=== PATIENT | male | born 1960 | race Caucasian/White ===

== ENCOUNTER 2016-03-18 16:49 | Emergency (ER) | payer SELFPAY ==
[2016-03-18 16:57] LABS: Glucose,Whole Blood 128 mg/dL (75-99)
[2016-03-18] MEDS ORDERED: SODIUM CHLORIDE 0.9% 1,000 ML IV STA (17:04)
[2016-03-18] MEDS ORDERED: SODIUM CHLORIDE 0.9% 500 ML IV STA (17:04)
[2016-03-18] MEDS ORDERED: DIPH,PERTUS(ACELL)TETVAC-LF 0.5 ML VIAL IM ONE (17:06)
[2016-03-18] MEDS ORDERED: MORPHINE SULFATE 4 MG/ML SYRINGE IVP STA ×2 (17:13→19:08)
[2016-03-18] MEDS ORDERED: ONDANSETRON 4 MG/2 ML VIAL IVP STA (17:13)
[2016-03-18 17:30] LABS: Basophils # (A) 0.1 k/uL (0-0.2); Basophils % (A) 2 %; CH 30.6; CHCM 34.1; Eosinophils # (A) 0.3 k/uL (0-0.7); Eosinophils % (A) 4 %; HCT 50.3 % (39.0-53.0); HDW 2.46; HGB 16.3 gm/dL (13.0-17.5); Luc # (Auto) 0.24; Luc % (Auto) 4; Lymphocytes # (A) 1.6 k/uL (1.0-4.8); Lymphocytes % (A) 25 %; MCH 29.2 pg (25.0-35.0); MCHC 32.4 g/dL (31.0-37.0); MCV 90.1 fL (80.0-100.0); Mean Platelet Volume 8.1; Monocytes # (A) 0.5 k/uL (0-1.0); Monocytes % (A) 8 %; Neutrophils # (A) 3.7 k/uL (1.3-7.7); Neutrophils % (A) 58 %; RBC 5.58 m/uL (4.30-5.90); WBC 6.3 k/uL (3.8-10.6); WBC (Perox) 6.21
[2016-03-18 17:39] LABS: INR 1.2 (<1.1); Partial Thromboplastin Time 23.7 sec (22.0-30.0); Prothrombin Time 11.6 sec (9.0-12.0)
--- NOTE | 2016-03-18 17:42 | ED ---
Syncope HPI - General Chief Complaint: Syncope Stated Complaint: syncope Time Seen by Provider: 03/18/16 16:53 Source: patient Mode of arrival: EMS Limitations: no limitations - History of Present Illness Initial Comments: Brought in by EMS with the syncope, he was donating plasma he felt sick and he felt nauseous and wanted to go to the bathroom him on her way to the bathroom he fell he hit his head for head first on the hard surface then he passed out and he has a laceration on the face as well - Related Data Home Medications Medication Instructions Recorded Confirmed FLUoxetine HCL [PROzac] 20 mg PO DAILY 05/07/15 03/18/16 Lisinopril [Zestril] 20 mg PO DAILY 05/23/15 03/18/16 Loratadine [Claritin] 10 mg PO DAILY 03/18/16 03/18/16 Allergies Allergy/AdvReac Type Severity Reaction Status Date / Time No Known Allergies Allergy Verified 03/18/16 17:36 Review of Systems ROS Statement: Those systems with pertinent positive or pertinent negative responses have been documented in the HPI. ROS Other: All systems not noted in ROS Statement are negative. Past Medical History Past Medical History: No Reported History History of Any Multi-Drug Resistant Organisms: None Reported Past Surgical History: Cholecystectomy, Hernia Repair Past Psychological History: Depression Smoking Status: Never smoker Past Alcohol Use History: None Reported Past Drug Use History: None Reported General Exam - General Exam Comments Initial Comments: General: The patient is awake and alert, in no distress, and does not appear acutely ill. GCS is 15 Skin: Skin is warm and dry and no rashes or lesions are noted. Examination of the skin noticed he has a laceration on the forehead it's 5 cm long, is T- shaped extends over the nose and of the 3 cm Eye: Pupils are equal, round and reactive to light, extra-ocular movements are intact; there is normal conjunctiva bilaterally. Ears, nose, mouth and throat: There are moist mucous membranes and no oral lesions. Neck: The neck is supple, there is no tenderness or JVD. Cardiovascular: There is a regular rate and rhythm. No murmur, rub or gallop is appreciated. Respiratory: To auscultation bilateral, no wheezing no rhonchi no distress respiratory spicer noticed Gastrointestinal: Soft, non-distended, non-tender abdomen without masses or organomegaly noted. There is no rebound or guarding present. Bowel sounds are unremarkable. Back: There is no tenderness to palpation in the midline. There is no obvious deformity. Musculoskeletal: Normal ROM, no tenderness, There is no pedal edema. There is no calf tenderness or swelling. No cords were appreciated. Neurological: CN II-XII intact, Cranial nerves III through XII are intact. There are no obvious motor or sensory deficits. Coordination appears grossly intact. Speech is normal. Psychiatric: Cooperative, appropriate mood & affect, normal judgment. Limitations: no limitations Course Vital Signs 03/18/16 03/18/16 03/18/16 16:53 17:55 21:22 Temperature 97 F L Pulse Rate 92 61 65 Respiratory 20 18 16 Rate Blood Pressure 128/60 105/58 O2 Sat by Pulse 95 92 L 95 Oximetry EKG Findings - EKG Comments: EKG Findings:: EKG shows normal sinus rhythm ventricular rate is 65 OR interval is 154 QRS duration is 114 QT/QTc is 428/445 review of this EKG showed some T- wave inversion in lead [address] elevation or ST depression noticed in other looks Procedures - Laceration Laceration #1 Time Out Performed: Yes Indication: laceration Site: face Description: irregular Depth: simple, single layer Anesthetic Used: lidocaine 1% Type of Sutures: nylon Size of Sutures: 5-0 Technique: simple, interrupted (Required about 9 stitches to approximate the edges, advised patient to get the sutures out in 6-7 days) Medical Decision Making - Lab Data Result diagrams: 03/18/16 16:50 03/18/16 16:50 Lab Results 03/18/16 03/18/16 03/18/16 Range/Units 16:50 16:50 16:50 WBC 6.3 (3.8-10.6) k/uL RBC 5.58 (4.30-5.90) m/uL Hgb 16.3 (13.0-17.5) gm/dL Hct 50.3 (39.0-53.0) % MCV 90.1 (80.0-100.0) fL MCH 29.2 (25.0-35.0) pg MCHC 32.4 (31.0-37.0) g/dL RDW 14.0 (11.5-15.5) % Plt Count 168 (150-450) k/uL Neutrophils % 58 % Lymphocytes % 25 % Monocytes % 8 % Eosinophils % 4 % Basophils % 2 % Neutrophils # 3.7 (1.3-7.7) k/uL Lymphocytes # 1.6 (1.0-4.8) k/uL Monocytes # 0.5 (0-1.0) k/uL Eosinophils # 0.3 (0-0.7) k/uL Basophils # 0.1 (0-0.2) k/uL PT (9.0-12.0) sec INR (<1.1) APTT (22.0-30.0) sec Sodium 137 (137-145) mmol/L Potassium 3.8 (3.5-5.1) mmol/L Chloride 98 (98-107) mmol/L Carbon Dioxide 29 (22-30) mmol/L Anion Gap 10 mmol/L BUN 16 (9-20) mg/dL Creatinine 0.80 (0.66-1.25) mg/dL Est GFR (MDRD) Af Amer >60 (>60 ml/min/1.73 sqM) Est GFR (MDRD) Non-Af >60 (>60 ml/min/1.73 sqM) Glucose 142 H (74-99) mg/dL POC Glucose (mg/dL) (75-99) mg/dL POC Glu Electroencephalograph Technologist ID Calcium 9.2 (8.4-10.2) mg/dL Total Bilirubin 0.5 (0.2-1.3) mg/dL AST 41 (17-59) U/L ALT 66 (21-72) U/L Alkaline Phosphatase 80 (38-126) U/L Total Creatine Kinase 109 (55-170) U/L CK-MB (CK-2) 1.1 (0.0-2.4) ng/mL CK-MB (CK-2) Rel Index 1.0 Troponin I 0.014 (0.000-0.034) ng/mL Total Protein 6.2 L (6.3-8.2) g/dL Albumin 3.7 (3.5-5.0) g/dL 03/18/16 03/18/16 Range/Units 16:50 16:54 WBC (3.8-10.6) k/uL RBC (4.30-5.90) m/uL Hgb (13.0-17.5) gm/dL Hct (39.0-53.0) % MCV (80.0-100.0) fL MCH (25.0-35.0) pg MCHC (31.0-37.0) g/dL RDW (11.5-15.5) % Plt Count (150-450) k/uL Neutrophils % % Lymphocytes % % Monocytes % % Eosinophils % % Basophils % % Neutrophils # (1.3-7.7) k/uL Lymphocytes # (1.0-4.8) k/uL Monocytes # (0-1.0) k/uL Eosinophils # (0-0.7) k/uL Basophils # (0-0.2) k/uL PT 11.6 (9.0-12.0) sec INR 1.2 (<1.1) APTT 23.7 (22.0-30.0) sec Sodium (137-145) mmol/L Potassium (3.5-5.1) mmol/L Chloride (98-107) mmol/L Carbon Dioxide (22-30) mmol/L Anion Gap mmol/L BUN (9-20) mg/dL Creatinine (0.66-1.25) mg/dL Est GFR (MDRD) Af Amer (>60 ml/min/1.73 sqM) Est GFR (MDRD) Non-Af (>60 ml/min/1.73 sqM) Glucose (74-99) mg/dL POC Glucose (mg/dL) 128 H (75-99) mg/dL POC Glu Electroencephalograph Technologist ID Miguelina Angelo Calcium (8.4-10.2) mg/dL Total Bilirubin (0.2-1.3) mg/dL AST (17-59) U/L ALT (21-72) U/L Alkaline Phosphatase (38-126) U/L Total Creatine Kinase (55-170) U/L CK-MB (CK-2) (0.0-2.4) ng/mL CK-MB (CK-2) Rel Index Troponin I (0.000-0.034) ng/mL Total Protein (6.3-8.2) g/dL Albumin (3.5-5.0) g/dL Disposition Clinical Impression: Syncope, Facial laceration Disposition: HOME SELF-CARE Condition: Good Instructions: Laceration (ED)
[2016-03-18 17:48] LABS: ALT 66 U/L (21-72); AST 41 U/L (17-59); Alkaline Phosphatase 80 U/L (38-126); Anion Gap 10 mmol/L; Blood Urea Nitrogen 16 mg/dL (9-20); Calcium 9.2 mg/dL (8.4-10.2); Carbon Dioxide 29 mmol/L (22-30); Chloride 98 mmol/L (98-107); Glucose 142 mg/dL (74-99); Non-African American GFR(MDRD) >60 (>60 ml/min/1.73 sqM); Potassium 3.8 mmol/L (3.5-5.1); Sodium 137 mmol/L (137-145); Total Bilirubin 0.5 mg/dL (0.2-1.3); Total Protein 6.2 g/dL (6.3-8.2)
[2016-03-18 18:09] LABS: Creatine Kinase MB 1.1 ng/mL (0.0-2.4); Troponin I 0.014 ng/mL (0.000-0.034)
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
--- NOTE | 2016-03-18 18:47 | XR ---
EXAMINATION TYPE: XR chest 2V DATE OF EXAM: 03/18/2016 6:43 PM COMPARISON: NONE HISTORY: Syncope TECHNIQUE: Frontal and lateral views of the chest are obtained. FINDINGS: The heart and mediastinum are normal. Lungs are clear. Diaphragm is normal. Bony thorax is intact. IMPRESSION: No active cardiopulmonary disease.
[2016-03-18] MEDS ORDERED: KETOROLAC 30 MG/ML 1 ML VIAL IVP STA (19:08)
[2016-03-18 22:16] VITALS: BP 103/68; PULSE 60; RESP 17; TEMP 97.3
== END 2016-03-18 22:28 | disposition home or self-care (01) ==
LOC: EC 16:49
DX: R55 Syncope and collapse (principal); S01.81XA Laceration without foreign body of other part of head, initial encounter; W19.XXXA Unspecified fall, initial encounter; F32.9 Major depressive disorder, single episode, unspecified; Z79.899 Other long term (current) drug therapy; Z23 Encounter for immunization
CPT/HCPCS: 96375 ×2; 96376 ×3; 12015 ×2; 90471 ×2; 96374 ×2; 99285 ×2; 36415; 93005; 80053; 82550; 82553; 84484; 85025; 85610; 85730; 71020; 72125; 70486; 70450; 90715; J2270; J2405; J1885

== ENCOUNTER 2019-02-20 03:46 | Emergency (ER) | payer OTHER ==
[2019-02-20 03:58] VITALS: BP 139/65; PULSE 75; RESP 18; TEMP 97
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
--- NOTE | 2019-02-20 05:01 | XR ---
EXAM: XR Chest, 2 Views CLINICAL HISTORY: trauma TECHNIQUE: Frontal and lateral views of the chest. COMPARISON: 03/18/2016 FINDINGS: Lungs: No significant abnormality. No consolidation. Pleural space: No significant abnormality. No pneumothorax. Heart: Stable cardiomediastinal silhouette. Mediastinum: See above. Bones/joints: No acute osseous abnormality. IMPRESSION: No radiographic evidence of acute traumatic thoracic injury.
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
== END 2019-02-20 05:39 | disposition home or self-care (01) ==
LOC: EC 03:46
DX: S00.81XA Abrasion of other part of head, initial encounter (principal); S00.01XA Abrasion of scalp, initial encounter; F10.129 Alcohol abuse with intoxication, unspecified; M54.9 Dorsalgia, unspecified; G89.29 Other chronic pain; I10 Essential (primary) hypertension; F32.9 Major depressive disorder, single episode, unspecified; Z79.899 Other long term (current) drug therapy; V47.5XXA Car driver injured in collision with fixed or stationary object in traffic accident, initial encounter; Y92.410 Unspecified street and highway as the place of occurrence of the external cause
CPT/HCPCS: 70450; 71046; 72125; 99284

== ENCOUNTER 2019-06-29 09:59 | Inpatient (IN) | payer BC, OTHER ==
--- NOTE | 2019-06-29 10:23 | ED ---
General Adult HPI - General Chief complaint: Chest Pain Stated complaint: chest pain Time Seen by Provider: 06/29/19 10:09 Source: patient, police, RN notes reviewed, old records reviewed Mode of arrival: wheelchair Limitations: no limitations - History of Present Illness Initial comments: 58-year-old male history of congestive heart failure and previous MS presenting for evaluation of chest pain and dyspnea. Patient's symptoms have been ongoing for the past 24 hours with regards to his chest pain. Pain is radiating to the left arm and neck. He states that his breathing has been difficult for some time several weeks at least. He reports swelling in his hands and feet. He is currently on diuretic but is uncertain of the medication overdose. He states he has been taking his medication as prescribed. Denies fever or chills. Reports a mild cough. - Related Data Home Medications Medication Instructions Recorded Confirmed FLUoxetine HCL [PROzac] 20 mg PO DAILY 05/07/15 03/18/16 Lisinopril [Zestril] 20 mg PO DAILY 05/23/15 03/18/16 Loratadine [Claritin] 10 mg PO DAILY 03/18/16 03/18/16 Allergies Allergy/AdvReac Type Severity Reaction Status Date / Time No Known Allergies Allergy Verified 06/29/19 10:06 Review of Systems ROS Statement: Those systems with pertinent positive or pertinent negative responses have been documented in the HPI. ROS Other: All systems not noted in ROS Statement are negative. Past Medical History Past Medical History: Hyperlipidemia, Hypertension Additional Past Medical History / Comment(s): pulmonary edema, cpap, chf, sleep apnea History of Any Multi-Drug Resistant Organisms: None Reported Past Surgical History: Cholecystectomy, Hernia Repair Past Psychological History: Depression Smoking Status: Never smoker Past Alcohol Use History: None Reported Past Drug Use History: None Reported General Exam Limitations: no limitations General appearance: alert, in no apparent distress Head exam: Present: atraumatic, normocephalic Eye exam: Present: normal appearance, PERRL ENT exam: Present: normal exam Neck exam: Present: normal inspection. Absent: tenderness, meningismus Respiratory exam: Present: normal lung sounds bilaterally. Absent: respiratory distress Cardiovascular Exam: Present: normal rhythm, bradycardia GI/Abdominal exam: Present: soft. Absent: distended, tenderness, guarding, rebound Extremities exam: Present: pedal edema Neurological exam: Present: alert, oriented X3, CN II-XII intact. Absent: motor sensory deficit Psychiatric exam: Present: normal affect, normal mood Skin exam: Present: warm, dry, intact. 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 Symptoms have been present for greater than 24 hours. States he does have previous history of MS, no previous stents. Not on any anticoagulation or antiplatelet medication. EKG shows sinus rhythm with no ST segment elevation. Chest x-ray is negative for acute cardiopulmonary disease. Patient has normal CBC, stable hemoglobin. Hypokalemia which is replaced in the emergency department. First troponin is 0.019, patient will be admitted, concern for unstable angina and CAD. Cardiology placed on consult. Patient has been initiated on heparin, given aspirin in the emergency department. - Lab Data Result diagrams: 06/29/19 10:20 06/29/19 10:20 Lab Results 06/29/19 06/29/19 06/29/19 Range/Units 10:20 10:20 10:20 WBC 6.7 (3.8-10.6) k/uL RBC 5.15 (4.30-5.90) m/uL Hgb 15.8 (13.0-17.5) gm/dL Hct 46.1 (39.0-53.0) % MCV 89.5 (80.0-100.0) fL MCH 30.7 (25.0-35.0) pg MCHC 34.3 (31.0-37.0) g/dL RDW 13.5 (11.5-15.5) % Plt Count 177 (150-450) k/uL Neutrophils % 58 % Lymphocytes % 23 % Monocytes % 9 % Eosinophils % 6 % Basophils % 1 % Neutrophils # 3.9 (1.3-7.7) k/uL Lymphocytes # 1.5 (1.0-4.8) k/uL Monocytes # 0.6 (0-1.0) k/uL Eosinophils # 0.4 (0-0.7) k/uL Basophils # 0.1 (0-0.2) k/uL PT 9.8 (9.0-12.0) sec INR 0.9 (<1.2) APTT 24.0 (22.0-30.0) sec Sodium 140 (137-145) mmol/L Potassium 3.2 L (3.5-5.1) mmol/L Chloride 96 L (98-107) mmol/L Carbon Dioxide 34 H (22-30) mmol/L Anion Gap 10 mmol/L BUN 21 H (9-20) mg/dL Creatinine 0.87 (0.66-1.25) mg/dL Est GFR (CKD-EPI)AfAm >90 (>60 ml/min/1.73 sqM) Est GFR (CKD-EPI)NonAf >90 (>60 ml/min/1.73 sqM) Glucose 91 (74-99) mg/dL Calcium 9.6 (8.4-10.2) mg/dL Magnesium 1.8 (1.6-2.3) mg/dL Total Bilirubin 0.7 (0.2-1.3) mg/dL AST 31 (17-59) U/L ALT 31 (4-49) U/L Alkaline Phosphatase 95 (38-126) U/L Troponin I (0.000-0.034) ng/mL NT-Pro-B Natriuret Pep pg/mL Total Protein 7.8 (6.3-8.2) g/dL Albumin 4.4 (3.5-5.0) g/dL Lipase 138 (23-300) U/L 06/29/19 06/29/19 Range/Units 10:20 10:20 WBC (3.8-10.6) k/uL RBC (4.30-5.90) m/uL Hgb (13.0-17.5) gm/dL Hct (39.0-53.0) % MCV (80.0-100.0) fL MCH (25.0-35.0) pg MCHC (31.0-37.0) g/dL RDW (11.5-15.5) % Plt Count (150-450) k/uL Neutrophils % % Lymphocytes % % Monocytes % % Eosinophils % % Basophils % % Neutrophils # (1.3-7.7) k/uL Lymphocytes # (1.0-4.8) k/uL Monocytes # (0-1.0) k/uL Eosinophils # (0-0.7) k/uL Basophils # (0-0.2) k/uL PT (9.0-12.0) sec INR (<1.2) APTT (22.0-30.0) sec Sodium (137-145) mmol/L Potassium (3.5-5.1) mmol/L Chloride (98-107) mmol/L Carbon Dioxide (22-30) mmol/L Anion Gap mmol/L BUN (9-20) mg/dL Creatinine (0.66-1.25) mg/dL Est GFR (CKD-EPI)AfAm (>60 ml/min/1.73 sqM) Est GFR (CKD-EPI)NonAf (>60 ml/min/1.73 sqM) Glucose (74-99) mg/dL Calcium (8.4-10.2) mg/dL Magnesium (1.6-2.3) mg/dL Total Bilirubin (0.2-1.3) mg/dL AST (17-59) U/L ALT (4-49) U/L Alkaline Phosphatase (38-126) U/L Troponin I 0.019 (0.000-0.034) ng/mL NT-Pro-B Natriuret Pep 127 pg/mL Total Protein (6.3-8.2) g/dL Albumin (3.5-5.0) g/dL Lipase (23-300) U/L Critical Care Time Critical Care Time: Yes Total Critical Care Time: 35 Disposition Clinical Impression: Unstable angina pectoris Disposition: ADMITTED IP TO THIS [facility] Condition: Stable Is patient prescribed a controlled substance at d/c from ED?: No Referrals: Marcelino Trujillo MD [Primary Care Provider] - 1-2 days Decision to Admit Reason: Admit from EC Decision Date: 06/29/19 Decision Time: 11:42
[2019-06-29 10:45] LABS: ALT 31 U/L (4-49); AST 31 U/L (17-59); African American GFR (CKD) >90 (>60 ml/min/1.73 sqM); Albumin 4.4 g/dL (3.5-5.0); Alkaline Phosphatase 95 U/L (38-126); Anion Gap 10 mmol/L; Blood Urea Nitrogen 21 mg/dL (9-20); Calcium 9.6 mg/dL (8.4-10.2); Carbon Dioxide 34 mmol/L (22-30); Chloride 96 mmol/L (98-107); Glucose 91 mg/dL (74-99); Magnesium 1.8 mg/dL (1.6-2.3); Non-African American GFR(CKD) >90 (>60 ml/min/1.73 sqM); Potassium 3.2 mmol/L (3.5-5.1); Sodium 140 mmol/L (137-145); Total Bilirubin 0.7 mg/dL (0.2-1.3); Total Protein 7.8 g/dL (6.3-8.2)
[2019-06-29 10:46] LABS: INR 0.9 (<1.2); Prothrombin Time 9.8 sec (9.0-12.0)
[2019-06-29 10:52] LABS: Basophils # (A) 0.1 k/uL (0-0.2); Basophils % (A) 1 %; Eosinophils # (A) 0.4 k/uL (0-0.7); Eosinophils % (A) 6 %; HCT 46.1 % (39.0-53.0); HGB 15.8 gm/dL (13.0-17.5); Lymphocytes # (A) 1.5 k/uL (1.0-4.8); Lymphocytes % (A) 23 %; MCH 30.7 pg (25.0-35.0); MCHC 34.3 g/dL (31.0-37.0); MCV 89.5 fL (80.0-100.0); Mean Platelet Volume 8.8; Monocytes # (A) 0.6 k/uL (0-1.0); Monocytes % (A) 9 %; Neutrophils # (A) 3.9 k/uL (1.3-7.7); Neutrophils % (A) 58 %; Platelet Count 177 k/uL (150-450); RBC 5.15 m/uL (4.30-5.90); RDW 13.5 % (11.5-15.5); WBC 6.7 k/uL (3.8-10.6)
--- NOTE | 2019-06-29 10:52 | XR ---
EXAMINATION TYPE: XR chest 2V DATE OF EXAM: 06/29/2019 COMPARISON: 02/20/2019 HISTORY: Chest pain TECHNIQUE: Frontal and lateral views of the chest are obtained. FINDINGS: There is no focal air space opacity, pleural effusion, or pneumothorax seen. Exaggeration of the pulmonary vasculature on the lateral view only is likely due to hypoventilatory lungs on the lateral view. The cardiac silhouette size is mildly enlarged as seen on the prior. The osseous stru ctures are intact. IMPRESSION: No acute cardiopulmonary process.
[2019-06-29] MEDS ORDERED: POTASSIUM CHLORIDE ER 20 MEQ TAB.ER PO STA (11:12)
[2019-06-29] MEDS ORDERED: ASPIRIN 325 MG TAB PO STA (11:13)
[2019-06-29] MEDS ORDERED: HYDROmorphone 1 MG/ML 1 ML SYRINGE IVP STA (11:28)
[2019-06-29] MEDS ORDERED: FAMOTIDINE 20 MG/2 ML VIAL IV STA (11:34)
[2019-06-29] MEDS ORDERED: SODIUM CHLORIDE 0.9% 500 ML 500 ML IV ONE (11:38)
[2019-06-29] MEDS ORDERED: ACETAMINOPHEN TAB 325 MG TAB PO PRN (11:39)
[2019-06-29] MEDS ORDERED: NALOXONE 0.4 MG/ML 1 ML VIAL IV PRN (11:39)
[2019-06-29] MEDS ORDERED: HEPARIN SODIUM,PORCINE 5,000 UNIT/ML 1 ML VIAL IV ONE (11:39)
[2019-06-29] MEDS ORDERED: HEPARIN SODIUM,PORCINE 5,000 UNIT/ML 1 ML VIAL IV PRN (11:39)
[2019-06-29] MEDS ORDERED: HEPARIN SOD,PORK IN 0.45% NACL 25,000 UNIT in 0.45% NACL 1 250ML.BAG IV SCH (11:45)
[2019-06-29] MEDS: HYDROmorphone 0.5 MG/0.5 ML SYRINGE IVP PRN ×2 (16:05→20:02)
[2019-06-29 18:25] LABS: D-Dimer 0.3 mg/L FEU (<0.60)
[2019-06-29] MEDS: SODIUM CHLORIDE 0.9% 1,000 ML IV SCH (20:02)
[2019-06-30] MEDS: HYDROmorphone 0.5 MG/0.5 ML SYRINGE IVP PRN ×2 (00:40→07:59)
[2019-06-30] MEDS: SODIUM CHLORIDE 0.9% 1,000 ML IV SCH ×2 (07:44→20:04)
[2019-06-30 10:34] LABS: Basophils # (A) 0.1 k/uL (0-0.2); Basophils % (A) 1 %; Eosinophils # (A) 0.5 k/uL (0-0.7); Eosinophils % (A) 9 %; HCT 41.7 % (39.0-53.0); HGB 14.1 gm/dL (13.0-17.5); Lymphocytes # (A) 1.3 k/uL (1.0-4.8); Lymphocytes % (A) 25 %; MCH 30.5 pg (25.0-35.0); MCHC 33.8 g/dL (31.0-37.0); MCV 90.2 fL (80.0-100.0); Mean Platelet Volume 9.4; Monocytes # (A) 0.4 k/uL (0-1.0); Monocytes % (A) 7 %; Neutrophils # (A) 2.9 k/uL (1.3-7.7); Neutrophils % (A) 55 %; Platelet Count 137 k/uL (150-450); RBC 4.62 m/uL (4.30-5.90); RDW 13.4 % (11.5-15.5); WBC 5.3 k/uL (3.8-10.6)
--- NOTE | 2019-06-30 11:00 | ECHOF ---
Referral Reason:ascending aortic aneurysm hx, chest pain MEASUREMENTS -------- HEIGHT: 188.0 cm WEIGHT: 151.5 kg BP: 116/58 RVIDd: 3.9 cm (< 3.3) IVSd: 2.0 cm (0.6 - 1.1) LVIDd: 4.8 cm (3.9 - 5.3) LVPWd: 1.7 cm (0.6 - 1.1) IVSs: 2.5 cm LVIDs: 3.2 cm LVPWs: 2.0 cm LA Diam: 4.5 cm (2.7 - 3.8) LAESV Index (A-L): 33.45 ml/m Ao Diam: 3.7 cm (2.0 - 3.7) AV Cusp: 2.4 cm (1.5 - 2.6) MV EXCURSION: 12.538 mm (> 18.000) MV EF SLOPE: 30 mm/s (70 - 150) EPSS: 1.7 cm MV E Claudy: 0.70 m/s MV DecT: 181 ms MV A Claudy: 0.81 m/s MV E/A Ratio: 0.87 AV maxP.75 mmHg AV meanP.32 mmHg RAP: 5.00 mmHg RVSP: 37.00 mmHg FINDINGS -------- Sinus rhythm. This was a technically adequate study. The left ventricular size is normal. There is severe concentric left ventricular hypertrophy. Ove rall left ventricular systolic function is mildly impaired with, an EF between 45 - 50 %. Septal wa ll motion is delayed, and consistent with conduction delay/bundle branch block. The right ventricle is mild to moderately enlarged. LA is midly dilated 29-33ml/m2. The right atrium is normal in size. Interatrial and interventricular septum intact. There is mild aortic valve sclerosis. There is mild aortic stenosis present. Peak/mean gradient a cross the Aortic Valve is 14.75mmHg / 8.32mmHg. Mild mitral annular calcification present. There is trace to mild mitral regurgitation. Mild tricuspid regurgitation present. There is mild pulmonary hypertension. The right ventricular systolic pressure, as measured by Doppler, is 37.00mmHg. Trace/mild (physiologic) pulmonic regurgitation. The aortic root size is normal. Normal inferior vena cava with normal inspiratory collapse consistent with estimated right atrial pre ssure of 5 mmHg. There is no pericardial effusion. CONCLUSIONS -------- 1. Sinus rhythm. 2. This was a technically adequate study. 3. The left ventricular size is normal. 4. There is severe concentric left ventricular hypertrophy. 5. Overall left ventricular systolic function is mildly impaired with, an EF between 45 - 50 %. 6. Septal wall motion is delayed, and consistent with conduction delay/bundle branch block. 7. The right ventricle is mild to moderately enlarged. 8. LA is midly dilated 29-33ml/m2. 9. The right atrium is normal in size. 10. Interatrial and interventricular septum intact. 11. There is mild aortic valve sclerosis. 12. There is mild aortic stenosis present. 13. Peak/mean gradient across the Aortic Valve is 14.75mmHg / 8.32mmHg. 14. Mild mitral annular calcification present. 15. There is trace to mild mitral regurgitation. 16. Mild tricuspid regurgitation present. 17. There is mild pulmonary hypertension. 18. The right ventricular systolic pressure, as measured by Doppler, is 37.00mmHg. 19. Trace/mild (physiologic) pulmonic regurgitation. 20. The aortic root size is normal. 21. Normal inferior vena cava with normal inspiratory collapse consistent with estimated right atrial pressure of 5 mmHg. 22. There is no pericardial effusion. FISHING ROD MARKER: Yamel Phillips RDCS
[2019-06-30 14:34] LABS: African American GFR (CKD) >90 (>60 ml/min/1.73 sqM); Anion Gap 6 mmol/L; Blood Urea Nitrogen 21 mg/dL (9-20); Calcium 9.1 mg/dL (8.4-10.2); Carbon Dioxide 31 mmol/L (22-30); Chloride 100 mmol/L (98-107); Glucose 121 mg/dL (74-99); Non-African American GFR(CKD) >90 (>60 ml/min/1.73 sqM); Potassium 3.2 mmol/L (3.5-5.1); Sodium 137 mmol/L (137-145)
[2019-06-30] MEDS ORDERED: Potassium Replacement Protocol 1 EACH MISC MISCELLANE PRN ×2 (14:40→18:38)
[2019-06-30] MEDS ORDERED: LORATADINE 10 MG TAB PO STA (14:41)
[2019-06-30] MEDS ORDERED: FLUoxetine HCL 20 MG CAP PO STA (14:46)
[2019-06-30] MEDS: POTASSIUM CHLORIDE ER 20 MEQ TAB.ER PO SCH ×4 (14:53→20:04)
[2019-06-30] MEDS: traMADol 50 MG TAB PO PRN ×2 (14:54→23:20)
--- NOTE | 2019-06-30 16:01 | PN ---
PROGRESS NOTE DATE OF SERVICE: 06/30/2019 CHIEF COMPLAINT: Chest pain. HISTORY OF PRESENT ILLNESS: This gentleman is doing well. He is still complaining of chest pain, but it is noncardiac. PHYSICAL EXAMINATION: Vital signs are normal. His blood pressure is elevated and his pulse has also risen. Chest is clear. Cardiac exam is normal. Abdomen is soft, nontender. Chest wall is nontender. Extremities are normal. IMPRESSION: 1. Atypical chest pain. 2. History of coronary artery disease. 3. History of ascending aortic aneurysm. 4. Hypertension. PLAN: 1. Await evaluation by Cardiology. 2. Await D-dimer. 3. Increase activity. He may be able to be discharged tomorrow. MMODL / IJN: [id number] /
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
[2019-07-01] MEDS: SODIUM CHLORIDE 0.9% 1,000 ML IV SCH (02:16)
[2019-07-01] MEDS ORDERED: REGADENOSON 0.4 MG/5 ML SYRINGE IV ONE (06:00)
[2019-07-01] MEDS: traMADol 50 MG TAB PO PRN ×3 (06:02→17:54)
[2019-07-01 06:51] LABS: Basophils # (A) 0.1 k/uL (0-0.2); Basophils % (A) 1 %; Eosinophils # (A) 0.5 k/uL (0-0.7); Eosinophils % (A) 10 %; HCT 40.5 % (39.0-53.0); Lymphocytes # (A) 1.1 k/uL (1.0-4.8); Lymphocytes % (A) 23 %; MCH 29.7 pg (25.0-35.0); MCHC 32.2 g/dL (31.0-37.0); MCV 92.1 fL (80.0-100.0); Mean Platelet Volume 8.9; Monocytes # (A) 0.4 k/uL (0-1.0); Monocytes % (A) 9 %; Neutrophils # (A) 2.6 k/uL (1.3-7.7); Neutrophils % (A) 54 %; Platelet Count 146 k/uL (150-450); RBC 4.39 m/uL (4.30-5.90); RDW 13.6 % (11.5-15.5); WBC 4.8 k/uL (3.8-10.6)
[2019-07-01 07:04] LABS: African American GFR (CKD) >90 (>60 ml/min/1.73 sqM); Anion Gap 5 mmol/L; Blood Urea Nitrogen 17 mg/dL (9-20); Calcium 9.2 mg/dL (8.4-10.2); Carbon Dioxide 31 mmol/L (22-30); Chloride 102 mmol/L (98-107); Cholesterol 143 mg/dL (<200); Glucose 107 mg/dL (74-99); HDL Cholesterol 31 mg/dL (40-60); LDL Cholesterol,Calculated 85 mg/dL (0-99); Non-African American GFR(CKD) >90 (>60 ml/min/1.73 sqM); Potassium 3.7 mmol/L (3.5-5.1); Sodium 138 mmol/L (137-145); Triglycerides 133 mg/dL (<150)
[2019-07-01] MEDS ORDERED: DIPYRIDAMOLE 70 MG in SODIUM CHLORIDE 0.9% 36 ML IV ONE ×2 (08:00→08:30)
[2019-07-01] MEDS ORDERED: AMINOPHYLLINE 500 MG/20 ML VIAL IV ONE (09:30)
--- NOTE | 2019-07-01 10:09 | P.STRESS ---
- Stress Test Note Stress Test Results/Findings: Exam Performed: NM stress persantine cardiolite Exam Date: 07/01/19 Reason for Exam: Chest Pain Height: 6 ft 2 in Weight: 153 kg Protocol: Persantine Stage: NA Duration of Exercise: NA Resting Heart Rate: 56 Resting Blood Pressure: 128/74 Maximum Achieved Heart Rate: 74 Maximum Achieved Blood Pressure: 128/74 85% PMHR: NA 100% PMHR: NA METS: NA Technologist Comment: Stress Test Results/Findings: This is a 58-year-old gentleman with history of hypertension was admitted to the hospital with the complaints of chest pain. He also has hypercholesterolemia and family history of ischemic heart disease. Stress data: Baseline EKG showed sinus rhythm with diffuse ST-T abnormalities. A standard dose of Persantine was infused. Patient continued to have atypical chest pain. EKG continued to show nonspecific ST-T abnormalities without any significant deviation from baseline. Final impression #1. Nondiagnostic Persantine stress test because of baseline EKG changes #2. Report on nuclear images to begin by the radiologist
[2019-07-01] MEDS ORDERED: AMINOPHYLLINE 500 MG/20 ML VIAL IV PRN ×2 (10:12→10:25)
[2019-07-01] MEDS ORDERED: CAFFEINE CITRATE 60 MG/3 ML VIAL IV PRN ×2 (10:12→10:25)
[2019-07-01] MEDS ORDERED: DIPYRIDAMOLE 70 MG in SODIUM CHLORIDE 0.9% 50 ML IV ONE (10:25)
[2019-07-01] MEDS: LORATADINE 10 MG TAB PO SCH (12:08)
[2019-07-01] MEDS: ASPIRIN 81 MG PO SCH (12:08)
[2019-07-01] MEDS: FLUoxetine HCL 20 MG CAP PO SCH (12:08)
--- NOTE | 2019-07-01 12:12 | NM ---
EXAMINATION TYPE: NM stress persantine cardiolite DATE OF EXAM: 07/01/2019 COMPARISON: NONE HISTORY: Chest pain TECHNIQUE: After the intravenous administration of 10.4 mCi Tc 99m Sestamibi - Cardiolite resting SP ECT images acquired 65 minutes post injection. The patient received 70 mg Persantine, 26.2 mCi Tc 99m Sestamibi - Stress images obtained 85 minutes post injection FINDINGS: There is diminished radiotracer accumulation within the inferior wall. This appears improve d on the resting images. A reversible stress-induced ischemic change along the distal third of the in ferior wall may be present. Correlate for EKG changes. There may be some mild dyskinesia of the mid anterior wall. Some global hypokinesia may be present. T he ejection fraction is low at 43%. Normal greater than 50%. IMPRESSION: Suggestion of stress-induced ischemic change within the distal third of the inferior wall the cardiac apex. Correlate with EKG changes. 2. Global Hypokinesia with some dyskinesia of the anterior wall with ejection fraction is low at 43%.
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
--- NOTE | 2019-07-01 14:16 | P.PN ---
Subjective Progress Note Date: 07/01/19 This is a 58-year-old gentleman with history of hypertension and hyperlipidemia. He is currently incarcerated. Cardiology was asked to see the patient because of symptoms of chest discomfort. Patient was seen in consultation by Dr. Pickett and recommended today to undergo stress test. He had an echocardiogram with Doppler study performed which revealed an ejection fraction of 45-50%. Blood pressure 126/70 with a heart rate in the 50s, 95% on a Ventimask. White blood cell count 4.8, hemoglobin 13, platelet count 146. Sodium 138, potassium 3.7, BUN 72 and creatinine 0.7. Objective - Vital Signs Vital signs: Vital Signs Temp 97.8 F 07/01/19 07:51 Pulse 55 L 07/01/19 11:17 Resp 16 07/01/19 04:00 BP 126/75 07/01/19 11:17 Pulse Ox 95 07/01/19 11:17 Intake & Output 06/30/19 07/01/19 07/01/19 18:59 06:59 18:59 Intake Total 375 1200 300 Balance 375 1200 300 Weight 153 kg 153 kg Intake: IV 375 300 Sodium Chloride 0.9% 1, 375 300 000 ml @ 75 mls/hr IV . [id number] GABRIELA Rx#:[id number] Intake, IV Titration 900 Amount Sodium Chloride 0.9% 1, 900 000 ml @ 75 mls/hr IV . [id number] GABRIELA Rx#:[id number] Oral 300 Other: Voiding Method Toilet # Voids 1 - Exam PHYSICAL EXAMINATION: GENERAL: 58-year-old gentleman in no acute distress at the time of my examination HEENT: Head is atraumatic, normocephalic. Pupils equal, round. Sclera anicteric. Conjunctiva are clear. Mucous membranes of the mouth are moist. Neck is supple. There is no elevated jugular venous pressure. No carotid bruit is heard. HEART EXAMINATION: Heart S1, S2 normal. No murmur or gallop heard. CHEST EXAMINATION: Lungs are clear to auscultation and precussion. No chest wall tenderness is noted on palpation or with deep breathing. ABDOMEN: Soft, nontender. Bowel sounds are heard. No organomegaly noted. EXTREMITIES: 2+ peripheral pulses with no evidence of peripheral edema and no calf tenderness noted. NEUROLOGIC patient is awake, alert and oriented 3 . - Labs CBC & Chem 7: 07/01/19 06:08 07/01/19 06:08 Labs: Abnormal Lab Results - Last 24 Hours (Table) 06/30/19 07/01/19 07/01/19 Range/Units 14:06 06:08 06:08 Plt Count 146 L (150-450) k/uL Potassium 3.2 L (3.5-5.1) mmol/L Carbon Dioxide 31 H 31 H (22-30) mmol/L BUN 21 H (9-20) mg/dL Glucose 121 H 107 H (74-99) mg/dL HDL Cholesterol 31 L (40-60) mg/dL Assessment and Plan Plan: Assessment and plan #1 chest pain, atypical for acute coronary syndrome. Acute coronary syndrome has been ruled out. Patient is scheduled today for Persantine Cardiolite stress test #2 hypertension #3 hyperlipidemia #4 hypokalemia Plan Echocardiogram with Doppler study revealed an ejection fraction of 45-50%. If the patient's a stress test is negative he may be able to be discharged from our perspective, if the stress test is positive then further recommendations will need to be made. DNP note has been reviewed, I agree with a documented findings and plan of care. Patient was seen and examined.
[2019-07-01] MEDS ORDERED: ALPRAZolam 0.5 MG TAB PO PRN (14:59)
[2019-07-01] MEDS ORDERED: NITROGLYCERIN SL TABS 0.4 MG TAB SUBLINGUAL PRN (14:59)
[2019-07-01] MEDS ORDERED: ALPRAZolam 0.25 MG TAB PO PRN (14:59)
--- NOTE | 2019-07-01 17:26 | PN ---
PROGRESS NOTE CHIEF COMPLAINT: Chest pain. HISTORY OF PRESENT ILLNESS: This gentleman has been stable and is being evaluated by Cardiology. He has had no fever or chills, arrhythmias, etc. PHYSICAL EXAMINATION: Chest is clear. Cardiac exam is normal. Abdomen is soft, nontender. IMPRESSION: 1. Chest pain. 2. History of hypertension. 3. Ascending aortic aneurysm. PLAN: Progress activity. He can probably be discharged soon, once he is cleared by Cardiology. MMODL / IJN: [id number] /
[2019-07-02] MEDS: traMADol 50 MG TAB PO PRN ×3 (00:07→18:47)
[2019-07-02] MEDS: ATORVASTATIN 80 MG TAB PO ONE ×2 (06:24→06:25)
[2019-07-02] MEDS: LORATADINE 10 MG TAB PO SCH (06:24)
[2019-07-02] MEDS: ASPIRIN 325 MG TAB PO ONE ×2 (06:24→06:25)
[2019-07-02] MEDS: FLUoxetine HCL 20 MG CAP PO SCH (06:24)
[2019-07-02] MEDS: ASPIRIN 81 MG PO SCH ×2 (06:30→07:03)
[2019-07-02] MEDS ORDERED: SODIUM CHLORIDE 0.9% 1,000 ML in EMPTY BAG 1 BAG IV ONE (07:00)
[2019-07-02 07:29] LABS: Basophils # (A) 0.1 k/uL (0-0.2); Basophils % (A) 1 %; Eosinophils # (A) 0.4 k/uL (0-0.7); Eosinophils % (A) 8 %; HCT 38.8 % (39.0-53.0); HGB 12.5 gm/dL (13.0-17.5); Lymphocytes # (A) 1.1 k/uL (1.0-4.8); Lymphocytes % (A) 20 %; MCH 29.5 pg (25.0-35.0); MCHC 32.2 g/dL (31.0-37.0); MCV 91.7 fL (80.0-100.0); Mean Platelet Volume 8.3; Monocytes # (A) 0.4 k/uL (0-1.0); Monocytes % (A) 8 %; Neutrophils # (A) 3.3 k/uL (1.3-7.7); Neutrophils % (A) 62 %; Platelet Count 133 k/uL (150-450); RBC 4.23 m/uL (4.30-5.90); RDW 13.6 % (11.5-15.5); WBC 5.3 k/uL (3.8-10.6)
[2019-07-02] MEDS: SODIUM CHLORIDE 0.9% 1,000 ML IV SCH ×2 (07:47→13:02)
[2019-07-02] MEDS ORDERED: IV FLUID CONTINUATION 1,000 ML IV ONE (11:24)
[2019-07-02] MEDS ORDERED: LIDOCAINE 1% INJ 10MG/ML (20 ML MDV) ONE (11:34)
[2019-07-02] MEDS ORDERED: fentaNYL (PF) 50 MCG/ML 2 ML AMP ONE (11:34)
[2019-07-02] MEDS: MIDAZOLAM 2 MG/2 ML VIAL IV ONE ×2 (11:47→11:54)
[2019-07-02] MEDS ORDERED: fentaNYL (PF) 50 MCG/ML 2 ML AMP IV ONE (11:50)
[2019-07-02] MEDS ORDERED: LIDOCAINE 1% INJ 10MG/ML (20 ML MDV) SQ ONE (11:50)
[2019-07-02] MEDS ORDERED: IOPAMIDOL-370 125ML BTL INJ ONE (12:06)
[2019-07-02] MEDS ORDERED: RX INFO: IV CONTRAST WAS GIVEN 1 EACH MISC MISCELLANE PRN (12:16)
--- NOTE | 2019-07-02 12:32 | CC ---
CARDIAC CATHETERIZATION REPORT INDICATION: Chest pain with abnormal stress test. PROCEDURE NOTE: After obtaining informed consent, left heart catheterization and coronary angiogram are performed via the right femoral artery using standard Kiana catheters. Patient tolerated the procedure well without any obvious immediate complications. A femoral angiogram was performed and Angio-Seal was deployed for hemostasis. FINDINGS: 1. HEMODYNAMICS: Left ventricular end-diastolic pressure is 8 to 12 mm. There is no significant gradient across the aortic valve. 2. LEFT VENTRICULOGRAM: Left ventriculogram is not performed. 3. ANGIOGRAPHIC DATA: LEFT MAIN CORONARY ARTERY: Left main coronary artery is a normal-sized vessel and is free of stenosis. Divides into left anterior descending coronary artery and circumflex coronary artery. LAD and its branches show mild nonobstructive CAD. Circumflex coronary artery is a large codominant vessel and is free of significant stenosis. Right coronary artery shows [id number] atherosclerotic plaque in the proximal and mid RCA without focal hemodynamically significant lesions. CONCLUSION: Mild to moderate nonobstructive disease involving right coronary artery. PLAN: I reviewed angiographic data with the patient and told him that his management is going to be in the form of risk factor modification optimal medical therapy. Patient's chest discomfort is probably noncardiac in origin and the abnormal stress test is probably a false-positive stress test. MMODL / IJN: [id number] /
--- NOTE | 2019-07-02 17:09 | PN ---
PROGRESS NOTE CHIEF COMPLAINT: Chest pain. HISTORY OF PRESENT ILLNESS: This gentleman had a stress study yesterday and he is going for a cardiac cath today. He is not having any further pain. He is demanding Vicodin and he was told under the circumstances with his history of alcohol intoxication and the fact he is incarcerated, that we cannot give him a narcotic. PHYSICAL EXAMINATION: Chest is clear. Cardiac exam is normal. Abdomen is soft, nontender. IMPRESSION: 1. Chest pain. 2. Hypertension. 3. Ascending aortic aneurysm. 4. Alcoholism. PLAN: Cardiac cath today. MMODL / IJN: [id number] /
[2019-07-03] MEDS: SODIUM CHLORIDE 0.9% 1,000 ML IV SCH (02:38)
[2019-07-03] MEDS: LORATADINE 10 MG TAB PO SCH (09:27)
[2019-07-03] MEDS: traMADol 50 MG TAB PO PRN ×2 (09:27→16:20)
[2019-07-03] MEDS: FLUoxetine HCL 20 MG CAP PO SCH (09:27)
[2019-07-03] MEDS: ASPIRIN 81 MG PO SCH (09:27)
--- NOTE | 2019-07-03 11:12 | P.PN ---
Subjective Progress Note Date: 07/03/19 This is a 58-year-old gentleman with history of hypertension and hyperlipidemia. He is currently incarcerated. Cardiology was asked to see the patient because of symptoms of chest discomfort. Patient was seen in consultation by Dr. Pickett and recommended today to undergo stress test. He had an echocardiogram with Doppler study performed which revealed an ejection fraction of 45-50%. Blood pressure 126/70 with a heart rate in the 50s, 95% on a Ventimask. White blood cell count 4.8, hemoglobin 13, platelet count 146. Sodium 138, potassium 3.7, BUN 72 and creatinine 0.7. 07/03/2019 The patient was seen and examined this morning by Dr. Pickett. He underwent a cardiac catheterization yesterday by Dr. Patton which revealed mild to moderate nonobstructive disease involving the right coronary artery and medical therapy was advised. He denies any chest discomfort this morning and is breathing is stable. Blood pressure 132/76 with a heart rate in the 60s, 97% on 2 L of oxygen. The patient may be discharged home today from our perspective, we will make a follow-up appointment in the office with Dr. Pickett post discharge. Objective - Vital Signs Vital signs: Vital Signs Temp 97.7 F 07/03/19 08:20 Pulse 63 07/03/19 08:20 Resp 18 07/03/19 08:20 BP 137/79 07/03/19 08:20 Pulse Ox 97 07/03/19 08:20 Intake & Output 07/02/19 07/03/19 07/03/19 18:59 06:59 18:59 Intake Total 638 500 240 Output Total 1000 700 Balance -362 -200 240 Weight 153.6 kg Intake: IV 278 Sodium Chloride 0.9% 1, 153 000 ml In Empty Bag 1 bag @ 1 ML/KG/HR 153 mls/hr IV .[id number] ONE Rx#: [id number] Oral 360 500 240 Output: Urine 1000 700 Other: # Voids 1 - Exam PHYSICAL EXAMINATION: GENERAL: 58-year-old gentleman in no acute distress at the time of my examination HEENT: Head is atraumatic, normocephalic. Pupils equal, round. Sclera anicteric. Conjunctiva are clear. Mucous membranes of the mouth are moist. Neck is supple. There is no elevated jugular venous pressure. No carotid bruit is heard. HEART EXAMINATION: Heart S1, S2 normal. No murmur or gallop heard. CHEST EXAMINATION: Lungs are clear to auscultation and precussion. No chest wall tenderness is noted on palpation or with deep breathing. ABDOMEN: Soft, nontender. Bowel sounds are heard. No organomegaly noted. EXTREMITIES: 2+ peripheral pulses with no evidence of peripheral edema and no calf tenderness noted. Right groin soft, no evidence of any hematoma. NEUROLOGIC patient is awake, alert and oriented 3 . - Labs CBC & Chem 7: 07/02/19 06:52 07/01/19 06:08 Assessment and Plan Plan: Assessment and plan #1 chest pain, atypical for acute coronary syndrome. Acute coronary syndrome has been ruled out. #2 hypertension #3 hyperlipidemia #4 hypokalemia Plan Patient's stress test was suggestive of reversible ischemia, therefore the patient underwent a cardiac catheterization yesterday by Dr. Doshi which revealed mild nonobstructive disease involving the right coronary artery and medical therapy was advised. Patient may be able to be discharged home today to follow- up with Dr. Castellon in the office. Discharge medications include aspirin 81 mg daily, Lipitor 40 mg daily, Zestril 40 mg daily, metoprolol 50 mg daily, sublingual nitroglycerin as needed for chest pain. DNP note has been reviewed, I agree with a documented findings and plan of care. Patient was seen and examined.
--- NOTE | 2019-07-03 12:39 | CDI ---
Documentation Clarification Form Date: 07/03/2019 12:21:00 PM From: Karly Green RN, CCDS Admit Date: 07/01/2019 02:31:00 PM Patient Name: Vance Lee Visit Number: [id number] ATTENTION: The Clinical Documentation Specialists (CDI) and [facility] Coding Staff appreciate your assistance in clarifying documentation. Please respond to the clarification below the line at the bottom and electronically sign. The CDI & [facility] Coding staff will review the response and follow-up if needed. Please note: Queries are made part of the Legal Health Record. If you have any questions, please contact the author of this message via ITS. Dr. Marcelino Trujillo Coronavirus screening was preformed on this patient. All patients receiving Coronavirus screening require documentation of results in medical record. Patient history/risk factors: HTN, CHF, Sleep Apnea w/ CPAP Clinical Indicators: Chief Complaint of chest pain and dyspnea x 24 hrs 06/28 CXR: No acute cardiopulmonary process. Labs: WNL ABGs: Not done 06/29/2019 1002 Vital Signs: Temp 98.8, HR 50, RR 18, B/P 118/74, SPO2 96% 2L NC 06/28 Coronavirus (PCR) Negative Treatment: 07/01 0.9%NS@153 x 1L followed by 75 cc/hr In order to capture the severity of condition, please clarify if the above treatment/clinical indicators signify: COVID-19 ruled out Other, please specify (Last Form Revision: May 2019) MTDD
[2019-07-03 13:40] VITALS: BP 144/83; PULSE 61; RESP 17; TEMP 97.6
--- NOTE | 2019-07-03 20:00 | DS ---
DISCHARGE SUMMARY CHIEF COMPLAINT: Chest pain. HISTORY OF PRESENT ILLNESS AND PHYSICAL EXAMINATION: Details of this man's history and physical can be found in the initial workup. LABORATORY STUDIES: While he was in the hospital he had laboratory studies, details of which can be found in the laboratory section of his chart. COURSE IN THE HOSPITAL: After admission he was placed on bedrest and had serial EKGs and enzymes. He was seen by Cardiology. He was taken for a stress study, which was borderline, and he subsequently underwent a cardiac catheterization which did not demonstrate any critical coronary artery lesions. At that point it was felt that he could be discharged. [facility]. He will be on the same medications that he came in on, and he will be seen in several days. He is to be released from penitentiary on Saturday. FINAL DIAGNOSES: 1. Chest pain, non-cardiac. 2. History of hypertension. 3. History of ascending aortic aneurysm. 4. History of alcohol abuse. OPERATIONS: Cardiac catheterization. CONSULTATIONS: Cardiology. He is improved. MMODL / IJN: [id number] /
[2019-07-04] MEDS ORDERED: LISINOPRIL 20 MG TAB PO SCH (09:00)
[2019-07-04] MEDS ORDERED: ATORVASTATIN 40 MG TAB PO SCH (09:00)
[2019-07-04] MEDS ORDERED: METOPROLOL TARTRATE 50 MG TAB PO SCH (09:00)
--- NOTE | 2019-07-06 13:09 | CDI ---
Documentation Clarification Form 2nd Request Date: 07/03/2019 12:21:00 PM From: Karly Green RN, CCDS Admit Date: 07/01/2019 02:31:00 PM Patient Name: Vance Lee Visit Number: [id number] ATTENTION: The Clinical Documentation Specialists (CDI) and [facility] Coding Staff appreciate your assistance in clarifying documentation. Please respond to the clarification below the line at the bottom and electronically sign. The CDI & [facility] Coding staff will review the response and follow-up if needed. Please note: Queries are made part of the Legal Health Record. If you have any questions, please contact the author of this message via ITS. Dr. Marcelino Trujillo Coronavirus screening was preformed on this patient. All patients receiving Coronavirus screening require documentation of results in medical record. Patient history/risk factors: HTN, CHF, Sleep Apnea w/ CPAP Clinical Indicators: Chief Complaint of chest pain and dyspnea x 24 hrs 06/28 CXR: No acute cardiopulmonary process. Labs: WNL ABGs: Not done 06/29/2019 1002 Vital Signs: Temp 98.8, HR 50, RR 18, B/P 118/74, SPO2 96% 2L NC 06/28 Coronavirus (PCR) Negative Treatment: 07/01 0.9%NS@153 x 1L followed by 75 cc/hr In order to capture the severity of condition, please clarify if the above treatment/clinical indicators signify: COVID-19 ruled out Other, please specify (Last Form Revision: May 2019) MTDD
--- NOTE | 2019-07-06 21:53 | MISC ---
MISCELLANOUS REPORT QUERY: COVID-19 ruled out. MMODL / IJN: [id number] /
== END 2019-07-03 16:48 | DRG 287 ==
LOC: EC 09:59 → 3SCARD 11:39 → OBSVTOIN 07-01 14:31
PROVIDERS: ADMIT Family Medicine; ATTEND Family Medicine
PROC: 4A023N7 Measurement of Cardiac Sampling and Pressure, Left Heart, Percutaneous Approach (ICD-10-PCS; principal; 2019-07-02 11:30)
PROC: B2111ZZ Fluoroscopy of Multiple Coronary Arteries using Low Osmolar Contrast (ICD-10-PCS; principal; 2019-07-02 11:30)
DX: R07.89 Other chest pain (principal); E78.5 Hyperlipidemia, unspecified; I50.9 Heart failure, unspecified; G47.30 Sleep apnea, unspecified; F32.9 Major depressive disorder, single episode, unspecified; I11.0 Hypertensive heart disease with heart failure; F10.20 Alcohol dependence, uncomplicated; E87.6 Hypokalemia; I27.20 Pulmonary hypertension, unspecified; I71.2 Thoracic aortic aneurysm, without rupture; I25.10 Atherosclerotic heart disease of native coronary artery without angina pectoris; Z20.828 Contact with and (suspected) exposure to other viral communicable diseases; Z79.899 Other long term (current) drug therapy; Z99.89 Dependence on other enabling machines and devices; Z90.49 Acquired absence of other specified parts of digestive tract; Z98.890 Other specified postprocedural states; I25.2 Old myocardial infarction; Z82.49 Family history of ischemic heart disease and other diseases of the circulatory system; Z83.3 Family history of diabetes mellitus
CPT/HCPCS: 36415; 71046; 78452; 80048; 80053; 80061; 83690; 83735; 83880; 84132; 84484; 85025; 85379; 85610; 85730; 87635; 93005; 93017; 93306; 93458; 96365; 96375; 96376; 99291

== ENCOUNTER 2019-07-25 17:52 | Inpatient (IN) | payer OTHER ==
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
[2019-07-25] MEDS ORDERED: ASPIRIN 81 MG PO STA (18:21)
[2019-07-25] MEDS ORDERED: HYDROmorphone 0.5 MG/0.5 ML SYRINGE IVP STA (18:22)
[2019-07-25 19:03] LABS: Basophils # (A) 0.1 k/uL (0-0.2); Basophils % (A) 2 %; Eosinophils # (A) 0.3 k/uL (0-0.7); Eosinophils % (A) 7 %; HCT 42.4 % (39.0-53.0); HGB 13.6 gm/dL (13.0-17.5); Lymphocytes # (A) 0.9 k/uL (1.0-4.8); Lymphocytes % (A) 19 %; MCH 29.4 pg (25.0-35.0); MCHC 32.2 g/dL (31.0-37.0); MCV 91.2 fL (80.0-100.0); Mean Platelet Volume 8.5; Monocytes # (A) 0.4 k/uL (0-1.0); Monocytes % (A) 8 %; Neutrophils # (A) 2.9 k/uL (1.3-7.7); Neutrophils % (A) 61 %; Platelet Count 184 k/uL (150-450); RBC 4.65 m/uL (4.30-5.90); RDW 13.4 % (11.5-15.5); WBC 4.7 k/uL (3.8-10.6)
--- NOTE | 2019-07-25 19:10 | XR ---
EXAMINATION TYPE: XR chest 2V DATE OF EXAM: 07/25/2019 COMPARISON: 06/29/2019 HISTORY: Sternal chest pain TECHNIQUE: Frontal and lateral views of the chest are obtained. FINDINGS: Low lung volumes exaggerate the pulmonary vasculature. Cardiomediastinal silhouette is enl arged. There is no focal air space opacity, pleural effusion, or pneumothorax seen. No acute osseous pathology seen. IMPRESSION: Pulmonary vasculature is slightly prominent likely related to low lung volumes rather th an mild pulmonary vascular congestion. Cardiomegaly is redemonstrated.
[2019-07-25 19:12] LABS: ALT 21 U/L (4-49); AST 23 U/L (17-59); African American GFR (CKD) >90 (>60 ml/min/1.73 sqM); Alkaline Phosphatase 95 U/L (38-126); Amylase 47 U/L (30-110); Anion Gap 5 mmol/L; Blood Urea Nitrogen 13 mg/dL (9-20); Calcium 9.4 mg/dL (8.4-10.2); Carbon Dioxide 30 mmol/L (22-30); Chloride 104 mmol/L (98-107); Glucose 119 mg/dL (74-99); Magnesium 1.8 mg/dL (1.6-2.3); Non-African American GFR(CKD) 82 (>60 ml/min/1.73 sqM); Potassium 4.1 mmol/L (3.5-5.1); Sodium 139 mmol/L (137-145); Total Bilirubin 0.3 mg/dL (0.2-1.3); Total Protein 6.8 g/dL (6.3-8.2)
[2019-07-25 19:19] LABS: D-Dimer 0.46 mg/L FEU (<0.60); INR 0.9 (<1.2)
[2019-07-25 19:20] LABS: Partial Thromboplastin Time 24.1 sec (22.0-30.0); Prothrombin Time 9.6 sec (9.0-12.0)
[2019-07-25] MEDS ORDERED: MORPHINE SULFATE 4 MG/ML SYRINGE IVP STA (20:08)
[2019-07-25] MEDS ORDERED: NITROGLYCERIN SL TABS 0.4 MG TAB SUBLINGUAL STA (20:18)
--- NOTE | 2019-07-25 21:19 | CT ---
EXAMINATION TYPE: CT angio thor/abd pel aorta DATE OF EXAM: 07/25/2019 COMPARISON: NONE HISTORY: CHEST PAIN CT DLP: 4104.8 mGycm. Automated Exposure Control for Dose Reduction was Utilized. CONTRAST: CTA scan of the thorax, abdomen and pelvis is performed without and with IV Contrast, patient injecte d with 100 mL of Isovue 370. Three-D imaging of the vasculature was created on a separate workstation of the chest, abdomen, and pelvis and submitted for review. FINDINGS: LUNGS: 5 mm pulmonary nodules seen in the right midlung on image 31. Strand-like areas of atelectasis at the lung bases independently. No focal consolidation. There is no pleural effusion or pneumotho rax seen. The tracheobronchial tree is patent. MEDIASTINUM: Motion artifact limits evaluation for dissection of the aortic root. No evidence of aneu rysm or dissection is seen of the ascending thoracic aorta, aortic arch, descending thoracic aorta, o r grossly of the upper abdominal aorta. The distal abdominal aorta and its branches are suboptimally evaluated given bolus timing. No aneurysm seen. There are no greater than 1 cm hilar or mediastinal l ymph nodes. No pericardial effusion is seen. Bolus timing does not allow for evaluation of pulmona ry embolus. Severe coronary artery calcifications. Strand-like density in the anterior superior media stinum likely relates to minimal residual thymic tissue. OTHER: Minimal retroareolar probable bilateral gynecomastia. LIVER/GB: Hepatic parenchyma is diffusely hypoattenuated in comparison to that of the spleen, most co mmonly seen in hepatic steatosis. This finding limits evaluation for hepatic masses. No gross evidenc e of hepatic mass is seen. No intrahepatic biliary ductal dilatation. Gallbladder is surgically absen t. PANCREAS: No significant abnormality is seen. SPLEEN: No significant abnormality is seen. ADRENALS: No significant nodularity or thickening. KIDNEYS: Right lower pole 2.2 cm simple appearing renal cyst. No hydronephrosis of either kidney. BOWEL: Appendix is retrocecal, air-filled, and within normal limits. No dilated large or small bowel. LYMPH NODES: No greater than 1cm abdominal or pelvic lymph nodes are appreciated. OSSEOUS STRUCTURES: Old healed rib fracture deformity is seen of the lateral margin of rib 2 on the r ight. Similar old healed fracture deformity of the anterior margin of rib 3 on the left and 4 on the left. Minimal degenerative change of the spine. IMPRESSION: 1. No evidence of aortic dissection or aneurysm in the thoracic aorta or abdominal aorta with limitat ion of the aortic root given motion artifact and of the distal abdominal aorta and its branches given bolus timing. 2. Severe coronary artery calcifications, marker of coronary artery disease. 3. 5 mm right-sided pulmonary nodule. CT thorax is recommended in 12 months to assess for any interva l growth.
[2019-07-25] MEDS ORDERED: PANTOPRAZOLE 40 MG/10 ML VIAL IVP ONE (22:26)
[2019-07-25] MEDS ORDERED: MAG HYDROX/AL HYDROX/SIMETH 30 ML, HYOSCYAMINE ELIXIR 10 ML, LIDOCAINE VISCOUS 2% 10 ML PO STA ×3 (22:26)
[2019-07-26] MEDS: HYDROmorphone 0.5 MG/0.5 ML SYRINGE IVP PRN ×4 (00:09→21:08)
[2019-07-26 04:05] LABS: Cholesterol 178 mg/dL (<200); HDL Cholesterol 38 mg/dL (40-60); LDL Cholesterol,Calculated 119 mg/dL (0-99); Triglycerides 103 mg/dL (<150)
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
--- NOTE | 2019-07-26 10:02 | CONS ---
CONSULTATION DATE OF DICTATION: July 26, 2019. REQUESTING PHYSICIAN: Dr. Trujillo. REASON FOR CONSULTATION: Abdominal pain and rectal bleeding. HISTORY OF PRESENT ILLNESS: The patient is a 58-year-old white male with history of hypertension, hyperlipidemia, came to the emergency room complaining of chest pain and rectal bleeding for the last 3 days duration. He describes the pain mostly in the midsternal area which is sharp in consistency and somewhat short of breath. Around the same time, he started having rectal bleeding. He had about rectal bleeding for 3 days in a row. For the 1st day it was dark and subsequently became bright red. He thinks it was moderate amount of bleeding. He denies any abdominal pain. He did have mild epigastric discomfort. No nausea, no vomiting. He never had these symptoms in the past. No prior history of peptic ulcer disease or recent NSAID use. In the ER, he was noted to have a hemoglobin that was 13 g/dL. Cardiology has been consulted, who evaluated the patient. Troponin so far has been negative. PAST MEDICAL HISTORY: Hypertension, hyperlipidemia, anxiety, depression. PAST SURGICAL HISTORY: Cholecystectomy, hernia repair. MEDICATIONS: At home include benazepril, Lipitor, albuterol, Flexeril, aspirin, vitamin D3, Lasix, hydrochlorothiazide, [place], Amlodipine, Catapres, Lopressor, Cozaar, Protonix and K- Peg. ALLERGIES: None. SOCIAL HISTORY: No smoking. No alcohol use. FAMILY HISTORY: Father had coronary artery disease. Mother had diabetes mellitus and coronary artery disease. REVIEW OF SYSTEMS: CARDIOPULMONARY: No chest pain, shortness of breath. GENITOURINARY: No dysuria or hematuria. MUSCULOSKELETAL unremarkable. SKIN unremarkable. ENDOCRINE unremarkable. PSYCHIATRIC unremarkable. NEUROLOGY unremarkable. ENT/vision unremarkable. CONSTITUTIONAL: No recent weight loss. No fever, chills, night sweats. PHYSICAL EXAMINATION: He appears comfortable, no apparent distress. VITAL SIGNS: Stable. Blood pressure is 137/74, pulse rate 59, temperature 98.3. HEENT examination unremarkable. Conjunctivae pink. Sclerae anicteric. Oral cavity no lesions. NECK: No JVD or lymph node enlargement. CHEST was clear to auscultation. HEART: Regular rate and rhythm. ABDOMEN: Soft. Bowel sounds are positive. No organomegaly. EXTREMITIES: No pedal edema. SKIN no rashes. NEUROLOGIC: Alert and oriented x3. No focal deficits. LABS: Done at the time of admission to the hospital: WBC 4.7, hemoglobin 13.6, platelets normal. Basic metabolic panel is within normal limits. Stool occult blood was positive. IMPRESSION: 1. Acute gastrointestinal bleed. The patient has been having dark colored stool followed by bright red blood per rectum for the last 3 days duration. Hemoglobin stable at 12.3 g/dL. Never had these symptoms in the past. No associated abdominal pain, possibly her lower gastrointestinal bleed, but cannot rule out upper gastrointestinal source of bleeding. He remains hemodynamically stable. 2. Atypical chest pain. Cardiology has been consulted. Troponins are negative. EKG nonspecific changes. 3. History of hypertension. 4. Hyperlipidemia. 5. History of congestive heart failure. RECOMMENDATIONS: 1. We will start him on a clear liquid diet. 2. Protonix 40 mg daily. 3. We will proceed with upper endoscopy and colonoscopy tomorrow if okay with cardiology. I discussed with the patient risks, benefits and complications of procedure and he is agreeable to it. Thank you for this consultation. MMIVORYL / NORRISN: [id number] /
[2019-07-26] MEDS ORDERED: PEG 3350-NA SULF,BICARB,CL/KCL 4,000 ML BOTTLE PO ONE (17:00)
[2019-07-26] MEDS: PANTOPRAZOLE 40 MG TABLET PO SCH (17:17)
--- NOTE | 2019-07-26 17:59 | HP ---
HISTORY AND PHYSICAL CHIEF COMPLAINT: Chest pain. HISTORY OF PRESENT ILLNESS: This gentleman came back to emergency room again with chest pain. He has been in and out recently. He has had some problems with severely high blood pressures. However, these may have been related to drinking alcohol in the past. [facility]. He also has a slight ascending aortic aneurysm which has been stable. He started to complain of chest pain. He comes in with very vague symptoms of chest pain and just not feeling well. He had no significant diaphoresis or shortness of breath. In the emergency room the EKG was unremarkable and his vital signs were normal. He was admitted for observation. He has also noticed some bright red rectal bleeding after having a bowel movement in the last several days. Hemoglobin was normal, however. He will also be evaluated by Gastroenterology. REVIEW OF SYSTEMS: He has had no syncope, orthopnea, PND, abdominal pain, nausea, vomiting, hematemesis, melena, renal failure, dysuria, hematuria, etc. Past medical history, family history and personal and social histories are all otherwise unremarkable and unchanged from his recent admitting and discharge summaries. He denies drinking. PHYSICAL EXAMINATION: Blood pressure is 102/51 with a pulse of 81, respirations of 19. He is afebrile. In general, he appeared to be in no acute distress. Skin color is normal. Skin is warm, dry. Lymph nodes not enlarged. Head, ears, eyes, nose, mouth, and throat were normal. Neck veins not distended. Thyroid not enlarged. Chest is clear and cardiac exam demonstrates sinus rhythm and no murmurs or extra sounds. Abdomen is soft and nontender. There are no masses or visceromegaly. Extremities normal. Neurologically he is intact. IMPRESSION: 1. Chest pain. 2. History of hypertension. 3. History of alcoholism. 4. Bright red rectal bleeding. PLAN: 1. Bed rest. 2. IV fluids. 3. Serial EKGs and enzymes. 4. Consult with Cardiology. 5. Consult with Gastroenterology. MMODL / IJN: [id number] /
--- NOTE | 2019-07-26 18:11 | PN ---
PROGRESS NOTE CHIEF COMPLAINT: Chest pain and bright red rectal bleeding. HISTORY OF PRESENT ILLNESS: This gentleman is doing fairly well but he is complaining of a lot of indigestion. PHYSICAL EXAMINATION: Abdomen is soft, nontender. Chest is clear. Cardiac exam is normal and the abdomen is slightly obese and the abdomen is slightly distended. IMPRESSION: 1. Chest pain. 2. History of hypertension. 3. History of ascending aortic aneurysm. 4. Lower gastrointestinal bleeding. 5. Gastritis. PLAN: 1. Continue on current medication. 2. Resume Protonix. 3. He is going on Saturday for upper and lower GI endoscopies. MMODL / IJN: [id number] /
[2019-07-27] MEDS: HYDROmorphone 0.5 MG/0.5 ML SYRINGE IVP PRN ×4 (03:54→23:54)
[2019-07-27] MEDS ORDERED: PROPOFOL 10 MG/ML 20 ML VIAL IV ONE (07:55)
[2019-07-27] MEDS ORDERED: LIDOCAINE 1% INJ 10MG/ML (20 ML MDV) ONE (07:55)
[2019-07-27] MEDS ORDERED: SODIUM CHLORIDE 0.9% 500 ML 500 ML IV ONE (08:00)
--- NOTE | 2019-07-27 08:33 | P.PCN ---
Date of Procedure: 07/27/19 Procedure(s) Performed: Brief history: Patient is a pleasant 58-year-old white male admitted hospital with chest pain and rectal bleeding for the last 3 days duration. He scheduled for an upper endoscopy as well as colonoscopy to evaluate further. Procedure performed: Esophagogastroduodenoscopy Colonoscopy with snare polypectomy Preoperative diagnosis: Chest pain Rectal bleeding Anesthesia: [facility] [place] Procedure: After informed consent was obtained from the patient was brought into the endoscopy unit and IV sedation was administered by anesthesia under continuous monitoring. Initially upper endoscopy was done. The Olympus GF 160 video endoscope was inserted inserted into the mouth and esophagus intubated without any difficulty and was gradually advanced into the stomach and duodenum and carefully examined. The bulb and second part of the duodenum appeared normal. The scope was then withdrawn into the stomach adequately insufflated with air and upon careful examination the antrum had mild gastritis. The body, cardia and fundus appeared normal. The scope was then withdrawn into the esophagus. The GE junction was located at 40 cm to the incisors. It appeared regular with no erythema erosions or ulcerations. Rest of the esophagus appeared normal. Patient tolerated the procedure well. At this time the patient continued to remain sedation. Initial digital rectal examination was normal. Olympus CF 160 video colonoscope was then inserted into the rectum and gradually advanced to the cecum without any difficulty. Careful examination was performed as the scope was gradually being withdrawn. The prep was excellent. The cecum, ascending colon, transverse colon, appeared normal. The descending colon there was a 5 mm sessile polyp removed by snare polypectomy. Rest of the descending colon, sigmoid colon and rectum appeared normal. Retroflexion was performed in the rectum and grade 2 internal hemorrhoids were noted. Patient tolerated the procedure well. Impression: 1. Upper endoscopy revealed mild antral gastritis 2. Colonoscopy revealed grade 2 internal hemorrhoids and a 5 mm descending colon polyp status post snare polypectomy Recommendations: Findings of this examination were discussed with the patient . He was advised to follow with the biopsy results. He will avoid straining and constipation and continue with a high-fiber diet. If the biopsy of the colon polyp reveals adenoma he can have a repeat colonoscopy in 5 years
[2019-07-27] MEDS: PANTOPRAZOLE 40 MG TABLET PO SCH (10:16)
[2019-07-27] MEDS ORDERED: LOSARTAN 50 MG TAB PO STA (13:59)
[2019-07-27] MEDS ORDERED: BENAZEPRIL HCL 40 MG PO SCH (14:00)
[2019-07-27] MEDS: cloNIDine HCL 0.1 MG TAB PO SCH ×2 (14:16→21:03)
[2019-07-27] MEDS: METOPROLOL SUCCINATE (ER) 100 MG TAB.ER.24H PO SCH (14:17)
[2019-07-27] MEDS: FUROSEMIDE 40 MG TAB PO SCH (14:19)
[2019-07-27] MEDS: HYDROcodone/APAP 10-325MG 1 EACH TAB PO PRN (14:20)
--- NOTE | 2019-07-27 15:15 | PN ---
PROGRESS NOTE CHIEF COMPLAINT: Possible GI bleeding and chest pain. HISTORY OF PRESENT ILLNESS: This gentleman is continuing to complain of chest pain. He was scoped today and found only to have gastritis and a small polyp which was removed from the colon. He is otherwise doing well. Blood pressure is elevated, however. PHYSICAL EXAMINATION: Chest is clear. Cardiac exam is normal. Abdomen is soft, nontender. IMPRESSION: 1. Chest pain. 2. Hypertension. 3. Gastric polyp. 4. Gastritis. PLAN: Resume treatment of his hypertension and progress activity. Hopefully, he can go home soon. He is being followed by Cardiology. MMODL / IJN: [id number] /
[2019-07-28] MEDS: HYDROmorphone 0.5 MG/0.5 ML SYRINGE IVP PRN ×2 (05:09→10:58)
[2019-07-28] MEDS: PANTOPRAZOLE 40 MG TABLET PO SCH (05:10)
[2019-07-28] MEDS: cloNIDine HCL 0.1 MG TAB PO SCH ×2 (09:14→15:55)
[2019-07-28] MEDS: METOPROLOL SUCCINATE (ER) 100 MG TAB.ER.24H PO SCH (09:14)
[2019-07-28] MEDS: FUROSEMIDE 40 MG TAB PO SCH (09:14)
--- NOTE | 2019-07-28 10:44 | ECHOF ---
Referral Reason:cp MEASUREMENTS -------- HEIGHT: 188.0 cm WEIGHT: 116.1 kg BP: 145/88 IVSd: 2.1 cm (0.6 - 1.1) LVIDd: 4.8 cm (3.9 - 5.3) LVPWd: 2.1 cm (0.6 - 1.1) IVSs: 2.2 cm LVIDs: 3.2 cm LVPWs: 2.3 cm %FS: 33.33 % EDV(Teich): 159.25 ml EF(Teich): 61.30 % ESV(Teich): 61.63 ml IVSd: 2.06 cm (0.6 - 1.1) IVSs: 2.06 cm LVIDd: 5.69 cm (3.9 - 5.3) LVIDs: 3.79 cm LVPWd: 1.90 cm (0.6 - 1.1) LVPWs: 2.60 cm SV(Teich): 97.62 ml FINDINGS -------- Sinus rhythm. This was a technically difficult study with suboptimal apical views. Morbid Obesity Limited Study There is severe concentric left ventricular hypertrophy. Overall left ventricular systolic function is low-normal with, an EF between 50 - 55 %. Lumason used There is no pericardial effusion. CONCLUSIONS -------- 1. Sinus rhythm. 2. This was a technically difficult study with suboptimal apical views. 3. Morbid Obesity 4. Limited Study 5. There is severe concentric left ventricular hypertrophy. 6. Overall left ventricular systolic function is low-normal with, an EF between 50 - 55 %. 7. Lumason used 8. There is no pericardial effusion. SERVICE WORKER HELPER: Janae Castillo, [facility]
[2019-07-28 11:35] VITALS: RESP 18
--- NOTE | 2019-07-28 15:24 | PN ---
PROGRESS NOTE DATE OF DICTATION: 07/28/2019 This patient is a 58-year-old pleasant white male admitted to the hospital with chest pain and rectal bleeding. He underwent an EGD and colonoscopy yesterday that revealed small internal hemorrhoids and small descending colon polyp. He is doing better. He still has intermittent rectal bleeding. He reports no abdominal pain. No nausea, vomiting. PHYSICAL EXAMINATION: Appears comfortable. VITAL SIGNS: Stable. Blood pressure 145/88, pulse rate 60, temperature 97.8. HEENT examination unremarkable. Conjunctivae pink. Sclerae anicteric. Oral cavity no lesions. NECK: No JVD or lymph node enlargement. CHEST: Clear to auscultation. HEART: Regular rate and rhythm. ABDOMEN: Soft. Bowel sounds are positive. No organomegaly. EXTREMITIES: No pedal edema. SKIN: No rashes. NEUROLOGIC: Alert and oriented x3. No focal deficits. LABS: No labs available from today. IMPRESSION: 1. Rectal bleeding of 3 days' duration, status post esophagogastroduodenoscopy and colonoscopy yesterday that revealed grade 2 internal hemorrhoids. 2. Atypical chest pain. RECOMMENDATIONS: 1. High-fiber diet. 2. Fiber supplements every day. 3. Avoid straining and constipation. 4. He can be discharged home with an outpatient followup in 2-3 weeks. Thank you for this consultation. MMMARY / NORRISN: [id number] /
[2019-07-28] MEDS: HYDROcodone/APAP 10-325MG 1 EACH TAB PO PRN (15:55)
[2019-07-28 16:27] VITALS: BP 150/88; PULSE 63; TEMP 97.4
[2019-07-28] MEDS ORDERED: IBUPROFEN 400 MG TAB PO STA (18:11)
[2019-07-28] MEDS ORDERED: hydrALAZINE HCL 50 MG TAB PO SCH (22:00)
--- NOTE | 2019-07-29 05:34 | DS ---
DISCHARGE SUMMARY CHIEF COMPLAINT: Chest pain and hematochezia. HISTORY OF PRESENT ILLNESS AND PHYSICAL EXAM: Details of this man's history and physical can be found in the initial workup. LABORATORY STUDIES: While he was in the hospital he had laboratory studies, details of which can be found in the laboratory section of his chart. COURSE IN HOSPITAL: After admission, he was placed on bedrest, started on intravenous fluids and had serial EKGs and enzymes. He was seen and followed by Cardiology. He had bright red rectal bleeding and was seen by Gastroenterology. He was taken for endoscopies and was found to have gastritis and a colonic polyp. He was stable and Cardiology felt that he could be discharged on . He will go home on light activity about the house and a cardiac diet. He will be set up for followup in the office in a few days. FINAL DIAGNOSES: 1. Chest pain. 2. Hypertension. 3. Cardiomyopathy. 4. Bright red rectal bleeding. 5. Colonic polyp. 6. Gastritis. OPERATIONS: Endoscopies. CONSULTATIONS: Gastroenterology and Cardiology. He is improved. MMODL / IJN: [id number] /
--- NOTE | 2019-07-30 18:43 | CDI ---
Documentation Clarification Form Date: 07/30/19 From: Rita Lucas CCS Phone: If you have a question about this query, please contact Nicki Edmonds, [employer] at [phone] between 8am and 5pm. Admit Date: 07/28/19 Discharge Date:07/28/19 Patient Name: Vance Lee Visit Number: [id number] ATTENTION: The Clinical Documentation Specialists (CDI) and [facility] Coding Staff appreciate your assistance in clarifying documentation. Please respond to the clarification below the line at the bottom and electronically sign. The CDI & [facility] Coding staff will review the response and follow-up if needed. Please note: Queries are made part of the Legal Health Record. If you have any questions, please contact the author of this message via ITS. Dear Dr. Trujillo, CHF is documented in the ED, Consult. History/Risk Factors: HTN, Obesity, Cardiomyopathy, CAD, Sleep Apnea, Aortic Valve Disease Clinical Indicators: History of CHF, Cardiomegaly VS/Pulse OX: BP 106/51, NH 66, RR 18, O2 Sat 94 Echocardiogram Results: here is severe concentric left ventricular hypertrophy.Overall left ventricular systolic function is low-normal with, an EF between 50 - 55 %. Chest X Ray: Pulmonary vasculature is slightly prominent likely related to low lung volumes rather than mild pulmonary vascular congestion.Cardiomegaly is redemonstrated. Treatment: Lasix 40 mg PO Daily In your professional opinion, can you please clarify the acuity and type of CHF if known? Systolic Heart Failure: Acute Chronic Acute on Chronic Diastolic Heart Failure: Acute Chronic Acute on Chronic Systolic & Diastolic Heart Failure: Acute Chronic Acute on Chronic Heart Failure Unable to Determine Other, please specify MTDD
--- NOTE | 2019-07-30 18:43 | CDI ---
Documentation Clarification Form Date: 07/30/19 From: Rita Lucas CCS Phone: If you have a question about this query, please contact Nicki Edmonds, [employer] De[employer]ader at [phone] between 8am and 5pm. Admit Date: 07/28/19 Discharge Date:07/28/19 Patient Name: Vance Lee Visit Number: [id number] ATTENTION: The Clinical Documentation Specialists (CDI) and [facility] Coding Staff appreciate your assistance in clarifying documentation. Please respond to the clarification below the line at the bottom and electronically sign. The CDI & [facility] Coding staff will review the response and follow-up if needed. Please note: Queries are made part of the Legal Health Record. If you have any questions, please contact the author of this message via ITS. Dear Dr. Trujillo, GI bleed is documented in the ED, H&P, Consult, PNs Patient history/risk factors: HTN, CAD, Polyp, Gastritis, Hemorrhoid, Obesity Clinical Indicators: Rectal bleed, Hematochezia EGD/colonoscopy performed and findings: Gastritis, Colon polyp, Grade 2 internal hemorrhoids Treatment: Polyp removed, Protonix 40 mg IVP Consults: Pooja In your professional opinion, can you please clarify the underlying cause of GI bleed if known? Colon Polyp Gastritis Internal Hemorrhoid Other, please specify Unable to determine MTDD
--- NOTE | 2019-08-01 10:37 | MISC ---
MISCELLANOUS REPORT Colonic polyp. Acuity of congestive heart failure. Diastolic chronic. MMODL / IJN: [id number] /
== END 2019-07-28 18:25 | disposition home or self-care (01) | DRG 394 ==
LOC: EC 17:52 → 3SCARD 22:25 → OBSVTOIN 07-28 08:51
PROVIDERS: ADMIT Family Medicine; ATTEND Family Medicine
PROC: 0DJ08ZZ Inspection of Upper Intestinal Tract, Via Natural or Artificial Opening Endoscopic (ICD-10-PCS; principal; 2019-07-27 08:00)
PROC: 0DBM8ZZ Excision of Descending Colon, Via Natural or Artificial Opening Endoscopic (ICD-10-PCS; principal; 2019-07-27 08:00)
DX: D12.4 Benign neoplasm of descending colon (principal); K92.1 Melena; I42.9 Cardiomyopathy, unspecified; I50.32 Chronic diastolic (congestive) heart failure; K29.50 Unspecified chronic gastritis without bleeding; Z11.59 Encounter for screening for other viral diseases; I50.9 Heart failure, unspecified; I11.0 Hypertensive heart disease with heart failure; I71.2 Thoracic aortic aneurysm, without rupture; F10.21 Alcohol dependence, in remission; E78.5 Hyperlipidemia, unspecified; I25.10 Atherosclerotic heart disease of native coronary artery without angina pectoris; R20.2 Paresthesia of skin; G47.30 Sleep apnea, unspecified; F41.9 Anxiety disorder, unspecified; F32.9 Major depressive disorder, single episode, unspecified; I35.0 Nonrheumatic aortic (valve) stenosis; R07.89 Other chest pain; E66.9 Obesity, unspecified; K64.1 Second degree hemorrhoids; K30 Functional dyspepsia; Z68.32 Body mass index [BMI] 32.0-32.9, adult; Z79.899 Other long term (current) drug therapy; Z79.82 Long term (current) use of aspirin; Z87.820 Personal history of traumatic brain injury; Z90.49 Acquired absence of other specified parts of digestive tract; Z83.3 Family history of diabetes mellitus; Z82.49 Family history of ischemic heart disease and other diseases of the circulatory system
CPT/HCPCS: 36415; 43235; 45385; 71046; 71275; 74174; 80053; 80061; 80320; 82150; 82272; 83690; 83735; 84484; 85025; 85379; 85610; 85730; 87635; 88305; 93005; 93308; 96374; 96375; 99285

== ENCOUNTER 2019-10-03 15:24 | Observation (INO) | payer OTHER ==
[2019-10-03 15:48] LABS: Glucose,Whole Blood 107 mg/dL (75-99)
[2019-10-03] MEDS ORDERED: SODIUM CHLORIDE 0.9% 1,000 ML IV STA ×3 (15:55→17:56)
[2019-10-03] MEDS ORDERED: KETOROLAC 30 MG/ML 1 ML VIAL IVP STA (16:06)
[2019-10-03 16:20] LABS: Basophils # (A) 0.1 k/uL (0-0.2); Basophils % (A) 2 %; Eosinophils # (A) 0.4 k/uL (0-0.7); Eosinophils % (A) 6 %; HCT 47.5 % (39.0-53.0); HGB 15.6 gm/dL (13.0-17.5); Lymphocytes # (A) 1.7 k/uL (1.0-4.8); Lymphocytes % (A) 21 %; MCH 29.1 pg (25.0-35.0); MCHC 32.7 g/dL (31.0-37.0); Mean Platelet Volume 8.5; Monocytes # (A) 0.7 k/uL (0-1.0); Monocytes % (A) 8 %; Neutrophils # (A) 4.9 k/uL (1.3-7.7); Neutrophils % (A) 61 %; Platelet Count 214 k/uL (150-450); RBC 5.34 m/uL (4.30-5.90); RDW 13.7 % (11.5-15.5)
[2019-10-03 16:25] LABS: Prothrombin Time 10.5 sec (9.0-12.0)
[2019-10-03 16:31] LABS: Albumin 3.6 g/dL (3.5-5.0); Calcium 9.1 mg/dL (8.4-10.2); Magnesium 1.7 mg/dL (1.6-2.3); Potassium 4.4 mmol/L (3.5-5.1); Total Bilirubin 0.3 mg/dL (0.2-1.3)
--- NOTE | 2019-10-03 17:07 | XR ---
EXAMINATION TYPE: XR chest 2V DATE OF EXAM: 10/03/2019 COMPARISON: 07/25/2019 HISTORY: Dizziness TECHNIQUE: FINDINGS: There is no heart failure nor confluent pneumonic infiltrate. Costophrenic angles are fairl y clear. Heart size is normal. There are no hilar masses. Bony thorax is intact. There are chest lead s. IMPRESSION: No active cardiopulmonary disease. Normal heart. No change.
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
[2019-10-03] MEDS ORDERED: ORPHENADRINE 30 MG/ML 2 ML VIAL IVP STA (18:03)
[2019-10-03] MEDS ORDERED: MAGNESIUM SULFATE-D5W PMX 1 GM in DEXTROSE/WATER 1 100ML.BAG IVPB ONE (18:11)
[2019-10-03] MEDS ORDERED: NITROGLYCERIN SL TABS 0.4 MG TAB SUBLINGUAL PRN (19:00)
[2019-10-03] MEDS ORDERED: CYCLOBENZAPRINE 10 MG TAB PO PRN (19:02)
[2019-10-03] MEDS ORDERED: ALBUTEROL NEBULIZED 2.5 MG/3 ML INHALATION PRN (19:02)
[2019-10-03 19:42] LABS: Appearance,Urine Clear (Clear); Bilirubin,Urine Negative (Negative); Blood,Urine Negative (Negative); Color,Urine Yellow; Glucose,Urine (UA) Negative (Negative); Ketones,Urine Negative (Negative); Leukocyte Esterase,Urine Negative (Negative); Nitrite,Urine Negative (Negative); PH, Urine 5.5 (5.0-8.0); Protein,Urine Trace (Negative); Urobilinogen,Urine <2.0 mg/dL (<2.0)
[2019-10-03] MEDS: cloNIDine HCL 0.1 MG TAB PO SCH (21:02)
[2019-10-03] MEDS: POTASSIUM CHLORIDE ER 20 MEQ TAB.ER PO SCH (21:04)
[2019-10-03] MEDS: hydrALAZINE HCL 50 MG TAB PO SCH (21:04)
[2019-10-03] MEDS: FUROSEMIDE 80 MG TAB PO SCH (21:05)
[2019-10-03] MEDS: HYDROcodone/APAP 10-325MG 1 EACH TAB PO PRN (21:08)
[2019-10-04] MEDS: HYDROcodone/APAP 10-325MG 1 EACH TAB PO PRN ×3 (02:17→21:55)
[2019-10-04 03:39] LABS: Cholesterol 109 mg/dL (<200); HDL Cholesterol 19 mg/dL (40-60); LDL Cholesterol,Calculated 56 mg/dL (0-99); Triglycerides 169 mg/dL (<150)
[2019-10-04] MEDS: PANTOPRAZOLE 40 MG TABLET PO SCH (06:40)
[2019-10-04] MEDS ORDERED: METOPROLOL SUCCINATE (ER) 100 MG TAB.ER.24H PO SCH (09:00)
[2019-10-04] MEDS ORDERED: ASPIRIN 325 MG TAB PO SCH (09:00)
[2019-10-04] MEDS ORDERED: LIPITOR PO SCH (09:00)
[2019-10-04] MEDS: ASPIRIN 81 MG PO SCH (09:39)
[2019-10-04] MEDS: POTASSIUM CHLORIDE ER 20 MEQ TAB.ER PO SCH ×2 (09:39→20:59)
[2019-10-04] MEDS: allopurinoL 300 MG TAB PO SCH (09:40)
[2019-10-04] MEDS ORDERED: NITROGLYCERIN SL TABS 0.4 MG TAB SUBLINGUAL PRN (09:47)
[2019-10-04] MEDS ORDERED: HYDROmorphone 0.5 MG/0.5 ML SYRINGE IVP STA (09:48)
[2019-10-04] MEDS: cloNIDine HCL 0.1 MG TAB PO SCH (10:08)
[2019-10-04] MEDS: amLODIPine 10 MG TAB PO SCH (10:08)
[2019-10-04] MEDS: hydrALAZINE HCL 50 MG TAB PO SCH (10:08)
[2019-10-04] MEDS: lisinopriL 20 MG TAB PO SCH (10:08)
[2019-10-04] MEDS ORDERED: SODIUM CHLORIDE 0.9% 1,000 ML IV ONE (10:23)
[2019-10-04 11:14] LABS: African American GFR (CKD) >90 (>60 ml/min/1.73 sqM); Anion Gap 4 mmol/L; Blood Urea Nitrogen 18 mg/dL (9-20); Calcium 8.3 mg/dL (8.4-10.2); Carbon Dioxide 28 mmol/L (22-30); Chloride 106 mmol/L (98-107); Glucose 108 mg/dL (74-99); Non-African American GFR(CKD) >90 (>60 ml/min/1.73 sqM); Potassium 4.2 mmol/L (3.5-5.1); Sodium 138 mmol/L (137-145)
[2019-10-04] MEDS: SODIUM CHLORIDE 0.9% 1,000 ML IV SCH ×2 (11:56→21:00)
--- NOTE | 2019-10-04 11:57 | CONS ---
CONSULTATION CHIEF COMPLAINT: Chest pain. Vance is a 58-year-old gentleman with history of hypertension who presented to hospital because his blood pressure was low and he had chest discomfort. He states that he is feeling weak and lethargic, dizzy and also had chest pain that goes up to his neck. His blood pressure on his initial presentation was 81/55. He complained of chest discomfort. At the time of my evaluation, he is pain free. Blood pressure has improved and his antihypertensives are currently on hold. The chest x-ray did not reveal any acute pulmonary process and a normal heart size. The patient underwent thoracic aortic CT in July that showed a normal size aorta, underwent cardiac catheterization that revealed mild to moderate nonobstructive disease involving right coronary artery. On this admission, cardiac enzymes have been negative. EKG does not reveal ischemic changes. I believe patient's hypotension is related to the multiple antihypertensives and the diuretic that he is on. We are going to cut back on the doses and gradually resume them. The chest pain is sharp, atypical and the exact etiology is unknown. PAST MEDICAL HISTORY: Significant for hypertension, recent cardiac catheterization that did not reveal significant obstructive CAD. MEDICATIONS: Include Apresoline 50 t.i.d., Catapres 0.3 t.i.d., Norvasc 10 daily, K-Peg con 20 b.i.d., Protonix, Toprol-XL 100 daily, Lipitor, Lasix 80 mg daily, Flexeril, benazepril, aspirin, Zyloprim, and albuterol. ALLERGIES: There are no known drug allergies. FAMILY HISTORY: Negative for premature coronary artery disease. SOCIAL HISTORY: Negative for current smoking, EtOH abuse, or drug abuse. REVIEW OF SYSTEMS: HEENT is significant for dizziness. Cardiac as described above. Respiratory as described above. GI negative. Genitourinary negative. Allergy none. Skin negative. Musculoskeletal significant for arthritis. Psychosocial negative. CONSTITUTIONAL negative. Derm negative. Oncological negative. CLIN ASST negative. Rest of the system review is not relevant. EXAM: Afebrile. Heart rate is 50 beats per minute. Blood pressure is 94/60. Respiratory rate is 16, O2 saturation is 94% on room air. There is no jugular venous distention. Carotid upstroke is normal. There is no bruit. Chest exam reveals good air entry bilaterally. Heart exam reveals first and second heart sounds. No gallop. ABDOMEN: Soft. Exam of extremities did not reveal any edema. Peripheral pulses are felt. ASSESSMENT: 1. Atypical chest pain, myocardial infarction ruled out. Recent cardiac catheterization. 2. Hypotension, probably related to the multiple antihypertensives and diuretic that the patient is on. PLAN: I am going to hold the Lasix. Give him fluids and cut back on the doses of the antihypertensives. MMODL / IJN: [id number] /
[2019-10-04] MEDS: cloNIDine HCL 0.2 MG TAB PO SCH ×2 (16:07→20:59)
[2019-10-04] MEDS: FUROSEMIDE 80 MG TAB PO SCH (20:59)
--- NOTE | 2019-10-05 01:51 | HP ---
HISTORY AND PHYSICAL CHIEF COMPLAINT: Hypotension and dizziness. HISTORY OF PRESENT ILLNESS: This is another admission for this 58-year-old white male who has had a history of very high blood pressures. He has required significant amounts of medications to control this. However, he has also been very noncompliant and has had a drinking problem. There is a possibility that his blood pressure has been elevated when he has been drinking. At times, his blood pressure seems quite good and his medicine has been cut back. Nonetheless, he apparently was sitting at home when he developed lightheadedness and dizziness and his blood pressure was taken at 86/51, and he came to emergency room. He denied any focal neurologic deficits, diaphoresis, shortness of breath, chest pain, etc. REVIEW OF SYSTEMS: Review of systems otherwise unremarkable. He has had no diarrhea, melena, hematochezia, nausea, vomiting, hematemesis, incontinence, renal failure, urgency, dysuria, hematuria, etc. Past medical history, family history and personal and social histories are all otherwise unremarkable and essentially unchanged from his prior admissions. He is on numerous medications includin. Albuterol. 2. Zyloprim 300 mg once a day. 3. Amlodipine 10 mg once a day. 4. Aspirin 81 mg. 5. Clonidine 0.2 mg t.i.d. 6. Flexeril 10 mg t.i.d. p.r.n. 7. Vitamin D 50,000 a month. 8. Lasix 80 mg once a day. 9. Vicodin 10 q.6 p.r.n. 10.Lisinopril 40 mg once a day. 11.Metoprolol 50 mg once a day. 12.Protonix 40 mg once a day. 13.KCl 20 mEq twice a day. He may have a slightly dilated aortic or proximal aorta. This has been questioned on and off. He has had no anterior chest pain. PHYSICAL EXAMINATION: Temperature is 99.6 with a pulse of 62, respirations of 18, blood pressure of 81/55. In general, he appeared to be overweight and in no acute distress. Skin color is normal. Skin is warm and dry. Lymph nodes not enlarged. Head, ears, eyes, nose, mouth, and throat were normal. Neck veins not distended. Thyroid was not enlarged. Chest is clear. Cardiac exam demonstrates normal sinus rhythm and no murmurs or extra sounds. The abdomen is protuberant and soft. There are no masses. Extremities are normal. Neurologically, he is intact. He is admitted to the hospital with diagnoses. 1. Hypotension, possibly iatrogenic. 2. Essential hypertension. 3. History of congestive heart failure and cardiomyopathy. 4. Dilated ascending aorta. 5. History of alcohol abuse. PLAN: 1. Bed rest. 2. IV fluids. 3. Hold back on some of his antihypertensive medication. 4. Consult with Cardiology. MMIVORYL / NORRISN: [id number] /
[2019-10-05] MEDS: HYDROcodone/APAP 10-325MG 1 EACH TAB PO PRN ×4 (03:40→20:27)
[2019-10-05] MEDS: PANTOPRAZOLE 40 MG TABLET PO SCH (06:28)
[2019-10-05] MEDS: ASPIRIN 81 MG PO SCH (08:40)
[2019-10-05] MEDS: POTASSIUM CHLORIDE ER 20 MEQ TAB.ER PO SCH ×2 (08:41→20:26)
[2019-10-05] MEDS: amLODIPine 10 MG TAB PO SCH (08:42)
[2019-10-05] MEDS: cloNIDine HCL 0.2 MG TAB PO SCH ×3 (08:42→20:26)
[2019-10-05] MEDS: allopurinoL 300 MG TAB PO SCH (08:42)
[2019-10-05] MEDS: lisinopriL 20 MG TAB PO SCH (08:42)
[2019-10-05] MEDS: METOPROLOL SUCCINATE (ER) 50 MG TAB.ER.24H PO SCH (08:42)
[2019-10-05] MEDS ORDERED: ERGOCALCIFEROL 50,000 UNIT CAP PO SCH (09:00)
[2019-10-05] MEDS: SODIUM CHLORIDE 0.9% 1,000 ML IV SCH (10:34)
--- NOTE | 2019-10-05 11:56 | P.PN ---
Subjective Progress Note Date: 10/05/19 Principal diagnosis: Chest pain This is a pleasant 76-year-old gentleman who was admitted to the hospital with chest discomfort and ruled out for acute coronary event. Few weeks ago he underwent a heart catheterization that revealed mild to moderate nonobstructive coronary artery disease. He was seen this morning. He is chest pain-free at this point. He did have earlier reproducible chest discomfort. Hemodynamically he is stable. From a cardiovascular standpoint of view, the patient can be discharged home. Objective - Vital Signs Vital signs: Vital Signs Temp 97.5 F L 10/05/19 11:26 Pulse 61 10/05/19 11:26 Resp 18 10/05/19 11:26 BP 120/69 10/05/19 11:26 Pulse Ox 92 L 10/05/19 11:26 Intake & Output 10/04/19 10/05/19 10/05/19 18:59 06:59 18:59 Intake Total 1440 450 120 Output Total 4500 Balance 1440 -4050 120 Weight 158.5 kg Intake: Oral 1440 450 120 Output: Urine 4500 Other: Voiding Method Toilet Urinal Urinal - Constitutional General appearance: Present: no acute distress - Respiratory Respiratory: bilateral: CTA - Cardiovascular Rhythm: regular Heart sounds: normal: S1, S2 - Labs CBC & Chem 7: 10/03/19 16:05 10/04/19 10:34 Assessment and Plan Assessment: Assessment #1 atypical chest discomfort #2 mild to moderate nonobstructive coronary artery disease Plan #1 the patient currently is chest pain-free #2% heart catheterization revealed mild to moderate CAD #3 the patient can be discharged home
--- NOTE | 2019-10-05 17:56 | PN ---
PROGRESS NOTE CHIEF COMPLAINT: Syncopal episode. HISTORY OF PRESENT ILLNESS: This gentleman is doing fairly well. He has had no chest pain. He has had no palpitations or arrhythmias. He has had no dizziness or syncope. Vital signs are normal and his blood pressure is doing well, running around 130 to 140 systolically. PHYSICAL EXAMINATION: Color is good. His chest is clear. Cardiac exam is normal and the abdomen is protuberant and soft. IMPRESSION: 1. Syncopal episodes. 2. Hypotension. 3. History of congestive heart failure. PLAN: 1. Progress activity. 2. He is being further evaluated by Cardiology. MMODL / IJN: [id number] /
[2019-10-05] MEDS: FUROSEMIDE 80 MG TAB PO SCH (20:26)
[2019-10-06] MEDS: SODIUM CHLORIDE 0.9% 1,000 ML IV SCH ×2 (01:07→12:58)
[2019-10-06] MEDS: HYDROcodone/APAP 10-325MG 1 EACH TAB PO PRN ×3 (04:01→16:18)
[2019-10-06] MEDS: PANTOPRAZOLE 40 MG TABLET PO SCH (06:16)
[2019-10-06 09:05] VITALS: TEMP 97.9
[2019-10-06] MEDS: POTASSIUM CHLORIDE ER 20 MEQ TAB.ER PO SCH (09:07)
[2019-10-06] MEDS: cloNIDine HCL 0.2 MG TAB PO SCH ×2 (09:07→16:18)
[2019-10-06] MEDS: ASPIRIN 81 MG PO SCH (09:07)
[2019-10-06] MEDS: lisinopriL 20 MG TAB PO SCH ×2 (09:07→12:58)
[2019-10-06] MEDS: amLODIPine 10 MG TAB PO SCH (09:12)
[2019-10-06] MEDS: allopurinoL 300 MG TAB PO SCH (09:13)
[2019-10-06] MEDS: METOPROLOL SUCCINATE (ER) 50 MG TAB.ER.24H PO SCH (09:19)
--- NOTE | 2019-10-06 11:36 | P.PN ---
Subjective Progress Note Date: 10/06/19 Principal diagnosis: Chest pain This is a pleasant 76-year-old gentleman who was admitted to the hospital with chest discomfort and ruled out for acute coronary event. Few weeks ago he underwent a heart catheterization that revealed mild to moderate nonobstructive coronary artery disease. The patient was seen today, 06/06/2019. He continues to have mild ongoing chest discomfort but seems to be atypical and reproducible on examination. The cardiovascular standpoint of view, the patient can be discharged home Objective - Vital Signs Vital signs: Vital Signs Temp 97.9 F 10/06/19 08:00 Pulse 58 L 10/06/19 08:00 Resp 16 10/06/19 08:00 BP 127/74 10/06/19 08:00 Pulse Ox 93 L 10/06/19 08:00 Intake & Output 10/05/19 10/06/19 10/06/19 18:59 06:59 18:59 Intake Total 1040 360 Output Total 540 975 Balance 500 -975 360 Weight 155.8 kg Intake: Intake, IV Titration 560 Amount Sodium Chloride 0.9% 1, 560 000 ml @ 75 mls/hr IV . [id number] [facility] Rx#:[id number] Oral 480 360 Output: Urine 540 975 Other: Voiding Method Urinal # Voids 1 1 # Bowel Movements 1 - Constitutional General appearance: Present: no acute distress - Respiratory Respiratory: bilateral: CTA - Cardiovascular Rhythm: regular Heart sounds: normal: S1, S2 - Labs CBC & Chem 7: 10/03/19 16:05 10/04/19 10:34 Assessment and Plan Assessment: Assessment #1 atypical chest discomfort #2 mild to moderate nonobstructive coronary artery disease Plan Chest discomfort is atypical and reproducible The patient can be discharged home
[2019-10-06 12:56] VITALS: PULSE 68; RESP 18
[2019-10-06 16:23] VITALS: BP 142/88
--- NOTE | 2019-10-06 23:22 | DS ---
DISCHARGE SUMMARY CHIEF COMPLAINT: Chest pain and hypotension. HISTORY OF PRESENT ILLNESS AND PHYSICAL EXAMINATION: Details of this man's history and physical can be found in the initial workup. LABORATORY STUDIES: While he was in the hospital he had laboratory studies, details of which can be found in the laboratory section of his chart. COURSE IN THE HOSPITAL: After admission he was placed on bedrest and started on intravenous fluids and had serial EKGs and enzymes. He was seen by Cardiology. He had no further problems with his vital signs. Blood pressure riri into the normal range. He had no diaphoresis or shortness of breath. Studies were negative. He was released by Cardiology and it was felt that he could go home on his usual activity, diet and medication, and he will be seen in the office in a few days. It may be necessary to cut down on his antihypertensives if his blood pressure continues to drop. FINAL DIAGNOSES: 1. Chest pain. 2. History of severe hypertension. 3. History of congestive heart failure. 4. Hypotension. OPERATIONS: None. CONSULTATION: Cardiology. He is improved. MMODL / NORRISN: [id number] /
== END 2019-10-06 16:23 | disposition home or self-care (01) ==
LOC: EC 15:24 → 3SCARD 19:01 → INTOOBSV 10-04 13:30 → OBSVTOIN 10-04 13:30 → UNDODISIN 10-06 16:23
PROVIDERS: ADMIT Family Medicine; ATTEND Family Medicine
DX: I25.10 Atherosclerotic heart disease of native coronary artery without angina pectoris (principal); R07.89 Other chest pain; I42.9 Cardiomyopathy, unspecified; T46.5X5A Adverse effect of other antihypertensive drugs, initial encounter; I95.9 Hypotension, unspecified; E86.0 Dehydration; R55 Syncope and collapse; I77.810 Thoracic aortic ectasia; I11.0 Hypertensive heart disease with heart failure; I50.9 Heart failure, unspecified; Z20.818 Contact with and (suspected) exposure to other bacterial communicable diseases; F10.11 Alcohol abuse, in remission; N28.9 Disorder of kidney and ureter, unspecified; Z91.19 Patient's noncompliance with other medical treatment and regimen; G47.30 Sleep apnea, unspecified; Z99.89 Dependence on other enabling machines and devices; J81.1 Chronic pulmonary edema; Z87.820 Personal history of traumatic brain injury; Z90.49 Acquired absence of other specified parts of digestive tract; Z98.890 Other specified postprocedural states; F41.9 Anxiety disorder, unspecified; F32.9 Major depressive disorder, single episode, unspecified; Z82.49 Family history of ischemic heart disease and other diseases of the circulatory system; Z83.3 Family history of diabetes mellitus; Z83.438 Family history of other disorder of lipoprotein metabolism and other lipidemia; Z79.82 Long term (current) use of aspirin; Z79.899 Other long term (current) drug therapy
CPT/HCPCS: 96361 ×4; 96375 ×2; 93005 ×2; 96365; 99285; 36415; 94640; 85379; 83880; 80061; 80053; 80048; 83690; 83735; 84484; 85025; 85610; 81003; 71046; G0378 ×4; G0480; U0003; J2360; J1885; J3475; J1170; 80320

== ENCOUNTER 2020-06-08 08:34 | Inpatient (IN) | payer OTHER ==
[2020-06-08] MEDS ORDERED: DEXAMETHASONE SOD PHOSPHATE 10 MG/ML 1 ML VIAL IV STA (08:40)
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
[2020-06-08 09:17] LABS: Anisocytosis Slight; Basophils % (A) 1 %; Eosinophils # (A) 0.1 k/uL (0-0.7); Eosinophils % (A) 2 %; HCT 38.1 % (39.0-53.0); HGB 12.5 gm/dL (13.0-17.5); Hypochromasia Slight; Lymphocytes # (A) 0.7 k/uL (1.0-4.8); Lymphocytes % (A) 12 %; MCH 28.1 pg (25.0-35.0); MCHC 32.9 g/dL (31.0-37.0); MCV 85.5 fL (80.0-100.0); Mean Platelet Volume 8.4; Monocytes # (A) 0.4 k/uL (0-1.0); Monocytes % (A) 7 %; Neutrophils # (A) 4.4 k/uL (1.3-7.7); Neutrophils % (A) 77 %; Platelet Count 155 k/uL (150-450); RBC 4.45 m/uL (4.30-5.90); RDW 18.9 % (11.5-15.5); WBC 5.8 k/uL (3.8-10.6)
--- NOTE | 2020-06-08 09:19 | XR ---
EXAMINATION TYPE: XR chest 1V portable DATE OF EXAM: 06/08/2020 COMPARISON: 05/02/2020 INDICATION: Difficulty breathing, short of breath TECHNIQUE: Single frontal view of the chest is obtained. FINDINGS: The heart size is enlarged. The pulmonary vasculature is normal. Patchy bilateral lung infiltrates are the inferior lung bases. Findings are nonspecific. Correlate fo r atypical pulmonary edema or atypical pneumonia. IMPRESSION: 1. Bibasilar infiltrates with cardiomegaly. Correlate for atypical pulmonary edema or atypical pneumo raffi.
[2020-06-08 09:21] LABS: ALT 13 U/L (4-49); AST 21 U/L (17-59); African American GFR (CKD) >90 (>60 ml/min/1.73 sqM); Albumin 3.6 g/dL (3.5-5.0); Alkaline Phosphatase 87 U/L (38-126); Anion Gap 5 mmol/L; Blood Urea Nitrogen 18 mg/dL (9-20); Carbon Dioxide 33 mmol/L (22-30); Chloride 101 mmol/L (98-107); Glucose 127 mg/dL (74-99); Magnesium 1.6 mg/dL (1.6-2.3); Non-African American GFR(CKD) >90 (>60 ml/min/1.73 sqM); Potassium 4.6 mmol/L (3.5-5.1); Sodium 139 mmol/L (137-145); Total Bilirubin 1.2 mg/dL (0.2-1.3); Total Protein 6.1 g/dL (6.3-8.2)
[2020-06-08 09:43] LABS: Partial Thromboplastin Time 23.5 sec (22.0-30.0); Prothrombin Time 10.5 sec (9.0-12.0)
[2020-06-08] MEDS ORDERED: MORPHINE SULFATE 4 MG/ML SYRINGE IVP STA (10:08)
[2020-06-08] MEDS ORDERED: FUROSEMIDE 10 MG/ML 4 ML VIAL IV STA (10:13)
--- NOTE | 2020-06-08 12:27 | CT ---
EXAMINATION TYPE: CT angio chest DATE OF EXAM: 06/08/2020 12:08 PM COMPARISON: 07/25/2019 HISTORY: Shortness of breath, difficulty breathing, pulmonary edema, pneumonia CT DLP: 1374.7 mGycm Automated exposure control for dose reduction was used. CONTRAST: CTA scan of the thorax is performed with IV Contrast, patient injected with 100 mL of Isovue 370, pul monary embolism protocol. . FINDINGS: LUNGS: Diffuse interstitial pattern with bilateral solid lesion pleural effusion groundglass infiltra jorge. No pneumothorax. MEDIASTINUM: There is suboptimal enhancement of the secondary and distal branches of the pulmonary ar jeanette. No central pulmonary embolism. Could not exclude a distal branch pulmonary embolism. Heart sera edly enlarged. No sizable pericardial effusion. Aorta of normal caliber. Coronary artery calcificatio n noted. OTHER: Postcholecystectomy changes noted. Hypertrophic and degenerative changes of the spine. IMPRESSION: 1. Diffuse interstitial pattern with bilateral consolidation and pleural effusion correlate for pulmo nary edema and CHF, otherwise consider diffuse interstitial pneumonia. 2. No central pulmonary embolus and. Assessment of the secondary and distal branches markedly limited . Could not exclude a distal pulmonary artery embolism.
[2020-06-08] MEDS ORDERED: NALOXONE 0.4 MG/ML 1 ML VIAL IV PRN (12:32)
[2020-06-08] MEDS: HYDROcodone/APAP 10-325MG 1 EACH TAB PO PRN (16:28)
[2020-06-08] MEDS ORDERED: HEPARIN SODIUM 1,000 UN/ML (10ML VL) IV PRN (21:21)
[2020-06-08] MEDS ORDERED: HEPARIN SODIUM 1,000 UN/ML (10ML VL) IV ONE (21:21)
[2020-06-08] MEDS ORDERED: HEPARIN SOD,PORK IN 0.45% NACL 25,000 UNIT in 0.45% NACL 1 250ML.BAG IV SCH (21:30)
[2020-06-08] MEDS: FUROSEMIDE 10 MG/ML 4 ML VIAL IV SCH (21:57)
[2020-06-08] MEDS: MORPHINE SULFATE 4 MG/ML SYRINGE IV PRN (22:00)
[2020-06-09] MEDS: MORPHINE SULFATE 4 MG/ML SYRINGE IV PRN ×2 (03:59→13:08)
[2020-06-09] MEDS: HYDROcodone/APAP 10-325MG 1 EACH TAB PO PRN ×2 (05:43→19:43)
[2020-06-09] MEDS: PANTOPRAZOLE 40 MG TABLET PO SCH (06:24)
[2020-06-09] MEDS ORDERED: FUROSEMIDE 40 MG TAB PO SCH (08:00)
[2020-06-09] MEDS ORDERED: METOPROLOL SUCCINATE (ER) 50 MG TAB.ER.24H PO SCH (09:00)
[2020-06-09] MEDS: ISOSORBIDE MONONITRATE ER 30 MG TAB.ER.24H PO SCH (09:31)
[2020-06-09] MEDS: POTASSIUM CHLORIDE ER 20 MEQ TAB.ER PO SCH (09:31)
[2020-06-09] MEDS: METOPROLOL SUCCINATE (ER) 100 MG TAB.ER.24H PO SCH (09:31)
[2020-06-09] MEDS: ATORVASTATIN 80 MG TAB PO SCH (09:31)
[2020-06-09] MEDS: SPIRONOLACTONE 25 MG TAB PO SCH (09:31)
[2020-06-09] MEDS: allopurinoL 300 MG TAB PO SCH (09:31)
[2020-06-09] MEDS: ASPIRIN 81 MG PO SCH (09:31)
[2020-06-09] MEDS: FUROSEMIDE 10 MG/ML 4 ML VIAL IV SCH ×2 (09:31→19:44)
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
[2020-06-09] MEDS: APIXABAN 5 MG TAB PO SCH ×2 (12:14→21:09)
[2020-06-09 14:57] VITALS: BMI 45.6
[2020-06-09] MEDS: IPRATROPIUM-ALBUTEROL 3 ML NEB INHALATION PRN ×2 (16:28→19:46)
--- NOTE | 2020-06-09 20:08 | HP ---
HISTORY AND PHYSICAL CHIEF COMPLAINT: Shortness of breath and chest pain. HISTORY OF PRESENT ILLNESS: This is another recent admission for this 59-year-old obese male with cardiomyopathy and chronic diastolic heart failure. He became acutely short of breath during the night with chest pain and pressure and, as he could not catch his breath, he summoned an ambulance and was brought in on a BiPAP. He was in atrial fibrillation. This is new for him. REVIEW OF SYSTEMS: He had no syncope, nausea, vomiting, fever, chills, etc. Past medical history, family history, and personal and social histories are all otherwise unchanged or unremarkable. He is NOT ALLERGIC TO ANY MEDICATION. He is on spironolactone, benazepril, ibuprofen, clonidine, metoprolol, zyloprim, atorvastatin, Wellbutrin, aspirin, potassium, furosemide, pantoprazole, amlodipine, vitamin D and Prozac. He has never smoked. His troponin was negative. PHYSICAL EXAMINATION: Pulse was 135 and blood pressure was 110/74. Respirations were 38. In general he appeared to be overweight and he was dyspneic. BiPAP was in place. Head, ears, eyes, nose, mouth and throat were otherwise normal. Chest demonstrated poor breath sounds with rales throughout. The cardiac exam demonstrated a rapid heart beat and the abdomen was protuberant, soft and nontender. Extremities were normal. IMPRESSION: 1. Acute congestive heart failure. 2. Chronic diastolic heart failure. 3. Cardiomyopathy. 4. New-onset atrial fibrillation. 5. Chronic low back pain. PLAN: 1. Bedrest. 2. IV fluids. 3. Serial EKGs and enzymes. 4. Control rate and rhythm. 5. Cardiology consult. MMODL / IJN: [id number] /
--- NOTE | 2020-06-09 20:28 | PN ---
PROGRESS NOTE DATE OF SERVICE: 06/09/2020 CHIEF COMPLAINT: Acute on chronic congestive heart failure with cardiomyopathy. HISTORY OF PRESENT ILLNESS: This gentleman is not having any further pain, but he remains very short of breath. He is on BiPAP. He is awake and alert. PHYSICAL EXAMINATION: His skin is dry and chest demonstrates decreased breath sounds. He has scattered rales throughout both lung pedroza. Cardiac exam demonstrates his tachycardia. The abdomen is protuberant, soft and nontender. IMPRESSION: 1. Acute on chronic congestive heart failure. 2. Diastolic heart failure. 3. Cardiomyopathy. 4. Respiratory failure. 5. Atrial fibrillation. PLAN: Continue supportive care and await further recommendations from Cardiology. He is anticoagulated. MMODL / IJN: [id number] /
[2020-06-10] MEDS: MORPHINE SULFATE 4 MG/ML SYRINGE IV PRN (03:15)
[2020-06-10] MEDS: PANTOPRAZOLE 40 MG TABLET PO SCH (06:34)
[2020-06-10 07:10] LABS: African American GFR (CKD) >90 (>60 ml/min/1.73 sqM); Blood Urea Nitrogen 23 mg/dL (9-20); Chloride 90 mmol/L (98-107); Glucose 104 mg/dL (74-99); Non-African American GFR(CKD) >90 (>60 ml/min/1.73 sqM); Sodium 138 mmol/L (137-145)
[2020-06-10 07:18] LABS: Anion Gap 7 mmol/L
[2020-06-10 07:31] LABS: Carbon Dioxide 41 mmol/L (22-30)
[2020-06-10] MEDS: IPRATROPIUM-ALBUTEROL 3 ML NEB INHALATION PRN ×3 (08:13→16:13)
[2020-06-10] MEDS: FUROSEMIDE 10 MG/ML 4 ML VIAL IV SCH ×2 (08:52→20:32)
[2020-06-10] MEDS: HYDROcodone/APAP 10-325MG 1 EACH TAB PO PRN ×2 (08:52→20:31)
[2020-06-10] MEDS: SPIRONOLACTONE 25 MG TAB PO SCH (08:52)
[2020-06-10] MEDS: METOPROLOL SUCCINATE (ER) 100 MG TAB.ER.24H PO SCH (08:52)
[2020-06-10] MEDS: ATORVASTATIN 80 MG TAB PO SCH (08:52)
[2020-06-10] MEDS: POTASSIUM CHLORIDE ER 20 MEQ TAB.ER PO SCH (08:52)
[2020-06-10] MEDS: ASPIRIN 81 MG PO SCH (08:52)
[2020-06-10] MEDS: APIXABAN 5 MG TAB PO SCH ×2 (08:52→20:31)
[2020-06-10] MEDS: ISOSORBIDE MONONITRATE ER 30 MG TAB.ER.24H PO SCH (08:52)
[2020-06-10] MEDS: allopurinoL 300 MG TAB PO SCH (08:52)
--- NOTE | 2020-06-10 13:35 | P.PN ---
Subjective This is a 59-year-old male with a past medical history significant for hypertension, hyperlipidemia, obstructive sleep apnea without CPAP use (has ox ygen at home), and nonobstructive coronary artery disease. Patient follows in the office with Dr. Oliver. We have been asked to see the patient in consultation for congestive heart failure. or Saturday left rehab, went to doctors appointment on Saturday. Started having worsening shortness of breath. Saturday and Saturday night did not sleep or eat because if he took his oxygen off he would feel extremely short of breath. Kept progressively getting worse even with the oxygen and decided to call 911. He does have central chest pain, it is reproducible, he feels as if someone is sitting on his chest. Aggravated by activity. He took Motrin at home, and [place] in the hospital helped relieved the pain. Of note, 2 years ago had a CPAP- lost in a move. 2 months ago, patient was suppose to be set up for a CPAP after a sleep study appointment. He missed this appointment due to being in the hospital. Sleep study appointment not rescheduled and patient has not had a CPAP for months. He endorses waking up in the middle of the night short of breath. Patient seen at bedside. Patient requiring Bipap. Patient started on heparin drip. Current home cardiac medications include Imdur 30mg daily, Aldactone 25 mg daily, metoprolol succinate 50 mg daily, Lasix 40 mg twice a day, Lipitor 80 mg daily, aspirin 81 mg daily DIAGNOSTICS: Covid-19 was negative D-dimer elevated 1.28. BNP 2340 Most recent echocardiogram 04/22/2020- EF 45-50%, mild MR, mild TR Most recent stress test 05/05/2020- No reversibile ischemia seen. Revealed Fixed defects along the apical anteroseptal wall and apical inferior wall suspected to represent old infarcts. EKG reveals on admission revealed atrial fibrillation Chest xray- Bibasilar infiltrates. Heart size is enlarged. Atypical pulmonary edema vs atypical pneumonia Chest CTA: No central PE. Assessment of secondary and distal branches markedly limited- cannot exclude distal PE. Diffuse interstitial pattern with bilateral consolidation and pleural effusion correlate for pulmonary edema and CHF vs diffuse interstitial pneumonia Cardiac catheterization in June [address] Patton revealing [id number] nonobstructive disease of the RCA. 06/10/2020: Patient seen and examined at bedside. Patient alert and oriented x 3. Appeared labored breathing on nasal cannula while awake but BiPAP while sleeping. Patient continues BP 134/93 HR 84 maintaining oxygen saturations >92% on BiPAP, afebrile. Telemetry tracings indicate atrial fibrillation, HR with better control 80-90s. Sodium 138, potassium 4.0, serum creatinine 0.7 bUN 23. Carbon dioxide elevated 41. PHYSICAL EXAM: VITAL SIGNS: Reviewed. GENERAL: Well-developed. Appears short of breath HEENT: Head is normocephalic. Pupils are equal, round. Sclerae anicteric. Mucous membranes of the mouth are moist. Neck supple. Difficult to assess for JVD LUNGS: Respirations even. Labored. Lungs diminished bilaterally. HEART:Irregular rate and rhythm. S1 and S2 heard. ABDOMEN: Soft. Nondistended. Nontender. EXTREMITIES: Normal range of motion. No clubbing or cyanosis. Peripheral pulses intact. 1+ bilateral lower extremity edema NEUROLOGIC: Awake and alert. Oriented x 3. ASSESSMENT: Acute on chronic diastolic heart failure, EF 45-50% Shortness of Breath Paroxysmal Atrial Fibrillation [id number] score 2 - started on Eliquis , [id number] nonobstructive CAD of proximal to mid RCA, per cath in June 2019 Hyperlipidemia Hypertension Obstructive sleep apnea, without CPAP use Morbid obesity: BMI 42.4 PLAN: Continue Eliquis- this medication is covered Lasix 40 mg every 12 hours for today, most likely transition to PO tomorrow Metoprolol succinate to 100mg daily Continue aspirin, atorvastatin, and spironolactone Patient needs to be set up with CPAP before discharge Monitor kidney function Accurate I&O Daily weights Further recommendations pending patient's course Nurse practitioner note has been reviewed by physician. Signing provider agrees with the documented findings, assessment, and plan of care. Objective - Vital Signs Vital signs: Vital Signs Temp 98.0 F 06/09/20 19:37 Pulse 93 06/09/20 19:37 Resp 20 06/09/20 19:37 BP 134/81 06/09/20 19:37 Pulse Ox 93 L 06/09/20 19:37 Intake & Output 06/09/20 06/09/20 06/10/20 06:59 18:59 06:59 Intake Total 673.333 845.159 Output Total 2225 2250 Balance -1551.667 -1404.841 Weight 161.025 kg Intake: IV 30 Heparin Sod,Pork in 0.45% 30 NaCl 25,000 unit In 0.45 % NaCl 1 250ml.bag @ 6. 2102 UNITS/KG/HR 10 mls/ hr IV .Q24H GABRIELA Rx#: [id number] Intake, IV Titration 73.333 95.159 Amount Heparin Sod,Pork in 0.45% 73.333 95.159 NaCl 25,000 unit In 0.45 % NaCl 1 250ml.bag @ 6. 2102 UNITS/KG/HR 10 mls/ hr IV .Q24H GABRIELA Rx#: [id number] Oral 600 720 Output: Urine 5 2250 Other: # Voids 3 - Labs CBC & Chem 7: 06/08/20 08:46 06/10/20 05:55
--- NOTE | 2020-06-10 16:24 | CDI ---
Documentation Clarification Form Date: 06/10/2020 04:04:07 PM From: Poly Richardson RN, CCDS Admit Date: 06/08/2020 12:32:00 PM Patient Name: Vance Lee Visit Number: [id number] Discharge Date: ATTENTION: The Clinical Documentation Specialists (CDI) and [facility] Coding Staff appreciate your assistance in clarifying documentation. Please respond to the clarification below the line at the bottom and electronically sign. The CDI & [facility] Coding staff will review the response and follow-up if needed. Please note: Queries are made part of the Legal Health Record. If you have any questions, please contact the author of this message via ITS. Dr. Marcelino Trujillo Your patient has a diagnosis of respiratory failure from the progress notes on 06/09. Please further specify the acuity and type of respiratory failure. History/Risk Factors: Heart Failure, Hypertension, Sleep Apnea Clinical Indicators: 59-year-old female present to ED with complaints of shortness of breath. Respiratory exam on 06/08 found severe respiratory distress, rales, accessory muscle use, decreased breath sounds. 06/08 CXR: concerning for CHF. 06/08 CT angiography: Negative for PE, showing pulmonary edema 06/08 Labs: BNP 2340 06/08 Covid Not Detected 06/08 Vital signs: 118/93 101 20 98.0 93 % BiPAP Treatment: Telemetry monitoring Duoneb 0.5 mg/3ml Inhalation Q2 hrs prn Lasix 40 mg IV q12 hrs Monitor O2 Sat's (titrate) (was placed on BiPAP on admission) Is there an additional diagnosis that is clinically appropriate for this patient? [ ] Acute Hypoxic Respiratory Failure (pO2 <60 mm Hg or SpO2 <91% on room air) [ ] Acute Hypercapnic Respiratory Failure (pCO2 >50 and pH <7.35) [ ] Acute on Chronic Hypoxic Respiratory Failure [ ] Other Diagnosis, please specify [ ] Unable to determine (Template Last Revised: May 2020) ELIOTD
[2020-06-10] MEDS: ACETAMINOPHEN TAB 325 MG TAB PO PRN (17:59)
--- NOTE | 2020-06-10 19:03 | PN ---
PROGRESS NOTE CHIEF COMPLAINT: Acute congestive heart failure and atrial fibrillation. HISTORY OF PRESENT ILLNESS: This gentleman is doing a little bit better. His breathing is improving. He has had no chest pain. Cardiology continues to follow him and his activity is being increased. REVIEW OF SYSTEMS: He has had no further chest pain. He is still somewhat short of breath. PHYSICAL EXAMINATION: Breath sounds are diminished. Cardiac exam demonstrates what sounds like sinus rhythm. The abdomen is soft and protuberant. IMPRESSION: 1. Acute congestive heart failure. 2. Pulmonary edema. 3. Atrial fibrillation. 4. Cardiomyopathy. PLAN: Continue to increase activity and wait for any further recommendations from Cardiology. MMODL / IJN: [id number] /
[2020-06-11] MEDS: PANTOPRAZOLE 40 MG TABLET PO SCH (06:25)
[2020-06-11] MEDS: allopurinoL 300 MG TAB PO SCH (07:55)
[2020-06-11] MEDS: ATORVASTATIN 80 MG TAB PO SCH (07:55)
[2020-06-11] MEDS: SPIRONOLACTONE 25 MG TAB PO SCH (07:55)
[2020-06-11] MEDS: POTASSIUM CHLORIDE ER 20 MEQ TAB.ER PO SCH (07:55)
[2020-06-11] MEDS: ASPIRIN 81 MG PO SCH (07:55)
[2020-06-11] MEDS: ISOSORBIDE MONONITRATE ER 30 MG TAB.ER.24H PO SCH (07:55)
[2020-06-11] MEDS: METOPROLOL SUCCINATE (ER) 100 MG TAB.ER.24H PO SCH (07:56)
[2020-06-11] MEDS: FUROSEMIDE 10 MG/ML 4 ML VIAL IV SCH ×2 (07:56→20:15)
[2020-06-11] MEDS: APIXABAN 5 MG TAB PO SCH ×2 (07:56→20:15)
[2020-06-11] MEDS: HYDROcodone/APAP 10-325MG 1 EACH TAB PO PRN ×2 (08:02→20:15)
[2020-06-11] MEDS: ACETAMINOPHEN TAB 325 MG TAB PO PRN ×2 (12:08→17:41)
--- NOTE | 2020-06-11 12:11 | P.PN ---
Subjective Progress Note Date: 06/11/20 This is a 59-year-old gentleman with past medical history significant for hypertension, hyperlipidemia, obstructive sleep apnea without CPAP use at home, nonobstructive coronary artery disease who follows in the office with Dr. Oliver. Patient presented to the hospital on this occasion with symptoms of congestive cardiac failure. He is overall been diuresing well, continues to be in atrial fibrillation. Echocardiogram with Doppler study revealed an ejection fraction of 45-50%. Blood pressure 128/60 with a heart rate in the 80s, 94% on 4 L. No laboratory data today. Objective - Vital Signs Vital signs: Vital Signs Temp 98.1 F 06/11/20 11:49 Pulse 83 06/11/20 11:49 Resp 20 06/11/20 11:49 BP 129/63 06/11/20 11:49 Pulse Ox 94 L 06/11/20 11:49 Intake & Output 06/10/20 06/11/20 06/11/20 18:59 06:59 18:59 Intake Total 1360 Output Total 3550 1999 Weight 162.5 kg Intake: Oral 1360 Output: Urine 3550 1999 Other: Voiding Method Urinal Urinal # Voids 1 2 - Exam PHYSICAL EXAM: VITAL SIGNS: Reviewed. GENERAL: Well-developed. Appears short of breath HEENT: Head is normocephalic. Pupils are equal, round. Sclerae anicteric. Mucous membranes of the mouth are moist. Neck supple. No JVD or thyromegaly LUNGS: Respirations even. Labored. Lungs diminished bilaterally. HEART: Regular rate and rhythm. S1 and S2 heard. ABDOMEN: Soft. Nondistended. Nontender. EXTREMITIES: Normal range of motion. No clubbing or cyanosis. Peripheral pulses intact. Trace to 1+ bilateral lower extremity edema NEUROLOGIC: Awake and alert. Oriented x 3. - Labs CBC & Chem 7: 06/08/20 08:46 06/10/20 05:55 Assessment and Plan Plan: ASSESSMENT: #1 Acute on chronic diastolic heart failure, EF 45-50% #2 Paroxysmal Atrial Fibrillation - on heparin drip #3 Nzoj-wo-truladol nonobstructive CAD of proximal to mid RCA, per cath in June 2019 #4 Hyperlipidemia #5 Hypertension #6 Obstructive sleep apnea, without CPAP use #7 Morbid obesity: BMI 42.4 Plan We will continue current dose of IV Lasix, discontinue IV heparin drip and resume the patient's Eliquis. Continue to monitor the patient's intake and output and daily weights. DNP note has been reviewed, I agree with a documented findings and plan of care. Patient was seen and examined.
--- NOTE | 2020-06-11 16:26 | PN ---
PROGRESS NOTE DATE OF SERVICE: 06/11/2020 CHIEF COMPLAINT: Acute congestive heart failure and atrial fibrillation. HISTORY OF PRESENT ILLNESS: This gentleman is doing slightly better. He is a little bit less short of breath. He has had no chest pain. PHYSICAL EXAMINATION: Chest demonstrates breath sounds with scattered rales and rhonchi. Cardiac exam sounds regular. It is hard to tell for sure if he is in atrial fibrillation or normal sinus rhythm. Abdomen is soft and nontender. IMPRESSION: 1. Acute congestive heart failure. 2. Chronic congestive heart failure. 3. Cardiomyopathy. 4. Coronary artery disease. 5. Obesity. PLAN: Slowly progress activity and continue to follow until he is able to be safely discharged. MMODL / IJN: [id number] /
[2020-06-11] MEDS: CYCLOBENZAPRINE 10 MG TAB PO PRN (17:42)
[2020-06-12] MEDS: PANTOPRAZOLE 40 MG TABLET PO SCH (06:24)
[2020-06-12] MEDS: APIXABAN 5 MG TAB PO SCH ×2 (09:44→20:04)
[2020-06-12] MEDS: ASPIRIN 81 MG PO SCH (09:44)
[2020-06-12] MEDS: FUROSEMIDE 10 MG/ML 4 ML VIAL IV SCH ×2 (09:44→20:06)
[2020-06-12] MEDS: ATORVASTATIN 80 MG TAB PO SCH (09:44)
[2020-06-12] MEDS: METOPROLOL SUCCINATE (ER) 100 MG TAB.ER.24H PO SCH (09:44)
[2020-06-12] MEDS: allopurinoL 300 MG TAB PO SCH (09:44)
[2020-06-12] MEDS: POTASSIUM CHLORIDE ER 20 MEQ TAB.ER PO SCH (09:44)
[2020-06-12] MEDS: SPIRONOLACTONE 25 MG TAB PO SCH (09:45)
[2020-06-12] MEDS: ISOSORBIDE MONONITRATE ER 30 MG TAB.ER.24H PO SCH (09:45)
[2020-06-12] MEDS: HYDROcodone/APAP 10-325MG 1 EACH TAB PO PRN ×2 (09:48→20:04)
--- NOTE | 2020-06-12 10:11 | P.PN ---
Subjective Progress Note Date: 06/12/20 This is a 59-year-old gentleman with past medical history significant for hypertension, hyperlipidemia, obstructive sleep apnea without CPAP use at home, nonobstructive coronary artery disease who follows in the office with Dr. Oliver. Patient presented to the hospital on this occasion with symptoms of congestive cardiac failure. He is overall been diuresing well, continues to be in atrial fibrillation. Echocardiogram with Doppler study revealed an ejection fraction of 45-50%. Blood pressure 128/60 with a heart rate in the 80s, 94% on 4 L. No laboratory data today. 06/12/2020 Patient seen and examined this morning, does state that he is feeling mildly better today with his breathing. Blood pressure 132/90 with a heart rate in the 50s, 93% on room air. Sodium 138, potassium 4.0, BUN 23, creatinine 0.75. We will repeat a chest x-ray today. The patient diuresed well through the night night, there is no weight documented yet this morning. Objective - Vital Signs Vital signs: Vital Signs Temp 97.9 F 06/12/20 08:00 Pulse 57 L 06/12/20 08:00 Resp 18 06/12/20 08:00 BP 132/90 06/12/20 08:00 Pulse Ox 93 L 06/12/20 08:00 Intake & Output 06/11/20 06/12/20 06/12/20 18:59 06:59 18:59 Intake Total 360 Output Total 2600 200 Balance -2240 -200 Intake: Oral 360 Output: Urine 2600 200 Other: Voiding Method Urinal # Voids 1 - Exam PHYSICAL EXAM: VITAL SIGNS: Reviewed. GENERAL: Well-developed. Appears short of breath HEENT: Head is normocephalic. Pupils are equal, round. Sclerae anicteric. Mucous membranes of the mouth are moist. Neck supple. No JVD or thyromegaly LUNGS: Respirations even. Labored. Lungs diminished bilaterally. HEART: Regular rate and rhythm. S1 and S2 heard. ABDOMEN: Soft. Nondistended. Nontender. EXTREMITIES: Normal range of motion. No clubbing or cyanosis. Peripheral pulses intact. Trace to 1+ bilateral lower extremity edema NEUROLOGIC: Awake and alert. Oriented x 3. - Labs CBC & Chem 7: 06/08/20 08:46 06/10/20 05:55 Assessment and Plan Plan: ASSESSMENT: #1 Acute on chronic diastolic heart failure, EF 45-50% #2 Paroxysmal Atrial Fibrillation - on heparin drip #3 [id number] nonobstructive CAD of proximal to mid RCA, per cath in June 2019 #4 Hyperlipidemia #5 Hypertension #6 Obstructive sleep apnea, without CPAP use #7 Morbid obesity: BMI 42.4 Plan We will continue current dose of IV Lasix, repeat chest x-ray today. Monitor daily weights, intake and output. DNP note has been reviewed, I agree with a documented findings and plan of care. Patient was seen and examined.
[2020-06-12 12:29] LABS: African American GFR (CKD) >90 (>60 ml/min/1.73 sqM); Anion Gap 8 mmol/L; Blood Urea Nitrogen 18 mg/dL (9-20); Calcium 9.3 mg/dL (8.4-10.2); Carbon Dioxide 37 mmol/L (22-30); Chloride 93 mmol/L (98-107); Glucose 117 mg/dL (74-99); Non-African American GFR(CKD) >90 (>60 ml/min/1.73 sqM); Potassium 4.4 mmol/L (3.5-5.1); Sodium 138 mmol/L (137-145)
--- NOTE | 2020-06-12 13:20 | XR ---
EXAMINATION TYPE: XR chest 2V DATE OF EXAM: 06/12/2020 COMPARISON: 06/08/2020 INDICATION: 6 follow-up CHF TECHNIQUE: Frontal and lateral views of the chest are obtained. FINDINGS: The heart size is enlarged. The pulmonary vasculature is normal in size. This is diminished from comparison.. Previous infiltrate largely resolved.. IMPRESSION: 1. Resolving congestive heart failure. 2. Cardiomegaly
[2020-06-12] MEDS: CYCLOBENZAPRINE 10 MG TAB PO PRN (13:59)
[2020-06-13] MEDS: PANTOPRAZOLE 40 MG TABLET PO SCH (07:03)
[2020-06-13 08:14] LABS: African American GFR (CKD) >90 (>60 ml/min/1.73 sqM); Blood Urea Nitrogen 22 mg/dL (9-20); Calcium 9.5 mg/dL (8.4-10.2); Chloride 91 mmol/L (98-107); Glucose 116 mg/dL (74-99); Non-African American GFR(CKD) >90 (>60 ml/min/1.73 sqM); Potassium 4.5 mmol/L (3.5-5.1); Sodium 138 mmol/L (137-145)
[2020-06-13 08:21] LABS: Anion Gap 8 mmol/L
[2020-06-13 08:25] LABS: Carbon Dioxide 39 mmol/L (22-30)
[2020-06-13] MEDS: APIXABAN 5 MG TAB PO SCH ×2 (09:43→20:28)
[2020-06-13] MEDS: ASPIRIN 81 MG PO SCH (09:43)
[2020-06-13] MEDS: METOPROLOL SUCCINATE (ER) 100 MG TAB.ER.24H PO SCH (09:43)
[2020-06-13] MEDS: ATORVASTATIN 80 MG TAB PO SCH (09:43)
[2020-06-13] MEDS: ISOSORBIDE MONONITRATE ER 30 MG TAB.ER.24H PO SCH (09:43)
[2020-06-13] MEDS: SPIRONOLACTONE 25 MG TAB PO SCH (09:43)
[2020-06-13] MEDS: allopurinoL 300 MG TAB PO SCH (09:43)
[2020-06-13] MEDS: POTASSIUM CHLORIDE ER 20 MEQ TAB.ER PO SCH (09:44)
[2020-06-13] MEDS: FUROSEMIDE 10 MG/ML 4 ML VIAL IV SCH (09:44)
[2020-06-13] MEDS: HYDROcodone/APAP 10-325MG 1 EACH TAB PO PRN ×2 (09:58→20:28)
--- NOTE | 2020-06-13 11:20 | MISC ---
MISCELLANOUS REPORT QUERY: Acute hypoxic respiratory failure. MMODL / IJN: [id number] /
--- NOTE | 2020-06-13 12:37 | P.PN ---
Subjective This is a 59-year-old male with a past medical history significant for hypertension, hyperlipidemia, obstructive sleep apnea without CPAP use (has ox ygen at home), and nonobstructive coronary artery disease. Patient follows in the office with Dr. Oliver. We have been asked to see the patient in consultation for congestive heart failure. or Saturday left rehab, went to doctors appointment on Saturday. Started having worsening shortness of breath. Saturday and Saturday night did not sleep or eat because if he took his oxygen off he would feel extremely short of breath. Kept progressively getting worse even with the oxygen and decided to call 911. He does have central chest pain, it is reproducible, he feels as if someone is sitting on his chest. Aggravated by activity. He took Motrin at home, and [place] in the hospital helped relieved the pain. Of note, 2 years ago had a CPAP- lost in a move. 2 months ago, patient was suppose to be set up for a CPAP after a sleep study appointment. He missed this appointment due to being in the hospital. Sleep study appointment not rescheduled and patient has not had a CPAP for months. He endorses waking up in the middle of the night short of breath. Patient seen at bedside. Patient requiring Bipap. Patient started on heparin drip. Current home cardiac medications include Imdur 30mg daily, Aldactone 25 mg daily, metoprolol succinate 50 mg daily, Lasix 40 mg twice a day, Lipitor 80 mg daily, aspirin 81 mg daily DIAGNOSTICS: Covid-19 was negative D-dimer elevated 1.28. BNP 2340 Most recent echocardiogram 04/22/2020- EF 45-50%, mild MR, mild TR Most recent stress test 05/05/2020- No reversibile ischemia seen. Revealed Fixed defects along the apical anteroseptal wall and apical inferior wall suspected to represent old infarcts. EKG reveals on admission revealed atrial fibrillation Chest xray- Bibasilar infiltrates. Heart size is enlarged. Atypical pulmonary edema vs atypical pneumonia Chest CTA: No central PE. Assessment of secondary and distal branches markedly limited- cannot exclude distal PE. Diffuse interstitial pattern with bilateral consolidation and pleural effusion correlate for pulmonary edema and CHF vs diffuse interstitial pneumonia Cardiac catheterization in June [address] Patton revealing [id number] nonobstructive disease of the RCA. 06/13/2020: Patient seen and examined at bedside. Patient alert and oriented x 3. States his breathing has improved. Continues to require nasal cannula while awake but BiPAP while sleeping. I/Os with 2.8L urine output yesterday, and 1.4L output today. BP 100/74 HR 81 maintaining oxygen saturations >92% on nasal cannula, afebrile. Telemetry tracings indicate atrial fibrillation, HR 80-100s. Sodium 138, potassium 4.5, serum creatinine 0.84 bUN 22. Carbon dioxide elevated 39. Weight 159kg, from 162kg. PHYSICAL EXAM: VITAL SIGNS: Reviewed. GENERAL: Well-developed. Appears short of breath HEENT: Head is normocephalic. Pupils are equal, round. Sclerae anicteric. Mucous membranes of the mouth are moist. Neck supple. Difficult to assess for JVD LUNGS: Respirations even. Labored. Lungs diminished bilaterally. HEART:Irregular rate and rhythm. S1 and S2 heard. ABDOMEN: Soft. Nondistended. Nontender. EXTREMITIES: Normal range of motion. No clubbing or cyanosis. Peripheral pulses intact. 1+ bilateral lower extremity edema NEUROLOGIC: Awake and alert. Oriented x 3. ASSESSMENT: Acute on chronic diastolic heart failure, EF 45-50% Shortness of Breath Paroxysmal Atrial Fibrillation [id number] score 2 - started on Eliquis , [id number] nonobstructive CAD of proximal to mid RCA, per cath in June 2019 Hyperlipidemia Hypertension Obstructive sleep apnea, without CPAP use Morbid obesity: BMI 42.4 PLAN: Continue Eliquis- this medication is covered Transition to PO Lasix 40 mg BID Metoprolol succinate to 100mg daily Continue aspirin, atorvastatin, and spironolactone Patient needs to be set up with CPAP before discharge Monitor kidney function Accurate I&O Daily weights Further recommendations pending patient's course Nurse practitioner note has been reviewed by physician. Signing provider agrees with the documented findings, assessment, and plan of care. Objective - Vital Signs Vital signs: Vital Signs Temp 97.9 F 06/13/20 08:00 Pulse 81 06/13/20 08:00 Resp 20 06/13/20 08:00 BP 100/74 06/13/20 08:00 Pulse Ox 94 L 06/13/20 10:35 Intake & Output 06/12/20 06/13/20 06/13/20 18:59 06:59 18:59 Intake Total 480 420 Output Total 900 500 300 Balance -420 -500 120 Weight 159.3 kg Intake: Oral 480 420 Output: Urine 900 500 300 Other: Voiding Method Urinal # Voids 1 - Labs CBC & Chem 7: 06/08/20 08:46 06/13/20 06:41 Labs: Abnormal Lab Results - Last 24 Hours (Table) 06/13/20 Range/Units 06:41 Chloride 91 L (98-107) mmol/L Carbon Dioxide 39 H (22-30) mmol/L BUN 22 H (9-20) mg/dL Glucose 116 H (74-99) mg/dL
[2020-06-13] MEDS: FUROSEMIDE 40 MG TAB PO SCH (17:01)
--- NOTE | 2020-06-13 20:03 | PN ---
PROGRESS NOTE DATE OF SERVICE: 06/12/2020 CHIEF COMPLAINT: Congestive heart failure and cardiomyopathy. HISTORY OF PRESENT ILLNESS: This gentleman is improving. He is less short of breath. He has had no chest pain. He is still on IV Lasix. PHYSICAL EXAMINATION: Chest is quite clear. There are only occasional rales. The cardiac exam is normal. The abdomen is soft and protuberant. IMPRESSION: 1. Acute congestive heart failure. 2. Cardiomyopathy. PLAN: 1. Continue with IV Lasix. 2. Try to increase his activity. 3. Start to consider his discharge plan. MMODL / NORRISN: [id number] /
--- NOTE | 2020-06-13 20:12 | PN ---
PROGRESS NOTE DATE OF SERVICE: 06/13/2020 CHIEF COMPLAINT: CHF. HISTORY OF PRESENT ILLNESS: This gentleman slowly continues to diurese, with improvement in his shortness of breath and exercise capacity. PHYSICAL EXAMINATION: Chest demonstrates good breath sounds bilaterally with only occasional rales. Cardiac exam is unchanged. The abdomen is soft and protuberant. IMPRESSION: 1. Acute congestive heart failure. 2. Chronic pandiastolic and systolic heart failure. 3. Obesity. PLAN: Continue with his diuresis and increase activity. MMODL / IJN: [id number] /
[2020-06-13] MEDS: CYCLOBENZAPRINE 10 MG TAB PO PRN (23:10)
[2020-06-13] MEDS: ACETAMINOPHEN TAB 325 MG TAB PO PRN (23:30)
[2020-06-14] MEDS: PANTOPRAZOLE 40 MG TABLET PO SCH (06:57)
[2020-06-14 08:35] LABS: African American GFR (CKD) >90 (>60 ml/min/1.73 sqM); Anion Gap 5 mmol/L; Blood Urea Nitrogen 21 mg/dL (9-20); Calcium 9.5 mg/dL (8.4-10.2); Carbon Dioxide 38 mmol/L (22-30); Chloride 93 mmol/L (98-107); Glucose 112 mg/dL (74-99); Non-African American GFR(CKD) >90 (>60 ml/min/1.73 sqM); Potassium 4.7 mmol/L (3.5-5.1); Sodium 136 mmol/L (137-145)
--- NOTE | 2020-06-14 09:21 | P.PN ---
Subjective This is a 59-year-old male with a past medical history significant for hypertension, hyperlipidemia, obstructive sleep apnea without CPAP use (has ox ygen at home), and nonobstructive coronary artery disease. Patient follows in the office with Dr. Oliver. We have been asked to see the patient in consultation for congestive heart failure. or Saturday left rehab, went to doctors appointment on Saturday. Started having worsening shortness of breath. Saturday and Saturday night did not sleep or eat because if he took his oxygen off he would feel extremely short of breath. Kept progressively getting worse even with the oxygen and decided to call 911. He does have central chest pain, it is reproducible, he feels as if someone is sitting on his chest. Aggravated by activity. He took Motrin at home, and [place] in the hospital helped relieved the pain. Of note, 2 years ago had a CPAP- lost in a move. 2 months ago, patient was suppose to be set up for a CPAP after a sleep study appointment. He missed this appointment due to being in the hospital. Sleep study appointment not rescheduled and patient has not had a CPAP for months. He endorses waking up in the middle of the night short of breath. Patient seen at bedside. Patient requiring Bipap. Patient started on heparin drip. Current home cardiac medications include Imdur 30mg daily, Aldactone 25 mg daily, metoprolol succinate 50 mg daily, Lasix 40 mg twice a day, Lipitor 80 mg daily, aspirin 81 mg daily DIAGNOSTICS: Covid-19 was negative D-dimer elevated 1.28. BNP 2340 Most recent echocardiogram 04/22/2020- EF 45-50%, mild MR, mild TR Most recent stress test 05/05/2020- No reversibile ischemia seen. Revealed Fixed defects along the apical anteroseptal wall and apical inferior wall suspected to represent old infarcts. EKG reveals on admission revealed atrial fibrillation Chest xray- Bibasilar infiltrates. Heart size is enlarged. Atypical pulmonary edema vs atypical pneumonia Chest CTA: No central PE. Assessment of secondary and distal branches markedly limited- cannot exclude distal PE. Diffuse interstitial pattern with bilateral consolidation and pleural effusion correlate for pulmonary edema and CHF vs diffuse interstitial pneumonia Cardiac catheterization in June [address] Patton revealing [id number] nonobstructive disease of the RCA. 06/14/2020: Patient seen and examined at bedside. Patient alert and oriented x 3. States his breathing has improved. BP 124/80 HR 64 maintaining oxygen saturations 93% on 4L nasal cannula, afebrile. Telemetry tracings indicate atrial fibrillation, HR 80- 100s. Sodium 136, potassium 4.7, serum creatinine 0.76 bUN 21. Carbon dioxide elevated 38. Weight 158kg, from 159kg yesterday. Rate has been controlled. Transitioned to PO Lasix yesterday PHYSICAL EXAM: VITAL SIGNS: Reviewed. GENERAL: Well-developed. Appears short of breath HEENT: Neck supple. Difficult to assess for JVD LUNGS: Respirations even. Labored. Lungs diminished bilaterally. HEART:Irregular rate and rhythm. S1 and S2 heard. ABDOMEN: Soft. Nondistended. Nontender. EXTREMITIES: Normal range of motion. No clubbing or cyanosis. Peripheral pulses intact. no bilateral lower extremity edema NEUROLOGIC: Awake and alert. Oriented x 3. ASSESSMENT: Acute on chronic diastolic heart failure, EF 45-50% Shortness of Breath Paroxysmal Atrial Fibrillation [id number] score 2 - started on Eliquis , [id number] nonobstructive CAD of proximal to mid RCA, per cath in June 2019 Hyperlipidemia Hypertension Obstructive sleep apnea, without CPAP use- noncompliant Morbid obesity: BMI 42.4 PLAN: Patient needs a sleep study outpatient and CPAP at home- this needs to be set up prior to patient being discharged Continue Eliquis- this medication is covered Lasix 40 mg BID Metoprolol succinate to 100mg daily Continue aspirin, atorvastatin, and spironolactone Nurse practitioner note has been reviewed by physician. Signing provider agrees with the documented findings, assessment, and plan of care. Objective - Vital Signs Vital signs: Vital Signs Temp 97.5 F L 06/14/20 08:00 Pulse 64 06/14/20 04:00 Resp 18 06/14/20 08:00 BP 124/80 06/14/20 08:00 Pulse Ox 93 L 06/14/20 04:00 Intake & Output 06/13/20 06/14/20 06/14/20 18:59 06:59 18:59 Intake Total 1520 560 Output Total 675 Balance 845 560 Weight 158.2 kg Intake: Oral 1520 560 Output: Urine 675 Other: Voiding Method Urinal # Voids 1 1 - Labs CBC & Chem 7: 06/08/20 08:46 06/14/20 07:03 Labs: Abnormal Lab Results - Last 24 Hours (Table) 06/14/20 Range/Units 07:03 Sodium 136 L (137-145) mmol/L Chloride 93 L (98-107) mmol/L Carbon Dioxide 38 H (22-30) mmol/L BUN 21 H (9-20) mg/dL Glucose 112 H (74-99) mg/dL
[2020-06-14] MEDS: ATORVASTATIN 80 MG TAB PO SCH (09:39)
[2020-06-14] MEDS: APIXABAN 5 MG TAB PO SCH ×2 (09:39→20:02)
[2020-06-14] MEDS: ASPIRIN 81 MG PO SCH (09:39)
[2020-06-14] MEDS: allopurinoL 300 MG TAB PO SCH (09:39)
[2020-06-14] MEDS: FUROSEMIDE 40 MG TAB PO SCH ×2 (09:40→15:29)
[2020-06-14] MEDS: ISOSORBIDE MONONITRATE ER 30 MG TAB.ER.24H PO SCH (09:40)
[2020-06-14] MEDS: POTASSIUM CHLORIDE ER 20 MEQ TAB.ER PO SCH (09:40)
[2020-06-14] MEDS: METOPROLOL SUCCINATE (ER) 100 MG TAB.ER.24H PO SCH (09:40)
[2020-06-14] MEDS: SPIRONOLACTONE 25 MG TAB PO SCH (09:40)
[2020-06-14] MEDS: HYDROcodone/APAP 10-325MG 1 EACH TAB PO PRN ×2 (09:41→21:44)
[2020-06-14] MEDS: CYCLOBENZAPRINE 10 MG TAB PO PRN (13:59)
--- NOTE | 2020-06-14 19:28 | PN ---
PROGRESS NOTE CHIEF COMPLAINT: Congestive heart failure. HISTORY OF PRESENT ILLNESS: This gentleman is doing a little bit better. He continues to diurese. He is nearing ability to be discharged, but will present a significant problem due to his cardiomyopathy, sleep apnea, diminished cardiac output and obesity. PHYSICAL EXAMINATION: Breath sounds are difficult to hear due to his obesity, but they are clear. The cardiac exam continues to reveal atrial fibrillation. The abdomen is protuberant and soft. IMPRESSION: 1. New-onset atrial fibrillation. 2. Acute on chronic diastolic heart failure. 3. Cardiomyopathy. 4. Sleep apnea. 5. Obesity. PLAN: Continue to follow with Cardiology until he is able to be safely discharged. MMODL / IJN: [id number] /
[2020-06-15] MEDS: CYCLOBENZAPRINE 10 MG TAB PO PRN (02:50)
[2020-06-15] MEDS: ASPIRIN 81 MG PO SCH (07:37)
[2020-06-15] MEDS: ATORVASTATIN 80 MG TAB PO SCH (07:37)
[2020-06-15] MEDS: POTASSIUM CHLORIDE ER 20 MEQ TAB.ER PO SCH (07:37)
[2020-06-15] MEDS: APIXABAN 5 MG TAB PO SCH (07:37)
[2020-06-15] MEDS: ISOSORBIDE MONONITRATE ER 30 MG TAB.ER.24H PO SCH (07:37)
[2020-06-15] MEDS: FUROSEMIDE 40 MG TAB PO SCH (07:38)
[2020-06-15] MEDS: allopurinoL 300 MG TAB PO SCH (07:38)
[2020-06-15] MEDS: METOPROLOL SUCCINATE (ER) 100 MG TAB.ER.24H PO SCH (07:38)
[2020-06-15] MEDS: PANTOPRAZOLE 40 MG TABLET PO SCH (07:38)
[2020-06-15] MEDS: SPIRONOLACTONE 25 MG TAB PO SCH (07:38)
[2020-06-15] MEDS: HYDROcodone/APAP 10-325MG 1 EACH TAB PO PRN (10:27)
--- NOTE | 2020-06-15 11:42 | DS ---
DISCHARGE SUMMARY CHIEF COMPLAINT: Acute pulmonary edema, shortness of breath and congestive heart failure. HISTORY OF PRESENT ILLNESS AND PHYSICAL EXAM: Details of this man's history and physical can be found in the initial workup. LABORATORY STUDIES: While he was in the hospital he had laboratory studies, details of which can be found in the laboratory section of his chart. COURSE IN THE HOSPITAL: After admission he was placed at bedrest and started on intravenous fluids and started on IV Lasix. He was seen and followed by Cardiology. He presented with atrial fibrillation and this persisted throughout his hospitalization. He was gradually diuresed and was doing fairly well, but it was not felt that he would be able to go home and he was sent back to [facility]. FINAL DIAGNOSES: 1. Acute pulmonary edema. 2. Acute on chronic congestive heart failure. 3. Combined systolic and diastolic heart failure. 4. Hypertension. 5. Pickwickian syndrome. 6. Obesity. 7. Obstructive sleep apnea. 8. Atrial fibrillation, new onset. OPERATIONS: None. CONSULTATION: Cardiology. He is improved. MMMARY / NORRISN: [id number] /
[2020-06-15 14:09] VITALS: BP 133/61; PULSE 69; RESP 19; TEMP 97.8
== END 2020-06-15 14:27 | DRG 291 ==
LOC: EC 08:34 → 3SCARD 12:32 → 4SSUR 06-15 01:15
PROVIDERS: ADMIT Family Medicine; ATTEND Family Medicine
PROC: 5A09357 Assistance with Respiratory Ventilation, Less than 24 Consecutive Hours, Continuous Positive Airway Pressure (ICD-10-PCS; principal; 2020-06-08)
DX: I11.0 Hypertensive heart disease with heart failure (principal); J96.01 Acute respiratory failure with hypoxia; E66.2 Morbid (severe) obesity with alveolar hypoventilation; Z68.42 Body mass index [BMI] 45.0-49.9, adult; E78.5 Hyperlipidemia, unspecified; I50.43 Acute on chronic combined systolic (congestive) and diastolic (congestive) heart failure; I42.9 Cardiomyopathy, unspecified; G89.29 Other chronic pain; M54.5 Low back pain; I48.0 Paroxysmal atrial fibrillation; I25.10 Atherosclerotic heart disease of native coronary artery without angina pectoris; Z20.822 Contact with and (suspected) exposure to COVID-19; F41.9 Anxiety disorder, unspecified; F32.9 Major depressive disorder, single episode, unspecified; Z87.01 Personal history of pneumonia (recurrent); Z90.49 Acquired absence of other specified parts of digestive tract; Z82.49 Family history of ischemic heart disease and other diseases of the circulatory system; Z83.3 Family history of diabetes mellitus; Z83.49 Family history of other endocrine, nutritional and metabolic diseases; Z79.82 Long term (current) use of aspirin; Z79.899 Other long term (current) drug therapy; Z79.01 Long term (current) use of anticoagulants
CPT/HCPCS: 36415; 71045; 71046; 71275; 80048; 80053; 83605; 83735; 83880; 84484; 85025; 85379; 85610; 85730; 87635; 93005; 94640; 94660; 94760; 96365; 96366; 96375; 99291

== ENCOUNTER 2020-07-15 15:20 | Inpatient (IN) | payer OTHER ==
[2020-07-15] MEDS ORDERED: LIDOCAINE 5% PATCH TOPICAL STA (15:45)
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
[2020-07-15 15:54] LABS: Anisocytosis Slight; Basophils # (A) 0.1 k/uL (0-0.2); Basophils % (A) 1 %; Eosinophils # (A) 0.2 k/uL (0-0.7); Eosinophils % (A) 3 %; HCT 42.5 % (39.0-53.0); Hypochromasia Slight; Lymphocytes # (A) 1.1 k/uL (1.0-4.8); Lymphocytes % (A) 17 %; MCH 26.7 pg (25.0-35.0); MCHC 30.5 g/dL (31.0-37.0); MCV 87.7 fL (80.0-100.0); Mean Platelet Volume 8.6; Monocytes # (A) 0.4 k/uL (0-1.0); Monocytes % (A) 6 %; Neutrophils # (A) 4.7 k/uL (1.3-7.7); Neutrophils % (A) 72 %; Platelet Count 156 k/uL (150-450); RBC 4.85 m/uL (4.30-5.90); RDW 19.8 % (11.5-15.5); WBC 6.6 k/uL (3.8-10.6)
[2020-07-15 16:02] LABS: ALT 14 U/L (4-49); AST 26 U/L (17-59); African American GFR (CKD) >90 (>60 ml/min/1.73 sqM); Albumin 3.9 g/dL (3.5-5.0); Alkaline Phosphatase 83 U/L (38-126); Anion Gap 6 mmol/L; Blood Urea Nitrogen 14 mg/dL (9-20); Calcium 9.3 mg/dL (8.4-10.2); Carbon Dioxide 30 mmol/L (22-30); Chloride 105 mmol/L (98-107); Glucose 111 mg/dL (74-99); Magnesium 1.6 mg/dL (1.6-2.3); Non-African American GFR(CKD) >90 (>60 ml/min/1.73 sqM); Sodium 141 mmol/L (137-145); Total Protein 6.7 g/dL (6.3-8.2)
[2020-07-15 16:05] LABS: Potassium 4.7 mmol/L (3.5-5.1)
--- NOTE | 2020-07-15 16:38 | XR ---
EXAMINATION TYPE: XR chest 1V portable DATE OF EXAM: 07/15/2020 COMPARISON: 06/24/2020 HISTORY: Chest pain TECHNIQUE: Single view FINDINGS: Heart is enlarged. There is mild pulmonary vascular congestion. There are chest leads. Cost ophrenic angles are fairly clear. There are no hilar masses. IMPRESSION: There is mild pulmonary congestion but no obvious heart failure. Pulmonary vascularity in creased compared to old exam.
[2020-07-15] MEDS ORDERED: ASPIRIN 81 MG PO STA (16:44)
[2020-07-15] MEDS ORDERED: METOPROLOL TARTRATE 5 MG/5 ML VIAL IVP STA (16:47)
[2020-07-15] MEDS ORDERED: FUROSEMIDE 10 MG/ML 4 ML VIAL IV STA (16:49)
[2020-07-15] MEDS ORDERED: ALBUTEROL NEBULIZED 2.5 MG/3 ML INHALATION PRN (19:49)
[2020-07-15] MEDS: HYDROcodone/APAP 5-325MG 1 EACH TAB PO PRN (20:05)
[2020-07-15] MEDS: APIXABAN 5 MG TAB PO SCH (20:05)
[2020-07-16] MEDS: HYDROcodone/APAP 5-325MG 1 EACH TAB PO PRN ×4 (02:40→23:23)
[2020-07-16] MEDS: FUROSEMIDE 10 MG/ML 4 ML VIAL IV SCH ×2 (05:01→17:24)
[2020-07-16] MEDS: APIXABAN 5 MG TAB PO SCH ×2 (08:42→20:00)
[2020-07-16] MEDS: SPIRONOLACTONE 25 MG TAB PO SCH (08:42)
[2020-07-16] MEDS: METOPROLOL SUCCINATE (ER) 100 MG TAB.ER.24H PO SCH (08:42)
[2020-07-16] MEDS: POTASSIUM CHLORIDE ER 20 MEQ TAB.ER PO SCH (08:42)
[2020-07-16] MEDS: allopurinoL 300 MG TAB PO SCH (08:42)
[2020-07-16] MEDS: lisinopriL 10 MG TAB PO SCH (08:42)
[2020-07-16] MEDS: ATORVASTATIN 80 MG TAB PO SCH (08:42)
[2020-07-16] MEDS: PANTOPRAZOLE 40 MG TABLET PO SCH (08:42)
[2020-07-16] MEDS: ISOSORBIDE MONONITRATE ER 30 MG TAB.ER.24H PO SCH (08:42)
[2020-07-16] MEDS: IPRATROPIUM-ALBUTEROL 3 ML NEB INHALATION PRN ×2 (08:55→19:10)
[2020-07-16 09:51] LABS: Anisocytosis Slight; Basophils # (A) 0.1 k/uL (0-0.2); Basophils % (A) 1 %; Eosinophils # (A) 0.3 k/uL (0-0.7); Eosinophils % (A) 5 %; HCT 41.6 % (39.0-53.0); HGB 13.4 gm/dL (13.0-17.5); Hypochromasia Slight; Lymphocytes # (A) 1.2 k/uL (1.0-4.8); Lymphocytes % (A) 20 %; MCH 28.7 pg (25.0-35.0); MCHC 32.2 g/dL (31.0-37.0); Mean Platelet Volume 8.4; Monocytes # (A) 0.4 k/uL (0-1.0); Monocytes % (A) 7 %; Neutrophils % (A) 66 %; Platelet Count 139 k/uL (150-450); RBC 4.67 m/uL (4.30-5.90); RDW 19.5 % (11.5-15.5); WBC 6.1 k/uL (3.8-10.6)
[2020-07-16 10:06] LABS: ALT 15 U/L (4-49); AST 23 U/L (17-59); African American GFR (CKD) >90 (>60 ml/min/1.73 sqM); Alkaline Phosphatase 86 U/L (38-126); Anion Gap 5 mmol/L; Blood Urea Nitrogen 14 mg/dL (9-20); Calcium 8.7 mg/dL (8.4-10.2); Carbon Dioxide 37 mmol/L (22-30); Chloride 98 mmol/L (98-107); Glucose 152 mg/dL (74-99); Non-African American GFR(CKD) >90 (>60 ml/min/1.73 sqM); Potassium 3.8 mmol/L (3.5-5.1); Sodium 140 mmol/L (137-145); Total Bilirubin 1.1 mg/dL (0.2-1.3); Total Protein 6.8 g/dL (6.3-8.2)
--- NOTE | 2020-07-16 10:33 | XR ---
EXAMINATION TYPE: XR chest 2V DATE OF EXAM: 07/16/2020 COMPARISON: 07/16/2019 TECHNIQUE: PA and lateral views submitted. HISTORY: Shortness of breath FINDINGS: The lungs are clear and there is no pneumothorax, pleural effusion, or focal pneumonia. Shortness o f breath diffuse interstitial pattern with cardiomegaly. Biapical pleural thickening. IMPRESSION: 1. Correlate for interstitial pneumonitis or CHF..
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
[2020-07-16 11:51] VITALS: BMI 46.2
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
--- NOTE | 2020-07-16 16:48 | HP ---
HISTORY AND PHYSICAL CHIEF COMPLAINT: Acute respiratory failure. HISTORY OF PRESENT ILLNESS: This is another admission for this 59-year-old white male with chronic cardiomyopathy and congestive heart failure. HISTORY OF PRESENT ILLNESS: This gentleman was in [facility] and recently got out. He had been home for a week or two. He suddenly became progressively more short of breath and came to the office where he was in acute respiratory failure. His picture is most compatible with acute congestive heart failure and he was admitted immediately to the hospital. He has had a slight anterior chest discomfort. REVIEW OF SYSTEMS: Otherwise unremarkable. He has had no fever, chills, cough, hemoptysis, abdominal pain, chest pain, urinary complaints, etc. Past medical history, family history and personal and social histories are all otherwise unchanged from his recent admitting and discharge summaries. His medications can be found in the med rec. It is not clear if he was taking Lasix at home or not. PHYSICAL EXAMINATION: Blood pressure is 130/64 with a pulse of 116, and he is in atrial fibrillation. Respirations were 38. In general he appeared to be extremely dyspneic. He was overweight. Skin color was normal. Head, ears, eyes, nose, mouth are normal. Chest demonstrated decreased breath sounds with scattered rales and rhonchi and expiratory wheezing. Cardiac exam demonstrated tachycardia with atrial fibrillation. Abdomen is protuberant, soft and nontender and extremities normal. Neurologically he is intact. He is admitted to the hospital with diagnoses: 1. Acute congestive heart failure. 2. Atherosclerotic cardiomyopathy. 3. Atrial fibrillation. 4. Renal failure. PLAN: 1. Bedrest. 2. IV fluids. 3. IV Lasix for diuresis. 4. Serial EKGs and enzymes. 5. Consult with Cardiology. MMODL / IJN: [id number] /
--- NOTE | 2020-07-16 16:49 | PN ---
PROGRESS NOTE CHIEF COMPLAINT: Acute congestive heart failure. HISTORY OF PRESENT ILLNESS: This is gentleman is doing better. He has diuresed a large volume of urine and breathing is improved. He has had no chest pain. PHYSICAL EXAMINATION: Chest demonstrates better breath sounds with present rales but fewer than before. Cardiac exam demonstrates atrial fibrillation. Abdomen is soft, nontender. IMPRESSION: 1. Acute congestive heart failure. 2. Chronic congestive heart failure. 3. Cardiomyopathy. 4. Renal failure. PLAN: Continue with diuresis and increase activity. MMODL / IJN: [id number] /
[2020-07-17] MEDS: FUROSEMIDE 10 MG/ML 4 ML VIAL IV SCH ×2 (05:49→18:26)
[2020-07-17] MEDS: HYDROcodone/APAP 5-325MG 1 EACH TAB PO PRN ×3 (05:50→18:27)
[2020-07-17] MEDS: ATORVASTATIN 80 MG TAB PO SCH (10:09)
[2020-07-17] MEDS: METOPROLOL SUCCINATE (ER) 100 MG TAB.ER.24H PO SCH (10:09)
[2020-07-17] MEDS: SPIRONOLACTONE 25 MG TAB PO SCH (10:09)
[2020-07-17] MEDS: POTASSIUM CHLORIDE ER 20 MEQ TAB.ER PO SCH (10:09)
[2020-07-17] MEDS: APIXABAN 5 MG TAB PO SCH ×2 (10:09→21:27)
[2020-07-17] MEDS: allopurinoL 300 MG TAB PO SCH (10:09)
[2020-07-17] MEDS: ISOSORBIDE MONONITRATE ER 30 MG TAB.ER.24H PO SCH (10:09)
[2020-07-17] MEDS: lisinopriL 10 MG TAB PO SCH (10:10)
[2020-07-17] MEDS: PANTOPRAZOLE 40 MG TABLET PO SCH (10:10)
--- NOTE | 2020-07-17 11:15 | P.PN ---
Subjective HISTORY OF PRESENTING ILLNESS Patient is a pleasant 59-year-old male with a history of hypertension, hyperlipidemia, obstructive sleep apnea noncompliant with CPAP, nonobstructive coronary artery disease, diastolic heart failure with ejection fraction 45-50%, paroxysmal atrial fibrillation and obesity who presents secondary to shortness breath. Patient was recently seen approximately 1 month ago early June with episode of heart failure. He was diuresed and was feeling better. Over the last 2-3 weeks however he has noted progressive shortness breath, orthopnea and mild lower extremity edema. He states he also has chest discomfort which is worse when he coughs or takes a deep breath in. He denies any change to his medications and states he is compliant with medications at home. Blood work shows white blood cell count 6.1, hemoglobin 13.4, sodium 140, creatinine 0.9, glucose 152, troponin 0.04, proBNP 2990. Patient was started on IV diuretics and is feeling somewhat better. He admits to increased urine output with IV diuretics. 07/17 Patient seen and examined. Patient states he has had a good urine output. He denies any chest pain or pressure. Believes his lower extremities mildly improving. Blood work from today pending. Blood pressures well controlled. REVIEW OF SYSTEMS At the time of my exam: CONSTITUTIONAL: Denies fever or chills. CARDIOVASCULAR: +chest pain, +shortness of breath, +orthopnea, no PND or palpi tations. RESPIRATORY: Denies cough. GASTROINTESTINAL: Denies abdominal pain, diarrhea, constipation, nausea or vomiting. MUSCULOSKELETAL: Denies myalgias. NEUROLOGIC: Denies numbness, tingling or weakness. ENDOCRINE: Denies fatigue, weight change, polydipsia or polyurina. GENITOURINARY: Denies burning, hematuria or urgency with micturation. HEMATOLOGIC: Denies history of anemia or bleeding. PHYSICAL EXAMINATION Vital signs reviewed. CONSTITUTIONAL: No apparent distress, obese HEENT: Head is normocephalic. Pupils are equal, round. Sclerae anicteric. Mucous membranes of the mouth are moist. No JVD. No carotid bruit. CHEST EXAMINATION: Lungs are clear to auscultation. Decreased breath sounds at bases HEART EXAMINATION: Irregular rate and rhythm. S1, S2 heard. No murmurs, gallops or rub. ABDOMEN: Soft, nontender. Positive bowel sounds. EXTREMITIES: 2+ peripheral pulses, 1+lower extremity edema and no calf tenderness. NEUROLOGIC EXAMINATION: Patient is awake, alert and oriented x3. ASSESSMENT 1. Acute on chronic diastolic heart failure, ejection fraction 45-50% 2. Essential hypertension 3. Mild nonobstructive coronary artery disease 4. Obstructive sleep apnea 5. Hyperlipidemia 6. Obesity 7. Paroxysmal atrial fibrillation PLAN Acute exacerbation of heart failure. Previous workup from 1 month ago with ejection fraction 45-50%. Strict ins and outs, low sodium diet, IV diuresis. Continue with IV diuresis Further recommendations to follow. Repeat blood work today Objective - Vital Signs Vital signs: Vital Signs Temp 97.7 F 07/17/20 08:15 Pulse 67 07/17/20 08:15 Resp 18 07/17/20 08:15 BP 112/68 07/17/20 08:15 Pulse Ox 94 L 07/17/20 08:15 Intake & Output 07/16/20 07/17/20 07/17/20 18:59 06:59 18:59 Intake Total 1620 480 Output Total 1575 1300 1775 Balance 45 -1300 -1295 Weight 163.293 kg 163.7 kg Intake: Oral 1620 480 Output: Urine 1575 1300 1775 Other: # Voids 1 - Labs CBC & Chem 7: 07/16/20 09:25 07/16/20 09:25
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
[2020-07-18] MEDS: FUROSEMIDE 10 MG/ML 4 ML VIAL IV SCH ×2 (05:09→16:59)
[2020-07-18] MEDS: HYDROcodone/APAP 5-325MG 1 EACH TAB PO PRN ×3 (06:34→20:03)
[2020-07-18] MEDS: allopurinoL 300 MG TAB PO SCH (08:51)
[2020-07-18] MEDS: APIXABAN 5 MG TAB PO SCH ×2 (08:51→20:03)
[2020-07-18] MEDS: POTASSIUM CHLORIDE ER 20 MEQ TAB.ER PO SCH (08:51)
[2020-07-18] MEDS: METOPROLOL SUCCINATE (ER) 100 MG TAB.ER.24H PO SCH (08:51)
[2020-07-18] MEDS: PANTOPRAZOLE 40 MG TABLET PO SCH (08:51)
[2020-07-18] MEDS: SPIRONOLACTONE 25 MG TAB PO SCH (08:51)
[2020-07-18] MEDS: ATORVASTATIN 80 MG TAB PO SCH (08:51)
[2020-07-18] MEDS: lisinopriL 10 MG TAB PO SCH (08:52)
[2020-07-18] MEDS: ISOSORBIDE MONONITRATE ER 30 MG TAB.ER.24H PO SCH (08:52)
--- NOTE | 2020-07-18 13:10 | P.PN ---
Subjective Progress Note Date: 07/18/20 HISTORY OF PRESENT ILLNESS: Patient is a pleasant 59-year-old male with a history of hypertension, hyperlipidemia, obstructive sleep apnea noncompliant with CPAP, nonobstructive coronary artery disease, diastolic heart failure with ejection fraction 45-50%, paroxysmal atrial fibrillation and obesity who presents secondary to shortness breath. Patient was recently seen approximately 1 month ago early June with episode of heart failure. He was diuresed and was feeling better. Over the last 2-3 weeks however he has noted progressive shortness breath, orthopnea and mild lower extremity edema. He states he also has chest discomfort which is worse when he coughs or takes a deep breath in. He denies any change to his medications and states he is compliant with medications at home. Blood work shows white blood cell count 6.1, hemoglobin 13.4, sodium 140, creatinine 0.9, glucose 152, troponin 0.04, proBNP 2990. Patient was started on IV diuretics and is feeling somewhat better. He admits to increased urine output with IV diuretics. 07/17 Patient seen and examined. Patient states he has had a good urine output. He denies any chest pain or pressure. Believes his lower extremities mildly improving. Blood work from today pending. Blood pressures well controlled. 07/18/2020 Patient examined this morning at the bedside. Patient reports shortness of b reath is improving. He remains on IV lasix 40mg q12 hours and aldactone 25mg daily. He is negative 1L over the last 24 hours. Weight is down 0.5kg. PHYSICAL EXAM: VITAL SIGNS: Reviewed. GENERAL: Well-developed in no acute distress. NECK: Supple. No JVD or thyromegaly LUNGS: Respirations even and unlabored. Lungs diminished bilaterally. HEART: Regular rate and rhythm. S1 and S2 heard. EXTREMITIES: Normal range of motion. No clubbing or cyanosis. Peripheral pulses intact. Trace bilateral lower extremity edema ASSESSMENT: 1. Acute on chronic diastolic heart failure, ejection fraction 45-50% 2. Essential hypertension 3. Mild nonobstructive coronary artery disease 4. Obstructive sleep apnea 5. Hyperlipidemia 6. Obesity 7. Paroxysmal atrial fibrillation, on anticoagulation with Eliquis PLAN: Continue IV lasix for another 24 hours. Likely transition to oral lasix tomorrow and will add Zaroxolyn Monitor kidney function Accurate I&O Daily weights Further recommendations pending patient course Patient to follow up outpatient with Dr. Oliver Nurse practitioner note has been reviewed by physician. Signing provider agrees with the documented findings, assessment, and plan of care. Objective - Vital Signs Vital signs: Vital Signs Temp 97.7 F 07/18/20 11:36 Pulse 92 07/18/20 11:36 Resp 18 07/18/20 11:36 BP 102/61 07/18/20 11:36 Pulse Ox 92 L 07/18/20 11:36 Intake & Output 07/17/20 07/18/20 07/18/20 18:59 06:59 18:59 Intake Total 1740 480 Output Total 2425 1400 Balance -685 -1400 480 Weight 163.2 kg Intake: Oral 1740 480 Output: Urine 2425 1400 Other: Voiding Method Toilet Toilet # Voids 1 - Labs CBC & Chem 7: 07/16/20 09:25 07/16/20 09:25
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
--- NOTE | 2020-07-18 19:43 | PN ---
PROGRESS NOTE DATE OF SERVICE: 07/18/2020 CHIEF COMPLAINT: Acute congestive heart failure. HISTORY OF PRESENT ILLNESS: This gentleman is doing a lot better. Breathing is improving. He is still on IV Lasix. He could probably go home anytime. PHYSICAL EXAMINATION: His chest is quite clear with only occasional rales at the bases. Cardiac exam is normal except for an S4. Abdomen is soft and nontender. Extremities are normal. IMPRESSION: 1. Acute congestive heart failure. 2. Chronic congestive heart failure. PLAN: Probably home anytime. He can be switched over to Lasix and discharged. MMODL / IJN: [id number] /
--- NOTE | 2020-07-18 19:49 | PN ---
PROGRESS NOTE DATE OF SERVICE: 07/17/2020 CHIEF COMPLAINT: Congestive heart failure. HISTORY OF PRESENT ILLNESS: This gentleman is doing a little bit better. Breathing is greatly improved. He is on IV Lasix every 12 hours. PHYSICAL EXAMINATION: Breath sounds are improved. There are fewer rales and rhonchi. Cardiac exam demonstrates his atrial fibrillation and the abdomen is protuberant, soft and nontender. IMPRESSION: 1. Acute exacerbation of chronic congestive heart failure. 2. Atrial fibrillation. PLAN: Continue with diuresis and gradually increase activity. MMODL / IJN: [id number] /
--- NOTE | 2020-07-18 20:10 | PN ---
PROGRESS NOTE DATE OF SERVICE: 07/16/2020 CHIEF COMPLAINT: Acute congestive heart failure. HISTORY OF PRESENT ILLNESS: This gentleman is doing a little bit better. He is still quite dyspneic and still has scattered rales throughout. Blood pressure is normal. Troponins are elevated and he is being evaluated by Cardiology. PHYSICAL EXAMINATION: Chest demonstrated persistent rales, although there are improved over yesterday. Cardiac exam demonstrates his atrial fibrillation with an S4. Abdomen is soft. IMPRESSION: 1. Acute congestive heart failure. 2. Chronic congestive heart failure. 3. Atrial fibrillation. 4. Elevated troponin. PLAN: Continue with diuresis and await further evaluation by Cardiology. MMODL / IJN: [id number] /
[2020-07-19] MEDS: FUROSEMIDE 10 MG/ML 4 ML VIAL IV SCH (04:23)
[2020-07-19] MEDS: HYDROcodone/APAP 5-325MG 1 EACH TAB PO PRN (04:23)
[2020-07-19] MEDS ORDERED: FUROSEMIDE 40 MG TAB PO SCH (09:00)
[2020-07-19] MEDS ORDERED: metOLazone 5 MG TAB PO SCH (09:00)
[2020-07-19 09:15] VITALS: RESP 16
[2020-07-19] MEDS: SPIRONOLACTONE 25 MG TAB PO SCH (09:15)
[2020-07-19] MEDS: ATORVASTATIN 80 MG TAB PO SCH (09:15)
[2020-07-19] MEDS: lisinopriL 10 MG TAB PO SCH (09:15)
[2020-07-19] MEDS: POTASSIUM CHLORIDE ER 20 MEQ TAB.ER PO SCH (09:15)
[2020-07-19] MEDS: allopurinoL 300 MG TAB PO SCH (09:15)
[2020-07-19] MEDS: APIXABAN 5 MG TAB PO SCH (09:15)
[2020-07-19] MEDS: ISOSORBIDE MONONITRATE ER 30 MG TAB.ER.24H PO SCH (09:15)
[2020-07-19] MEDS: PANTOPRAZOLE 40 MG TABLET PO SCH (09:15)
[2020-07-19] MEDS: METOPROLOL SUCCINATE (ER) 100 MG TAB.ER.24H PO SCH (09:15)
[2020-07-19 09:49] LABS: African American GFR (CKD) >90 (>60 ml/min/1.73 sqM); Anion Gap 8 mmol/L; Blood Urea Nitrogen 22 mg/dL (9-20); Calcium 9.5 mg/dL (8.4-10.2); Carbon Dioxide 37 mmol/L (22-30); Chloride 93 mmol/L (98-107); Glucose 156 mg/dL (74-99); Non-African American GFR(CKD) >90 (>60 ml/min/1.73 sqM); Potassium 4.3 mmol/L (3.5-5.1); Sodium 138 mmol/L (137-145)
--- NOTE | 2020-07-19 10:16 | P.PN ---
Subjective Progress Note Date: 07/19/20 HISTORY OF PRESENT ILLNESS: Patient is a pleasant 59-year-old male with a history of hypertension, hyperlipidemia, obstructive sleep apnea noncompliant with CPAP, nonobstructive coronary artery disease, diastolic heart failure with ejection fraction 45-50%, paroxysmal atrial fibrillation and obesity who presents secondary to shortness breath. Patient was recently seen approximately 1 month ago early June with episode of heart failure. He was diuresed and was feeling better. Over the last 2-3 weeks however he has noted progressive shortness breath, orthopnea and mild lower extremity edema. He states he also has chest discomfort which is worse when he coughs or takes a deep breath in. He denies any change to his medications and states he is compliant with medications at home. Blood work shows white blood cell count 6.1, hemoglobin 13.4, sodium 140, creatinine 0.9, glucose 152, troponin 0.04, proBNP 2990. Patient was started on IV diuretics and is feeling somewhat better. He admits to increased urine output with IV diuretics. 07/17 Patient seen and examined. Patient states he has had a good urine output. He denies any chest pain or pressure. Believes his lower extremities mildly improving. Blood work from today pending. Blood pressures well controlled. 07/18/2020 Patient examined this morning at the bedside. Patient reports shortness of b reath is improving. He remains on IV lasix 40mg q12 hours and aldactone 25mg daily. He is negative 1L over the last 24 hours. Weight is down 0.5kg. 07/19/2020 Patient examined this morning at the bedside. Patient denies chest pain or pressure. He denies shortness of breath. He is on 4L NC which he states he wears at home. He remains on IV lasix 40mg IV q12 hours. BUN 22. Creatinine 0.84. PHYSICAL EXAM: VITAL SIGNS: Reviewed. GENERAL: Well-developed in no acute distress. NECK: Supple. No JVD or thyromegaly LUNGS: Respirations even and unlabored. Lungs diminished bilaterally. HEART: Regular rate and rhythm. S1 and S2 heard. EXTREMITIES: Normal range of motion. No clubbing or cyanosis. Peripheral pulses intact. Trace bilateral lower extremity edema ASSESSMENT: 1. Acute on chronic diastolic heart failure, ejection fraction 45-50% 2. Essential hypertension 3. Mild nonobstructive coronary artery disease 4. Obstructive sleep apnea 5. Hyperlipidemia 6. Obesity 7. Paroxysmal atrial fibrillation, on anticoagulation with Eliquis PLAN: Discontinue IV lasix. Resume oral lasix Continue Aldactone Add Zaroxolyn Monitor kidney function Accurate I&O Daily weights Patient stable from a cardiac standpoint Patient to follow up outpatient with Dr. Oliver Nurse practitioner note has been reviewed by physician. Signing provider agrees with the documented findings, assessment, and plan of care. Objective - Vital Signs Vital signs: Vital Signs Temp 97.9 F 07/19/20 08:00 Pulse 100 07/19/20 08:00 Resp 16 07/19/20 08:00 BP 117/82 07/19/20 08:00 Pulse Ox 90 L 07/19/20 08:00 Intake & Output 07/18/20 07/19/20 07/19/20 18:59 06:59 18:59 Intake Total 1440 1080 360 Balance 1440 1080 360 Weight 164 kg Intake: Oral 1440 1080 360 Other: Voiding Method Toilet Toilet Toilet # Voids 1 1 # Bowel Movements 1 - Labs CBC & Chem 7: 07/16/20 09:25 07/19/20 08:46 Labs: Abnormal Lab Results - Last 24 Hours (Table) 07/19/20 Range/Units 08:46 Chloride 93 L (98-107) mmol/L Carbon Dioxide 37 H (22-30) mmol/L BUN 22 H (9-20) mg/dL Glucose 156 H (74-99) mg/dL
[2020-07-19 11:42] VITALS: BP 136/62; PULSE 98; TEMP 98.2
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
--- NOTE | 2020-07-19 16:22 | DS ---
DISCHARGE SUMMARY CHIEF COMPLAINT: Acute congestive heart failure. HISTORY OF PRESENT ILLNESS AND PHYSICAL EXAM: Details of this man's history and physical can be found in the initial workup. LABORATORY STUDIES: While he was in a hospital he had laboratory studies, details of which can be found in the laboratory section of his chart. COURSE IN THE HOSPITAL: After admission he was placed on bedrest, started on intravenous fluids and he was diuresed. He was seen by Cardiology. He was on IV Lasix for several days and breathing improved. He was felt stable enough to be switched over to oral Lasix on the and discharged. He will go home on light activity about the house and be followed up in the office in the next day or so. FINAL DIAGNOSES: 1. Acute congestive heart failure. 2. Chronic congestive heart failure. 3. Cardiomyopathy. 4. Atrial fibrillation. 5. Obesity. OPERATIONS: None. CONSULTATION: Cardiology. He is improved. MMODL / NORRISN: [id number] /
== END 2020-07-19 13:22 | disposition home or self-care (01) | DRG 291 ==
LOC: EC 15:20 → 6NMEDSUR 16:48 → 3SCARD 17:27 → OBSVTOIN 07-18 08:48
PROVIDERS: ADMIT Family Medicine; ATTEND Family Medicine
DX: I11.0 Hypertensive heart disease with heart failure (principal); J96.21 Acute and chronic respiratory failure with hypoxia; J96.22 Acute and chronic respiratory failure with hypercapnia; E66.2 Morbid (severe) obesity with alveolar hypoventilation; Z68.42 Body mass index [BMI] 45.0-49.9, adult; E78.5 Hyperlipidemia, unspecified; I25.10 Atherosclerotic heart disease of native coronary artery without angina pectoris; I42.9 Cardiomyopathy, unspecified; I48.0 Paroxysmal atrial fibrillation; I50.33 Acute on chronic diastolic (congestive) heart failure; N19 Unspecified kidney failure; Z20.822 Contact with and (suspected) exposure to COVID-19; Z79.01 Long term (current) use of anticoagulants; Z79.899 Other long term (current) drug therapy; Z82.49 Family history of ischemic heart disease and other diseases of the circulatory system; Z83.3 Family history of diabetes mellitus; Z91.19 Patient's noncompliance with other medical treatment and regimen; Z87.820 Personal history of traumatic brain injury; Z90.49 Acquired absence of other specified parts of digestive tract; Z98.890 Other specified postprocedural states
CPT/HCPCS: 36415; 71045; 71046; 80048; 80053; 83735; 83880; 84484; 85025; 87635; 93005; 94640; 94760; 99285

== ENCOUNTER 2020-08-10 16:51 | Observation (INO) | payer OTHER ==
[2020-08-10] MEDS ORDERED: NITROGLYCERIN OINT 1 INCH/GM PACKET TOPICAL STA (17:26)
[2020-08-10] MEDS ORDERED: SODIUM CHLORIDE 0.9% 500 ML 500 ML IV STA (17:26)
[2020-08-10] MEDS ORDERED: ASPIRIN 81 MG PO STA (17:26)
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
[2020-08-10] MEDS ORDERED: DILTIAZEM DRIP BOLUS FROM BAG 1 MG SOLN IV ONE (17:34)
[2020-08-10] MEDS: DILTIAZEM 125 MG in SODIUM CHLORIDE 0.9% 100 ML IV SCH (18:01)
[2020-08-10 18:02] LABS: Albumin 4.8 g/dL (3.5-5.0); Calcium 10.7 mg/dL (8.4-10.2); Magnesium 1.6 mg/dL (1.6-2.3); Potassium 3.1 mmol/L (3.5-5.1); Total Bilirubin 0.5 mg/dL (0.2-1.3); Total Protein 7.9 g/dL (6.3-8.2)
[2020-08-10 18:20] LABS: Partial Thromboplastin Time 22.1 sec (22.0-30.0); Prothrombin Time 10.3 sec (9.0-12.0)
--- NOTE | 2020-08-10 18:35 | XR ---
EXAMINATION TYPE: XR chest 2V DATE OF EXAM: 08/10/2020 COMPARISON: 07/16/2020 HISTORY: Chest pain TECHNIQUE: 2 views FINDINGS: There is no heart failure nor confluent pneumonic infiltrate. Costophrenic angles are clear . There are no hilar masses. There are chest leads. IMPRESSION: No active cardiopulmonary disease. There is clearing of the mild pulmonary congestion and interstitial infiltrates to a large extent compared to old exam.
[2020-08-10 18:42] LABS: Anisocytosis Slight; Basophils # (A) 0.1 k/uL (0-0.2); Basophils % (A) 1 %; Eosinophils # (A) 0.3 k/uL (0-0.7); Eosinophils % (A) 4 %; HCT 47.1 % (39.0-53.0); HGB 15.4 gm/dL (13.0-17.5); Lymphocytes # (A) 1.3 k/uL (1.0-4.8); Lymphocytes % (A) 19 %; MCHC 32.7 g/dL (31.0-37.0); MCV 85.5 fL (80.0-100.0); Mean Platelet Volume 8.6; Monocytes # (A) 0.4 k/uL (0-1.0); Monocytes % (A) 7 %; Neutrophils # (A) 4.3 k/uL (1.3-7.7); Neutrophils % (A) 66 %; Platelet Count 157 k/uL (150-450); RDW 17.8 % (11.5-15.5); WBC 6.5 k/uL (3.8-10.6)
[2020-08-10] MEDS ORDERED: HEPARIN SODIUM 1,000 UN/ML (10ML VL) IV STA (19:35)
[2020-08-10] MEDS ORDERED: NITROGLYCERIN SL TABS 0.4 MG TAB SUBLINGUAL PRN (19:37)
[2020-08-10] MEDS ORDERED: HEPARIN SOD,PORK IN 0.45% NACL 25,000 UNIT in 0.45% NACL 1 250ML.BAG IV SCH (19:45)
[2020-08-10] MEDS ORDERED: MORPHINE SULFATE 2 MG/ML SYRINGE IVP STA (19:55)
[2020-08-10] MEDS ORDERED: ALBUTEROL NEBULIZED 2.5 MG/3 ML INHALATION PRN (22:08)
[2020-08-10] MEDS ORDERED: Potassium Replacement Protocol 1 EACH MISC MISCELLANE PRN (22:16)
[2020-08-10] MEDS: APIXABAN 5 MG TAB PO SCH (22:45)
[2020-08-10] MEDS: HYDROcodone/APAP 5-325MG 1 EACH TAB PO PRN (22:46)
[2020-08-10] MEDS: buPROPion SR 150 MG TABLET.ER PO SCH (22:46)
[2020-08-10] MEDS: POTASSIUM CHLORIDE ER 20 MEQ TAB.ER PO SCH ×3 (22:46→23:51)
[2020-08-10] MEDS: FUROSEMIDE 40 MG TAB PO SCH (22:46)
[2020-08-11] MEDS: NITROGLYCERIN OINT 1 INCH/GM PACKET TOPICAL SCH ×2 (00:58→06:57)
[2020-08-11] MEDS: DILTIAZEM 125 MG in SODIUM CHLORIDE 0.9% 100 ML IV SCH (05:30)
[2020-08-11] MEDS: PANTOPRAZOLE 40 MG TABLET PO SCH (06:57)
[2020-08-11] MEDS: allopurinoL 300 MG TAB PO SCH (08:45)
[2020-08-11] MEDS: metOLazone 5 MG TAB PO SCH (08:45)
[2020-08-11] MEDS: APIXABAN 5 MG TAB PO SCH ×2 (08:45→20:30)
[2020-08-11] MEDS: FUROSEMIDE 40 MG TAB PO SCH ×2 (08:45→16:23)
[2020-08-11] MEDS: POTASSIUM CHLORIDE ER 20 MEQ TAB.ER PO SCH ×2 (08:46→20:30)
[2020-08-11] MEDS: ASPIRIN 81 MG PO SCH (08:46)
[2020-08-11] MEDS: SPIRONOLACTONE 25 MG TAB PO SCH (08:46)
[2020-08-11] MEDS: buPROPion SR 150 MG TABLET.ER PO SCH ×2 (08:46→20:31)
[2020-08-11] MEDS: ATORVASTATIN 80 MG TAB PO SCH (08:46)
[2020-08-11] MEDS: lisinopriL 10 MG TAB PO SCH (08:46)
[2020-08-11] MEDS: ISOSORBIDE MONONITRATE ER 30 MG TAB.ER.24H PO SCH (08:46)
[2020-08-11] MEDS: HYDROcodone/APAP 5-325MG 1 EACH TAB PO PRN ×2 (08:46→16:24)
[2020-08-11] MEDS: METOPROLOL SUCCINATE (ER) 100 MG TAB.ER.24H PO SCH (08:46)
[2020-08-11] MEDS ORDERED: ASPIRIN 325 MG TAB PO SCH (09:00)
[2020-08-11] MEDS ORDERED: DIPHENOX-ATROP 2.5-0.025 MG 1 EACH TAB PO PRN (10:05)
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
[2020-08-11 18:34] LABS: Chol/HDL Ratio 5.64; LDL Cholesterol,Calculated 90.4 mg/dL (0.0-131.0); VLDL Calculation 62.6 mg/dL (5.00-40.00)
--- NOTE | 2020-08-11 20:30 | PN ---
PROGRESS NOTE DATE OF SERVICE: 08/11/2020 CHIEF COMPLAINT: Atrial fibrillation with RVR and gastroenteritis. HISTORY OF PRESENT ILLNESS: This gentleman is feeling much better. Heart rates down below 100. He is not short of breath or having any chest pain. He still feels slightly achy, nauseated and has stomach cramps. PHYSICAL EXAMINATION: Chest is clear. Cardiac exam demonstrates his atrial fibrillation. Abdomen is soft, nontender. Bowel sounds present. IMPRESSION: 1. Atrial fibrillation with rapid ventricular response. 2. Congestive heart failure. 3. Viral gastroenteritis. PLAN: Add Zofran and Lomotil and increase activity and diet. MMODL / IJN: [id number] /
--- NOTE | 2020-08-11 20:30 | HP ---
HISTORY AND PHYSICAL DATE OF SERVICE: 08/10/2020. CHIEF COMPLAINT: Malaise, myalgias, nausea and diarrhea with tachycardia. HISTORY OF PRESENT ILLNESS: This is another admission for this 59-year-old white male with chronic uncontrolled cardiomyopathy and congestive heart failure. He went to [facility] because he felt like he had the flu. There he had a negative Covid test, but he knows that his heart rate was very fast and he was in atrial fibrillation. He told them that he had never been in atrial fib. He was recently discharged with it. He also was not on Eliquis, which had been prescribed for him. He is a somewhat noncompliant individual. He then went to the emergency room where his pulse rate was 166, and he was admitted. He was slightly short of breath and he had no chest pain. REVIEW OF SYSTEMS: Otherwise unremarkable and unchanged. Does sound like he has a viral gastroenteritis with nausea and diarrhea. Past medical history, family history and personal and social histories are all otherwise unremarkable or noncontributory. His med list is in his MAR and he will be placed on Eliquis. He does not smoke. He has had a problem with alcohol in past. PHYSICAL EXAMINATION: Blood pressure is 132/90 with a pulse of 160, respirations of 38, and he is afebrile. In general, he appeared to be overweight, in no acute distress. Skin color is normal. Skin is warm, dry. Lymph nodes are not enlarged. Head, ears, eyes, nose, mouth and throat were normal. Neck veins not distended and cannot be well assessed due to his obesity. Chest demonstrated decreased breath sounds with scattered rales and rhonchi. Cardiac exam demonstrated a rapid heart rate. The abdomen is protuberant and soft without masses. Extremities: Normal. Neurological: Intact. IMPRESSION: The patient is admitted to the hospital with diagnoses of: 1. Atrial fibrillation with rapid ventricular response. 2. Cardiomyopathy. 3. Congestive heart failure. 4. Viral gastroenteritis. PLAN: 1. Bedrest. 2. IV fluids. 3. Control heart rate. 4. Treat nausea and diarrhea. MMODL / IJN: [id number] /
[2020-08-11] MEDS: ONDANSETRON 4 MG TAB PO PRN (20:32)
[2020-08-12] MEDS: HYDROcodone/APAP 5-325MG 1 EACH TAB PO PRN ×2 (00:15→09:29)
[2020-08-12 01:18] LABS: African American GFR (CKD) 85.3 (60.0-200.0); Anion Gap 15.8 mmol/L (4.00-12.00); Calcium 10.4 mg/dL (8.7-10.3); Carbon Dioxide 27.2 mmol/L (21.6-31.8); Non-African American GFR(CKD) 73.6 (60.0-200.0)
[2020-08-12 02:36] LABS: Anisocytosis Slight; HCT 42.8 % (39.0-53.0); HGB 14.6 gm/dL (13.0-17.5); MCH 29.4 pg (25.0-35.0); MCV 86.3 fL (80.0-100.0); Mean Platelet Volume 8.5; Platelet Count 160 k/uL (150-450); RBC 4.97 m/uL (4.30-5.90); RDW 17.4 % (11.5-15.5); WBC 7.9 k/uL (3.8-10.6)
[2020-08-12 02:47] LABS: Calcium 9.4 mg/dL (8.4-10.2); Potassium 3.2 mmol/L (3.5-5.1)
[2020-08-12] MEDS: POTASSIUM CHLORIDE ER 20 MEQ TAB.ER PO SCH ×3 (03:09→09:30)
[2020-08-12] MEDS: ONDANSETRON 4 MG TAB PO PRN (04:07)
[2020-08-12] MEDS: PANTOPRAZOLE 40 MG TABLET PO SCH (06:05)
[2020-08-12 08:38] VITALS: RESP 16
[2020-08-12 09:07] LABS: Potassium 3.6 mmol/L (3.5-5.1)
[2020-08-12] MEDS ORDERED: Potassium Replacement Protocol 1 EACH MISC MISCELLANE PRN (09:15)
[2020-08-12] MEDS: lisinopriL 10 MG TAB PO SCH (09:20)
[2020-08-12] MEDS: buPROPion SR 150 MG TABLET.ER PO SCH (09:29)
[2020-08-12] MEDS: metOLazone 5 MG TAB PO SCH (09:29)
[2020-08-12] MEDS: ATORVASTATIN 80 MG TAB PO SCH (09:29)
[2020-08-12] MEDS: ASPIRIN 81 MG PO SCH (09:29)
[2020-08-12] MEDS: ISOSORBIDE MONONITRATE ER 30 MG TAB.ER.24H PO SCH (09:29)
[2020-08-12] MEDS: FUROSEMIDE 40 MG TAB PO SCH ×2 (09:29→16:00)
[2020-08-12] MEDS: APIXABAN 5 MG TAB PO SCH (09:30)
[2020-08-12] MEDS: allopurinoL 300 MG TAB PO SCH (09:30)
[2020-08-12] MEDS: SPIRONOLACTONE 25 MG TAB PO SCH (09:30)
[2020-08-12] MEDS: METOPROLOL SUCCINATE (ER) 100 MG TAB.ER.24H PO SCH (09:30)
[2020-08-12] MEDS ORDERED: POTASSIUM CHLORIDE ER 20 MEQ TAB.ER PO SCH (10:00)
[2020-08-12 10:15] LABS: Anisocytosis Slight; Basophils # (A) 0.1 k/uL (0-0.2); Basophils % (A) 1 %; Eosinophils # (A) 0.4 k/uL (0-0.7); Eosinophils % (A) 6 %; HCT 44.2 % (39.0-53.0); HGB 14.8 gm/dL (13.0-17.5); Lymphocytes # (A) 1.3 k/uL (1.0-4.8); Lymphocytes % (A) 21 %; MCH 28.9 pg (25.0-35.0); MCHC 33.6 g/dL (31.0-37.0); MCV 86.1 fL (80.0-100.0); Mean Platelet Volume 8.6; Monocytes # (A) 0.6 k/uL (0-1.0); Monocytes % (A) 9 %; Neutrophils # (A) 3.9 k/uL (1.3-7.7); Neutrophils % (A) 61 %; Platelet Count 159 k/uL (150-450); RBC 5.13 m/uL (4.30-5.90); RDW 17.3 % (11.5-15.5); WBC 6.5 k/uL (3.8-10.6)
[2020-08-12 10:36] LABS: Albumin 4.2 g/dL (3.5-5.0); Calcium 9.2 mg/dL (8.4-10.2); Potassium 3.7 mmol/L (3.5-5.1); Total Bilirubin 0.6 mg/dL (0.2-1.3)
--- NOTE | 2020-08-12 11:35 | P.PN ---
Subjective Progress Note Date: 08/12/20 HISTORY OF PRESENT ILLNESS: This is a 59-year-old male with a past medical history significant for hypertension, hyperlipidemia, paroxysmal atrial fibrillation, anxiety, depression, and sleep apnea. Patient follows in the office with Dr. Patton. We have been asked to see the patient in consultation for atrial fibrillation with RVR. Patient examined at the bedside. Patient states he has been having flulike symptoms since Saturday. He reports having nausea, vomiting, diarrhea, and generalized malaise. Patient states he went to urgent care yesterday and was tested for Covid which was negative. An EKG was completed at that time revealing atrial fibrillation with RVR and the patient was sent to the hospital via EMS for further evaluation. Patient reports feeling palpitations yesterday which have resolved. Patient also reports having chest pressure which has been constant since Saturday. He states this goes into his jaw and his left shoulder. He denies shortness of breath. He states the pain is worse with deep inspiration. There is no pain with chest wall palpation. Patient states he was recently diagnosed with A. fib. He states "I was given samples of a medication when I left the hospital but when they ran out, I quit taking them. I guess it was a blood thinner but I did not know I was taking blood thinners". Patient was started on IV Cardizem and IV heparin in the emergency room. Patient remains in atrial fibrillation this morning with controlled ventricular rates in the 70s. EKG reveals A. fib with RVR Chest xray no active cardio pulmonary disease. There is clearing of mild pulmonary congestion and interstitial infiltrates to a large extent compared to last exam. Laboratory data: WBC 6.5. Hemoglobin 15.4. Platelet count 157. Sodium 139. Potassium 3.1. BUN 38. Creatinine 1.17. Magnesium 1.6. Troponin negative 3 Current home cardiac medications include lisinopril 10 mg daily, Aldactone 25 mg daily, potassium chloride 20meq daily, metoprolol succinate 100 mg daily, Imdur 30 mg daily, Lasix 40 mg twice a day, Lipitor 80 mg daily, aspirin 81 mg daily, and Eliquis 5 mg twice a day Most recent echocardiogram obtained in April 2020 revealed ejection fraction 45-50% Cardiac catheterization history: June [address] 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 No acute ischemic changes noted. 08/12/2020 Patient examined this morning at the bedside. Patient denies chest pain or pressure. He denies shortness of breath. Patient remains in atrial fibrillation with controlled ventricular rates. He remains on Eliquis for anticoagulation. Patient is complaining of continued diarrhea today. Patient also reports abdominal pain after eating this morning. PHYSICAL EXAM: VITAL SIGNS: Reviewed. GENERAL: Well-developed in no acute distress. HEENT: Head is normocephalic. Pupils are equal, round. Sclerae anicteric. Mucous membranes of the mouth are moist. Neck supple. No JVD or thyromegaly LUNGS: Respirations even and unlabored. Lungs essentially clear to auscultation bilaterally. HEART: Irregular rate and rhythm. S1 and S2 heard. ABDOMEN: Soft. Nondistended. Nontender. EXTREMITIES: Normal range of motion. No clubbing or cyanosis. Peripheral pulses intact. No lower extremity edema NEUROLOGIC: Awake and alert. Oriented x 3. ASSESSMENT: Nausea, vomiting, diarrhea x 5 days Chest pain, troponin negative x 3 Paroxysmal atrial fibrillation with RVR Hypertension Hyperlipidemia Chronic diastolic heart failure, currently euvolemic, ejection fraction 45-50% [id number] nonobstructive coronary artery disease, involving RCA per ca rdiac cath in 2019 Medical noncompliance Hypokalemia PLAN: Continue current cardiac medications Continue anticoagulation with Eliquis Patient is stable from a cardiac standpoint Patient to follow up outpatient with Dr. Patton We will sign off. Please reconsult if needed. Nurse practitioner note has been reviewed by physician. Signing provider agrees with the documented findings, assessment, and plan of care. Objective - Vital Signs Vital signs: Vital Signs Temp 98.1 F 08/12/20 08:33 Pulse 77 08/12/20 08:33 Resp 16 08/12/20 08:33 BP 98/55 08/12/20 08:33 Pulse Ox 91 L 08/12/20 08:33 Intake & Output 08/11/20 08/12/20 08/12/20 18:59 06:59 18:59 Intake Total 680 240 240 Output Total 500 Balance 180 240 240 Weight 165.4 kg Intake: Oral 680 240 240 Output: Urine 500 Other: Voiding Method Toilet Toilet Toilet Urinal Urinal Urinal # Voids 1 2 # Bowel Movements 1 - Labs CBC & Chem 7: 08/12/20 09:50 08/12/20 09:50 Labs: Abnormal Lab Results - Last 24 Hours (Table) 08/11/20 08/11/20 08/12/20 Range/Units 09:50 09:50 02:23 RDW (11.5-15.5) % Sodium 134 L (137-145) mmol/L Potassium 3.0 L 3.2 L (3.5-5.5) mmol/L Chloride 91 L (98-107) mmol/L Carbon Dioxide 33 H (22-30) mmol/L Anion Gap 15.80 H (4.00-12.00) mmol/L BUN 36.0 H 47 H (9.0-27.0) mg/dL Creatinine 1.30 H (0.66-1.25) mg/dL Glucose 117 H 112 H (70-110) mg/dL Calcium 10.4 H (8.7-10.3) mg/dL Triglycerides 313.0 H (0.0-149.0) mg/dL VLDL Cholesterol, Calc 62.60 H (5.00-40.00) mg/dL HDL Cholesterol 33.0 L (40.0-60.0) mg/dL 08/12/20 08/12/20 08/12/20 Range/Units 02:23 08:17 09:50 RDW 17.4 H 17.3 H (11.5-15.5) % Sodium 134 L (137-145) mmol/L Potassium (3.5-5.5) mmol/L Chloride 91 L (98-107) mmol/L Carbon Dioxide 34 H (22-30) mmol/L Anion Gap (4.00-12.00) mmol/L BUN 46 H (9.0-27.0) mg/dL Creatinine 1.35 H (0.66-1.25) mg/dL Glucose 164 H (70-110) mg/dL Calcium (8.7-10.3) mg/dL Triglycerides (0.0-149.0) mg/dL VLDL Cholesterol, Calc (5.00-40.00) mg/dL HDL Cholesterol (40.0-60.0) mg/dL 08/12/20 Range/Units 09:50 RDW (11.5-15.5) % Sodium 135 L (137-145) mmol/L Potassium (3.5-5.5) mmol/L Chloride 91 L (98-107) mmol/L Carbon Dioxide 37 H (22-30) mmol/L Anion Gap (4.00-12.00) mmol/L BUN 46 H (9.0-27.0) mg/dL Creatinine 1.27 H (0.66-1.25) mg/dL Glucose 119 H (70-110) mg/dL Calcium (8.7-10.3) mg/dL Triglycerides (0.0-149.0) mg/dL VLDL Cholesterol, Calc (5.00-40.00) mg/dL HDL Cholesterol (40.0-60.0) mg/dL
[2020-08-12 11:56] VITALS: TEMP 98
[2020-08-12] MEDS: MAG HYDROX/AL HYDROX/SIMETH 30 ML CUP PO PRN ×2 (11:57→16:00)
--- NOTE | 2020-08-12 14:40 | XR ---
EXAMINATION TYPE: XR abdomen complete w decub DATE OF EXAM: 08/12/2020 COMPARISON: CT 07/25/2019 HISTORY: 59 year-old male abdominal pain TECHNIQUE: Supine, upright, and left side down lateral decubitus views of the abdomen are obtained. FINDINGS: Motion of the lung bases. No evidence for free intraperitoneal air. Cholecystectomy clips. No dilated small bowel or air-fluid levels. No significant stool burden. Rounded calcifications in the right side of the pelvis were present on the patient's previous 07/25/19 CT compatible with phleboliths. IMPRESSION: No evidence for free air or bowel obstruction. No significant stool burden. A couple phlebolith in th e right side of the pelvis. Motion at the lung bases.
[2020-08-12 15:58] VITALS: BP 117/58; PULSE 87
[2020-08-13] MEDS ORDERED: lisinopriL 5 MG TAB PO SCH (09:00)
[2020-08-15] MEDS ORDERED: ERGOCALCIFEROL 1,250 MCG (50,000 IU) CAPSULE PO SCH (09:00)
--- NOTE | 2020-08-16 05:30 | PN ---
PROGRESS NOTE DATE OF SERVICE: 08/12/2020 CHIEF COMPLAINT: Congestive heart failure. HISTORY OF PRESENT ILLNESS: This gentleman has developed abdominal pain. It is in the upper abdomen. He has had no vomiting or diarrhea. He has had no fever or chills. PHYSICAL EXAMINATION: Chest is quite clear with only occasional rales. Cardiac exam is normal. Abdomen is protuberant. He has some mild tenderness in the epigastrium without any masses, rebound or referred tenderness. Bowel sounds are normal. IMPRESSION: 1. Recurrent acute congestive heart failure. 2. Chronic congestive heart failure. 3. Epigastric discomfort. PLAN: 1. Start PPI and Reglan. 2. Laboratory studies. MMODL / IJN: [id number] /
--- NOTE | 2020-08-16 05:38 | DS ---
DISCHARGE SUMMARY CHIEF COMPLAINT: Shortness of breath and congestive heart failure. HISTORY OF PRESENT ILLNESS AND PHYSICAL EXAMINATION: Details of this man's history and physical can be found in the initial workup. LABORATORY STUDIES: While he was in the hospital, he had laboratory studies, details of which can be found in the laboratory section of his chart. COURSE IN THE HOSPITAL: After admission, he was placed on bedrest, started on intravenous fluids and he was diuresed. He did well. He had some mild abdominal discomfort, but this subsided. He was doing well. It was felt he could go home on August 12 and there will be additional diuretics added to his program along with apixaban. He will be contacted in several days. FINAL DIAGNOSES: 1. Acute on chronic congestive heart failure. 2. Dilated cardiomyopathy. 3. Essential hypertension. 4. Atrial fibrillation. OPERATIONS: None. CONSULTATION: None. He is improved. MMIVORYL / NORRISN: [id number] /
== END 2020-08-12 16:31 | disposition home or self-care (01) ==
LOC: EC 16:51 → 3SCARD 19:39 → INTOOBSV 19:39 → 3SCARD 20:17 → UNDODISIN 08-12 16:31
PROVIDERS: ADMIT Family Medicine; ATTEND Family Medicine
DX: I50.32 Chronic diastolic (congestive) heart failure (principal); I42.0 Dilated cardiomyopathy; I11.0 Hypertensive heart disease with heart failure; I48.0 Paroxysmal atrial fibrillation; I25.10 Atherosclerotic heart disease of native coronary artery without angina pectoris; A08.4 Viral intestinal infection, unspecified; E78.5 Hyperlipidemia, unspecified; E87.6 Hypokalemia; Z20.822 Contact with and (suspected) exposure to COVID-19; Z91.19 Patient's noncompliance with other medical treatment and regimen; G47.30 Sleep apnea, unspecified; J81.1 Chronic pulmonary edema; F32.9 Major depressive disorder, single episode, unspecified; F41.9 Anxiety disorder, unspecified; Z79.899 Other long term (current) drug therapy; Z79.82 Long term (current) use of aspirin; Z79.01 Long term (current) use of anticoagulants; Z87.820 Personal history of traumatic brain injury; Z87.01 Personal history of pneumonia (recurrent); Z87.19 Personal history of other diseases of the digestive system; Z90.49 Acquired absence of other specified parts of digestive tract; Z82.49 Family history of ischemic heart disease and other diseases of the circulatory system; Z83.3 Family history of diabetes mellitus
CPT/HCPCS: 96366 ×3; 96365; 96375; 99291; 36415; 93005; 83880; 80061; 80053 ×2; 80048 ×2; 83735; 84484; 85025 ×2; 85027; 85610; 85730; 87635; 71046; 74021; G0378 ×3; S0106 ×3; J2270; J1644 ×2

== ENCOUNTER 2020-11-04 16:19 | Inpatient (IN) | payer OTHER ==
[2020-11-04] MEDS ORDERED: MORPHINE SULFATE 4 MG/ML SYRINGE IVP STA (17:01)
[2020-11-04 17:36] LABS: Basophils # (A) 0.1 k/uL (0-0.2); Basophils % (A) 1 %; Eosinophils # (A) 0.3 k/uL (0-0.7); Eosinophils % (A) 4 %; HCT 42.2 % (39.0-53.0); HGB 13.6 gm/dL (13.0-17.5); Hypochromasia Slight; Lymphocytes % (A) 14 %; MCH 27.4 pg (25.0-35.0); MCHC 32.1 g/dL (31.0-37.0); MCV 85.4 fL (80.0-100.0); Mean Platelet Volume 7.8; Monocytes # (A) 0.3 k/uL (0-1.0); Monocytes % (A) 4 %; Neutrophils # (A) 5.2 k/uL (1.3-7.7); Neutrophils % (A) 74 %; Platelet Count 183 k/uL (150-450); RBC 4.95 m/uL (4.30-5.90); RDW 15.5 % (11.5-15.5); WBC 7.1 k/uL (3.8-10.6)
[2020-11-04 17:45] LABS: ALT 32 U/L (4-49); AST 32 U/L (17-59); African American GFR (CKD) >90 (>60 ml/min/1.73 sqM); Albumin 3.1 g/dL (3.5-5.0); Alkaline Phosphatase 82 U/L (38-126); Anion Gap 5 mmol/L; Blood Urea Nitrogen 18 mg/dL (9-20); Calcium 8.2 mg/dL (8.4-10.2); Carbon Dioxide 32 mmol/L (22-30); Chloride 101 mmol/L (98-107); Glucose 98 mg/dL (74-99); Magnesium 1.7 mg/dL (1.6-2.3); Non-African American GFR(CKD) >90 (>60 ml/min/1.73 sqM); Potassium 3.4 mmol/L (3.5-5.1); Sodium 138 mmol/L (137-145); Total Bilirubin 0.7 mg/dL (0.2-1.3); Total Protein 5.7 g/dL (6.3-8.2)
[2020-11-04 17:55] LABS: INR 0.9 (<1.2); Partial Thromboplastin Time 23.2 sec (22.0-30.0)
--- NOTE | 2020-11-04 18:10 | XR ---
EXAMINATION TYPE: XR chest 2V DATE OF EXAM: 11/04/2020 COMPARISON: 08/10/2020 HISTORY: Short of breath TECHNIQUE: 2 views FINDINGS: Heart is enlarged. There is no heart failure. There are no hilar masses. There are chest le ads. Costophrenic angles are clear. Bony thorax is intact. IMPRESSION: There is cardiomegaly that is new compared to old exam. No heart failure seen.
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
--- NOTE | 2020-11-04 19:30 | CT ---
EXAMINATION TYPE: CT chest angio for PE DATE OF EXAM: 11/04/2020 COMPARISON: 06/08/2020 HISTORY: Hypoxia. CT DLP: 1032.1 mGycm Automated exposure control for dose reduction was used. CONTRAST: Performed with IV Contrast, patient injected with 100 mL of Isovue 370. There are 3-D post processed images. There are bilateral pleural effusions. Exam limited by patient's size. There is mild increased inters titial density and subsegmental atelectasis at the lung bases. Heart is slightly enlarged. There is n o pericardial effusion. There are some right side bronchial lymph nodes that measure up to 1 cm. I se e no filling defects in the pulmonary arteries. Thoracic aorta is intact. There is no aneurysm or dis section. There is no mediastinal adenopathy. There are some peritracheal lymph nodes that measure up to 1 cm. The bony thorax is intact. There is no compression fracture. Sternum is intact. IMPRESSION: Bilateral pleural effusions slightly improved compared to old exam. There are some mediastinal and br onchial lymph nodes improved slightly compared to old exam. Cardiomegaly. This could relate to chroni c congestive heart failure. Mild infiltrate and atelectasis at the lung bases improved compared to ol d exam. No evidence of pulmonary embolism.
[2020-11-04 19:59] LABS: Appearance,Urine Clear (Clear); Bilirubin,Urine Negative (Negative); Blood,Urine Negative (Negative); Color,Urine Yellow; Glucose,Urine (UA) Negative (Negative); Ketones,Urine Negative (Negative); Leukocyte Esterase,Urine Negative (Negative); Mucus,Urine Rare /hpf; Nitrite,Urine Negative (Negative); Protein,Urine 1+ (Negative); RBC,Urine 1 /hpf (0-5); Urobilinogen,Urine <2.0 mg/dL (<2.0); WBC,Urine 1 /hpf (0-5)
[2020-11-04 20:00] LABS: Specific Gravity,Urine 1.049 (1.001-1.035)
[2020-11-04] MEDS ORDERED: FUROSEMIDE 10 MG/ML 10 ML VIAL IV STA (20:14)
[2020-11-04] MEDS ORDERED: HYDROmorphone 1 MG/ML 1 ML SYRINGE IVP STA (20:17)
[2020-11-04] MEDS ORDERED: NALOXONE 0.4 MG/ML 1 ML VIAL IV PRN (20:57)
[2020-11-04] MEDS ORDERED: Potassium Replacement Protocol 1 EACH MISC MISCELLANE PRN (21:33)
[2020-11-04] MEDS ORDERED: Magnesium Replacement Protocol 1 EACH MISC MISCELLANE PRN (21:34)
[2020-11-04] MEDS: MAGNESIUM SULFATE-D5W PMX 1 GM in DEXTROSE/WATER 1 100ML.BAG IVPB SCH (22:59)
[2020-11-04] MEDS: APIXABAN 5 MG TAB PO SCH (22:59)
[2020-11-04] MEDS: POTASSIUM CHLORIDE ER 20 MEQ TAB.ER PO SCH (23:00)
[2020-11-05] MEDS: MAGNESIUM SULFATE-D5W PMX 1 GM in DEXTROSE/WATER 1 100ML.BAG IVPB SCH (00:10)
[2020-11-05] MEDS: HYDROcodone/APAP 5-325MG 1 EACH TAB PO PRN ×4 (00:18→19:59)
[2020-11-05] MEDS: POTASSIUM CHLORIDE ER 20 MEQ TAB.ER PO SCH (06:10)
[2020-11-05] MEDS: ALBUTEROL NEBULIZED 2.5 MG/3 ML INHALATION PRN ×3 (07:49→16:38)
[2020-11-05] MEDS: ASPIRIN 81 MG PO SCH (08:58)
[2020-11-05] MEDS: FUROSEMIDE 10 MG/ML 10 ML VIAL IV SCH ×2 (08:59→19:38)
[2020-11-05] MEDS: buPROPion SR 150 MG TABLET.ER PO SCH ×2 (09:27→23:30)
[2020-11-05] MEDS: APIXABAN 5 MG TAB PO SCH ×2 (09:29→19:39)
[2020-11-05 12:03] LABS: Basophils # (A) 0.1 k/uL (0-0.2); Basophils % (A) 1 %; Eosinophils # (A) 0.3 k/uL (0-0.7); Eosinophils % (A) 4 %; HCT 43.2 % (39.0-53.0); HGB 13.8 gm/dL (13.0-17.5); Hypochromasia Slight; Lymphocytes # (A) 0.9 k/uL (1.0-4.8); Lymphocytes % (A) 11 %; MCH 27.4 pg (25.0-35.0); MCV 85.7 fL (80.0-100.0); Mean Platelet Volume 8.1; Monocytes # (A) 0.5 k/uL (0-1.0); Monocytes % (A) 6 %; Neutrophils # (A) 5.9 k/uL (1.3-7.7); Neutrophils % (A) 76 %; Platelet Count 199 k/uL (150-450); RBC 5.04 m/uL (4.30-5.90); RDW 15.5 % (11.5-15.5); WBC 7.8 k/uL (3.8-10.6)
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
[2020-11-05 12:32] LABS: African American GFR (CKD) >90 (>60 ml/min/1.73 sqM); Anion Gap 7 mmol/L; Blood Urea Nitrogen 15 mg/dL (9-20); Calcium 8.5 mg/dL (8.4-10.2); Carbon Dioxide 38 mmol/L (22-30); Chloride 94 mmol/L (98-107); Glucose 123 mg/dL (74-99); Magnesium 1.8 mg/dL (1.6-2.3); Non-African American GFR(CKD) >90 (>60 ml/min/1.73 sqM); Potassium 3.7 mmol/L (3.5-5.1); Sodium 139 mmol/L (137-145)
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
[2020-11-06] MEDS: HYDROcodone/APAP 5-325MG 1 EACH TAB PO PRN ×4 (01:56→20:31)
--- NOTE | 2020-11-06 07:07 | P.PN ---
Subjective Progress Note Date: 11/06/20 Principal diagnosis: Heart failure with preserved ejection fraction The patient was seen this morning. He is diuresing very well and he is feeling better overall in terms of shortness of breath. The lower extremities edema is better as well. He denies any symptoms of chest pain or chest discomfort. The blood work from the morning still pending. He is on oral anticoagulation. Objective - Vital Signs Vital signs: Vital Signs Temp 98.2 F 11/06/20 04:00 Pulse 80 11/06/20 04:00 Resp 18 11/06/20 04:00 BP 145/98 11/06/20 04:00 Pulse Ox 95 11/06/20 04:00 Intake & Output 11/05/20 11/06/20 11/06/20 18:59 06:59 18:59 Intake Total 360 Output Total 1450 3700 Balance -1450 -3340 Weight 167.829 kg 173.9 kg Intake: Oral 360 Output: Urine 1450 3700 Other: # Voids 1 - Constitutional General appearance: Present: no acute distress - Respiratory Respiratory: bilateral: diminished - Cardiovascular Rhythm: irregularly irregular - Labs CBC & Chem 7: 11/05/20 11:28 11/05/20 11:34 Labs: Abnormal Lab Results - Last 24 Hours (Table) 11/05/20 11/05/20 Range/Units 11:28 11:34 Lymphocytes # 0.9 L (1.0-4.8) k/uL Chloride 94 L (98-107) mmol/L Carbon Dioxide 38 H (22-30) mmol/L Glucose 123 H (74-99) mg/dL Assessment and Plan Assessment: Assessment #1 congestive heart failure exacerbation secondary to heart failure with preserved ejection fraction #2 persistent atrial fibrillation with controlled heart rate. #3 mild to moderate nonobstructive coronary artery disease #4 morbid obesity #5 sleep apnea Plan #1 continue the current dose of Lasix IV #2 continue monitoring the kidney function and electrolytes #3 continue oral anticoagulation #4 follow-up with the patient
[2020-11-06 07:58] LABS: Basophils # (A) 0.1 k/uL (0-0.2); Basophils % (A) 1 %; Eosinophils # (A) 0.3 k/uL (0-0.7); Eosinophils % (A) 3 %; HCT 43.5 % (39.0-53.0); HGB 13.9 gm/dL (13.0-17.5); Hypochromasia Slight; Lymphocytes % (A) 12 %; MCH 27.4 pg (25.0-35.0); MCHC 31.9 g/dL (31.0-37.0); MCV 85.7 fL (80.0-100.0); Mean Platelet Volume 7.8; Monocytes # (A) 0.4 k/uL (0-1.0); Monocytes % (A) 5 %; Neutrophils # (A) 6.6 k/uL (1.3-7.7); Neutrophils % (A) 79 %; Platelet Count 193 k/uL (150-450); RBC 5.08 m/uL (4.30-5.90); RDW 15.1 % (11.5-15.5); WBC 8.4 k/uL (3.8-10.6)
[2020-11-06 08:08] LABS: African American GFR (CKD) >90 (>60 ml/min/1.73 sqM); Blood Urea Nitrogen 16 mg/dL (9-20); Calcium 8.6 mg/dL (8.4-10.2); Chloride 92 mmol/L (98-107); Glucose 166 mg/dL (74-99); Non-African American GFR(CKD) >90 (>60 ml/min/1.73 sqM); Potassium 3.3 mmol/L (3.5-5.1); Sodium 138 mmol/L (137-145)
[2020-11-06 08:14] LABS: Anion Gap 8 mmol/L
[2020-11-06 08:19] LABS: Carbon Dioxide 38 mmol/L (22-30)
[2020-11-06] MEDS: APIXABAN 5 MG TAB PO SCH ×2 (08:41→20:30)
[2020-11-06] MEDS: ASPIRIN 81 MG PO SCH (08:41)
[2020-11-06] MEDS: buPROPion SR 150 MG TABLET.ER PO SCH ×2 (08:41→20:30)
[2020-11-06] MEDS: FUROSEMIDE 10 MG/ML 10 ML VIAL IV SCH ×2 (08:42→20:31)
[2020-11-06] MEDS ORDERED: Potassium Replacement Protocol 1 EACH MISC MISCELLANE PRN (10:56)
[2020-11-06] MEDS: POTASSIUM CHLORIDE ER 20 MEQ TAB.ER PO SCH ×2 (11:57→12:36)
--- NOTE | 2020-11-06 17:25 | P.PN ---
Subjective Progress Note Date: 11/06/20 59-year-old male past history of A. fib, heart failure, sleep apnea who presents emergency room with reported shortness of breath. Patient states that he was at home when he felt like he couldn't breathe, therefore took himself into urgent care. The shortness of breath has been getting worse over the past couple of days. States he has a history of heart failure and feels as if he is retaining fluids. He admits to some weight gain but unsure of the amount. He admits to nonproductive cough. No fevers or chills. Denies covid exposure or vaccination. He was tested for Covid at the urgent care and it was negative. He admits to chest pain. denies coronary disease. No nausea, vomiting or diaphoresis. Denies history of DVT or PE. Patient is on eliquis for afib Upon arrival to ED patient was saturating around 84% First troponin 0.039. BNP 2610. Covid not detected. Chest x-ray demonstrates cardiomegaly which is new. As the patient is reporting that he frequently misses his anticoagulation, CT of the chest is ordered. Trace bilateral pleural effusions with cardiomegaly. Patient is given 80 mg of Lasix IV. Patient continues to diurese well and reports improvement in breathing; no co mplaints of chest pain; cardiology recommending to continue with current diuretic therapy; monitor renal function and electrolytes; continue with low- salt and fluid restricted diet; patient remains on anticoagulation therapy for persistent atrial fibrillation Objective - Vital Signs Vital signs: Vital Signs Temp 97.9 F 11/06/20 08:00 Pulse 100 11/06/20 08:00 Resp 16 11/06/20 08:00 BP 116/70 11/06/20 08:00 Pulse Ox 94 L 11/06/20 08:00 Intake & Output 11/05/20 11/06/20 11/06/20 18:59 06:59 18:59 Intake Total 360 240 Output Total 1450 3700 500 Balance -1450 -3340 -260 Weight 167.829 kg 173.9 kg Intake: Oral 360 240 Output: Urine 1450 3700 500 Other: # Voids 1 - Exam - Constitutional General appearance: Present: average body habitus, cooperative, no acute distress - EENT Eyes: Present: anicteric sclerae, EOMI, PERRLA, normal appearance ENT: Present: hearing grossly normal, normal oropharynx Ears: bilateral: normal - Neck Neck: Present: normal ROM. Absent: lymphadenopathy, rigidity, thyromegaly Carotids: negative: bruit present Thyroid: bilateral: normal size, negative: enlarged, nodule - Respiratory Respiratory: bilateral: CTA, negative: rales, rhonchi, wheezing - Cardiovascular Rhythm: regular Heart sounds: normal: S1, S2 Abnormal Heart Sounds: Absent: systolic murmur, diastolic murmur - Gastrointestinal General gastrointestinal: Present: normal bowel sounds, soft. Absent: distended, organomegaly, tenderness - Genitourinary Genitourinary Comment(s): deferred - Integumentary Integumentary: Present: normal turgor. Absent: jaundiced, rash, ulcer - Neurologic Neurologic: Present: CNII-XII intact. Absent: focal deficits - Musculoskeletal Musculoskeletal: Present: gait normal, strength equal bilaterally - Psychiatric Psychiatric: Present: A&O x's 3, appropriate affect, intact judgment & insight - Labs CBC & Chem 7: 11/06/20 07:25 11/06/20 15:41 Labs: Abnormal Lab Results - Last 24 Hours (Table) 11/05/20 11/05/20 11/06/20 Range/Units 11:28 11:34 07:25 Lymphocytes # 0.9 L (1.0-4.8) k/uL Potassium 3.3 L (3.5-5.1) mmol/L Chloride 94 L 92 L (98-107) mmol/L Carbon Dioxide 38 H 38 H (22-30) mmol/L Glucose 123 H 166 H (74-99) mg/dL Assessment and Plan Assessment: 1. Acute exacerbation CHF with preserved EF - Cardiology on board and recommending to continue with IV Lasix 60 mg every 12 hours, while monitoring renal function and electrolytes closely; plan would be to cut back on diuretic dose is patient not responding 2. Atrial fibrillation with RVR; continue with current anticoagulation therapy; patient is currently not on any rate control medication 3. Elevated troponin; possible NSTEMI; continue to monitor EKG and trend troponin; await further recommendations from cardiology 4. Mild nonobstructive coronary artery disease; continue with current dose of aspirin and anticoagulation therapy 5. Depression; Wellbutrin SR 150 mg every 12 hours DVT prophylaxis; SCDs/systemic anticoagulation CODE STATUS; full code
[2020-11-06] MEDS: ALBUTEROL NEBULIZED 2.5 MG/3 ML INHALATION PRN (20:59)
[2020-11-07] MEDS: HYDROcodone/APAP 5-325MG 1 EACH TAB PO PRN ×5 (00:42→23:25)
[2020-11-07 08:37] LABS: African American GFR (CKD) >90 (>60 ml/min/1.73 sqM); Anion Gap 9 mmol/L; Blood Urea Nitrogen 17 mg/dL (9-20); Calcium 8.7 mg/dL (8.4-10.2); Chloride 90 mmol/L (98-107); Glucose 194 mg/dL (74-99); Magnesium 1.9 mg/dL (1.6-2.3); Non-African American GFR(CKD) >90 (>60 ml/min/1.73 sqM); Potassium 3.4 mmol/L (3.5-5.1); Sodium 139 mmol/L (137-145)
[2020-11-07 08:46] LABS: Carbon Dioxide 40 mmol/L (22-30)
--- NOTE | 2020-11-07 09:18 | P.PN ---
Subjective Progress Note Date: 11/07/20 Principal diagnosis: Heart failure with preserved ejection fraction The patient was seen this morning. He continues to be on Lasix IV and he has been diuresing very well. He continues to be in atrial fibrillation was controlled heart rate. He is permanent atrial fibrillation. He is on oral anticoagulation. No symptoms of chest pain or chest discomfort. The most recent echocardiogram revealed an EF around 45%. We'll continue the IV Lasix for additional 24 hours and continue following up with the patient. Objective - Vital Signs Vital signs: Vital Signs Temp 98.0 F 11/07/20 04:00 Pulse 67 11/07/20 04:00 Resp 19 11/07/20 04:00 BP 129/74 11/07/20 04:00 Pulse Ox 94 L 11/07/20 04:00 Intake & Output 11/06/20 11/07/20 11/07/20 18:59 06:59 18:59 Intake Total 720 420 Output Total 2000 1500 300 Balance -1280 -1500 120 Weight 172.9 kg Intake: Oral 720 420 Output: Urine 2000 1500 300 Other: # Voids 0 1 # Bowel Movements 0 - Constitutional General appearance: Present: no acute distress - Respiratory Respiratory: bilateral: diminished - Cardiovascular Rhythm: irregularly irregular Heart sounds: normal: S1, S2 - Labs CBC & Chem 7: 11/06/20 07:25 11/07/20 08:01 Labs: Abnormal Lab Results - Last 24 Hours (Table) 11/07/20 Range/Units 08:01 Potassium 3.4 L (3.5-5.1) mmol/L Chloride 90 L (98-107) mmol/L Carbon Dioxide 40 H (22-30) mmol/L Glucose 194 H (74-99) mg/dL Assessment and Plan Assessment: Assessment #1 congestive heart failure exacerbation secondary to heart failure with preserved ejection fraction #2 persistent atrial fibrillation with controlled heart rate. #3 mild to moderate nonobstructive coronary artery disease #4 morbid obesity #5 sleep apnea Plan #1 continue the current dose of Lasix IV #2 continue monitoring the kidney function and electrolytes #3 continue oral anticoagulation #4 follow-up with the patient
[2020-11-07] MEDS: APIXABAN 5 MG TAB PO SCH ×2 (09:32→20:35)
[2020-11-07] MEDS: buPROPion SR 150 MG TABLET.ER PO SCH ×2 (09:32→20:35)
[2020-11-07] MEDS: FUROSEMIDE 10 MG/ML 10 ML VIAL IV SCH ×2 (09:32→20:36)
[2020-11-07] MEDS: ASPIRIN 81 MG PO SCH (09:32)
[2020-11-07] MEDS: POTASSIUM CHLORIDE ER 20 MEQ TAB.ER PO SCH ×2 (12:22→13:37)
--- NOTE | 2020-11-07 14:41 | XR ---
EXAMINATION TYPE: XR chest 1V DATE OF EXAM: 11/07/2020 COMPARISON: Chest radiograph 11/04/2020 HISTORY: Shortness of breath TECHNIQUE: Single frontal view of the chest is obtained. FINDINGS: Unchanged cardiomegaly. Trace bilateral pleural effusions. No focal consolidation or pneum othorax. Osseous structures appear unchanged and intact. IMPRESSION: Unchanged cardiomegaly with trace pleural effusions.
--- NOTE | 2020-11-07 14:44 | P.PN ---
Subjective 59-year-old male past history of A. fib, heart failure, sleep apnea who presents emergency room with reported shortness of breath. Patient states that he was at home when he felt like he couldn't breathe, therefore took himself into urgent care. The shortness of breath has been getting worse over the past couple of days. States he has a history of heart failure and feels as if he is retaining fluids. He admits to some weight gain but unsure of the amount. He admits to nonproductive cough. No fevers or chills. Denies covid exposure or vaccination. He was tested for Covid at the urgent care and it was negative. He admits to chest pain. denies coronary disease. No nausea, vomiting or diaphoresis. Denies history of DVT or PE. Patient is on eliquis for afib Upon arrival to ED patient was saturating around 84% First troponin 0.039. BNP 2610. Covid not detected. Chest x-ray demonstrates cardiomegaly which is new. As the patient is reporting that he frequently misses his anticoagulation, CT of the chest is ordered. Trace bilateral pleural effusions with cardiomegaly. Patient is given 80 mg of Lasix IV. Patient continues to diurese well and reports improvement in breathing; no complaints of chest pain; cardiology recommending to continue with current diuretic therapy; monitor renal function and electrolytes; continue with low- salt and fluid restricted diet; patient remains on anticoagulation therapy for persistent atrial fibrillation 11/07/2020 Patient is still dyspneic at rest, he has some cough with phlegm and decreased air entry on both lung bases. Also he has little bilateral pitting leg edema. He denies any GI or urinary symptoms. Hemodynamically stable. The low potassium 3.4, being replaced. Creatinine normal at 0.9. On Lasix 60 mg twice daily and Eliquis 5 mg twice a day. Cardiology team on the case will monitoring the patient On admission he had a CTA of the chest which was negative for PE but showing bilateral pleural effusion and mild increased interstitial density with cardiomegaly could be related to CHF Objective - Vital Signs Vital signs: Vital Signs Temp 98.2 F 11/07/20 11:30 Pulse 69 11/07/20 11:30 Resp 18 11/07/20 11:30 BP 117/75 11/07/20 11:30 Pulse Ox 92 L 11/07/20 11:30 Intake & Output 11/06/20 11/07/20 11/07/20 18:59 06:59 18:59 Intake Total 720 420 Output Total 1999 1499 2049 Balance -1280 -1500 -1630 Weight 172.9 kg Intake: Oral 720 420 Output: Urine 1999 1499 2049 Other: # Voids 0 1 # Bowel Movements 0 - Exam -GENERAL: The patient is alert and oriented x3, not in any acute distress. Mo rbidly obese HEENT: Pupils are round and equally reacting to light. EOMI. No scleral icterus. No conjunctival pallor. Normocephalic, atraumatic. No pharyngeal erythema. No thyromegaly. CARDIOVASCULAR: S1 and S2 present. No murmurs, rubs, or gallops. -PULMONARY: Chest is clear to auscultation, no wheezing or crackles. Decreased air entry on both sides ABDOMEN: Soft, nontender, nondistended, normoactive bowel sounds. No palpable organomegaly. MUSCULOSKELETAL: No joint swelling or deformity. -EXTREMITIES: No cyanosis, clubbing,. 1+ bilateral pitting leg edema. NEUROLOGICAL: Gross neurological examination did not reveal any focal deficits. SKIN: No rashes. no petechiae. - Labs CBC & Chem 7: 11/06/20 07:25 11/07/20 08:01 Labs: Abnormal Lab Results - Last 24 Hours (Table) 11/07/20 Range/Units 08:01 Potassium 3.4 L (3.5-5.1) mmol/L Chloride 90 L (98-107) mmol/L Carbon Dioxide 40 H (22-30) mmol/L Glucose 194 H (74-99) mg/dL Assessment and Plan Assessment: 1. Acute on chronic diastolic exacerbation CHF with preserved EF - Cardiology on board and recommending to continue with IV Lasix 60 mg every 12 hours, - Repeat chest x-ray showing improvement airway aeration when I reviewed by myself, pending final report by radiologist - Fluid restriction - Patient today with negative urine bolus of around 1500 mL 2. Atrial fibrillation with RVR; continue with current anticoagulation therapy; patient is currently not on any rate control medication 3. Elevated troponin; possible mild to moderate nonobstructive coronary artery disease per senior administrative assistant; continue to monitor EKG and trend troponin; continue current management per cardiology 4. Chronic hypoxic respiratory failure on 4 L oxygen via nasal cannula at home. Patient currently on the same dose of oxygen 5. Depression; Wellbutrin SR 150 mg every 12 hours DVT prophylaxis; SCDs/systemic anticoagulation, Eliquis 5 mg CODE STATUS; full code with him and will resume the care of the patient tomorrow
[2020-11-07] MEDS ORDERED: POTASSIUM CHLORIDE ER 20 MEQ TAB.ER PO STA (17:25)
[2020-11-08] MEDS: HYDROcodone/APAP 5-325MG 1 EACH TAB PO PRN ×3 (06:18→21:32)
[2020-11-08] MEDS: ALBUTEROL NEBULIZED 2.5 MG/3 ML INHALATION PRN (07:59)
[2020-11-08 08:33] LABS: African American GFR (CKD) >90 (>60 ml/min/1.73 sqM); Blood Urea Nitrogen 16 mg/dL (9-20); Calcium 9.3 mg/dL (8.4-10.2); Chloride 92 mmol/L (98-107); Glucose 141 mg/dL (74-99); Non-African American GFR(CKD) >90 (>60 ml/min/1.73 sqM); Potassium 3.7 mmol/L (3.5-5.1); Sodium 139 mmol/L (137-145)
[2020-11-08 08:39] LABS: Anion Gap 9 mmol/L; Carbon Dioxide 38 mmol/L (22-30)
[2020-11-08] MEDS: FUROSEMIDE 10 MG/ML 10 ML VIAL IV SCH ×2 (09:22→21:31)
[2020-11-08] MEDS: APIXABAN 5 MG TAB PO SCH ×2 (09:23→21:31)
[2020-11-08] MEDS: ASPIRIN 81 MG PO SCH (09:23)
[2020-11-08] MEDS: buPROPion SR 150 MG TABLET.ER PO SCH ×2 (09:23→21:32)
[2020-11-08] MEDS: FAMOTIDINE 20 MG/2 ML VIAL IV SCH ×2 (09:23→21:31)
--- NOTE | 2020-11-08 11:05 | CDI ---
Documentation Clarification Form Date: 11/08/2020 10:44:44 AM From: Monet Bhandari RN CCDS Admit Date: 11/04/2020 08:57:00 PM Patient Name: Vance Lee Visit Number: [id number] Discharge Date: ATTENTION: The Clinical Documentation Specialists (CDI) and [facility] Coding Staff appreciate your assistance in clarifying documentation. Please respond to the clarification below the line at the bottom and electronically sign. The CDI & [facility] Coding staff will review the response and follow-up if needed. Please note: Queries are made part of the Legal Health Record. If you have any questions, please contact the author of this message via ITS. Dr. Marcelino Trujillo Possible NSTEMI is documented H&P 11/05 and Medicine progress note, 11/06 but is not noted in subsequent documentation. Clarification is requested. History/Risk Factors: 59 -year-old male presents to the ED with worsening shortness of breath and weight gain. Medical History: Atrial Fibrillation, Heart failure and HTN. H&P 11/05. Clinical Indicators: 11/05 H&P: Acute exacerbation CHF with preserved EF. Elevated troponin; possible NSTEMI: continue to monitor EKG and trend troponin. EKG 11/04: Atrial fibrillation with rapid ventricular response. Prolonged QT. Abnormal ECG. Troponin: Troponin 11/04 0.039; 0.057; 11/05 0.056 Treatment: 11/04 Lasix 80mg IV x 1; 11/05 to current Lasix 60mg IV Q12HR; 11/04 Eliquis 5mg PO BID. Please clarify if the NSTEMI is: [ ] NSTEMI Type 2 confirmed, remains under treatment [ ] NSTEMI Type 2 confirmed, resolved [ ] NSTEMI Type 1 confirmed, remains under treatment [ ] NSTEMI Type 1 confirmed, resolved [ ] NSTEMI ruled out [ ] Other condition, please specify [ ] Unable to determine (Template Last Revised: May 2020) MTDD
--- NOTE | 2020-11-08 11:06 | P.PN ---
Subjective This is a pleasant 60-year-old male past medical history significant for chronic persistent atrial fibrillation, nonobstructive coronary artery disease, morbid obesity, hypertension, dyslipidemia and obstructive sleep apnea. He does not follow regularly with a red hat open stack administrator. He is seen and examined sitting up in bed. He continues to complain of shortness of breath with dry cough that causes chest pain. Blood pressure 133/76, heart rate 68, afebrile and maintaining oxygen saturation on nasal cannula. Currently maintained on eliquis 5 mg BID, aspirin 81 mg daily and lasix 60 mg IV BID. Laboratory data reviewed, sodium 139, potassium 3.7, creatinine 0.85. Telemetry tracings reveal he continues to be in atrial fibrillation with variable ventricular rates. 24-hour urine output was 4.2 L. GENERAL: Well-appearing, well-nourished and in no acute distress. Obese. NECK: Supple without JVD or thyromegaly. LUNGS: Bibasilar rales, no wheezes or rhonchi. Respiration equal and unlabored. HEART: Irregular rate and rhythm without murmurs, rubs or gallops. S1 and S2 heard. EXTREMITIES: Normal range of motion, no edema. No clubbing or cyanosis. Peripheral pulses intact. ASSESSMENT Acute on chronic diastolic heart failure Chronic persistent atrial fibrillation with variable ventricular rates Morbid obesity, BMI 49 PLAN Continue IV diuesis. Follow renal function and electrolytes in the morning. Continue to document accurate intake and output along with daily weights. Nurse Practitioner note has been reviewed, I agree with a documented findings and plan of care. Patient was seen and examined. Objective - Vital Signs Vital signs: Vital Signs Temp 98.4 F 11/08/20 03:45 Pulse 68 11/08/20 08:17 Resp 16 11/08/20 08:00 BP 133/76 11/08/20 08:00 Pulse Ox 93 L 11/08/20 08:00 Intake & Output 11/07/20 11/08/20 11/08/20 18:59 06:59 18:59 Intake Total 1177 1090 237 Output Total 2300 1950 800 Balance -1123 -860 -563 Weight 173.2 kg Intake: Oral 1177 1090 237 Output: Urine 2300 1950 800 - Labs CBC & Chem 7: 11/06/20 07:25 11/08/20 07:53 Labs: Abnormal Lab Results - Last 24 Hours (Table) 11/08/20 Range/Units 07:53 Chloride 92 L (98-107) mmol/L Carbon Dioxide 38 H (22-30) mmol/L Glucose 141 H (74-99) mg/dL
[2020-11-09] MEDS: HYDROcodone/APAP 5-325MG 1 EACH TAB PO PRN ×4 (04:36→23:30)
[2020-11-09] MEDS: ASPIRIN 81 MG PO SCH (08:46)
[2020-11-09] MEDS: APIXABAN 5 MG TAB PO SCH ×2 (08:46→21:00)
[2020-11-09] MEDS: buPROPion SR 150 MG TABLET.ER PO SCH ×2 (08:46→21:37)
[2020-11-09] MEDS: FUROSEMIDE 10 MG/ML 10 ML VIAL IV SCH (08:46)
[2020-11-09] MEDS: FAMOTIDINE 20 MG/2 ML VIAL IV SCH (08:47)
[2020-11-09 09:03] LABS: African American GFR (CKD) >90 (>60 ml/min/1.73 sqM); Blood Urea Nitrogen 17 mg/dL (9-20); Calcium 9.4 mg/dL (8.4-10.2); Chloride 89 mmol/L (98-107); Glucose 109 mg/dL (74-99); Non-African American GFR(CKD) 80 (>60 ml/min/1.73 sqM); Potassium 3.7 mmol/L (3.5-5.1); Sodium 139 mmol/L (137-145)
[2020-11-09 09:11] LABS: Anion Gap 9 mmol/L
[2020-11-09 09:13] LABS: Carbon Dioxide 41 mmol/L (22-30)
--- NOTE | 2020-11-09 11:28 | P.PN ---
Subjective This is a pleasant 60-year-old male past medical history significant for chronic persistent atrial fibrillation, nonobstructive coronary artery disease, morbid obesity, hypertension, dyslipidemia and obstructive sleep apnea. He does not follow regularly with a engine builder. He is seen and examined sitting up in bed. He continues to complain of shortness of breath with dry cough that causes chest pain. Blood pressure 133/76, heart rate 68, afebrile and maintaining oxygen saturation on nasal cannula. Currently maintained on eliquis 5 mg BID, aspirin 81 mg daily and lasix 60 mg IV BID. Laboratory data reviewed, sodium 139, potassium 3.7, creatinine 0.85. Telemetry tracings reveal he continues to be in atrial fibrillation with variable ventricular rates. 24-hour urine output was 4.2 L. 11/09/2020 Pt seen and examined sitting up in the recliner chair in no acute distress. He continues to feel short of breath, but is improving since admission. Denies chest pain, dizziness or palpitations. Blood pressure 138/80 heart rate 92 afebrile and maintaining oxygen saturation on nasal cannula. 24-hour urine output is 2.4 L. He continues to be in afib with controlled rates. Laboratory data reviewed, sodium 139, potassium 3.7, chloride 89, CO2 41 and creatinine 1.02. GENERAL: Well-appearing, well-nourished and in no acute distress. Obese. NECK: Supple without JVD or thyromegaly. LUNGS: Diminished bilaterally, no rales, wheezes or rhonchi. Respiration equal and unlabored. HEART: Irregular rate and rhythm without murmurs, rubs or gallops. S1 and S2 heard. EXTREMITIES: Normal range of motion, no edema. No clubbing or cyanosis. Peripheral pulses intact. ASSESSMENT Acute on chronic diastolic heart failure, EF 45-50% (05/2020) Chronic persistent atrial fibrillation with variable ventricular rates Morbid obesity, BMI 49 PLAN He is becoming alkalotic, we will transition to PO lasix. Follow renal function and electrolytes in the morning. Consider diamox tomorrow if things have not improved. Continue to document accurate intake and output along with daily weights. Further recommendations to follow based on clinical course. Nurse Practitioner note has been reviewed, I agree with a documented findings and plan of care. Patient was seen and examined. Objective - Vital Signs Vital signs: Vital Signs Temp 97.7 F 11/09/20 08:43 Pulse 92 11/09/20 08:43 Resp 20 11/09/20 08:43 BP 138/80 11/09/20 08:43 Pulse Ox 94 L 11/09/20 08:43 Intake & Output 11/08/20 11/09/20 11/09/20 18:59 06:59 18:59 Intake Total 237 480 240 Output Total 1800 637 Balance -1563 -157 240 Weight 164.9 kg Intake: Oral 237 480 240 Output: Urine 1800 637 Other: Voiding Method Urinal - Labs CBC & Chem 7: 11/06/20 07:25 11/09/20 07:23
[2020-11-09] MEDS: SACUBITRIL/VALSARTAN 24 MG-26 MG TABLET PO SCH ×2 (13:15→20:50)
[2020-11-09] MEDS: FUROSEMIDE 80 MG TAB PO SCH (17:05)
--- NOTE | 2020-11-09 19:01 | MISC ---
MISCELLANOUS REPORT QUERY: Unable to determine. MMODL / IJN: [id number] /
[2020-11-09] MEDS: FAMOTIDINE 20 MG TAB PO SCH (21:00)
[2020-11-10 07:39] VITALS: BP 112/67; RESP 16; TEMP 97.3
[2020-11-10 07:43] VITALS: PULSE 78
[2020-11-10] MEDS: HYDROcodone/APAP 5-325MG 1 EACH TAB PO PRN (08:13)
[2020-11-10] MEDS: FUROSEMIDE 80 MG TAB PO SCH (08:14)
[2020-11-10] MEDS: ASPIRIN 81 MG PO SCH (08:14)
[2020-11-10] MEDS: FAMOTIDINE 20 MG TAB PO SCH (08:14)
[2020-11-10] MEDS: buPROPion SR 150 MG TABLET.ER PO SCH (08:14)
[2020-11-10] MEDS: APIXABAN 5 MG TAB PO SCH (08:14)
[2020-11-10] MEDS ORDERED: ATORVASTATIN 40 MG TAB PO SCH (09:00)
--- NOTE | 2020-11-10 09:15 | P.PN ---
Subjective This is a pleasant 60-year-old male past medical history significant for chronic persistent atrial fibrillation, nonobstructive coronary artery disease, morbid obesity, hypertension, dyslipidemia and obstructive sleep apnea. He does not follow regularly with a box repairer. He is seen and examined sitting up in bed. He continues to complain of shortness of breath with dry cough that causes chest pain. Blood pressure 133/76, heart rate 68, afebrile and maintaining oxygen saturation on nasal cannula. Currently maintained on eliquis 5 mg BID, aspirin 81 mg daily and lasix 60 mg IV BID. Laboratory data reviewed, sodium 139, potassium 3.7, creatinine 0.85. Telemetry tracings reveal he continues to be in atrial fibrillation with variable ventricular rates. 24-hour urine output was 4.2 L. 11/10/2020 Pt seen and examined sitting up in bed in the recliner chair in no acute distress. He denies symptoms of worsening shortness of breath. He has no chest pain, dizziness or palpitations. He continues to be in afib with controlled r ates. Blood pressure 112/67 heart rate 67 afebrile and maintaining oxygen saturation on nasal cannula. Daily labs pending. 24-hr urine output 2350 mls. Daily labs pending. GENERAL: Well-appearing, well-nourished and in no acute distress. Obese. NECK: Supple without JVD or thyromegaly. LUNGS: Diminished bilaterally, no rales, wheezes or rhonchi. Respiration equal and unlabored. HEART: Irregular rate and rhythm without murmurs, rubs or gallops. S1 and S2 heard. EXTREMITIES: Normal range of motion, no edema. No clubbing or cyanosis. Peripheral pulses intact. ASSESSMENT Acute on chronic diastolic heart failure, EF 45-50% (05/2020) Chronic persistent atrial fibrillation with variable ventricular rates Morbid obesity, BMI 49 PLAN Entresto not indicated for diastolic heart failure. Add him on atorvastatin 40 mg daily. Await daily labs to assess CO2 level this morning, if no improvement we will give him a dose of diamox. Continue PO lasix. Nurse Practitioner note has been reviewed, I agree with a documented findings and plan of care. Patient was seen and examined. Objective - Vital Signs Vital signs: Vital Signs Temp 97.3 F L 11/10/20 07:39 Pulse 78 11/10/20 07:39 Resp 16 11/10/20 07:39 BP 112/67 11/10/20 07:39 Pulse Ox 91 L 11/10/20 07:39 Intake & Output 11/09/20 11/10/20 11/10/20 18:59 06:59 18:59 Intake Total 1785 237 180 Output Total 1100 1250 200 Balance 685 -1013 -20 Weight 169.6 kg Intake: Oral 1785 237 180 Output: Urine 1100 1250 200 Other: Voiding Method Urinal Urinal Urinal - Labs CBC & Chem 7: 11/06/20 07:25 11/09/20 07:23 Labs: Abnormal Lab Results - Last 24 Hours (Table) 11/09/20 Range/Units 07:23 Chloride 89 L (98-107) mmol/L Carbon Dioxide 41 H* (22-30) mmol/L Glucose 109 H (74-99) mg/dL
[2020-11-10 10:35] LABS: African American GFR (CKD) >90 (>60 ml/min/1.73 sqM); Anion Gap 7 mmol/L; Blood Urea Nitrogen 21 mg/dL (9-20); Calcium 9.4 mg/dL (8.4-10.2); Carbon Dioxide 37 mmol/L (22-30); Chloride 93 mmol/L (98-107); Glucose 150 mg/dL (74-99); Non-African American GFR(CKD) 82 (>60 ml/min/1.73 sqM); Potassium 3.8 mmol/L (3.5-5.1); Sodium 137 mmol/L (137-145)
[2020-11-10 13:03] VITALS: BMI 47.9
--- NOTE | 2020-11-10 15:10 | DS ---
DISCHARGE SUMMARY CHIEF COMPLAINT: Shortness of breath. HISTORY OF PRESENT ILLNESS AND PHYSICAL EXAMINATION: Details of this man's history and physical can be found in the initial workup. LABORATORY STUDIES: While he was in the hospital he had laboratory studies, details of which can be found in the laboratory section of his chart. COURSE IN THE HOSPITAL: After admission he was placed on bedrest and started on intravenous fluids and diuretics. He was seen and followed by Cardiology. He did have slightly elevated troponin. Cardiology felt that there was no value to be attained by repeating his catheterization. He was diuresed and he was doing well. It was felt that he might benefit from a change in medications since he had . He was given a dose of an ARNI (Entresto), which he thought made him nauseated. He will go home on his usual activity, medications and be followed up in several days and we will try him again on Entresto and Farxiga. We may very well have to increase his diuretic management as well. FINAL DIAGNOSES: 1. Acute congestive heart failure. 2. Chronic congestive heart failure. 3. . 4. Cardiomyopathy. 5. Renal failure. 6. Atrial fibrillation. OPERATIONS: None. CONSULTATIONS: None. He is improved. MMODL / IJN: [id number] /
--- NOTE | 2020-11-10 19:44 | PN ---
PROGRESS NOTE DATE OF SERVICE: 11/09/2020 CHIEF COMPLAINT: Congestive heart failure. HISTORY OF PRESENT ILLNESS: This gentleman's breathing is improving slightly. He is not having any chest pain. He is being followed by Cardiology. It was planned that he be given a trial of Entresto and Farxiga. He stated when he took Entresto it made him nauseated. PHYSICAL EXAMINATION: Chest demonstrates rales at the bases. Cardiac exam is unchanged with atrial fibrillation. The abdomen is protuberant and soft. IMPRESSION: 1. Acute congestive heart failure. 2. Chronic congestive heart failure. 3. Cardiomyopathy. 4. . 5. Renal failure. PLAN: It was thought that he might be a candidate for Entresto and Farxiga go along with his diuretic, but states he could not take the Entresto. We will increase activity and he will probably be able to go home in the next day or 2. MMMARY / NORRISN: [id number] /
--- NOTE | 2020-11-10 19:52 | PN ---
PROGRESS NOTE DATE OF SERVICE: 11/08/2020 CHIEF COMPLAINT: Congestive heart failure. HISTORY OF PRESENT ILLNESS: This gentleman is improving slightly. Breathing is a little bit better. He denies any chest pain. PHYSICAL EXAMINATION: Chest is clear. Cardiac exam is normal. Abdomen is soft and nontender. Extremities: Normal. IMPRESSION: 1. Acute on chronic congestive heart failure. 2. Cardiomyopathy. 3. Atrial fibrillation. 4. Renal failure. PLAN: Continue with diuresis and increase activity and probably discharge in the next day or 2. MMODL / IJN: [id number] /
== END 2020-11-10 13:28 | disposition home or self-care (01) | DRG 291 ==
LOC: EC 16:19 → 3SCARD 20:57
PROVIDERS: ADMIT Family Medicine; ATTEND Family Medicine
PROC: 5A09357 Assistance with Respiratory Ventilation, Less than 24 Consecutive Hours, Continuous Positive Airway Pressure (ICD-10-PCS; principal; 2020-11-05)
DX: I11.0 Hypertensive heart disease with heart failure (principal); J96.21 Acute and chronic respiratory failure with hypoxia; I48.21 Permanent atrial fibrillation; Z68.42 Body mass index [BMI] 45.0-49.9, adult; I50.33 Acute on chronic diastolic (congestive) heart failure; I42.9 Cardiomyopathy, unspecified; E66.01 Morbid (severe) obesity due to excess calories; N19 Unspecified kidney failure; Z20.822 Contact with and (suspected) exposure to COVID-19; I25.10 Atherosclerotic heart disease of native coronary artery without angina pectoris; E78.5 Hyperlipidemia, unspecified; G47.33 Obstructive sleep apnea (adult) (pediatric); F32.9 Major depressive disorder, single episode, unspecified; F41.9 Anxiety disorder, unspecified; R77.8 Other specified abnormalities of plasma proteins; Z79.01 Long term (current) use of anticoagulants; Z79.82 Long term (current) use of aspirin; Z87.01 Personal history of pneumonia (recurrent); Z79.899 Other long term (current) drug therapy; Z90.49 Acquired absence of other specified parts of digestive tract; Z87.19 Personal history of other diseases of the digestive system; Z86.79 Personal history of other diseases of the circulatory system; Z98.890 Other specified postprocedural states; Z71.3 Dietary counseling and surveillance; Z82.49 Family history of ischemic heart disease and other diseases of the circulatory system; Z83.3 Family history of diabetes mellitus; Z83.49 Family history of other endocrine, nutritional and metabolic diseases
CPT/HCPCS: 36415; 71045; 71046; 71275; 80048; 80053; 81001; 83605; 83735; 83880; 84132; 84484; 85025; 85610; 85730; 87635; 93005; 94640; 94660; 96374; 96375; 99285

== ENCOUNTER 2020-12-20 15:53 | Inpatient (IN) | payer OTHER ==
[2020-12-20] MEDS ORDERED: MORPHINE SULFATE 4 MG/ML SYRINGE IVP STA (16:16)
[2020-12-20 16:37] LABS: Anisocytosis Slight; Basophils # (A) 0.1 k/uL (0-0.2); Basophils % (A) 1 %; Eosinophils # (A) 0.2 k/uL (0-0.7); Eosinophils % (A) 2 %; HCT 45.6 % (39.0-53.0); HGB 14.5 gm/dL (13.0-17.5); Lymphocytes % (A) 13 %; MCH 27.2 pg (25.0-35.0); MCHC 31.7 g/dL (31.0-37.0); MCV 85.9 fL (80.0-100.0); Mean Platelet Volume 8.5; Monocytes # (A) 0.4 k/uL (0-1.0); Monocytes % (A) 6 %; Neutrophils # (A) 5.7 k/uL (1.3-7.7); Neutrophils % (A) 76 %; Platelet Count 212 k/uL (150-450); RBC 5.31 m/uL (4.30-5.90); RDW 16.7 % (11.5-15.5); WBC 7.5 k/uL (3.8-10.6)
[2020-12-20 16:47] LABS: ALT 40 U/L (4-49); AST 37 U/L (17-59); African American GFR (CKD) >90 (>60 ml/min/1.73 sqM); Albumin 3.7 g/dL (3.5-5.0); Alkaline Phosphatase 94 U/L (38-126); Anion Gap 7 mmol/L; Blood Urea Nitrogen 15 mg/dL (9-20); Calcium 9.3 mg/dL (8.4-10.2); Carbon Dioxide 32 mmol/L (22-30); Chloride 99 mmol/L (98-107); Glucose 111 mg/dL (74-99); Magnesium 1.9 mg/dL (1.6-2.3); Non-African American GFR(CKD) >90 (>60 ml/min/1.73 sqM); Potassium 4.1 mmol/L (3.5-5.1); Sodium 138 mmol/L (137-145); Total Bilirubin 1.2 mg/dL (0.2-1.3); Total Protein 6.6 g/dL (6.3-8.2)
[2020-12-20 16:48] LABS: Partial Thromboplastin Time 24.3 sec (22.0-30.0); Prothrombin Time 10.6 sec (9.0-12.0)
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
--- NOTE | 2020-12-20 18:36 | XR ---
EXAMINATION TYPE: XR chest 2V DATE OF EXAM: 12/20/2020 COMPARISON: 11/07/2020 HISTORY: 60 years Male. STUDY INDICATION GIVEN: difficulty breathing . TECHNIQUE: Frontal and lateral chest radiograph IMPRESSION: There is central and peripheral pulmonary vascular congestion and pulmonary edema. There is cardiomeg alfred. Findings are likely reflective of congestive heart failure. Multifocal pneumonia is difficult to entirely exclude. There is probably a trace left pleural effusion. No pneumothorax or effusion on the right. No acute osseous abnormalities seen.
[2020-12-20] MEDS: METOPROLOL TARTRATE 5 MG/5 ML VIAL IVP SCH ×3 (18:48→19:53)
[2020-12-20] MEDS ORDERED: FUROSEMIDE 10 MG/ML 10 ML VIAL IV STA (19:34)
[2020-12-20] MEDS ORDERED: HYDROmorphone 1 MG/ML 1 ML SYRINGE IVP STA (19:34)
[2020-12-20] MEDS ORDERED: NALOXONE 0.4 MG/ML 1 ML VIAL IV PRN (19:35)
[2020-12-20] MEDS ORDERED: ASPIRIN 81 MG PO STA (19:36)
[2020-12-21] MEDS: buPROPion SR 150 MG TABLET.ER PO SCH ×3 (02:12→20:27)
[2020-12-21] MEDS: SACUBITRIL/VALSARTAN 24 MG-26 MG TABLET PO SCH ×3 (02:12→19:42)
[2020-12-21] MEDS: APIXABAN 5 MG TAB PO SCH ×3 (02:12→20:26)
[2020-12-21] MEDS ORDERED: FUROSEMIDE 80 MG TAB PO SCH (09:00)
[2020-12-21] MEDS: HYDROmorphone 1 MG/ML 1 ML SYRINGE IVP PRN ×2 (09:18)
[2020-12-21] MEDS: ASPIRIN 81 MG PO SCH (09:19)
[2020-12-21] MEDS: metOLazone 5 MG TAB PO SCH (09:19)
[2020-12-21] MEDS: POTASSIUM CHLORIDE ER 20 MEQ TAB.ER PO SCH ×2 (09:19→20:26)
[2020-12-21] MEDS ORDERED: APIXABAN 5 MG TAB PO SCH (10:15)
[2020-12-21] MEDS ORDERED: NON FORMULARY DRUG (Aspirin Ec 81 MG Tablet) PO SCH (10:15)
[2020-12-21] MEDS ORDERED: SACUBITRIL/VALSARTAN 97 MG-103 MG TABLET PO SCH (10:15)
[2020-12-21 10:27] LABS: Anisocytosis Slight; Basophils # (A) 0.1 k/uL (0-0.2); Basophils % (A) 1 %; Eosinophils # (A) 0.2 k/uL (0-0.7); Eosinophils % (A) 2 %; HCT 45.6 % (39.0-53.0); Hypochromasia Slight; Lymphocytes # (A) 0.8 k/uL (1.0-4.8); Lymphocytes % (A) 12 %; MCH 27.1 pg (25.0-35.0); MCHC 30.7 g/dL (31.0-37.0); MCV 88.2 fL (80.0-100.0); Mean Platelet Volume 8.5; Monocytes # (A) 0.4 k/uL (0-1.0); Monocytes % (A) 6 %; Neutrophils # (A) 5.2 k/uL (1.3-7.7); Neutrophils % (A) 77 %; Platelet Count 188 k/uL (150-450); RBC 5.17 m/uL (4.30-5.90); RDW 16.6 % (11.5-15.5); WBC 6.8 k/uL (3.8-10.6)
[2020-12-21 10:50] LABS: African American GFR (CKD) >90 (>60 ml/min/1.73 sqM); Anion Gap 3 mmol/L; Blood Urea Nitrogen 16 mg/dL (9-20); Carbon Dioxide 39 mmol/L (22-30); Chloride 97 mmol/L (98-107); Glucose 157 mg/dL (74-99); Non-African American GFR(CKD) >90 (>60 ml/min/1.73 sqM); Potassium 3.9 mmol/L (3.5-5.1); Sodium 139 mmol/L (137-145)
[2020-12-21] MEDS: FUROSEMIDE 80 MG TAB PO SCH ×2 (13:09→15:50)
[2020-12-21] MEDS ORDERED: ONDANSETRON 4 MG/2 ML VIAL IVP STA (13:09)
[2020-12-21] MEDS ORDERED: ONDANSETRON 4 MG/2 ML VIAL IVP PRN (14:03)
[2020-12-21] MEDS ORDERED: METOCLOPRAMIDE 5 MG/ML 2 ML VIAL ONE (14:09)
[2020-12-21] MEDS ORDERED: METOCLOPRAMIDE 5 MG/ML 2 ML VIAL IVP STA (14:16)
--- NOTE | 2020-12-21 18:05 | HP ---
HISTORY AND PHYSICAL CHIEF COMPLAINT: Shortness of breath. HISTORY OF PRESENT ILLNESS: This is another admission for this 60-year-old white male with chronic congestive heart failure with relapsing episodes of acute congestive heart failure. He notes shortness of breath over the last week and gained 10 pounds. He came to the emergency room, where he was found to be extremely dyspneic and back in heart failure. He denied chest pain. Troponins are elevated. REVIEW OF SYSTEMS: He has had no headaches, confusion, fever, chills, hemoptysis, abdominal pain, nausea, vomiting, diarrhea, melena, dysuria, frequency, urgency, hematuria, etc. Past medical history, family history, and personal and social histories are all otherwise unchanged from his recent admitting and discharge summaries. He states he is taking his medications as indicated on his MAY. PHYSICAL EXAMINATION: Blood pressure is 146/76 with a pulse of 94, irregularly irregular. Head, ears, eyes, nose, mouth and throat were normal. The chest demonstrated decreased breath sounds throughout. There were scattered rales. The cardiac exam demonstrated what sounded like atrial fibrillation. The abdomen was protuberant, soft and nontender without any masses or visceromegaly. Extremities were normal. Neurologically he is intact. He is admitted to the hospital with diagnoses: 1. Acute congestive heart failure. 2. Chronic congestive heart failure with reduced ejection fraction. 3. Cardiomyopathy. 4. Atrial fibrillation. 5. Obesity. PLAN: 1. Bedrest. 2. IV fluids. 3. Serial EKGs and enzymes. 4. Diuresis. 5. Consult Cardiology with elevated troponins. The troponins are probably related to his heart failure. MMODL / LEIDY: [id number] /
--- NOTE | 2020-12-21 18:20 | PN ---
PROGRESS NOTE CHIEF COMPLAINT: Congestive heart failure. HISTORY OF PRESENT ILLNESS: This gentleman remains very dyspneic. All 3 troponins are elevated. He is having no chest pain. PHYSICAL EXAMINATION: Head, ears, eyes, nose, mouth and throat are normal. Neck veins cannot be assessed due to his obesity. Chest demonstrates decreased breath sounds and he still has rales bilaterally. Cardiac exam is unchanged. The abdomen is protuberant and unchanged. IMPRESSION: 1. Congestive heart failure. 2. Cardiomyopathy. PLAN: Consult with Cardiology, as he has started to develop nausea and vomiting with diaphoresis. MMODL / IJN: [id number] /
[2020-12-21] MEDS ORDERED: METOCLOPRAMIDE 5 MG/ML 2 ML VIAL IVP PRN (19:39)
[2020-12-21] MEDS: DILTIAZEM 125 MG in SODIUM CHLORIDE 0.9% 100 ML IV SCH (20:40)
[2020-12-21] MEDS: METOPROLOL TARTRATE 25 MG TAB PO SCH (20:45)
[2020-12-21] MEDS ORDERED: buPROPion SR 150 MG TABLET.ER PO SCH (21:00)
[2020-12-21] MEDS ORDERED: POTASSIUM CHLORIDE ER 20 MEQ TAB.ER PO SCH (21:00)
[2020-12-21 22:30] LABS: Anisocytosis Slight; HGB 14.1 gm/dL (13.0-17.5); Hypochromasia Moderate; MCHC 30.1 g/dL (31.0-37.0); Mean Platelet Volume 8.6; Platelet Count 203 k/uL (150-450); RBC 5.23 m/uL (4.30-5.90); RDW 16.4 % (11.5-15.5)
[2020-12-21 22:42] LABS: African American GFR (CKD) >90 (>60 ml/min/1.73 sqM); Anion Gap 7 mmol/L; Blood Urea Nitrogen 18 mg/dL (9-20); Calcium 9.3 mg/dL (8.4-10.2); Carbon Dioxide 39 mmol/L (22-30); Chloride 93 mmol/L (98-107); Glucose 117 mg/dL (74-99); Magnesium 2.1 mg/dL (1.6-2.3); Non-African American GFR(CKD) 87 (>60 ml/min/1.73 sqM); Potassium 4.9 mmol/L (3.5-5.1); Sodium 139 mmol/L (137-145)
[2020-12-22] MEDS: METOPROLOL TARTRATE 25 MG TAB PO SCH ×4 (00:27→21:41)
[2020-12-22] MEDS: DILTIAZEM 125 MG in SODIUM CHLORIDE 0.9% 100 ML IV SCH (06:36)
[2020-12-22] MEDS: FUROSEMIDE 80 MG TAB PO SCH (06:37)
[2020-12-22] MEDS: HYDROcodone/APAP 5-325MG 1 EACH TAB PO PRN ×2 (08:33→16:07)
[2020-12-22] MEDS: APIXABAN 5 MG TAB PO SCH ×2 (08:33→21:41)
[2020-12-22] MEDS: ASPIRIN 81 MG PO SCH (08:33)
[2020-12-22] MEDS: POTASSIUM CHLORIDE ER 20 MEQ TAB.ER PO SCH ×2 (08:33→21:42)
[2020-12-22] MEDS: buPROPion SR 150 MG TABLET.ER PO SCH ×2 (08:34→21:41)
[2020-12-22] MEDS: FUROSEMIDE 10 MG/ML 4 ML VIAL IV SCH ×2 (08:34→21:42)
[2020-12-22] MEDS ORDERED: METOLAZONE 10 MG PO SCH (09:00)
[2020-12-22 09:03] LABS: African American GFR (CKD) >90 (>60 ml/min/1.73 sqM); Blood Urea Nitrogen 18 mg/dL (9-20); Calcium 9.1 mg/dL (8.4-10.2); Chloride 94 mmol/L (98-107); Glucose 116 mg/dL (74-99); Non-African American GFR(CKD) 80 (>60 ml/min/1.73 sqM); Potassium 4.1 mmol/L (3.5-5.1); Sodium 140 mmol/L (137-145)
[2020-12-22 09:11] LABS: Anion Gap 7 mmol/L
[2020-12-22 09:12] LABS: Carbon Dioxide 39 mmol/L (22-30)
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
[2020-12-22] MEDS: metOLazone 5 MG TAB PO SCH (10:52)
[2020-12-22] MEDS: HYDROmorphone 1 MG/ML 1 ML SYRINGE IVP PRN ×2 (10:52→20:07)
[2020-12-22] MEDS: ACETAMINOPHEN TAB 325 MG TAB PO PRN (14:50)
--- NOTE | 2020-12-22 16:13 | PN ---
PROGRESS NOTE DATE OF SERVICE: 12/22/2020 CHIEF COMPLAINT: Acute congestive heart failure. HISTORY OF PRESENT ILLNESS: This gentleman did poorly during the night. His systolic pressure dropped into the 80s. He did have some pain, but he still complains mostly of low back pain. Fluid bolus was instituted and his blood pressure came up slightly. Early in the morning, it then began to drop down. He was diaphoretic and short of breath most of the night. At the present time he is awake and alert but still extremely fatigued and short of breath. PHYSICAL EXAMINATION: Head, ears, eyes, nose and mouth are normal except for pallor. Breath sounds are poor with rales, rhonchi and wheezing bilaterally. The cardiac exam demonstrates atrial fibrillation. The abdomen is protuberant. IMPRESSION: 1. Acute congestive heart failure. 2. Chronic heart failure with reduced ejection fraction. 3. Obesity. 4. Atrial fibrillation. PLAN: His condition is deteriorating. It may be necessary to move him to ICU. MMODL / IJN: [id number] /
[2020-12-23] MEDS: ACETAMINOPHEN TAB 325 MG TAB PO PRN (01:50)
[2020-12-23] MEDS: HYDROmorphone 1 MG/ML 1 ML SYRINGE IVP PRN ×4 (03:04→23:39)
[2020-12-23] MEDS: HYDROcodone/APAP 5-325MG 1 EACH TAB PO PRN ×3 (06:10→21:53)
[2020-12-23 07:27] LABS: Calcium 9.4 mg/dL (8.4-10.2); Magnesium 1.6 mg/dL (1.6-2.3); Potassium 3.3 mmol/L (3.5-5.1)
[2020-12-23] MEDS: METOPROLOL TARTRATE 25 MG TAB PO SCH ×3 (09:01→23:38)
[2020-12-23] MEDS: APIXABAN 5 MG TAB PO SCH ×2 (09:06→20:06)
[2020-12-23] MEDS: ASPIRIN 81 MG PO SCH (09:06)
[2020-12-23] MEDS: POTASSIUM CHLORIDE ER 20 MEQ TAB.ER PO SCH ×2 (09:06→20:07)
[2020-12-23] MEDS: metOLazone 5 MG TAB PO SCH (09:07)
[2020-12-23] MEDS: FUROSEMIDE 10 MG/ML 4 ML VIAL IV SCH ×2 (09:07→20:06)
[2020-12-23] MEDS: buPROPion SR 150 MG TABLET.ER PO SCH ×2 (09:07→21:53)
[2020-12-23] MEDS ORDERED: POTASSIUM CHLORIDE ER 20 MEQ TAB.ER PO STA (11:53)
--- NOTE | 2020-12-23 12:01 | P.PN ---
Subjective This is a pleasant 60-year-old male past medical history significant for chronic persistent atrial fibrillation, nonobstructive coronary artery disease, morbid obesity, hypertension, dyslipidemia and obstructive sleep apnea. He does not follow regularly with a parer, was suppose to follow with Dr. Oliver. We have been asked to see in consultation for chest pain, elevated troponin, and congestive heart failure. Patient presents to the emergency department with complaints of shortness of breath, 15lb weight gain, he states shortness of breath is progressively worse. He also endorses symptoms of orthopnea and PND. He denies chest pain, palpitations, lightheadedness, dizziness, syncope or presyncope symptoms. He states he has been taking his medications and has been trying to adhere to his heart healthy diet. He was recently admitted in November 2020 with acute on chronic diastolic heart failure he was discharged on Entresto per primary and did not follow up with cardiology afterwards. DIAGNOSTICS EKG on admission reveals atrial fibrillation with rapid ventricular response heart rate in the 130s. Lexiscan stress test 05/2020 revealed fixed defects along the apical anterior wall and apical inferior wall. No definite suspicious reversibility. Mild LV chamber enlargement and mild global hypokinesis a decreased LVEF of 46%. Echocardiogram 04/2020 revealed EF of 4550 percent, mild mitral regurgitation, mild tricuspid regurgitation Cardiac catheterization in June 2019 mild to moderate nonobstructive disease involving the RCA 12/23/20: Patient seen and examined at bedside, in the bedside chair. His shortness of breath has slightly improved and his lower extremity edema has slightly improved. He has been weaned to room air this morning. He denies any chest pain. Blood pressure 106/76, heart rate 76, afebrile, maintaining oxygen saturations 99% on room air. He's currently maintained on Eliquis 5 mg twice a day, aspirin 81 mg daily, Lasix IV 40 mg twice a day, metolazone 10 mg daily, metoprolol tartrate 25 mg Q8hr. Lasix reviewed, sodium 137, potassium 3.3, BUN 21, serum creatinine 1.08, magnesium 1.6. Patient with 4.7 L urine output over the past 24 hours he also has had a decrease in weight. PHYSICAL EXAMINATION Telemetry reviewed patient in nature fibrillation with heart rates in the 80s90s. CONSTITUTIONAL: No apparent distress. HEENT: Neck Supple. No JVD. CHEST EXAMINATION: Lungs diminished bilaterally to auscultation. No chest wall tenderness is noted on palpation or with deep breathing. HEART EXAMINATION: Irregular rate and rhythm. S1, S2 heard. No murmurs, gallops or rub. ABDOMEN: Soft, nontender. Positive bowel sounds. EXTREMITIES: 2+ peripheral pulses, 3+ bilateral pitting edema. and no calf tenderness. NEUROLOGIC EXAMINATION: Patient is awake, alert and oriented x3. ASSESSMENT Acute heart failure with mildly reduced ejection fraction 45%-50% Elevated troponin, likely due to patient's congestive heart failure and atrial fibrillation with RVR Mid range cardiomyopathy Chronic persistent atrial fibrillation with rapid ventricular response Hypotension History of hypertension mild to moderate noon-obstructive coronary artery disease Morbid obesity BMI 50 Dyslipidemia Obstructive sleep apnea Hypokalemia PLAN -Entresto not indicated for diastolic heart failure. -Replace potassium per protocol -Continue IV furosemide 40 mg BID -Continue Eliquis 5 mg BID -Continue metolazone -Monitor renal function and electrolytes -Monitor I/Os, daily weights -Will hold beta amanda if patient hypotensive and SBP <100 -Further recommendations based on clinical course Nurse Practitioner note has been reviewed, I agree with a documented findings and plan of care. Patient was seen and examined. Objective - Vital Signs Vital signs: Vital Signs Temp 98.2 F 12/23/20 11:36 Pulse 76 12/23/20 11:36 Resp 18 12/23/20 11:36 BP 106/76 12/23/20 11:36 Pulse Ox 99 12/23/20 11:36 Intake & Output 12/22/20 12/23/20 12/23/20 18:59 06:59 18:59 Intake Total 180 955 360 Output Total 2550 2150 500 Balance -2370 -1195 -140 Weight 172.8 kg 171 kg Intake: Oral 180 955 360 Output: Urine 2550 2150 500 Other: Voiding Method Urinal Urinal Urinal - Labs CBC & Chem 7: 12/21/20 22:14 12/23/20 06:44 Labs: Abnormal Lab Results - Last 24 Hours (Table) 12/23/20 Range/Units 06:44 Potassium 3.3 L (3.5-5.1) mmol/L Chloride 87 L (98-107) mmol/L Carbon Dioxide 40 H (22-30) mmol/L BUN 21 H (9-20) mg/dL Glucose 119 H (74-99) mg/dL
--- NOTE | 2020-12-23 12:42 | ECHOF ---
Referral Reason:CHF progress...EF? MEASUREMENTS -------- HEIGHT: 180.3 cm WEIGHT: 170.6 kg BP: IVSd: 1.4 cm (0.6 - 1.1) LVIDd: 5.8 cm (3.9 - 5.3) LVPWd: 1.3 cm (0.6 - 1.1) EDV(Teich): 167 ml IVSs: 1.9 cm LVIDs: 4.7 cm LVPWs: 1.9 cm %IVS Thck: 36 % ESV(Teich): 101 ml EF(Teich): 39 % %FS: 19 % SV(Teich): 66 ml RVIDd: 4.2 cm (< 3.3) Ao Diam: 3.9 cm (2.0 - 3.7) LA Diam: 4.9 cm (2.7 - 3.8) AV Cusp: 2.9 cm (1.5 - 2.6) EPSS: 2.2 cm MV E Claudy: 0.79 m/s MV DecT: 148 ms MV Dec Whitman: 5.4 m/s MV A Claudy: 0.30 m/s MV E/A Ratio: 2.68 MV PHT: 43 ms MR Vmax: 1.59 m/s MR maxP.14 mmHg AV Vmax: 0.97 m/s AV maxP.80 mmHg TR Vmax: 2.71 m/s TR maxP.47 mmHg RAP: 5.00 mmHg RVSP: 34.47 mmHg MV EF SLOPE: 94.03 mm/s (70 - 150) MV EXCURSION: 21.26 mm (> 18.000) FINDINGS -------- This was a technically difficult study with suboptimal views. The left ventricular size is normal. There is moderate concentric left ventricular hypertrophy. O verall left ventricular systolic function is severely impaired with, an EF between 20 - 25 %. The right ventricle is severely enlarged. The left atrial size is normal. The right atrial size is normal. The aortic valve was not well visualized. The mitral valve was not well visualized. There is trace mitral regurgitation. The tricuspid valve appears structurally normal. Trace tricuspid regurgitation present. Right lan tricular systolic pressure is normal at < 35 mmHg. There is no pulmonic regurgitation present. The aortic root size is normal. IVC Not well visulized. There is no pericardial effusion. Lumason used CONCLUSIONS -------- 1. The left ventricular size is normal. 2. There is moderate concentric left ventricular hypertrophy. 3. Overall left ventricular systolic function is severely impaired with, an EF between 20 - 25 %. 4. The right ventricle is severely enlarged. 5. There is trace mitral regurgitation. 6. Trace tricuspid regurgitation present. 7. There is no pericardial effusion. V BELT INSPECTOR: Kathi Mullen RDCS
--- NOTE | 2020-12-23 14:44 | CDI ---
Documentation Clarification Form Date: 12/23/2020 02:21:58 PM From: Monet Bhandari RN CCDS Admit Date: 12/20/2020 07:35:00 PM Patient Name: Vance Lee Visit Number: [id number] Discharge Date: ATTENTION: The Clinical Documentation Specialists (CDI) and [facility] Coding Staff appreciate your assistance in clarifying documentation. Please respond to the clarification below the line at the bottom and electronically sign. The CDI & [facility] Coding staff will review the response and follow-up if needed. Please note: Queries are made part of the Legal Health Record. If you have any questions, please contact the author of this message via ITS. Dr. Marcelino Trujillo Your patient is receiving the following: oxygen via nasal cannula, through. Please clarify what condition/diagnosis is being treated. History/Risk Factors: 60-year-old male presents to the ED for shortness of breath, gaining 10lbs in one week. Medical history: CHF, Atrial Fib, HTN and Sleep apnea. Clinical indicators: Lung assessment medicine progress note 12/21: Chest demonstrates decreased breath sounds and he still has rales bilaterally. SpO2 12/20 15:55 RR 26, SpO2 91% ra 12/20 23:55 RR 20, SpO2 96% 2L nc 12/21 12:00 RR 18, SpO2 94% 2L 12/22 05:40 SpO2 90% 3L nc 12/22 07:38 RR 19, SpO2 94% 5L 12/22 16:11 RR 19 SpO2 4L nc 12/23 08:38 RR 16, SpO2 93% 4L 12/23 11:36 RR 18 SpO2 99% ra Treatment: Oxygen via nasal cannula 2L to 5L What diagnosis are you treating with oxygen? [ ] Acute Respiratory Failure [ ] No additional diagnosis [ ] Other, please specify [ ] Unable to determine (Template Last Reviewed: April 2020) MTDD
--- NOTE | 2020-12-23 18:08 | PN ---
PROGRESS NOTE CHIEF COMPLAINT: Acute congestive heart failure on top of chronic heart failure. HISTORY OF PRESENT ILLNESS: This gentleman is not doing any better. He is still dyspneic. Vital signs are better. PHYSICAL EXAMINATION: Breath sounds are still diminished and he has scattered rales. Cardiac exam is unchanged with atrial fibrillation. Heart rate is around 90. Abdomen is soft and protuberant. IMPRESSION: 1. Acute congestive heart failure. 2. Chronic congestive heart failure. 3. Heart failure with reduced ejection fraction. PLAN: Continue with the current program. Echocardiogram will be repeated to reassess his ejection fraction. Entresto is indicated for his HFrF. His prognosis is certainly guarded and his cardiomyopathy is probably becoming worse. MMODL / IJN: [id number] /
[2020-12-24 08:34] LABS: Calcium 9.8 mg/dL (8.4-10.2); Magnesium 1.7 mg/dL (1.6-2.3); Potassium 3.2 mmol/L (3.5-5.1)
--- NOTE | 2020-12-24 08:44 | P.PN ---
Subjective Progress Note Date: 12/24/20 Principal diagnosis: Heart failure with reduced ejection fraction This is a 60-year-old gentleman with permanent atrial fibrillation as well as nonischemic cardiomyopathy as well as multiple comorbid conditions including obesity was admitted to the hospital with heart failure exacerbation. He was seen this morning. He stated that he is not feeling well overall. Unfortunately he is not compliant with his diet and has been drinking a lot of water from the sink. He is on IV Lasix at 40 mg twice a day and he has been diuresing very well. He still hypervolemic with lower eczematous edema and diminished breathing sounds bilaterally. The echo showed severe cardiomyopathy with EF around 25%. I'm going to add lisinopril to the current medical regimen and continue IV Lasix for at least 24-48 hours and continue monitor the kidney function and electrolytes. He is on oral anticoagulation for the atrial fibrillation Objective - Vital Signs Vital signs: Vital Signs Temp 97.2 F L 12/24/20 03:19 Pulse 82 12/24/20 03:19 Resp 18 12/24/20 03:19 BP 112/58 12/24/20 03:19 Pulse Ox 95 12/24/20 03:19 Intake & Output 12/23/20 12/24/20 12/24/20 18:59 06:59 18:59 Intake Total 1350 Output Total 2500 1860 Balance -1150 -1860 Weight 167.7 kg Intake: Oral 1350 Output: Urine 2500 1860 Other: Voiding Method Urinal Urinal - Constitutional General appearance: Present: no acute distress - Respiratory Respiratory: bilateral: diminished - Cardiovascular Rhythm: irregularly irregular Heart sounds: normal: S1, S2 - Labs CBC & Chem 7: 12/21/20 22:14 12/23/20 06:44 Assessment and Plan Assessment: Assessment #1 permanent atrial fibrillation #2 nonischemic cardiomyopathy #3 heart failure exacerbation secondary to heart failure with reduced ejection fraction #4 multiple comorbid conditions Plan #1 continue IV Lasix for additional 24 hours #2 continue monitor the kidney function and electrolytes #3 he was advised about the importance of reducing his water intake and salt intake #4 follow-up with the patient
[2020-12-24] MEDS: ASPIRIN 81 MG PO SCH (08:52)
[2020-12-24] MEDS: APIXABAN 5 MG TAB PO SCH ×2 (08:52→19:56)
[2020-12-24] MEDS: POTASSIUM CHLORIDE ER 20 MEQ TAB.ER PO SCH ×2 (08:52→19:56)
[2020-12-24] MEDS: FUROSEMIDE 10 MG/ML 4 ML VIAL IV SCH ×2 (08:53→19:55)
[2020-12-24] MEDS: buPROPion SR 150 MG TABLET.ER PO SCH ×2 (08:53→19:56)
[2020-12-24] MEDS: metOLazone 5 MG TAB PO SCH (08:53)
[2020-12-24] MEDS: METOPROLOL TARTRATE 25 MG TAB PO SCH ×4 (08:53→23:03)
[2020-12-24] MEDS: HYDROcodone/APAP 5-325MG 1 EACH TAB PO PRN ×3 (10:05→22:58)
[2020-12-24] MEDS: SPIRONOLACTONE 25 MG TAB PO SCH (10:05)
--- NOTE | 2020-12-24 10:50 | MISC ---
MISCELLANOUS REPORT QUERY: Treated other acute and chronic congestive heart failure with reduced ejection fraction. MMIVORYL / IJN: [id number] /
--- NOTE | 2020-12-24 14:20 | PN ---
PROGRESS NOTE CHIEF COMPLAINT: Congestive heart failure. HISTORY OF PRESENT ILLNESS: This gentleman is not doing any better. He actually feels worse. His echocardiogram reveals that he has had a significant deterioration in his ejection fraction. It is down now to 20% to 25%. REVIEW OF SYSTEMS: He is still very short of breath and fatigued. He has had no chest pain. PHYSICAL EXAMINATION: Blood pressure is 110 and chest demonstrates decreased breath sounds with scattered rales. The cardiac exam is unremarkable except for his atrial fibrillation and the abdomen is protuberant, soft and nontender. IMPRESSION: 1. Acute exacerbation of chronic congestive heart failure with reduced ejection fraction. 2. Cardiomyopathy. 3. Atrial fibrillation. PLAN: Continue with current management. I would suggest that since he has HFrF, he is a candidate for an ARNI. He is also a candidate for an 2, but none on on formulary. Farxiga and Jardiance would be appropriate. MMODL / NORRISN: [id number] /
[2020-12-25] MEDS: ACETAMINOPHEN TAB 325 MG TAB PO PRN (02:21)
[2020-12-25] MEDS ORDERED: Potassium Replacement Protocol 1 EACH MISC MISCELLANE PRN (08:43)
[2020-12-25] MEDS: FUROSEMIDE 10 MG/ML 4 ML VIAL IV SCH ×2 (09:05→20:37)
[2020-12-25] MEDS: METOPROLOL TARTRATE 25 MG TAB PO SCH (09:06)
[2020-12-25] MEDS: APIXABAN 5 MG TAB PO SCH ×2 (09:06→20:37)
[2020-12-25] MEDS: POTASSIUM CHLORIDE ER 20 MEQ TAB.ER PO SCH ×4 (09:06→20:37)
[2020-12-25] MEDS: ASPIRIN 81 MG PO SCH (09:06)
[2020-12-25] MEDS: metOLazone 5 MG TAB PO SCH (09:07)
[2020-12-25] MEDS: buPROPion SR 150 MG TABLET.ER PO SCH ×2 (09:07→20:37)
[2020-12-25] MEDS: SPIRONOLACTONE 25 MG TAB PO SCH (09:08)
[2020-12-25] MEDS: HYDROcodone/APAP 5-325MG 1 EACH TAB PO PRN (09:10)
--- NOTE | 2020-12-25 10:17 | P.PN ---
Subjective Progress Note Date: 12/25/20 Principal diagnosis: Heart failure with reduced ejection fraction This is a 60-year-old gentleman with permanent atrial fibrillation as well as nonischemic cardiomyopathy as well as multiple comorbid conditions including obesity was admitted to the hospital with heart failure exacerbation. The patient was seen at this morning. He stated that he is feeling slightly better in terms of shortness of breath. He has been diuresing well but unfortunately he continues not compliant with his walker restriction and he has been drinking significant amount of water from the sink. He hypervolemic on examination with severe bilateral lower except his edema and diminished breathing sounds bilaterally. He continues to be on Lasix IV. The creatinine continues to be stable. The echocardiogram during this admission revealed impaired only function with EF around 25%. This has dropped significantly to prior echo which showed an EF between 45-50%. Currently he is on maximize me dical treatment for the cardiomyopathy and he is on IV Lasix. He is also on oral anticoagulation. The cardiomyopathy could be related to the tachycardia/atrial fibrillation but severe CAD to be rule out and he probably benefit from coronary angiogram down the line as an outpatient. Objective - Vital Signs Vital signs: Vital Signs Temp 98.0 F 12/25/20 08:53 Pulse 76 12/25/20 08:53 Resp 18 12/25/20 08:53 BP 103/67 12/25/20 08:53 Pulse Ox 92 L 12/25/20 08:53 Intake & Output 12/24/20 12/25/20 12/25/20 18:59 06:59 18:59 Intake Total 1078 240 Output Total 1350 220 Balance -272 -220 240 Weight 166.8 kg Intake: Oral 1078 240 Output: Urine 1350 220 Other: Voiding Method Urinal Urinal Urinal # Voids 1 # Bowel Movements 1 1 - Constitutional General appearance: Present: no acute distress - Respiratory Respiratory: bilateral: diminished - Cardiovascular Rhythm: irregularly irregular Heart sounds: normal: S1, S2 - Labs CBC & Chem 7: 12/21/20 22:14 12/24/20 07:26 Assessment and Plan Assessment: Assessment #1 permanent atrial fibrillation #2 nonischemic cardiomyopathy with significant drop compared to last echo #3 heart failure exacerbation secondary to heart failure with reduced ejection fraction #4 multiple comorbid conditions Plan #1 continue IV Lasix for additional 24 hours #2 continue monitor the kidney function and electrolytes #3 he was advised about the importance of reducing his water intake and salt intake #4 follow-up with the patient
[2020-12-25 12:52] LABS: Anisocytosis Slight; Basophils # (A) 0.1 k/uL (0-0.2); Basophils % (A) 2 %; Eosinophils # (A) 0.2 k/uL (0-0.7); Eosinophils % (A) 3 %; HCT 50.8 % (39.0-53.0); HGB 15.7 gm/dL (13.0-17.5); Lymphocytes # (A) 1.2 k/uL (1.0-4.8); Lymphocytes % (A) 17 %; MCH 26.4 pg (25.0-35.0); MCHC 30.8 g/dL (31.0-37.0); MCV 85.9 fL (80.0-100.0); Mean Platelet Volume 8.1; Monocytes # (A) 0.6 k/uL (0-1.0); Monocytes % (A) 9 %; Neutrophils # (A) 4.6 k/uL (1.3-7.7); Neutrophils % (A) 66 %; Platelet Count 223 k/uL (150-450); RBC 5.92 m/uL (4.30-5.90); RDW 16.5 % (11.5-15.5); WBC 6.9 k/uL (3.8-10.6)
[2020-12-25 12:57] LABS: Albumin 4.1 g/dL (3.5-5.0); Calcium 9.8 mg/dL (8.4-10.2); Potassium 3.5 mmol/L (3.5-5.1); Total Bilirubin 1.1 mg/dL (0.2-1.3); Total Protein 7.3 g/dL (6.3-8.2)
--- NOTE | 2020-12-25 13:01 | PN ---
PROGRESS NOTE CHIEF COMPLAINT: Congestive heart failure. HISTORY OF PRESENT ILLNESS: This gentleman still feels extremely weak. He is very short of breath with exertion. However, he thinks he is a little bit less short of breath at rest. EF is down to around 25%. PHYSICAL EXAMINATION: Cardiac is exam is unchanged. Breath sounds are diminished due to his weight, but they are fairly clear. The abdomen is soft and nontender. There is no peripheral edema. IMPRESSION: 1. Acute congestive heart failure. 2. Chronic heart failure with reduced ejection fraction. PLAN: 1. Change metoprolol tartrate to Coreg 3.125 mg once a day. 2. Stop lisinopril and in 3 days start Entresto again at a low dose of . 3. Stop metoprolol. 4. Repeat chest x-ray and laboratory studies. MMODL / IJN: [id number] /
[2020-12-25] MEDS: carvediloL 3.125 MG TAB PO SCH ×2 (13:04→16:45)
[2020-12-25] MEDS: HYDROcodone/APAP 7.5-325MG 1 EACH TAB PO PRN ×2 (13:04→20:37)
--- NOTE | 2020-12-25 13:10 | XR ---
EXAMINATION TYPE: XR chest 2V DATE OF EXAM: 12/25/2020 HISTORY: Shortness of breath. COMPARISON: 12/20/2020 TECHNIQUE: Single view of the chest is submitted. FINDINGS: Demonstrated are scattered senescent parenchymal change. Improved infiltrates with mild residual right infrahilar region. The heart is stable. Hilar and mediastinal structures are within normal limits. Degenerative changes are seen of the dorsal spine. IMPRESSION: 1. Improved infiltrates with mild residual right infrahilar region.
[2020-12-26] MEDS: HYDROcodone/APAP 7.5-325MG 1 EACH TAB PO PRN ×4 (02:27→21:35)
[2020-12-26] MEDS: carvediloL 3.125 MG TAB PO SCH ×2 (07:34→15:58)
[2020-12-26] MEDS: FUROSEMIDE 10 MG/ML 4 ML VIAL IV SCH (07:47)
[2020-12-26] MEDS: SPIRONOLACTONE 25 MG TAB PO SCH (07:48)
[2020-12-26] MEDS: APIXABAN 5 MG TAB PO SCH ×2 (07:48→21:36)
[2020-12-26] MEDS: POTASSIUM CHLORIDE ER 20 MEQ TAB.ER PO SCH ×2 (07:48→21:36)
[2020-12-26] MEDS: ASPIRIN 81 MG PO SCH (07:48)
[2020-12-26] MEDS: buPROPion SR 150 MG TABLET.ER PO SCH ×2 (07:48→22:09)
[2020-12-26 08:32] VITALS: BMI 48.2
--- NOTE | 2020-12-26 12:36 | P.PN ---
Subjective This is a pleasant 60-year-old male past medical history significant for chronic persistent atrial fibrillation, nonobstructive coronary artery disease (from cath in 06/2019), morbid obesity, hypertension, dyslipidemia and obstructive sleep apnea. 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 Oliver. We have been asked to see in consultation for chest pain, elevated troponin, and congestive heart failure. Patient presented to the emergency department with complaints of shortness of breath, 15lb weight gain, he states shortness of breath is progressively worse. He also endorses symptoms of orthopnea and PND. He was recently admitted in November 2020 with acute on chronic diastolic heart failure he was discharged on Entresto per primary and did not follow up with cardiology afterwards. Echocardiogram this admission reveals EF of 5 percent, trace mitral regurgitation, trace tricuspid regurgitation. 12/26/20 Patient seen and examined at bedside, in the bedside chair. His shortness of breath and his lower extremity edema have improved. He has been weaned to room air this morning. He denies any chest pain. Blood pressure 124/83, heart rate 58, afebrile, maintaining oxygen saturations 97% 2 L nasal cannula. He's currently maintained on Eliquis 5 mg twice a day, aspirin 81 mg daily, Lasix IV 40 mg twice a day, metolazone 10 mg daily. Labs reviewed, sodium 136, potassium 3.5, BUN 35, serum creatinine 1.25, magnesium 1.7. Patient with 2.2 L urine out put over the past 24 hours he also has had a decrease in weight to 166kg from 174kg on admission. PHYSICAL EXAMINATION Telemetry reviewed patient in atrial fibrillation with heart rates in the 80s low 100s. CONSTITUTIONAL: No apparent distress. HEENT: Neck Supple. No JVD. CHEST EXAMINATION: Lungs diminished bilaterally to auscultation. No chest wall tenderness is noted on palpation or with deep breathing. HEART EXAMINATION: Irregular rate and rhythm. S1, S2 heard. No murmurs, gallops or rub. ABDOMEN: Soft, nontender. Positive bowel sounds. EXTREMITIES: 2+ peripheral pulses, 3+ bilateral pitting edema. and no calf tenderness. NEUROLOGIC EXAMINATION: Patient is awake, alert and oriented x3. ASSESSMENT Acute systolic heart failure EF 20-25% Elevated troponin, likely due to patient's congestive heart failure and atrial fibrillation with RVR Chronic persistent atrial fibrillation with rapid ventricular response Hypotension History of hypertension mild to moderate noon-obstructive coronary artery disease Morbid obesity BMI 50 Dyslipidemia Obstructive sleep apnea Hypokalemia PLAN -Restart Entresto -Transition to PO Lasix 40 BID -Continue Eliquis 5 mg BID -Continue carvedilol -Continue spironolactone -Monitor renal function and electrolytes -Monitor I/Os, daily weights -Further recommendations based on clinical course Nurse Practitioner note has been reviewed, I agree with a documented findings and plan of care. Patient was seen and examined. Objective - Vital Signs Vital signs: Vital Signs Temp 98 F 12/26/20 11:34 Pulse 58 L 12/26/20 11:39 Resp 18 12/26/20 11:39 BP 124/83 12/26/20 11:34 Pulse Ox 97 12/26/20 11:34 Intake & Output 12/25/20 12/26/20 12/26/20 18:59 06:59 18:59 Intake Total 1804 237 Output Total 1275 950 325 Balance 529 -313 -325 Weight 166 kg 166 kg Intake: Oral 1804 237 Output: Urine 1275 950 325 Other: Voiding Method Urinal Urinal # Voids 2 # Bowel Movements 1 - Labs CBC & Chem 7: 12/25/20 12:35 12/25/20 12:35 Labs: Abnormal Lab Results - Last 24 Hours (Table) 12/25/20 12/25/20 Range/Units 12:35 12:35 RBC 5.92 H (4.30-5.90) m/uL MCHC 30.8 L (31.0-37.0) g/dL RDW 16.5 H (11.5-15.5) % Sodium 136 L (137-145) mmol/L Chloride 80 L (98-107) mmol/L Carbon Dioxide 43 H* (22-30) mmol/L BUN 35 H (9-20) mg/dL Glucose 150 H (74-99) mg/dL AST 61 H (17-59) U/L
--- NOTE | 2020-12-26 18:00 | PN ---
PROGRESS NOTE DATE OF SERVICE: 12/26/2020 CHIEF COMPLAINT: Acute exacerbation of chronic congestive heart failure. HISTORY OF PRESENT ILLNESS: This gentleman feels his breathing is just about the same, but he stills feels extremely weak. PHYSICAL EXAMINATION: Breath sounds are diminished and he still has scattered rales and rhonchi bilaterally. The cardiac exam is unchanged and the abdomen is obese, protuberant and soft. IMPRESSION: 1. Acute exacerbation of chronic congestive heart failure with reduced ejection fraction. 2. Atrial fibrillation. PLAN: Continue to monitor. In another 48 hours we can start an ARNI. MMIVORYL / IJN: [id number] /
[2020-12-26] MEDS: FUROSEMIDE 40 MG TAB PO SCH (21:35)
[2020-12-26] MEDS: SACUBITRIL/VALSARTAN 24 MG-26 MG TABLET PO SCH (21:36)
[2020-12-27] MEDS: HYDROcodone/APAP 7.5-325MG 1 EACH TAB PO PRN ×3 (04:11→18:50)
[2020-12-27] MEDS: carvediloL 3.125 MG TAB PO SCH ×2 (06:37→16:38)
[2020-12-27 08:48] LABS: Potassium 3.6 mmol/L (3.5-5.1)
[2020-12-27] MEDS: ASPIRIN 81 MG PO SCH (09:25)
[2020-12-27] MEDS: POTASSIUM CHLORIDE ER 20 MEQ TAB.ER PO SCH ×2 (09:25→21:33)
[2020-12-27] MEDS: FUROSEMIDE 40 MG TAB PO SCH ×4 (09:25→21:33)
[2020-12-27] MEDS: SACUBITRIL/VALSARTAN 24 MG-26 MG TABLET PO SCH ×4 (09:26→21:33)
[2020-12-27] MEDS: buPROPion SR 150 MG TABLET.ER PO SCH ×2 (09:26→21:33)
[2020-12-27] MEDS: SPIRONOLACTONE 25 MG TAB PO SCH (09:26)
[2020-12-27] MEDS: APIXABAN 5 MG TAB PO SCH ×2 (09:26→21:33)
--- NOTE | 2020-12-27 11:35 | P.PN ---
Subjective This is a pleasant 60-year-old male past medical history significant for chronic persistent atrial fibrillation, nonobstructive coronary artery disease (from cath in 06/2019), morbid obesity, hypertension, dyslipidemia and obstructive sleep apnea. He does not follow regularly with a incident analyst, was suppose to follow with Dr. Oliver. We have been asked to see in consultation for chest pain, elevated troponin, and congestive heart failure. Patient presented to the emergency department with complaints of shortness of breath, 15lb weight gain, he states shortness of breath is progressively worse. He also endorses symptoms of orthopnea and PND. He was recently admitted in November 2020 with acute on chronic diastolic heart failure he was discharged on Entresto per primary and did not follow up with cardiology afterwards. Echocardiogram this admission reveals EF of 2025 percent, trace mitral regurgitation, trace tricuspid regurgitation. 12/27/20 Patient seen and examined at bedside, in the bedside chair. His shortness of breath and his lower extremity edema have improved. However, he states is he not feeling well this morning and he did not sleep last night due to not feeling tired. He denies any chest pain. He's currently maintained on Eliquis 5 mg twice a day, aspirin 81 mg daily, Lasix PO 40 mg twice a day. Metolazone was discontinued. Labs reviewed, sodium 135, potassium 3.5, BUN 43, serum creatinine 1.34. Patient with 1075mL urine output over the past 24 hours he also has had a decrease in weight to 164kg from 174kg on admission. PHYSICAL EXAMINATION Blood pressure 96/64, heart rate 97, afebrile oxygen saturation 96% on 2 L nasal cannula. Telemetry reviewed patient in atrial fibrillation with heart rates in the 80slow 100s. occasional PVCs CONSTITUTIONAL: No apparent distress. HEENT: Neck Supple. No JVD. CHEST EXAMINATION: Lungs diminished bilaterally to auscultation. No chest wall tenderness is noted on palpation or with deep breathing. HEART EXAMINATION: Irregular rate and rhythm. S1, S2 heard. No murmurs, gallops or rub. ABDOMEN: Soft, nontender. Positive bowel sounds. EXTREMITIES: 2+ peripheral pulses, 3+ bilateral pitting edema. and no calf tenderness. NEUROLOGIC EXAMINATION: Patient is awake, alert and oriented x3. ASSESSMENT Acute systolic heart failure EF 20-25% Elevated troponin, likely due to patient's congestive heart failure and atrial fibrillation with RVR Chronic persistent atrial fibrillation with rapid ventricular response Hypotension History of hypertension mild to moderate noon-obstructive coronary artery disease Morbid obesity BMI 50 Dyslipidemia Obstructive sleep apnea Hypokalemia PLAN -Continue Entresto, PO Lasix 40 BID -Continue Eliquis 5 mg BID -Continue carvedilol, spironolactone -Monitor renal function and electrolytes -Monitor I/Os, daily weights -We will continue to monitor patiente, Hopefully discharge in the next 24 hours -Further recommendations based on clinical course Nurse Practitioner note has been reviewed, I agree with a documented findings and plan of care. Patient was seen and examined. Objective - Vital Signs Vital signs: Vital Signs Temp 97.4 F L 12/27/20 09:25 Pulse 97 12/27/20 09:25 Resp 18 12/27/20 09:25 BP 96/64 12/27/20 09:25 Pulse Ox 96 12/27/20 09:25 Intake & Output 12/26/20 12/27/20 12/27/20 18:59 06:59 18:59 Intake Total 240 120 Output Total 325 750 Balance -85 -750 120 Weight 166 kg 164.5 kg Intake: Oral 240 120 Output: Urine 325 750 Other: Voiding Method Urinal # Voids 2 1 - Labs CBC & Chem 7: 12/25/20 12:35 12/27/20 07:26 Labs: Abnormal Lab Results - Last 24 Hours (Table) 12/27/20 Range/Units 07:26 Sodium 135 L (137-145) mmol/L Chloride 79 L (98-107) mmol/L Carbon Dioxide 41 H* (22-30) mmol/L BUN 43 H (9-20) mg/dL Creatinine 1.34 H (0.66-1.25) mg/dL Glucose 105 H (74-99) mg/dL
--- NOTE | 2020-12-27 19:57 | PN ---
PROGRESS NOTE CHIEF COMPLAINT: Chronic congestive heart failure. HISTORY OF PRESENT ILLNESS: This gentleman is not improving significantly. He is still very short of breath even at rest. He has been started on ARNI. PHYSICAL EXAMINATION: Breath sounds are diminished with rales at both bases. Cardiac exam is unchanged with atrial fibrillation and the abdomen is protuberant and soft. IMPRESSION: 1. Acute congestive heart failure. 2. Chronic congestive heart failure with reduced ejection fraction. 3. Atrial fibrillation. PLAN: Continue with Entresto. At this time, it would be ideal to introduce Zexiga or Saravanandinahed. MMODL / IJN: [id number] /
[2020-12-28 02:02] LABS: Glucose,Whole Blood 134 mg/dL (75-99)
[2020-12-28] MEDS: ACETAMINOPHEN TAB 325 MG TAB PO PRN (03:27)
[2020-12-28] MEDS: HYDROcodone/APAP 7.5-325MG 1 EACH TAB PO PRN ×3 (05:59→20:33)
[2020-12-28 07:38] LABS: Calcium 9.9 mg/dL (8.4-10.2); Potassium 3.2 mmol/L (3.5-5.1)
[2020-12-28] MEDS: buPROPion SR 150 MG TABLET.ER PO SCH ×2 (09:17→21:31)
[2020-12-28] MEDS: APIXABAN 5 MG TAB PO SCH ×2 (09:17→21:32)
[2020-12-28] MEDS: POTASSIUM CHLORIDE ER 20 MEQ TAB.ER PO SCH ×2 (09:17→21:32)
[2020-12-28] MEDS: carvediloL 3.125 MG TAB PO SCH ×2 (09:18→21:36)
[2020-12-28] MEDS: FUROSEMIDE 40 MG TAB PO SCH (09:18)
[2020-12-28] MEDS: SPIRONOLACTONE 25 MG TAB PO SCH (12:06)
[2020-12-28] MEDS: SACUBITRIL/VALSARTAN 24 MG-26 MG TABLET PO SCH ×2 (12:06→21:31)
--- NOTE | 2020-12-28 13:13 | P.PN ---
Subjective This is a pleasant 60-year-old male past medical history significant for chronic persistent atrial fibrillation, nonobstructive coronary artery disease (from cath in 06/2019), morbid obesity, hypertension, dyslipidemia and obstructive sleep apnea. He does not follow regularly with a continuous improvement engineer, was suppose to follow with Dr. Oliver. We have been asked to see in consultation for chest pain, elevated troponin, and congestive heart failure. Patient presented to the emergency department with complaints of shortness of breath, 15lb weight gain, he states shortness of breath is progressively worse. He also endorses symptoms of orthopnea and PND. He was recently admitted in November 2020 with acute on chronic diastolic heart failure he was discharged on Entresto per primary and did not follow up with cardiology afterwards. Echocardiogram this admission reveals EF of 5 percent, trace mitral regurgitation, trace tricuspid regurgitation. 12/28/20 Patient seen and examined at bedside, in the bedside chair. His shortness of breath and his lower extremity edema have improved. However, he states is he not feeling well this morning, he has been hypotensive overnight and this morning. He continues to not sleep well last night. He denies any chest pain or shortness of breath. He's currently maintained on Coreg 3.125mg BID, Eliquis 5 mg twice a day, aspirin 81 mg daily, Lasix PO 40 mg twice a day. Metolazone was discontinued. Labs reviewed, 134, potassium 3.2, BUN 44, serum creatinine 1.45, troponin negative. Patient with 2.3L L urine output over the past 24 hours he also has had a decrease in weight to 164kg from 174kg on admission. His coreg and Lasix were not given due to hypotension PHYSICAL EXAMINATION Blood pressure 70s/40s HR 80s-90s in atrial fibrillation, afebrile on room air 92% Telemetry reviewed patient in atrial fibrillation with heart rates in the 80s90s. occasional PVCs CONSTITUTIONAL: No apparent distress. HEENT: Neck Supple. No JVD. CHEST EXAMINATION: Lungs diminished bilaterally to auscultation. No chest wall tenderness is noted on palpation or with deep breathing. HEART EXAMINATION: Irregular rate and rhythm. S1, S2 heard. No murmurs, gallops or rub. ABDOMEN: Soft, nontender. Positive bowel sounds. EXTREMITIES: 2+ peripheral pulses, 3+ bilateral pitting edema. and no calf tenderness. NEUROLOGIC EXAMINATION: Patient is awake, alert and oriented x3. ASSESSMENT Acute systolic heart failure EF 20-25% Elevated troponin, likely due to patient's congestive heart failure and atrial fibrillation with RVR Chronic persistent atrial fibrillation with rapid ventricular response Hypotension History of hypertension mild to moderate noon-obstructive coronary artery disease Morbid obesity BMI 50 Dyslipidemia Obstructive sleep apnea Hypokalemia PLAN -Decrease Lasix 40mg daily -Continue Entresto -Continue Eliquis 5 mg BID -Continue carvedilol, spironolactone -Monitor renal function and electrolytes -Monitor I/Os, daily weights -We will continue to monitor patient, Hopefully discharge in the next 24 hours -On discharge, recommend close follow up with Dr. Oliver outpatient. -Further recommendations based on clinical course Nurse Practitioner note has been reviewed, I agree with a documented findings and plan of care. Patient was seen and examined. Objective - Vital Signs Vital signs: Vital Signs Temp 97.2 F L 12/28/20 11:45 Pulse 90 12/28/20 11:45 Resp 16 12/28/20 11:45 BP 100/74 12/28/20 11:45 Pulse Ox 92 L 12/28/20 11:45 Intake & Output 12/27/20 12/28/20 12/28/20 18:59 06:59 18:59 Intake Total 2576 280 0 Output Total 1100 1225 275 Balance 1476 -945 -275 Weight 164.7 kg Intake: Oral 2576 280 0 Output: Urine 1100 1225 275 Other: Voiding Method Urinal Urinal Urinal # Voids 1 - Labs CBC & Chem 7: 12/25/20 12:35 12/28/20 07:10 Labs: Abnormal Lab Results - Last 24 Hours (Table) 12/28/20 12/28/20 Range/Units 02:01 07:10 Sodium 134 L (137-145) mmol/L Potassium 3.2 L (3.5-5.1) mmol/L Chloride 82 L (98-107) mmol/L Carbon Dioxide 39 H (22-30) mmol/L BUN 44 H (9-20) mg/dL Creatinine 1.45 H (0.66-1.25) mg/dL Glucose 110 H (74-99) mg/dL POC Glucose (mg/dL) 134 H (75-99) mg/dL
--- NOTE | 2020-12-28 18:49 | PN ---
PROGRESS NOTE DATE OF SERVICE: 12/28/2020. CHIEF COMPLAINT: Chronic congestive heart failure. HISTORY OF PRESENT ILLNESS: This gentleman is just about the same. He feels that he is breathing a little bit better, but he is still very weak. PHYSICAL EXAMINATION: Breath sounds are diminished at the bases with occasional rales. His cardiac exam is the same with atrial fibrillation. The abdomen is soft, nontender. Color is good. IMPRESSION: 1. Acute congestive heart failure. 2. Chronic heart failure with reduced ejection fraction. 3. Atrial fibrillation. PLAN: Continue on current program. His discharge may require that he goes back to a custodial for rehab. MMODL / IJN: [id number] /
[2020-12-29] MEDS: HYDROcodone/APAP 7.5-325MG 1 EACH TAB PO PRN ×3 (04:57→19:16)
[2020-12-29] MEDS: carvediloL 3.125 MG TAB PO SCH ×2 (06:18→18:29)
[2020-12-29 09:14] LABS: Potassium 3.3 mmol/L (3.5-5.1)
[2020-12-29 09:16] LABS: Calcium 9.6 mg/dL (8.4-10.2)
[2020-12-29] MEDS: SPIRONOLACTONE 25 MG TAB PO SCH (09:40)
[2020-12-29] MEDS: buPROPion SR 150 MG TABLET.ER PO SCH ×2 (09:40→20:29)
[2020-12-29] MEDS: SACUBITRIL/VALSARTAN 24 MG-26 MG TABLET PO SCH ×2 (09:40→20:29)
[2020-12-29] MEDS: POTASSIUM CHLORIDE ER 20 MEQ TAB.ER PO SCH ×4 (09:40→21:12)
[2020-12-29] MEDS: FUROSEMIDE 40 MG TAB PO SCH (09:41)
[2020-12-29] MEDS: APIXABAN 5 MG TAB PO SCH ×2 (09:41→20:29)
--- NOTE | 2020-12-29 13:24 | P.PN ---
Subjective This is a pleasant 60-year-old male past medical history significant for chronic persistent atrial fibrillation, nonobstructive coronary artery disease (from cath in 06/2019), morbid obesity, hypertension, dyslipidemia and obstructive sleep apnea. He does not follow regularly with a button sewer, was suppose to follow with Dr. Oliver. We have been asked to see in consultation for chest pain, elevated troponin, and congestive heart failure. Patient presented to the emergency department with complaints of shortness of breath, 15lb weight gain, he states shortness of breath is progressively worse. He also endorses symptoms of orthopnea and PND. He was recently admitted in November 2020 with acute on chronic diastolic heart failure he was discharged on Entresto per primary and did not follow up with cardiology afterwards. Echocardiogram this admission reveals EF of 2025 percent, trace mitral regurgitation, trace tricuspid regurgitation. 12/29/20 Patient seen and examined at bedside, in the bedside chair. His shortness of breath and his lower extremity edema have improved. However, he states is he not feeling well this morning, due to not sleeping well. But his blood pressure has improved. He continues to not sleep well last night. He denies any chest pain or shortness of breath. He's currently maintained on Coreg 3.125mg BID, Eliquis 5 mg twice a day, aspirin 81 mg daily, Lasix PO 40 mg daily. Metolazone was discontinued. Labs reviewed, sodium 132, potassium 3.3, BUN 49, serum, 1.29. Patient with 925m L urine output documented over the past 24 hours he also has had a decrease in weight to 164kg from 174kg on admission. His renal function is improving. PHYSICAL EXAMINATION Blood pressure 115/55, heart rate 56, afebrile, maintaining saturations on room air Telemetry reviewed patient in atrial fibrillation with heart rates in the 80s90s, occasionally in low 100s. PVCs. CONSTITUTIONAL: No apparent distress. HEENT: Neck Supple. No JVD. CHEST EXAMINATION: Lungs diminished bilaterally to auscultation. No chest wall tenderness is noted on palpation or with deep breathing. HEART EXAMINATION: Irregular rate and rhythm. S1, S2 heard. No murmurs, gallops or rub. ABDOMEN: Soft, nontender. Positive bowel sounds. EXTREMITIES: 2+ peripheral pulses, 3+ bilateral pitting edema. and no calf tenderness. NEUROLOGIC EXAMINATION: Patient is awake, alert and oriented x3. ASSESSMENT Acute systolic heart failure EF 20-25% Elevated troponin, likely due to patient's congestive heart failure and atrial fibrillation with RVR Chronic persistent atrial fibrillation with rapid ventricular response Hypotension History of hypertension mild to moderate noon-obstructive coronary artery disease Morbid obesity BMI 50 Dyslipidemia Obstructive sleep apnea Hypokalemia PLAN -Continue Lasix 40mg daily -Continue Entresto -Continue Eliquis 5 mg BID -Continue carvedilol, spironolactone -Monitor renal function and electrolytes -Monitor I/Os, daily weights -We will continue to monitor patient, Hopefully discharge in the next 24 hours -On discharge, recommend close follow up with Dr. Oliver outpatient. Spoke with office, patient will be called to set up an appointment, unable to set one up with Dr. Oliver at this time. -Further recommendations based on clinical course Nurse Practitioner note has been reviewed, I agree with a documented findings and plan of care. Patient was seen and examined. Objective - Vital Signs Vital signs: Vital Signs Temp 97.7 F 12/29/20 11:55 Pulse 56 L 12/29/20 11:55 Resp 16 12/29/20 11:55 BP 115/55 12/29/20 11:55 Pulse Ox 95 12/29/20 11:55 Intake & Output 12/28/20 12/29/20 12/29/20 18:59 06:59 18:59 Intake Total 118 88 478 Output Total 925 250 Balance -807 88 228 Weight 164.2 kg Intake: Oral 118 88 478 Output: Urine 925 250 Other: Voiding Method Urinal Urinal Urinal - Labs CBC & Chem 7: 12/25/20 12:35 12/29/20 08:25 Labs: Abnormal Lab Results - Last 24 Hours (Table) 12/29/20 Range/Units 08:25 Sodium 132 L (137-145) mmol/L Potassium 3.3 L (3.5-5.1) mmol/L Chloride 87 L (98-107) mmol/L Carbon Dioxide 34 H (22-30) mmol/L BUN 49 H (9-20) mg/dL Creatinine 1.29 H (0.66-1.25) mg/dL Glucose 146 H (74-99) mg/dL
[2020-12-29] MEDS: HYDROmorphone 1 MG/ML 1 ML SYRINGE IVP PRN (20:29)
--- NOTE | 2020-12-29 20:49 | PN ---
PROGRESS NOTE DATE OF SERVICE: 12/29/2020 CHIEF COMPLAINT: Congestive heart failure. HISTORY OF PRESENT ILLNESS: This gentleman is not any better. He, at times, seems to be more short of breath. He is still very weak. With a minimal amount of exertion he becomes very dyspneic. PHYSICAL EXAMINATION: Breath sounds are diminished throughout. The cardiac exam is same. Abdomen is soft. IMPRESSION: 1. Acute congestive heart failure. 2. Chronic congestive heart failure with reduced ejection fraction. 3. Atrial fibrillation. PLAN: There is very little else that can be added to his program at this time. It is noted that his blood pressure has been slightly low. We are at the point where we are going to have to start looking at a discharge plan once again. He may have to go back to a senior living. NEGRITA / LEIDY: [id number] /
[2020-12-30 07:51] LABS: Calcium 9.8 mg/dL (8.4-10.2); Potassium 3.8 mmol/L (3.5-5.1)
[2020-12-30] MEDS: SPIRONOLACTONE 25 MG TAB PO SCH (09:23)
[2020-12-30] MEDS: POTASSIUM CHLORIDE ER 20 MEQ TAB.ER PO SCH ×2 (09:23→15:27)
[2020-12-30] MEDS: carvediloL 3.125 MG TAB PO SCH (09:23)
[2020-12-30] MEDS: HYDROcodone/APAP 7.5-325MG 1 EACH TAB PO PRN ×2 (09:23→15:27)
[2020-12-30] MEDS: FUROSEMIDE 40 MG TAB PO SCH (09:23)
[2020-12-30] MEDS: APIXABAN 5 MG TAB PO SCH (09:23)
[2020-12-30] MEDS: SACUBITRIL/VALSARTAN 24 MG-26 MG TABLET PO SCH (09:23)
[2020-12-30] MEDS: buPROPion SR 150 MG TABLET.ER PO SCH (09:23)
--- NOTE | 2020-12-30 11:46 | P.PN ---
Subjective This is a pleasant 60-year-old male past medical history significant for chronic persistent atrial fibrillation, nonobstructive coronary artery disease (from cath in 06/2019), morbid obesity, hypertension, dyslipidemia and obstructive sleep apnea. He does not follow regularly with a strip cleaner, was suppose to follow with Dr. Oliver. We have been asked to see in consultation for chest pain, elevated troponin, and congestive heart failure. Patient presented to the emergency department with complaints of shortness of breath, 15lb weight gain, he states shortness of breath is progressively worse. He also endorses symptoms of orthopnea and PND. He was recently admitted in November 2020 with acute on chronic diastolic heart failure he was discharged on Entresto per primary and did not follow up with cardiology afterwards. Echocardiogram this admission reveals EF of 5 percent, trace mitral regurgitation, trace tricuspid regurgitation. 12/30/20 Patient seen and examined at bedside, in the bedside chair. His shortness of breath and his lower extremity edema have improved. He continues to not sleep well last night. He denies any chest pain or shortness of breath. He's currently maintained on Coreg 3.125mg BID, Eliquis 5 mg twice a day, aspirin 81 mg daily, Lasix PO 40 mg daily, spironolactone 25mg daily. Metolazone was discontinued. Labs reviewed, sodium 134, potassium 3.8, BUN 44, serum, 1.33. Patient with 2.3 L urine output documented over the past 24 hours he also has had a decrease in weight to 164kg from 174kg on admission. PHYSICAL EXAMINATION BP 114/55, HR 81 afebrile, 93% on room air Telemetry reviewed patient in atrial fibrillation with heart rates predominantly in the 80s90s, occasionally in low 100s. PVCs. CONSTITUTIONAL: No apparent distress. HEENT: Neck Supple. No JVD. CHEST EXAMINATION: Lungs diminished bilaterally to auscultation. No chest wall tenderness is noted on palpation or with deep breathing. HEART EXAMINATION: Irregular rate and rhythm. S1, S2 heard. No murmurs, gallops or rub. ABDOMEN: Soft, nontender. Positive bowel sounds. EXTREMITIES: 2+ peripheral pulses, 3+ bilateral pitting edema. and no calf tenderness. NEUROLOGIC EXAMINATION: Patient is awake, alert and oriented x3. ASSESSMENT Acute systolic heart failure EF 20-25% Elevated troponin, likely due to patient's congestive heart failure and atrial fibrillation with RVR Chronic persistent atrial fibrillation with rapid ventricular response Hypotension History of hypertension mild to moderate noon-obstructive coronary artery disease Morbid obesity BMI 50 Dyslipidemia Obstructive sleep apnea Hypokalemia PLAN -We will continue current medical therapy. -From a cardiology perspective, patient is stable. -On discharge, recommend close follow up with Dr. Oliver outpatient. Patient has an appointment scheduled next week on January 04, at 10:45AM. Nurse Practitioner note has been reviewed, I agree with a documented findings and plan of care. Patient was seen and examined. Objective - Vital Signs Vital signs: Vital Signs Temp 98.0 F 12/30/20 08:00 Pulse 81 12/30/20 08:00 Resp 20 12/30/20 08:00 BP 114/55 12/30/20 08:00 Pulse Ox 93 L 12/29/20 16:06 Intake & Output 12/29/20 12/30/20 12/30/20 18:59 06:59 18:59 Intake Total 2156 240 598 Output Total 1125 1200 275 Balance 1031 -960 323 Weight 164 kg Intake: Oral 2156 240 598 Output: Urine 1125 1200 275 Other: Voiding Method Urinal Urinal Urinal - Labs CBC & Chem 7: 12/25/20 12:35 12/30/20 07:01 Labs: Abnormal Lab Results - Last 24 Hours (Table) 12/30/20 Range/Units 07:01 Sodium 134 L (137-145) mmol/L Chloride 90 L (98-107) mmol/L Carbon Dioxide 36 H (22-30) mmol/L BUN 44 H (9-20) mg/dL Creatinine 1.33 H (0.66-1.25) mg/dL Glucose 102 H (74-99) mg/dL
[2020-12-30 12:33] VITALS: BP 114/71; PULSE 80; RESP 18; TEMP 98.1
== END 2020-12-30 15:35 | disposition home or self-care (01) | DRG 292 ==
LOC: EC 15:53 → 3SCARD 19:35
PROVIDERS: ADMIT Family Medicine; ATTEND Family Medicine
DX: I11.0 Hypertensive heart disease with heart failure (principal); Z68.43 Body mass index [BMI] 50.0-59.9, adult; I48.21 Permanent atrial fibrillation; I50.23 Acute on chronic systolic (congestive) heart failure; I95.9 Hypotension, unspecified; I42.8 Other cardiomyopathies; Z79.01 Long term (current) use of anticoagulants; E66.01 Morbid (severe) obesity due to excess calories; Z20.822 Contact with and (suspected) exposure to COVID-19; E78.5 Hyperlipidemia, unspecified; I25.10 Atherosclerotic heart disease of native coronary artery without angina pectoris; G47.33 Obstructive sleep apnea (adult) (pediatric); E87.6 Hypokalemia; L30.9 Dermatitis, unspecified; M54.5 Low back pain; F32.9 Major depressive disorder, single episode, unspecified; F41.9 Anxiety disorder, unspecified; R77.8 Other specified abnormalities of plasma proteins; Z79.82 Long term (current) use of aspirin; Z79.899 Other long term (current) drug therapy; Z87.820 Personal history of traumatic brain injury; Z87.01 Personal history of pneumonia (recurrent); Z90.49 Acquired absence of other specified parts of digestive tract; Z87.19 Personal history of other diseases of the digestive system; Z98.890 Other specified postprocedural states; Z71.3 Dietary counseling and surveillance; Z82.49 Family history of ischemic heart disease and other diseases of the circulatory system; Z83.3 Family history of diabetes mellitus; Z83.49 Family history of other endocrine, nutritional and metabolic diseases
CPT/HCPCS: 36415; 71046; 80048; 80053; 83605; 83735; 83880; 84484; 85025; 85027; 85610; 85730; 87635; 93005; 93306; 94760; 96374; 99285

== ENCOUNTER 2021-07-28 16:35 | Inpatient (IN) | payer OTHER ==
[2021-07-28 17:49] LABS: Albumin 3.6 g/dL (3.5-5.0); Calcium 8.1 mg/dL (8.4-10.2); Total Bilirubin 1.3 mg/dL (0.2-1.3); Total Protein 6.8 g/dL (6.3-8.2)
[2021-07-28 17:51] LABS: Anisocytosis Slight; Basophils # (A) 0.1 k/uL (0-0.2); Basophils % (A) 1 %; Eosinophils # (A) 0.2 k/uL (0-0.7); Eosinophils % (A) 2 %; HCT 49.9 % (39.0-53.0); HGB 15.4 gm/dL (13.0-17.5); Hypochromasia Slight; Lymphocytes # (A) 1.2 k/uL (1.0-4.8); Lymphocytes % (A) 18 %; MCV 77.4 fL (80.0-100.0); Mean Platelet Volume 7.7; Microcytosis Slight; Monocytes # (A) 0.6 k/uL (0-1.0); Monocytes % (A) 8 %; Neutrophils # (A) 4.8 k/uL (1.3-7.7); Neutrophils % (A) 67 %; Platelet Count 212 k/uL (150-450); Poikilocytosis Slight; RBC 6.44 m/uL (4.30-5.90); RDW 16.3 % (11.5-15.5); WBC 7.1 k/uL (3.8-10.6)
[2021-07-28 17:55] LABS: Partial Thromboplastin Time 24.7 sec (22.0-30.0); Prothrombin Time 10.8 sec (9.0-12.0)
[2021-07-28] MEDS: HYDROcodone/APAP 5-325MG 1 EACH TAB PO PRN (18:15)
[2021-07-28 18:22] LABS: Potassium 2.4 mmol/L (3.5-5.1)
[2021-07-28] MEDS ORDERED: POTASSIUM CHLORIDE ER 20 MEQ TAB.ER PO STA (18:32)
--- NOTE | 2021-07-28 19:02 | XR ---
EXAMINATION TYPE: XR chest 2V DATE OF EXAM: 07/28/2021 COMPARISON: 12/25/2020 HISTORY: Short of breath TECHNIQUE: FINDINGS: Heart appears enlarged. No heart failure seen. Costophrenic angles are clear. There are no hilar masses. The bony thorax is intact. IMPRESSION: Mild cardiomegaly. No active cardiopulmonary disease. No change.
[2021-07-28] MEDS ORDERED: SODIUM CHLORIDE 0.9% 1,000 ML IV STA ×2 (19:05→20:16)
[2021-07-28] MEDS ORDERED: MORPHINE SULFATE 4 MG/ML SYRINGE IVP STA (19:22)
--- NOTE | 2021-07-28 19:49 | CT ---
EXAMINATION TYPE: CT chest angio for PE DATE OF EXAM: 07/28/2021 COMPARISON: 11/04/2020 HISTORY: chest pain CT DLP: 1098.1 mGycm Automated exposure control for dose reduction was used. CONTRAST: Performed with IV Contrast, patient injected with 100 mL of Isovue 370. There are Three-D postprocessed images. Heart appears enlarged. No pericardial effusion. No pleural effusion. There is mild subsegmental atel ectasis at the lung bases. There are no hilar masses. There is no mediastinal adenopathy. There are a few Neches and bronchial lymph nodes measuring less than 1 cm. There is no evidence of filling defect in the pulmonary arteries. Thoracic aorta appears intact. No a neurysm. The thoracic spine is intact. No compression fracture. Sternum is intact. IMPRESSION: Mild subsegmental atelectasis at the lung bases. Mild cardiomegaly. No evidence of pulmonary embolism . There is clearing of the pleural effusions compared to the old exam.
[2021-07-28] MEDS ORDERED: NALOXONE 0.4 MG/ML 1 ML VIAL IV PRN (20:16)
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
[2021-07-28] MEDS: APIXABAN 5 MG TAB PO SCH (21:15)
[2021-07-28] MEDS: SACUBITRIL/VALSARTAN 24 MG-26 MG TABLET PO SCH (21:50)
[2021-07-28 22:21] LABS: VBG PH 7.7 (7.31-7.41)
[2021-07-29] LABS: ABG Oxygen Saturation 90.5 % (94-97); ABG PH 7.49 (7.35-7.45); ABG PO2 61 mmHg (83-108); ABG TCO2 57 mmol/L (19-24); Allen Test Performed? Yes
[2021-07-29] MEDS ORDERED: HEPARIN SODIUM,PORCINE/PF 5,000 UNIT/0.5 ML SYRINGE SQ SCH
[2021-07-29 00:04] LABS: ABG PCO2 72 mmHg (35-45)
[2021-07-29 00:05] LABS: ABG Base Excess 31.2 mmol/L; ABG HCO3 55 mmol/L (21-25)
[2021-07-29] MEDS: HYDROcodone/APAP 5-325MG 1 EACH TAB PO PRN ×4 (01:01→21:31)
[2021-07-29] MEDS: POTASSIUM CHLORIDE ER 20 MEQ TAB.ER PO SCH ×7 (01:01→21:26)
[2021-07-29 01:18] VITALS: RESP 18
[2021-07-29 06:05] LABS: Glucose,Whole Blood 149 mg/dL (75-99)
[2021-07-29] MEDS: SPIRONOLACTONE 25 MG TAB PO SCH (08:15)
[2021-07-29] MEDS: SACUBITRIL/VALSARTAN 24 MG-26 MG TABLET PO SCH ×2 (08:15→21:26)
[2021-07-29] MEDS: METOPROLOL SUCCINATE (ER) 50 MG TAB.ER.24H PO SCH (08:16)
[2021-07-29] MEDS: APIXABAN 5 MG TAB PO SCH ×2 (08:16→21:26)
[2021-07-29] MEDS ORDERED: FUROSEMIDE 40 MG TAB PO SCH (09:00)
[2021-07-29 10:07] LABS: African American GFR (CKD) >90 (>60 ml/min/1.73 sqM); Blood Urea Nitrogen 22 mg/dL (9-20); Calcium 8.2 mg/dL (8.4-10.2); Chloride 75 mmol/L (98-107); Glucose 118 mg/dL (74-99); Non-African American GFR(CKD) >90 (>60 ml/min/1.73 sqM); Sodium 131 mmol/L (137-145)
[2021-07-29 10:14] LABS: Anion Gap 10 mmol/L
[2021-07-29 10:30] LABS: Potassium 2.1 mmol/L (3.5-5.1)
[2021-07-29 10:33] LABS: Carbon Dioxide 46 mmol/L (22-30)
[2021-07-29 10:41] LABS: Basophils # (A) 0.1 k/uL (0-0.2); Basophils % (A) 3 %; Eosinophils # (A) 0.2 k/uL (0-0.7); Eosinophils % (A) 4 %; HCT 51.9 % (39.0-53.0); HGB 15.5 gm/dL (13.0-17.5); Hypochromasia Marked; Lymphocytes # (A) 0.6 k/uL (1.0-4.8); Lymphocytes % (A) 12 %; MCH 23.8 pg (25.0-35.0); MCHC 29.8 g/dL (31.0-37.0); MCV 79.7 fL (80.0-100.0); Mean Platelet Volume 7.5; Monocytes # (A) 0.5 k/uL (0-1.0); Monocytes % (A) 9 %; Neutrophils # (A) 3.7 k/uL (1.3-7.7); Neutrophils % (A) 71 %; Platelet Count 186 k/uL (150-450); RBC 6.51 m/uL (4.30-5.90); RDW 15.9 % (11.5-15.5); WBC 5.3 k/uL (3.8-10.6)
[2021-07-29] MEDS ORDERED: Potassium Replacement Protocol 1 EACH MISC MISCELLANE PRN (11:54)
--- NOTE | 2021-07-29 12:00 | CA ---
Transthoracic Echo Report Name: Vance Lee Age: 60 Gender: M : 1960 Exam Date: 07/29/2021 08:20 Exam Location: [facility] Ht (in): 71 Wt (lb): 158 Ordering Physician: Destin Trotter MD Attending/Referring Phys: Staffing Director Kathi Santos RDCS Procedure CPT: Indications: chronic dyspnea Cardiac Hx: Technical Quality: Very technically difficult study Contrast 1: Lumason Total Dose (mL): 1 Contrast 2: Total Dose (mL): MEASUREMENTS (Male / Female) Normal Values 2D ECHO LV Diastolic Diameter PLAX 5.5 cm 4.2 - 5.9 / 3.9 - 5.3 cm LV Systolic Diameter PLAX 4.7 cm IVS Diastolic Thickness 1.3 cm 0.6 - 1.0 / 0.6 - 0.9 cm LVPW Diastolic Thickness 1.5 cm 0.6 - 1.0 / 0.6 - 0.9 cm LV Relative Wall Thickness 0.5 RV Internal Dim ED PLAX 3.3 cm M-MODE Aortic Root Diameter MM 3.9 cm LA Systolic Diameter MM 4.5 cm LA Ao Ratio MM 1.1 MV E Point Septal Separation 2.1 cm AV Cusp Separation MM 2.2 cm DOPPLER AV Peak Velocity 74.9 cm/s AV Peak Gradient 2.2 mmHg MV Area PHT 3.4 cm??? Mitral E Point Velocity 79.1 cm/s Mitral A Point Velocity 32.9 cm/s Mitral E to A Ratio 2.4 MV Deceleration Time 220.5 ms TR Peak Velocity 57.6 cm/s TR Peak Gradient 1.3 mmHg Right Ventricular Systolic Press 6.3 mmHg FINDINGS Left Ventricle Unable to determine EF with lumason. Right Ventricle Right ventricle not well visualized. Right Atrium Right atrium not well visualized. Left Atrium Left atrium not well visualized. Mitral Valve Mitral valve not well visualized. Aortic Valve Aortic valve not well visualized. Tricuspid Valve Tricuspid valve not well visualized. Pulmonic Valve Pulmonic valve not well visualized. Pericardium No pericardial effusion. Aorta Aortic root and proximal ascending aorta not well visualized. CONCLUSIONS Technically suboptimal and incomplete study. Overall LV function appears preserved. Previewed by: Dr. Nate Patton MD (Electronically Signed) Final Date: 29 Jul 2021 12:00
[2021-07-29 12:06] LABS: Glucose,Whole Blood 155 mg/dL (75-99)
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
[2021-07-29] MEDS: SODIUM CHLORIDE 0.9% 1,000 ML IV SCH (15:06)
[2021-07-29] MEDS ORDERED: IBUPROFEN 800 MG TAB PO PRN (15:09)
--- NOTE | 2021-07-29 16:31 | PN ---
PROGRESS NOTE DATE OF SERVICE: 07/29/2021 CHIEF COMPLAINT: Dehydration, hypokalemia and congestive heart failure. HISTORY OF PRESENT ILLNESS: This gentleman is feeling a little bit better. His potassium is still quite low. He has had no chest pain. PHYSICAL EXAMINATION: Vital signs are normal. His chest is clear. Cardiac exam is normal. The abdomen is soft and nontender. IMPRESSION: 1. Dehydration. 2. Congestive heart failure. 3. Hypokalemia. PLAN: Continue with rehydration and correction of potassium. MMODL / IJN: [id number] /
--- NOTE | 2021-07-29 16:31 | HP ---
HISTORY AND PHYSICAL CHIEF COMPLAINT: Weakness, diarrhea and hypokalemia. HISTORY OF PRESENT ILLNESS: This is another admission for this 60-year-old white male with chronic congestive heart failure and cardiomyopathy. 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 He has been doing fairly well, but he becomes extremely fatigued. He recently developed an episode of achiness, diarrhea, weakness and loss of taste. He has had two COVID tests which were negative. He came to the emergency room, where his potassiums was extremely low at 2.1. He has not had any significant chest pain. REVIEW OF SYSTEMS: He has had no headaches, neurologic problems, shortness of breath, chest pain, cough, hemoptysis, orthopnea, PND, abdominal pain, nausea, vomiting, hematemesis, renal failure, frequency, urgency, dysuria, etc. He has not had any muscle cramps, confusion or syncope. Past medical history, family history, and personal and social histories are all otherwise unremarkable and noncontributory. PHYSICAL EXAMINATION: Blood pressure is 106/52. Pulse is 98. In general he appears to be obese and in no acute distress. Skin is tanned. Head, ears, eyes, nose, mouth and throat are normal. The chest is clear. Cardiac exam is normal. The abdomen is soft and protuberant. Extremities are normal. Neurologically he is intact. He is admitted to the hospital with diagnoses: 1. Dehydration. 2. Hypokalemia. 3. Chronic congestive heart failure. PLAN: 1. Bedrest. 2. Rehydrate. 3. Replace potassium. MMODL / IJN: [id number] /
[2021-07-29 16:53] LABS: Glucose,Whole Blood 118 mg/dL (75-99)
[2021-07-29] MEDS: buPROPion SR 150 MG TABLET.ER PO SCH (21:31)
[2021-07-30] MEDS: HYDROcodone/APAP 5-325MG 1 EACH TAB PO PRN ×3 (04:04→16:22)
[2021-07-30] MEDS: SODIUM CHLORIDE 0.9% 1,000 ML IV SCH ×2 (04:05→16:21)
[2021-07-30] MEDS: APIXABAN 5 MG TAB PO SCH ×2 (09:52→20:08)
[2021-07-30] MEDS: POTASSIUM CHLORIDE ER 20 MEQ TAB.ER PO SCH ×5 (09:52→18:28)
[2021-07-30] MEDS: ASPIRIN 81 MG PO SCH (09:52)
[2021-07-30] MEDS: SACUBITRIL/VALSARTAN 24 MG-26 MG TABLET PO SCH ×2 (09:52→20:08)
[2021-07-30] MEDS: METOPROLOL SUCCINATE (ER) 50 MG TAB.ER.24H PO SCH (09:52)
[2021-07-30] MEDS: SPIRONOLACTONE 25 MG TAB PO SCH (09:53)
[2021-07-30] MEDS: buPROPion SR 150 MG TABLET.ER PO SCH ×2 (09:54→20:08)
--- NOTE | 2021-07-30 12:00 | P.PN ---
Subjective This is a pleasant 60-year-old male past medical history significant for chronic persistent atrial fibrillation, nonobstructive coronary artery disease, morbid obesity, hypertension, dyslipidemia and obstructive sleep apnea. He does not follow regularly with a certified residential medication aide, was suppose to follow with Dr. Oliver. He had been admitted in November 2020 with acute on chronic diastolic heart failure he was discharged on Entresto per primary and did not follow up with cardiology afterwards. Patient presents secondary to fatigue which has been somewhat worse over last few days and weeks or if he states he cannot go to work and feels tired and confused throughout the day. He denies any change in medications however is also uncertain what medications he is actually taking. Denies any chest pain or prior pressure. Admits to chronic shortness breath however more of a fatigue feeling with any exertion. EKG shows atrial fibrillation with controlled ventricular rate. Troponins noted to be mildly elevated similar to in the past. He was noted to be hyponatremic and received IV fluids with improvement. His potassium was noted to be 2.4 and received supplement however down to 2.1. His troponin 0.09, 0.09, 0.09, proBNP 951. Creatinine mildly improving from 1.1-0.89 with IV fluids. Echocardiogram was performed which shows preserved EF however somewhat technically difficult. Lexiscan stress test 05/2020 revealed fixed defects along the apical anterior wall and apical inferior wall. No definite suspicious reversibility. Mild LV chamber enlargement and mild global hypokinesis a decreased LVEF of 46%. Echocardiogram 04/2020 revealed EF of 4550 percent, mild mitral regurgitation, mild tricuspid regurgitation Cardiac catheterization in June 2019 mild to moderate nonobstructive disease involving the RCA 07/30 Patient seen and examined. He has been receiving potassium supplementation and states he is feeling much better today. He states his taste has come back. Potassium yesterday was extremely low at 2.1. Magnesium was noted to be normal. Blood work from today is not been resulted yet. PHYSICAL EXAMINATION Vitals reviewed CONSTITUTIONAL: No apparent distress. Poor recall HEENT: Head is normocephalic. Pupils are equal, round. Sclerae anicteric. Mucous membranes of the mouth are moist. No JVD. No carotid bruit. CHEST EXAMINATION: Lungs clear to auscultation. No chest wall tenderness is noted on palpation or with deep breathing. HEART EXAMINATION: Irregular rate and rhythm. S1, S2 heard. No murmurs, gallops or rub. ABDOMEN: Soft, nontender. Positive bowel sounds. EXTREMITIES: 2+ peripheral pulses, no lower extremity edema and no calf tenderness. NEUROLOGIC EXAMINATION: Patient is awake, alert and oriented x3. ASSESSMENT Chronic diastolic heart failyre History of cardiomyopathy, appears improved by most recent echo Chronic persistent atrial fibrillation with rapid ventricular response History of hypertension mild to moderate noon-obstructive coronary artery disease Morbid obesity BMI 50 Dyslipidemia Obstructive sleep apnea Hypokalemia Fatigue may be related to hypokalemia Hyponatremia, improved with IVF PLAN Patient's mainly with fatigue which is likely related to severe metabolic derangements. 2-D echo reveals preserved EF and do not suspect acute coronary syndrome. Mildly elevated troponins similar as in the past. He does not appear volume overloaded and suspect most of his issues are related to potassium and dehydration. Continue to hold diuretics. Patient unclear what medications he is taking and some degree of medical noncompliance. Await blood work from today. Continue supportive care and electrolyte replacement. Objective - Vital Signs Vital signs: Vital Signs Temp 96.3 F L 07/30/21 08:25 Pulse 97 07/30/21 08:25 Resp 18 07/30/21 08:25 BP 113/78 07/30/21 08:25 Pulse Ox 97 07/30/21 08:25 FiO2 Intake & Output 07/29/21 07/30/21 07/30/21 18:59 06:59 18:59 Intake Total 0 960 Output Total 750 1025 Balance -750 -65 Weight 162.5 kg Intake: Intake, IV Titration 0 Amount Sodium Chloride 0.9% 1, 0 000 ml @ 75 mls/hr IV . [id number] [facility] Rx#:[id number] Oral 960 Output: Urine 750 1025 Other: # Voids 2 - Labs CBC & Chem 7: 07/29/21 09:09 07/29/21 09:09 Labs: Abnormal Lab Results - Last 24 Hours (Table) 07/29/21 07/29/21 Range/Units 12:04 16:52 POC Glucose (mg/dL) 155 H 118 H (75-99) mg/dL
[2021-07-30 12:06] LABS: African American GFR (CKD) >90 (>60 ml/min/1.73 sqM); Blood Urea Nitrogen 22 mg/dL (9-20); Calcium 8.7 mg/dL (8.4-10.2); Chloride 82 mmol/L (98-107); Glucose 106 mg/dL (74-99); Non-African American GFR(CKD) >90 (>60 ml/min/1.73 sqM); Potassium 2.8 mmol/L (3.5-5.1); Sodium 133 mmol/L (137-145)
[2021-07-30 12:07] LABS: Anisocytosis Slight; Basophils # (A) 0.1 k/uL (0-0.2); Basophils % (A) 1 %; Eosinophils # (A) 0.2 k/uL (0-0.7); Eosinophils % (A) 3 %; HCT 48.3 % (39.0-53.0); Hypochromasia Marked; Lymphocytes # (A) 0.7 k/uL (1.0-4.8); Lymphocytes % (A) 12 %; MCHC 31.1 g/dL (31.0-37.0); MCV 80.2 fL (80.0-100.0); Mean Platelet Volume 7.6; Monocytes # (A) 0.4 k/uL (0-1.0); Monocytes % (A) 7 %; Neutrophils # (A) 4.5 k/uL (1.3-7.7); Neutrophils % (A) 74 %; Platelet Count 225 k/uL (150-450); Poikilocytosis Slight; RBC 6.03 m/uL (4.30-5.90); RDW 16.2 % (11.5-15.5); WBC 6.1 k/uL (3.8-10.6)
[2021-07-30 12:13] LABS: Anion Gap 6 mmol/L
[2021-07-30 12:27] LABS: Carbon Dioxide 45 mmol/L (22-30)
[2021-07-30 12:38] LABS: ALT 47 U/L (4-49); AST 59 U/L (17-59); Albumin 3.4 g/dL (3.5-5.0); Alkaline Phosphatase 79 U/L (38-126); Total Bilirubin 0.6 mg/dL (0.2-1.3); Total Protein 6.2 g/dL (6.3-8.2)
--- NOTE | 2021-07-30 13:18 | XR ---
EXAMINATION TYPE: XR chest 2V DATE OF EXAM: 07/30/2021 COMPARISON: 07/28/2021 INDICATION: CHF TECHNIQUE: Frontal and lateral views of the chest are obtained. FINDINGS: The heart size is mildly prominent. The pulmonary vasculature is prominent. Minimal increased lung markings are present diffusely. IMPRESSION: 1. Conical correlation for early volume overload or congestive heart failure is recommended. Follow-u p can be performed as clinically indicated.
[2021-07-31] MEDS: HYDROcodone/APAP 5-325MG 1 EACH TAB PO PRN ×3 (00:02→13:17)
[2021-07-31] MEDS: POTASSIUM CHLORIDE ER 20 MEQ TAB.ER PO SCH ×2 (00:02→09:06)
[2021-07-31] MEDS: SODIUM CHLORIDE 0.9% 1,000 ML IV SCH (06:35)
[2021-07-31] MEDS: APIXABAN 5 MG TAB PO SCH (09:06)
[2021-07-31] MEDS: SACUBITRIL/VALSARTAN 24 MG-26 MG TABLET PO SCH (09:06)
[2021-07-31] MEDS: buPROPion SR 150 MG TABLET.ER PO SCH (09:06)
[2021-07-31] MEDS: METOPROLOL SUCCINATE (ER) 50 MG TAB.ER.24H PO SCH (09:06)
[2021-07-31] MEDS: SPIRONOLACTONE 25 MG TAB PO SCH (09:06)
[2021-07-31] MEDS: ASPIRIN 81 MG PO SCH (09:08)
[2021-07-31 09:09] VITALS: TEMP 98
[2021-07-31] MEDS ORDERED: SPIRONOLACTONE 25 MG TAB PO SCH (12:45)
[2021-07-31 13:13] VITALS: BP 107/86; PULSE 66
[2021-07-31 13:49] LABS: Potassium 3.3 mmol/L (3.5-5.1)
--- NOTE | 2021-07-31 14:58 | P.PN ---
Subjective This is a pleasant 60-year-old male past medical history significant for chronic persistent atrial fibrillation, nonobstructive coronary artery disease, morbid obesity, hypertension, dyslipidemia and obstructive sleep apnea. He does not follow regularly with a coding educator, was suppose to follow with Dr. Oliver. He had been admitted in November 2020 with acute on chronic diastolic heart failure he was discharged on Entresto per primary and did not follow up with cardiology afterwards. Patient presents secondary to fatigue which has been somewhat worse over last few days and weeks or if he states he cannot go to work and feels tired and confused throughout the day. He denies any change in medications however is also uncertain what medications he is actually taking. Denies any chest pain or prior pressure. Admits to chronic shortness breath however more of a fatigue feeling with any exertion. EKG shows atrial fibrillation with controlled ventricular rate. Troponins noted to be mildly elevated similar to in the past. He was noted to be hyponatremic and received IV fluids with improvement. His potassium was noted to be 2.4 and received supplement however down to 2.1. His troponin 0.09, 0.09, 0.09, proBNP 951. Creatinine mildly improving from 1.1-0.89 with IV fluids. Echocardiogram was performed which shows preserved EF however somewhat technically difficult. Lexiscan stress test 05/2020 revealed fixed defects along the apical anterior wall and apical inferior wall. No definite suspicious reversibility. Mild LV chamber enlargement and mild global hypokinesis a decreased LVEF of 46%. Echocardiogram 04/2020 revealed EF of 4550 percent, mild mitral regurgitation, mild tricuspid regurgitation Cardiac catheterization in June 2019 mild to moderate nonobstructive disease involving the RCA 07/30 Patient seen and examined. He has been receiving potassium supplementation and states he is feeling much better today. He states his taste has come back. Potassium yesterday was extremely low at 2.1. Magnesium was noted to be normal. Blood work from today is not been resulted yet. 07/31 Patient seen and examined. Patient states he is feeling much better. Yesterday his potassium mildly improved at 2.8. Today's repeated at 3.3. Denies any shortness breath or chest pain. PHYSICAL EXAMINATION Vitals reviewed CONSTITUTIONAL: No apparent distress. Poor recall HEENT: Head is normocephalic. Pupils are equal, round. Sclerae anicteric. Mucous membranes of the mouth are moist. No JVD. No carotid bruit. CHEST EXAMINATION: Lungs clear to auscultation. No chest wall tenderness is noted on palpation or with deep breathing. HEART EXAMINATION: Irregular rate and rhythm. S1, S2 heard. No murmurs, gallops or rub. ABDOMEN: Soft, nontender. Positive bowel sounds. EXTREMITIES: 2+ peripheral pulses, no lower extremity edema and no calf tenderness. NEUROLOGIC EXAMINATION: Patient is awake, alert and oriented x3. ASSESSMENT Chronic diastolic heart failyre History of cardiomyopathy, appears improved by most recent echo Chronic persistent atrial fibrillation with rapid ventricular response History of hypertension mild to moderate noon-obstructive coronary artery disease Morbid obesity BMI 50 Dyslipidemia Obstructive sleep apnea Hypokalemia Fatigue may be related to hypokalemia Hyponatremia, improved with IVF PLAN Patient's mainly with fatigue which is likely related to severe metabolic phil angements. 2-D echo reveals preserved EF and do not suspect acute coronary syndrome. Mildly elevated troponins similar as in the past. He does not appear volume overloaded and suspect most of his issues are related to potassium and dehydration. Continue to hold diuretics. Patient unclear what medications he is taking and some degree of medical noncompliance. Increase the spironolactone which may help with the hypokalemia. Appears stable from a cardiac standpoint. Objective - Vital Signs Vital signs: Vital Signs Temp 98.0 F 07/31/21 13:11 Pulse 66 07/31/21 13:11 Resp 18 07/31/21 13:11 BP 107/86 07/31/21 13:11 Pulse Ox 93 L 07/31/21 13:11 FiO2 Intake & Output 07/30/21 07/31/21 07/31/21 18:59 06:59 18:59 Intake Total 600 500 360 Output Total 600 Balance 600 -100 360 Weight 162.2 kg Intake: Intake, IV Titration 600 500 Amount Sodium Chloride 0.9% 1, 600 500 000 ml @ 75 mls/hr IV . [id number] [facility] Rx#:[id number] Oral 360 Output: Urine 600 Other: # Voids 1 - Labs CBC & Chem 7: 07/30/21 11:02 07/31/21 13:18 Labs: Abnormal Lab Results - Last 24 Hours (Table) 07/31/21 Range/Units 13:18 Sodium 135 L (137-145) mmol/L Potassium 3.3 L (3.5-5.1) mmol/L Chloride 91 L (98-107) mmol/L Carbon Dioxide 38 H (22-30) mmol/L
--- NOTE | 2021-07-31 18:21 | PN ---
PROGRESS NOTE DATE OF SERVICE: 07/30/2021 CHIEF COMPLAINT: Dehydration and electrolyte imbalance. HISTORY OF PRESENT ILLNESS: This gentleman is feeling much better. His strength is coming back. His potassium is still quite low; below 3. PHYSICAL EXAMINATION: Chest is clear. Cardiac exam is normal. Abdomen is soft, nontender. IMPRESSION: 1. Dehydration. 2. Hypokalemia. 3. Cardiomyopathy. 4. Congestive heart failure. PLAN: Continue with potassium replacement, and probably home tomorrow. MMODL / IJN: [id number] /
--- NOTE | 2021-07-31 18:46 | DS ---
DISCHARGE SUMMARY DATE OF DISCHARGE: 07/31/2021 CHIEF COMPLAINT: Weakness, dehydration and electrolyte imbalance. HISTORY OF PRESENT ILLNESS AND PHYSICAL EXAM: Details of this man's history and physical can be found in the initial workup. COURSE IN THE HOSPITAL: After admission he was placed on bedrest, started on intravenous fluids, and efforts were made to correct his hypokalemia. As he was rehydrated, his strength returned and he had no further difficulty. His potassium remained fairly low and was being repeated on the day of discharge. He had to leave the hospital to ensure that he got to work or he would lose his job. He will be sent home on an increased dose of potassium along with his usual medications and he will be seen in several days. FINAL DIAGNOSIS: 1. Dehydration. 2. Hypokalemia. 3. Hyponatremia. 4. Congestive heart failure. 5. Cardiomyopathy. OPERATIONS: None. CONSULTATIONS: None. He is improved. MMMARY / LEIDY: [id number] /
== END 2021-07-31 15:58 | disposition home or self-care (01) | DRG 292 ==
LOC: EC 16:35 → 3SCARD 20:17
PROVIDERS: ADMIT Family Medicine; ATTEND Family Medicine
DX: I11.0 Hypertensive heart disease with heart failure (principal); I48.19 Other persistent atrial fibrillation; Z68.43 Body mass index [BMI] 50.0-59.9, adult; E87.1 Hypo-osmolality and hyponatremia; E87.6 Hypokalemia; I42.9 Cardiomyopathy, unspecified; I50.32 Chronic diastolic (congestive) heart failure; E66.01 Morbid (severe) obesity due to excess calories; E78.5 Hyperlipidemia, unspecified; E86.0 Dehydration; G47.33 Obstructive sleep apnea (adult) (pediatric); I25.10 Atherosclerotic heart disease of native coronary artery without angina pectoris; R09.02 Hypoxemia; I08.1 Rheumatic disorders of both mitral and tricuspid valves; R19.7 Diarrhea, unspecified; R77.8 Other specified abnormalities of plasma proteins; E87.8 Other disorders of electrolyte and fluid balance, not elsewhere classified; F41.9 Anxiety disorder, unspecified; F32.A Depression, unspecified; Z20.822 Contact with and (suspected) exposure to COVID-19; Z79.01 Long term (current) use of anticoagulants; Z79.82 Long term (current) use of aspirin; Z91.128 Patient's intentional underdosing of medication regimen for other reason; Z91.14 Patient's other noncompliance with medication regimen; Z91.19 Patient's noncompliance with other medical treatment and regimen; Z86.79 Personal history of other diseases of the circulatory system; Z87.01 Personal history of pneumonia (recurrent); Z87.09 Personal history of other diseases of the respiratory system; Z87.828 Personal history of other (healed) physical injury and trauma; Z98.890 Other specified postprocedural states; Z90.49 Acquired absence of other specified parts of digestive tract; Z82.49 Family history of ischemic heart disease and other diseases of the circulatory system; Z83.3 Family history of diabetes mellitus; Z83.42 Family history of familial hypercholesterolemia
CPT/HCPCS: 36415; 36600; 71046; 71275; 80048; 80051; 80053; 82803; 82805; 83735; 83880; 84484; 85025; 85610; 85730; 87502; 87635; 93005; 93306; 96361; 96374; 99285

== ENCOUNTER 2021-08-03 14:59 | Observation (INO) | payer OTHER ==
[2021-08-03] MEDS ORDERED: FUROSEMIDE 10 MG/ML 4 ML VIAL IV STA (18:02)
[2021-08-03] MEDS ORDERED: NITROGLYCERIN OINT 1 INCH/GM PACKET TOPICAL STA (18:02)
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
[2021-08-03 18:39] LABS: Anisocytosis Slight; Basophils # (A) 0.1 k/uL (0-0.2); Basophils % (A) 1 %; Eosinophils # (A) 0.2 k/uL (0-0.7); Eosinophils % (A) 3 %; HCT 49.5 % (39.0-53.0); HGB 14.9 gm/dL (13.0-17.5); Hypochromasia Marked; Lymphocytes # (A) 1.4 k/uL (1.0-4.8); Lymphocytes % (A) 20 %; MCH 24.2 pg (25.0-35.0); MCHC 30.2 g/dL (31.0-37.0); MCV 80.2 fL (80.0-100.0); Mean Platelet Volume 7.7; Monocytes # (A) 0.4 k/uL (0-1.0); Monocytes % (A) 6 %; Neutrophils # (A) 4.7 k/uL (1.3-7.7); Neutrophils % (A) 68 %; Platelet Count 219 k/uL (150-450); Poikilocytosis Slight; RBC 6.17 m/uL (4.30-5.90); RDW 16.2 % (11.5-15.5)
[2021-08-03 18:47] LABS: Partial Thromboplastin Time 23.8 sec (22.0-30.0); Prothrombin Time 10.6 sec (9.0-12.0)
[2021-08-03 18:52] LABS: ALT 35 U/L (4-49); AST 32 U/L (17-59); African American GFR (CKD) >90 (>60 ml/min/1.73 sqM); Albumin 3.6 g/dL (3.5-5.0); Alkaline Phosphatase 79 U/L (38-126); Anion Gap 5 mmol/L; Blood Urea Nitrogen 20 mg/dL (9-20); Calcium 9.2 mg/dL (8.4-10.2); Carbon Dioxide 36 mmol/L (22-30); Chloride 97 mmol/L (98-107); Glucose 91 mg/dL (74-99); Magnesium 1.6 mg/dL (1.6-2.3); Non-African American GFR(CKD) 86 (>60 ml/min/1.73 sqM); Potassium 3.6 mmol/L (3.5-5.1); Sodium 138 mmol/L (137-145); Total Bilirubin 0.4 mg/dL (0.2-1.3); Total Protein 6.4 g/dL (6.3-8.2)
--- NOTE | 2021-08-03 19:05 | XR ---
EXAMINATION TYPE: XR chest 2V DATE OF EXAM: 08/03/2021 6:16 PM COMPARISON: Chest radiographs from 07/30/2021 TECHNIQUE: XR chest 2V Frontal and lateral views of the chest. CLINICAL INDICATION:Male, 60 years old with history of difficulty breathing; FINDINGS: Lungs/Pleura: There is no evidence of pleural effusion, focal consolidation, or pneumothorax. Pulmonary vascularity: Pulmonary vascular congestion. Heart/mediastinum: Cardiomediastinal silhouette is enlarged and stable. Musculoskeletal: No acute osseous pathology. IMPRESSION: Similar thyromegaly and mild pulmonary vascular congestion. Correlate with BNP for congestive heart f ailure.
[2021-08-03] MEDS ORDERED: KETOROLAC 15 MG/ML 1 ML VIAL IVP STA (19:44)
[2021-08-03] MEDS ORDERED: ACETAMINOPHEN TAB 500 MG TAB PO STA (20:53)
[2021-08-03] MEDS: NITROGLYCERIN OINT 1 INCH/GM PACKET TOPICAL SCH (21:58)
[2021-08-04] MEDS: FUROSEMIDE 40 MG TAB PO SCH ×2 (02:26→08:26)
[2021-08-04] MEDS: HYDROcodone/APAP 5-325MG 1 EACH TAB PO PRN ×4 (04:36→21:01)
[2021-08-04] MEDS: NITROGLYCERIN OINT 1 INCH/GM PACKET TOPICAL SCH (08:26)
[2021-08-04] MEDS ORDERED: HYDROmorphone 1 MG/ML 1 ML SYRINGE IVP STA (08:47)
[2021-08-04] MEDS ORDERED: SACUBITRIL/VALSARTAN 24 MG-26 MG TABLET PO SCH (09:30)
[2021-08-04] MEDS ORDERED: CYCLOBENZAPRINE 10 MG TAB PO PRN (10:33)
[2021-08-04 11:17] LABS: African American GFR (CKD) >90 (>60 ml/min/1.73 sqM); Anion Gap 4 mmol/L; Blood Urea Nitrogen 20 mg/dL (9-20); Calcium 8.4 mg/dL (8.4-10.2); Carbon Dioxide 40 mmol/L (22-30); Chloride 94 mmol/L (98-107); Glucose 122 mg/dL (74-99); Non-African American GFR(CKD) 82 (>60 ml/min/1.73 sqM); Potassium 3.5 mmol/L (3.5-5.1); Sodium 138 mmol/L (137-145)
--- NOTE | 2021-08-04 11:30 | HP ---
HISTORY AND PHYSICAL CHIEF COMPLAINT: Edema and shortness of breath. HISTORY OF PRESENT ILLNESS: This is another admission for this 60-year-old white male. He was just in the hospital last week for dehydration, hypokalemia. This gentleman left the hospital and someone told him not to take any diuretics. After several days, he noticed that he was rapidly gaining weight, becoming increasingly short of breath and developed anterior chest discomfort. He came to the office back in heart failure. It was thought we might be able to treat him as an outpatient, but he was more concerned about going into acute pulmonary edema. He was sent to the emergency room for evaluation and admitted. REVIEW OF SYSTEMS: He denies any focal neurologic deficits, hemoptysis, etc. He has had no fever or chills. Past medical history, family history and personal and social histories are all otherwise unremarkable and unchanged from recent admitting and discharge summaries. He went home without his Lasix, which is normally 80 mg twice a day, and metolazone 10 mg once a day. PHYSICAL EXAMINATION: Blood pressure 160/80 with a pulse of 100 and regular, respirations of 35. In general, he appeared to be overweight and short of breath. He was obviously edematous. Head, ears, eyes, nose, mouth and throat were otherwise normal. Chest demonstrated poor breath sounds with scattered rales. Cardiac exam demonstrated tachycardia. Abdomen is soft and protuberant. Extremities slightly edematous. IMPRESSION: He is admitted in the hospital with diagnoses of: 1. Acute congestive heart failure. 2. Chronic khan systolic and diastolic heart failure. 3. Cardiomyopathy. 4. Hypertension. 5. Renal failure. 6. Obesity. 7. Arrhythmia. PLAN: 1. Bedrest. 2. IV fluids. 3. Reinstitute diuretics. 4. Cardiology consult. MMODL / IJN: [id number] /
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
[2021-08-04] MEDS: METOPROLOL SUCCINATE (ER) 50 MG TAB.ER.24H PO SCH (13:55)
[2021-08-04] MEDS: APIXABAN 5 MG TAB PO SCH ×2 (13:55→22:56)
[2021-08-04] MEDS: SPIRONOLACTONE 25 MG TAB PO SCH (13:56)
[2021-08-04] MEDS: ASPIRIN 81 MG PO SCH (13:56)
[2021-08-04] MEDS ORDERED: FUROSEMIDE 40 MG TAB PO SCH (16:00)
[2021-08-04] MEDS ORDERED: FUROSEMIDE 10 MG/ML 4 ML VIAL IV SCH (16:00)
[2021-08-04] MEDS: ALBUTEROL NEBULIZED 2.5 MG/3 ML INHALATION PRN (16:04)
[2021-08-04 16:41] VITALS: BMI 50.1
[2021-08-04] MEDS: POTASSIUM CHLORIDE ER 20 MEQ TAB.ER PO SCH ×2 (17:23→21:01)
--- NOTE | 2021-08-04 19:03 | PN ---
PROGRESS NOTE CHIEF COMPLAINT: Acute on chronic congestive heart failure. HISTORY OF PRESENT ILLNESS: This gentleman is feeling a little bit better. He is complaining of some shoulder pain. He has had no fever, chills, chest pain, etc. PHYSICAL EXAMINATION: He is slightly less edematous. Chest still demonstrates decreased breath sounds with rales throughout. The cardiac exam is normal. His abdomen is soft. IMPRESSION: 1. Acute on chronic congestive heart failure. 2. Cardiomyopathy. 3. Atrial fibrillation. 4. Renal failure. 5. Low back pain. PLAN: 1. Continue with diuresis. 2. He will be seen by Cardiology. MMODL / IJN: [id number] /
[2021-08-04] MEDS: buPROPion SR 150 MG TABLET.ER PO SCH (21:01)
[2021-08-05] MEDS: HYDROcodone/APAP 5-325MG 1 EACH TAB PO PRN ×4 (03:19→21:21)
[2021-08-05] MEDS ORDERED: FUROSEMIDE 10 MG/ML 4 ML VIAL IV SCH (06:00)
[2021-08-05] MEDS: SACUBITRIL/VALSARTAN 24 MG-26 MG TABLET PO SCH ×2 (06:13→21:21)
[2021-08-05 07:52] LABS: African American GFR (CKD) >90 (>60 ml/min/1.73 sqM); Blood Urea Nitrogen 19 mg/dL (9-20); Calcium 8.3 mg/dL (8.4-10.2); Glucose 116 mg/dL (74-99); Magnesium 1.3 mg/dL (1.6-2.3); Potassium 3.7 mmol/L (3.5-5.1)
[2021-08-05 08:11] LABS: Chloride 92 mmol/L (98-107); Non-African American GFR(CKD) 85 (>60 ml/min/1.73 sqM); Sodium 137 mmol/L (137-145)
[2021-08-05 08:17] LABS: Anion Gap 7 mmol/L; Carbon Dioxide 38 mmol/L (22-30)
[2021-08-05] MEDS: METOPROLOL SUCCINATE (ER) 50 MG TAB.ER.24H PO SCH (08:18)
[2021-08-05] MEDS: APIXABAN 5 MG TAB PO SCH ×2 (08:18→21:21)
[2021-08-05] MEDS: buPROPion SR 150 MG TABLET.ER PO SCH ×2 (08:18→21:21)
[2021-08-05] MEDS: SPIRONOLACTONE 25 MG TAB PO SCH (08:19)
[2021-08-05] MEDS: POTASSIUM CHLORIDE ER 20 MEQ TAB.ER PO SCH ×3 (08:19→21:21)
[2021-08-05] MEDS: ASPIRIN 81 MG PO SCH (08:19)
[2021-08-05] MEDS: metOLazone 5 MG TAB PO SCH (08:20)
[2021-08-05] MEDS: ALBUTEROL NEBULIZED 2.5 MG/3 ML INHALATION PRN (09:01)
[2021-08-05] MEDS: FUROSEMIDE 40 MG TAB PO SCH ×2 (09:25→15:47)
--- NOTE | 2021-08-05 11:25 | P.PN ---
Subjective Progress Note Date: 08/05/21 This is a pleasant 60-year-old male past medical history significant for permanent atrial fibrillation on Eliquis , nonobstructive coronary artery disease, morbid obesity, hypertension, dyslipidemia and obstructive sleep apnea, non-compliance with medications, chronic back pain. Does not follow with a marketing representative regularly, suppose to follow up with Dr. Oliver. We are consulted for congestive heart failure. Patient presents with worsening shortness of breath, orthopnea and PND. He was recently admitted in 07/2021 with fatigue and tiredness found to be hypokalemic, hypnonatremic, and dehydration improved with IV Fluids. His Lasix was stopped secondary to this. He left AMA. He has been off his PO Lasix at home for 1 week. He states over the past couple days his symptoms of shortness of breath and orthopnea have worsened. He endorses lightheadedness. Denies syncope or loss of consciousness. He denies chest pain. He was started on IV Lasix. States his breathing has improved. He states he has urinated frequently in the ER, with improvement in his symptoms. DIAGNOSTICS EKG: Atrial fibrillation, heart rate 105, incomplete right bundle branch block, no acute ST-T wave abnormalities. Labs, troponin 0.07, proBNP 0, sodium 138, potassium 3.5, BUN 20, serum creatinine 1.0 Chest x-ray revealed pulmonary vascular congestion Echocardiogram 07/2021 was performed which shows preserved EF however somewhat technically difficult. Lexiscan stress test 05/2020 revealed fixed defects along the apical anterior wall and apical inferior wall. No definite suspicious reversibility. Mild LV chamber enlargement and mild global hypokinesis a decreased LVEF of 46%. Echocardiogram 04/2020 revealed EF of 4550 percent, mild mitral regurgitation, mild tricuspid regurgitation Cardiac catheterization in June 2019 mild to moderate nonobstructive disease involving the RCA 08/05/2021 Patient examined this morning at the bedside. She denies chest pain or pressure. She reports mild shortness of breath. She has been transitioned to oral Lasix today. PHYSICAL EXAMINATION Vitals reviewed CONSTITUTIONAL: No apparent distress. Poor recall HEENT: Head is normocephalic. Pupils are equal, round. Sclerae anicteric. Mucous membranes of the mouth are moist. No JVD. No carotid bruit. CHEST EXAMINATION: Lungs crackles in basesd to auscultation. No chest wall tenderness is noted on palpation or with deep breathing. HEART EXAMINATION: Irregular rate and rhythm. S1, S2 heard. Systolic ejection murmur noted. No gallops or rub. ABDOMEN: Soft, nontender. Positive bowel sounds. EXTREMITIES: 2+ peripheral pulses, trace bilateral lower extremity edema and no calf tenderness. NEUROLOGIC EXAMINATION: Patient is awake, alert and oriented x3. ASSESSMENT Acute on Chronic heart failure with preserved ejection fraction History of cardiomyopathy, appears improved by most recent echo Permanent atrial fibrillation on Eliquis History of hypertension Mild to moderate non-obstructive coronary artery disease Morbid obesity BMI 50 Dyslipidemia Obstructive sleep apnea Hypokalemia Fatigue may be related to hypokalemia Hyponatremia, improved with IVF PLAN Continue current cardiac medications Continue oral lasix Possible discharge this afternoon versus tomorrow Further recommendations based on clinical course Nurse practitioner note has been reviewed by physician. Signing provider agrees with the documented findings, assessment, and plan of care. Objective - Vital Signs Vital signs: Vital Signs Temp 98.3 F 08/05/21 08:00 Pulse 85 08/05/21 09:13 Resp 19 08/05/21 08:00 BP 122/70 08/05/21 08:00 Pulse Ox 89 L 08/05/21 09:03 FiO2 Intake & Output 08/04/21 08/05/21 08/05/21 18:59 06:59 18:59 Intake Total 240 Output Total 1900 1360 1650 Balance -1900 -1360 -1410 Weight 172.365 kg 167.3 kg Intake: Oral 240 Output: Urine 1900 1360 1650 Other: Voiding Method Urinal - Labs CBC & Chem 7: 08/03/21 18:09 08/05/21 07:05 Labs: Abnormal Lab Results - Last 24 Hours (Table) 08/05/21 Range/Units 07:05 Chloride 92 L (98-107) mmol/L Carbon Dioxide 38 H (22-30) mmol/L Glucose 116 H (74-99) mg/dL Calcium 8.3 L (8.4-10.2) mg/dL Magnesium 1.3 L (1.6-2.3) mg/dL
--- NOTE | 2021-08-05 15:21 | PN ---
PROGRESS NOTE CHIEF COMPLAINT: Acute congestive heart failure. HISTORY OF PRESENT ILLNESS: This gentleman is doing fairly well. He has diuresed. Chest discomfort and shortness of breath are resolved. His potassium is still normal at 3.7. He feels much better. PHYSICAL EXAMINATION: Chest is clear. Cardiac exam is normal. Abdomen is soft, nontender. IMPRESSION: 1. Acute congestive heart failure. 2. Chronic congestive heart failure. 3. Cardiomyopathy. PLAN: If he continues to be stable and do well, he will be released tomorrow. MMODL / IJN: [id number] /
[2021-08-06] MEDS: HYDROcodone/APAP 5-325MG 1 EACH TAB PO PRN ×3 (04:02→21:34)
[2021-08-06] MEDS: ALBUTEROL NEBULIZED 2.5 MG/3 ML INHALATION PRN (07:18)
[2021-08-06] MEDS: SPIRONOLACTONE 25 MG TAB PO SCH (08:25)
[2021-08-06] MEDS: POTASSIUM CHLORIDE ER 20 MEQ TAB.ER PO SCH ×3 (08:25→21:36)
[2021-08-06] MEDS: ASPIRIN 81 MG PO SCH (08:25)
[2021-08-06] MEDS: APIXABAN 5 MG TAB PO SCH ×2 (08:25→21:34)
[2021-08-06] MEDS: FUROSEMIDE 40 MG TAB PO SCH ×2 (08:25→17:09)
[2021-08-06] MEDS: METOPROLOL SUCCINATE (ER) 50 MG TAB.ER.24H PO SCH (08:25)
[2021-08-06] MEDS: SACUBITRIL/VALSARTAN 24 MG-26 MG TABLET PO SCH ×2 (08:26→21:36)
[2021-08-06] MEDS: buPROPion SR 150 MG TABLET.ER PO SCH ×2 (08:26→21:36)
[2021-08-06] MEDS: metOLazone 5 MG TAB PO SCH (08:26)
[2021-08-06 11:29] LABS: African American GFR (CKD) >90 (>60 ml/min/1.73 sqM); Blood Urea Nitrogen 20 mg/dL (9-20); Chloride 88 mmol/L (98-107); Glucose 119 mg/dL (74-99); Non-African American GFR(CKD) >90 (>60 ml/min/1.73 sqM); Potassium 3.9 mmol/L (3.5-5.1); Sodium 136 mmol/L (137-145)
--- NOTE | 2021-08-06 11:32 | P.PN ---
Subjective Progress Note Date: 08/06/21 This is a pleasant 60-year-old male past medical history significant for permanent atrial fibrillation on Eliquis , nonobstructive coronary artery disease, morbid obesity, hypertension, dyslipidemia and obstructive sleep apnea, non-compliance with medications, chronic back pain. Does not follow with a undercover operator regularly, suppose to follow up with Dr. Oliver. We are consulted for congestive heart failure. Patient presents with worsening shortness of breath, orthopnea and PND. He was recently admitted in 07/2021 with fatigue and tiredness found to be hypokalemic, hypnonatremic, and dehydration improved with IV Fluids. His Lasix was stopped secondary to this. He left AMA. He has been off his PO Lasix at home for 1 week. He states over the past couple days his symptoms of shortness of breath and orthopnea have worsened. He endorses lightheadedness. Denies syncope or loss of consciousness. He denies chest pain. He was started on IV Lasix. States his breathing has improved. He states he has urinated frequently in the ER, with improvement in his symptoms. DIAGNOSTICS EKG: Atrial fibrillation, heart rate 105, incomplete right bundle branch block, no acute ST-T wave abnormalities. Labs, troponin 0.07, proBNP 0, sodium 138, potassium 3.5, BUN 20, serum creatinine 1.0 Chest x-ray revealed pulmonary vascular congestion Echocardiogram 07/2021 was performed which shows preserved EF however somewhat technically difficult. Lexiscan stress test 05/2020 revealed fixed defects along the apical anterior wall and apical inferior wall. No definite suspicious reversibility. Mild LV chamber enlargement and mild global hypokinesis a decreased LVEF of 46%. Echocardiogram 04/2020 revealed EF of 4550 percent, mild mitral regurgitation, mild tricuspid regurgitation Cardiac catheterization in June 2019 mild to moderate nonobstructive disease involving the RCA 08/05/2021 Patient examined this morning at the bedside. She denies chest pain or pressure. She reports mild shortness of breath. She has been transitioned to oral Lasix today. 08/06/2021 Patient is seen and examined at the bedside. She denies having any chest pain or shortness of breath. She is asking about a chest x-ray that she thought was ordered. We will repeat chest x-ray and BMP in of this remains stable, patient is cleared for discharge. PHYSICAL EXAMINATION Vitals reviewed CONSTITUTIONAL: No apparent distress. Poor recall HEENT: Head is normocephalic. Pupils are equal, round. Sclerae anicteric. Mucous membranes of the mouth are moist. No JVD. No carotid bruit. CHEST EXAMINATION: Lungs crackles in basesd to auscultation. No chest wall tenderness is noted on palpation or with deep breathing. HEART EXAMINATION: Irregular rate and rhythm. S1, S2 heard. Systolic ejection murmur noted. No gallops or rub. ABDOMEN: Soft, nontender. Positive bowel sounds. EXTREMITIES: 2+ peripheral pulses, trace bilateral lower extremity edema and no calf tenderness. NEUROLOGIC EXAMINATION: Patient is awake, alert and oriented x3. ASSESSMENT Acute on Chronic heart failure with preserved ejection fraction History of cardiomyopathy, appears improved by most recent echo Permanent atrial fibrillation on Eliquis History of hypertension Mild to moderate non-obstructive coronary artery disease Morbid obesity BMI 50 Dyslipidemia Obstructive sleep apnea Hypokalemia Fatigue may be related to hypokalemia Hyponatremia, improved with IVF PLAN Continue current cardiac medications Continue oral lasix Possible discharge this afternoon after chest x-ray and BMP Further recommendations based on clinical course Nurse practitioner note has been reviewed by physician. Signing provider agrees with the documented findings, assessment, and plan of care. Objective - Vital Signs Vital signs: Vital Signs Temp 97.9 F 08/06/21 07:51 Pulse 88 08/06/21 07:58 Resp 19 08/06/21 07:58 BP 116/63 08/06/21 07:51 Pulse Ox 92 L 08/06/21 07:51 FiO2 Intake & Output 08/05/21 08/06/21 08/06/21 18:59 06:59 18:59 Intake Total 714 240 Output Total 2661 1300 Balance -1947 -1300 240 Weight 164.1 kg Intake: Oral 714 240 Output: Urine 2661 1300 Other: Voiding Method Urinal Urinal - Labs CBC & Chem 7: 08/03/21 18:09 08/05/21 07:05
[2021-08-06 11:38] LABS: Anion Gap 7 mmol/L
[2021-08-06 11:40] LABS: Carbon Dioxide 41 mmol/L (22-30)
--- NOTE | 2021-08-06 12:44 | XR ---
EXAMINATION TYPE: XR chest 2V DATE OF EXAM: 08/06/2021 COMPARISON: 08/03/2021 TECHNIQUE: PA and lateral views submitted. HISTORY: Difficulty breathing FINDINGS: The lungs are clear and there is no pneumothorax, pleural effusion, or focal pneumonia. Heart enlar ged and there is a coarsened interstitium. IMPRESSION: 1. Correlate for chronic interstitial lung disease, venous congestion or interstitial pneumonitis sta ble from prior exam.
--- NOTE | 2021-08-06 13:03 | PN ---
PROGRESS NOTE CHIEF COMPLAINT: Acute congestive heart failure. HISTORY OF PRESENT ILLNESS: This gentleman is improving. He is less short of breath when he is up and about. PHYSICAL EXAMINATION: He still has scattered rales throughout the posterior lung pedroza. His cardiac exam is normal. The abdomen is soft and nontender. The abdomen is protuberant and soft. IMPRESSION: 1. Acute congestive heart failure. 2. Chronic systolic and diastolic congestive heart failure. 3. Cardiomyopathy. PLAN: 1. Repeat chest x-ray. 2. Continue with diuresis and probably discharge tomorrow. MMODL / IJN: [id number] /
[2021-08-07] MEDS: APIXABAN 5 MG TAB PO SCH (08:29)
[2021-08-07] MEDS: FUROSEMIDE 40 MG TAB PO SCH ×2 (08:29→16:24)
[2021-08-07] MEDS: metOLazone 5 MG TAB PO SCH (08:29)
[2021-08-07] MEDS: ASPIRIN 81 MG PO SCH (08:29)
[2021-08-07] MEDS: SPIRONOLACTONE 25 MG TAB PO SCH (08:29)
[2021-08-07] MEDS: METOPROLOL SUCCINATE (ER) 50 MG TAB.ER.24H PO SCH (08:30)
[2021-08-07] MEDS: POTASSIUM CHLORIDE ER 20 MEQ TAB.ER PO SCH ×2 (08:30→16:24)
[2021-08-07] MEDS: HYDROcodone/APAP 5-325MG 1 EACH TAB PO PRN ×2 (08:30→14:02)
[2021-08-07] MEDS: buPROPion SR 150 MG TABLET.ER PO SCH (08:30)
[2021-08-07] MEDS: SACUBITRIL/VALSARTAN 24 MG-26 MG TABLET PO SCH (08:31)
[2021-08-07 08:40] VITALS: RESP 16; TEMP 97.4
--- NOTE | 2021-08-07 11:31 | P.PN ---
Subjective This is a pleasant 60-year-old male past medical history significant for permanent atrial fibrillation on Eliquis , nonobstructive coronary artery disease, morbid obesity, hypertension, dyslipidemia and obstructive sleep apnea, non-compliance with medications, chronic back pain. Does not follow with a zigzag machine operator regularly, suppose to follow up with Dr. Oliver. We are consulted for congestive heart failure. Patient presents with worsening shortness of breath, orthopnea and PND. He was recently admitted in 07/2021 with fatigue and tiredness found to be hypokalemic, hypnonatremic, and dehydration improved with IV Fluids. His Lasix was stopped secondary to this. He left AMA. He has been off his PO Lasix at home for 1 week. He states over the past couple days his symptoms of shortness of breath and orthopnea have worsened. He endorses lightheadedness. Denies syncope or loss of consciousness. He denies chest pain. He was started on IV Lasix. States his breathing has improved. He states he has urinated frequently in the ER, with improvement in his symptoms. 08/07/2021 Patient seen and examined at bedside, no acute distress. Denies any chest pain or shortness of breath. Repeat chest x-ray revealed chronic attritional lung di sease, no acute heart failure, stable from prior exam. Vital signs are stable. Patient with 3.9 L urine output over the past 24 hours (-3.2L balance). He is currently maintained on PO Lasix 40mg BID PHYSICAL EXAMINATION Vitals reviewed CONSTITUTIONAL: No apparent distress. Poor recall HEENT: Head is normocephalic. Pupils are equal, round. Sclerae anicteric. Mucous membranes of the mouth are moist. No JVD. No carotid bruit. CHEST EXAMINATION: Lungs crackles in basesd to auscultation. No chest wall tenderness is noted on palpation or with deep breathing. HEART EXAMINATION: Irregular rate and rhythm. S1, S2 heard. Systolic ejection murmur noted. No gallops or rub. ABDOMEN: Soft, nontender. Positive bowel sounds. EXTREMITIES: 2+ peripheral pulses, trace bilateral lower extremity edema and no calf tenderness. NEUROLOGIC EXAMINATION: Patient is awake, alert and oriented x3. ASSESSMENT Acute on Chronic heart failure with preserved ejection fraction History of cardiomyopathy, appears improved by most recent echo Permanent atrial fibrillation on Eliquis History of hypertension Mild to moderate non-obstructive coronary artery disease Morbid obesity BMI 50 Dyslipidemia Obstructive sleep apnea Hypokalemia Fatigue may be related to hypokalemia Hyponatremia, improved with IVF PLAN Continue PO Lasix 40mg BID Continue home Eliquis, aspirin, metoprolol succinate, spironolactone, Entresto Recommend follow up with Dr. Oliver in 1 week after discharge From a cardiology perspective, patient is stable on current medication regimen. We will follow the patient as needed. Please reconsult if needed. Nurse practitioner note has been reviewed by physician. Signing provider agrees with the documented findings, assessment, and plan of care. Objective - Vital Signs Vital signs: Vital Signs Temp 97.4 F L 08/07/21 08:38 Pulse 95 08/07/21 08:40 Resp 16 08/07/21 08:40 BP 100/71 08/07/21 08:38 Pulse Ox 91 L 08/07/21 08:38 FiO2 Intake & Output 08/06/21 08/07/21 08/07/21 18:59 06:59 18:59 Intake Total 480 120 Output Total 1125 1100 900 Balance -007 -1100 -780 Weight 163 kg Intake: Oral 480 120 Output: Urine 1125 1100 900 Other: Voiding Method Urinal Urinal Urinal - Labs CBC & Chem 7: 08/03/21 18:09 08/06/21 10:48 Labs: Abnormal Lab Results - Last 24 Hours (Table) 08/06/21 Range/Units 10:48 Sodium 136 L (137-145) mmol/L Chloride 88 L (98-107) mmol/L Carbon Dioxide 41 H* (22-30) mmol/L Glucose 119 H (74-99) mg/dL
[2021-08-07 15:49] VITALS: BP 97/64; PULSE 80
--- NOTE | 2021-08-07 19:24 | DS ---
DISCHARGE SUMMARY CHIEF COMPLAINT: Congestive heart failure. HISTORY OF PRESENT ILLNESS AND PHYSICAL EXAMINATION: Details of this man's history and physical can be found in the initial workup. LABORATORY STUDIES: While he was in the hospital he had laboratory studies, details of which can be found in the laboratory section of his chart. COURSE IN THE HOSPITAL: After admission he was placed on bedrest, started on intravenous fluids and diuresis. His breathing improved after he lost about 15 pounds of water. He was doing well and it was felt that he could be discharged. He will be sent home on his usual medication, but this time he will be taking Lasix and metolazone. He will be seen in the office in several days. FINAL DIAGNOSIS: 1. Acute congestive heart failure. 2. Chronic gastric congestive heart failure. 3. Cardiomyopathy. OPERATIONS: None. CONSULTATIONS: None. He is improved. NEGRITA / LEIDY: [id number] /
== END 2021-08-07 17:13 | disposition home or self-care (01) ==
LOC: EC 14:59 → 3SCARD 20:05 → OBSVTOIN 08-07 07:51 → INTOOBSV 08-07 07:51 → UNDODISIN 08-07 17:13
PROVIDERS: ADMIT Family Medicine; ATTEND Family Medicine
DX: I13.0 Hypertensive heart and chronic kidney disease with heart failure and stage 1 through stage 4 chronic kidney disease, or unspecified chronic kidney disease (principal); I50.33 Acute on chronic diastolic (congestive) heart failure; E87.1 Hypo-osmolality and hyponatremia; E87.6 Hypokalemia; E86.0 Dehydration; I42.9 Cardiomyopathy, unspecified; I48.21 Permanent atrial fibrillation; N18.9 Chronic kidney disease, unspecified; I45.10 Unspecified right bundle-branch block; G47.33 Obstructive sleep apnea (adult) (pediatric); I25.10 Atherosclerotic heart disease of native coronary artery without angina pectoris; E78.5 Hyperlipidemia, unspecified; I08.1 Rheumatic disorders of both mitral and tricuspid valves; F32.A Depression, unspecified; F41.9 Anxiety disorder, unspecified; G89.29 Other chronic pain; M54.50 Low back pain, unspecified; R79.89 Other specified abnormal findings of blood chemistry; T50.1X6A Underdosing of loop [high-ceiling] diuretics, initial encounter; Z91.128 Patient's intentional underdosing of medication regimen for other reason; E66.01 Morbid (severe) obesity due to excess calories; Z68.43 Body mass index [BMI] 50.0-59.9, adult; Z91.14 Patient's other noncompliance with medication regimen; Z71.3 Dietary counseling and surveillance; Z79.82 Long term (current) use of aspirin; Z79.01 Long term (current) use of anticoagulants; Z79.899 Other long term (current) drug therapy; Z90.49 Acquired absence of other specified parts of digestive tract; Z87.01 Personal history of pneumonia (recurrent); Z87.820 Personal history of traumatic brain injury; Z87.19 Personal history of other diseases of the digestive system; Z98.890 Other specified postprocedural states; Z83.3 Family history of diabetes mellitus; Z82.49 Family history of ischemic heart disease and other diseases of the circulatory system; Z83.49 Family history of other endocrine, nutritional and metabolic diseases
CPT/HCPCS: 96376 ×2; 96374; 96375 ×2; 99285; 36415; 94640 ×2; 94760 ×2; 93005; 83880; 80053; 80048 ×3; 83605; 83735 ×2; 84484; 85025; 85610; 85730; 71046 ×2; G0378 ×5; J1940 ×3; S0106 ×4; J1170; J1885

== ENCOUNTER 2021-10-20 18:57 | Inpatient (IN) | payer OTHER ==
[2021-10-20] MEDS ORDERED: NITROGLYCERIN SL TABS 0.4 MG TAB SUBLINGUAL STA (19:35)
[2021-10-20 19:45] LABS: Anisocytosis Slight; Basophils # (A) 0.1 k/uL (0-0.2); Basophils % (A) 1 %; Eosinophils # (A) 0.2 k/uL (0-0.7); Eosinophils % (A) 2 %; HCT 50.8 % (39.0-53.0); HGB 14.6 gm/dL (13.0-17.5); Hypochromasia Marked; Lymphocytes # (A) 1.3 k/uL (1.0-4.8); Lymphocytes % (A) 18 %; MCH 23.5 pg (25.0-35.0); MCHC 28.7 g/dL (31.0-37.0); MCV 81.8 fL (80.0-100.0); Mean Platelet Volume 8.7; Microcytosis Slight; Monocytes # (A) 0.5 k/uL (0-1.0); Monocytes % (A) 7 %; Neutrophils # (A) 4.9 k/uL (1.3-7.7); Neutrophils % (A) 69 %; Platelet Count 195 k/uL (150-450); Poikilocytosis Slight; RBC 6.21 m/uL (4.30-5.90); WBC 7.1 k/uL (3.8-10.6)
[2021-10-20] MEDS ORDERED: MORPHINE SULFATE 4 MG/ML SYRINGE IVP STA (19:45)
[2021-10-20] MEDS ORDERED: ASPIRIN 81 MG PO STA (19:46)
[2021-10-20 19:55] LABS: INR 1.1 (<1.2); Partial Thromboplastin Time 24.3 sec (22.0-30.0); Prothrombin Time 11.8 sec (9.0-12.0)
[2021-10-20 19:58] LABS: Albumin 3.7 g/dL (3.5-5.0); Calcium 9.2 mg/dL (8.4-10.2); Magnesium 1.6 mg/dL (1.6-2.3); Total Bilirubin 0.9 mg/dL (0.2-1.3); Total Protein 6.5 g/dL (6.3-8.2)
[2021-10-20 20:00] LABS: Potassium 3.5 mmol/L (3.5-5.1)
--- NOTE | 2021-10-20 20:22 | XR ---
EXAMINATION TYPE: XR chest 2V DATE OF EXAM: 10/20/2021 COMPARISON: 08/06/2021 HISTORY: Short of breath TECHNIQUE: FINDINGS: Heart is enlarged. There is mild pulmonary congestion. There are no hilar masses. Mediastin um is normal. Bony thorax is intact. No definite pleural fluid. IMPRESSION: Cardiomegaly and mild congestion. No obvious heart failure. No significant change.
[2021-10-20] MEDS ORDERED: FUROSEMIDE 10 MG/ML 4 ML VIAL IV STA (21:05)
[2021-10-20] MEDS ORDERED: NALOXONE 0.4 MG/ML 1 ML VIAL IV PRN (21:07)
[2021-10-20] MEDS ORDERED: ONDANSETRON 4 MG/2 ML VIAL IVP PRN (21:07)
[2021-10-20] MEDS: APIXABAN 5 MG TAB PO SCH (21:15)
[2021-10-20] MEDS: MORPHINE SULFATE 4 MG/ML SYRINGE IV PRN (21:15)
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
[2021-10-21] MEDS: MORPHINE SULFATE 4 MG/ML SYRINGE IV PRN ×3 (01:15→18:47)
[2021-10-21 08:09] LABS: Anisocytosis Slight; Basophils # (A) 0.1 k/uL (0-0.2); Basophils % (A) 1 %; Eosinophils # (A) 0.2 k/uL (0-0.7); Eosinophils % (A) 3 %; HCT 50.1 % (39.0-53.0); HGB 14.6 gm/dL (13.0-17.5); Hypochromasia Marked; Lymphocytes # (A) 0.9 k/uL (1.0-4.8); Lymphocytes % (A) 12 %; MCH 24.6 pg (25.0-35.0); MCHC 29.2 g/dL (31.0-37.0); MCV 84.4 fL (80.0-100.0); Mean Platelet Volume 8.5; Monocytes # (A) 0.6 k/uL (0-1.0); Monocytes % (A) 8 %; Neutrophils # (A) 5.4 k/uL (1.3-7.7); Neutrophils % (A) 74 %; Platelet Count 181 k/uL (150-450); RBC 5.93 m/uL (4.30-5.90); WBC 7.3 k/uL (3.8-10.6)
[2021-10-21 08:23] LABS: Calcium 8.6 mg/dL (8.4-10.2); Potassium 3.8 mmol/L (3.5-5.1)
[2021-10-21] MEDS: POTASSIUM CHLORIDE ER 20 MEQ TAB.ER PO SCH ×2 (08:49→16:48)
[2021-10-21] MEDS: buPROPion SR 150 MG TABLET.ER PO SCH ×2 (08:49→20:59)
[2021-10-21] MEDS: APIXABAN 5 MG TAB PO SCH ×2 (08:49→20:59)
[2021-10-21] MEDS: ASPIRIN 81 MG PO SCH (08:49)
[2021-10-21] MEDS ORDERED: FUROSEMIDE 10 MG/ML 4 ML VIAL IV SCH (09:00)
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
[2021-10-21] MEDS: SACUBITRIL/VALSARTAN 24 MG-26 MG TABLET PO SCH ×2 (11:36→20:59)
--- NOTE | 2021-10-21 13:08 | CA ---
Transthoracic Echo Report Name: Vance Lee Age: 60 Gender: M : 1960 Exam Date: 10/21/2021 07:09 Exam Location: [place] [facility] Ht (in): 72 Wt (lb): 370 Ordering Physician: Destin Trotter MD Attending/Referring Phys: Manufacturing Automation Engineer Kathi Santos RDCS Procedure CPT: Indications: chf Cardiac Hx: Hx of CHF/Afib/HTN Technical Quality: Technically difficult study Contrast 1: [place] Total Dose (mL): 1 Contrast 2: Agitated Saline Total Dose (mL): 1 MEASUREMENTS (Male / Female) Normal Values 2D ECHO LV Diastolic Diameter PLAX 6.8 cm 4.2 - 5.9 / 3.9 - 5.3 cm LV Systolic Diameter PLAX 6.0 cm IVS Diastolic Thickness 1.1 cm 0.6 - 1.0 / 0.6 - 0.9 cm LVPW Diastolic Thickness 1.4 cm 0.6 - 1.0 / 0.6 - 0.9 cm LV Relative Wall Thickness 0.4 RV Internal Dim ED PLAX 3.4 cm FINDINGS Left Ventricle Mildly increased septal wall thickness. Moderately increased left ventricular diastolic diameter. Left ventricular ejection fraction is estimated at 20-25 %. Severe global hypokinesis. Right Ventricle Right Atrium Left Atrium Mitral Valve Aortic Valve Tricuspid Valve Pulmonic Valve Pericardium No pericardial effusion. Aorta CONCLUSIONS Limited echo Moderate LVH Left ventricular ejection fraction 20-25% Previewed by: Dr. Parish Breen DO (Electronically Signed) Final Date: 21 October 2021 13:06
[2021-10-21] MEDS: BUMETANIDE 0.25 MG/ML 10 ML VIAL IV SCH ×2 (14:09→23:20)
[2021-10-21] MEDS: ALBUTEROL HFA INHALER INHALATION PRN (19:22)
[2021-10-21] MEDS: HYDROcodone/APAP 5-325MG 1 EACH TAB PO PRN (20:59)
--- NOTE | 2021-10-22 03:51 | HP ---
HISTORY AND PHYSICAL CHIEF COMPLAINT: Acute congestive heart failure. HISTORY OF PRESENT ILLNESS: This is another admission for this 60-year-old overweight white male who has a history of chronic congestive heart failure. His problems started with hypertension and coronary artery disease. He has progressed to stage III or IV [place] [facility] classification congestive heart failure. He has an ejection fraction of around 20% to 25%. He has been trying to go back to work. 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 On the job, he is unable to take the Lasix and he started to redevelop fluid accumulation and shortness of breath. He continued to try to work, but the company noticed that he was laboring, walking around, and he was fired. He came in to office several days ago in extreme dyspnea and he was slightly dusky. He would not go in to the hospital. He stated that he had an interview for another job on Saturday and had to get to that and then he planned to go to the hospital for treatment. He came to the emergency room in heart failure. REVIEW OF SYSTEMS: He has been somewhat dizzy and he has lacked an appetite. He has had no chest pain. He has had orthopnea. He has been extremely short of breath even at rest. He has had no hemoptysis, nausea, vomiting, diarrhea, melena, etc. He is making urine. Past medical history, family history, and personal and social histories are exhaustive and unchanged from his recent discharge. PHYSICAL EXAMINATION: VITAL SIGNS: Blood pressure is 121/70 with a pulse of 88, respirations of 42, and he is afebrile. GENERAL: He appeared to be obese, very short of breath and slightly cyanotic. HEENT: Head, ears, eyes, nose, mouth and throat were otherwise normal. Sclerae were injected. NECK: Veins could not be assessed due to his size. CHEST: Demonstrates decreased breath sounds throughout with rales and occasional rhonchi. CARDIAC: Demonstrated atrial fibrillation with a rapid ventricular response. ABDOMEN: Protuberant and nontender. EXTREMITIES: Demonstrated 2 to 3+ edema. NEUROLOGIC: He is intact. DIAGNOSES: He is admitted to the hospital with diagnoses, 1. Acute congestive heart failure. 2. Chronic congestive heart failure. 3. Atherosclerotic cardiomyopathy. 4. Atrial fibrillation. 5. Prerenal azotemia. PLAN: 1. Bedrest. 2. IV fluids. 3. Consult Cardiology. 4. Start IV diuretics. MMODL / IJN: [id number] /
[2021-10-22] MEDS: HYDROcodone/APAP 5-325MG 1 EACH TAB PO PRN ×4 (04:19→23:46)
--- NOTE | 2021-10-22 05:51 | PN ---
PROGRESS NOTE CHIEF COMPLAINT: Acute on chronic congestive heart failure. HISTORY OF PRESENT ILLNESS: This gentleman diuresed during the night and he feels a little bit better. He is still dyspneic. He denies any chest pain. PHYSICAL EXAMINATION: CHEST: Demonstrates decreased breath sounds, particularly at the base with scattered rales. CARDIAC: Unchanged with atrial fibrillation. EXTREMITIES: Edema in the legs is slightly better. IMPRESSION: 1. Acute on chronic congestive heart failure. 2. Atherosclerotic cardiomyopathy. 3. Obesity. 4. Prerenal azotemia. PLAN: Continue with diuresis while monitoring his vital signs and renal function. MMODL / IJN: [id number] /
[2021-10-22] MEDS: ALBUTEROL HFA INHALER INHALATION PRN ×2 (08:19→11:51)
[2021-10-22] MEDS: buPROPion SR 150 MG TABLET.ER PO SCH ×2 (08:44→20:51)
[2021-10-22] MEDS: POTASSIUM CHLORIDE ER 20 MEQ TAB.ER PO SCH ×2 (08:44→15:39)
[2021-10-22] MEDS: SACUBITRIL/VALSARTAN 24 MG-26 MG TABLET PO SCH ×2 (08:44→20:51)
[2021-10-22] MEDS: ASPIRIN 81 MG PO SCH (08:44)
[2021-10-22] MEDS: APIXABAN 5 MG TAB PO SCH ×2 (08:44→20:51)
[2021-10-22] MEDS ORDERED: BENZONATATE 100 MG CAP PO PRN (11:52)
[2021-10-22] MEDS: BUMETANIDE 0.25 MG/ML 10 ML VIAL IV SCH ×2 (11:59→23:47)
[2021-10-22] MEDS: BENZONATATE 100 MG CAP PO PRN (12:05)
[2021-10-22] MEDS ORDERED: AMIODARONE 360 MG in DEXTROSE 5% IN WATER 200 ML IV ONE ×2 (12:43)
[2021-10-22] MEDS ORDERED: DEXTROSE 5% IN WATER 100 ML with AMIODARONE 150 MG IV ONE (12:43)
--- NOTE | 2021-10-22 12:43 | P.PN ---
Subjective History of present illness: This is a pleasant 60-year-old male past medical history significant for permanent atrial fibrillation on Eliquis , nonobstructive coronary artery disease, morbid obesity, hypertension, dyslipidemia and obstructive sleep apnea, non-compliance with medications, chronic back pain. Does not follow with a ceo regularly, suppose to follow up with Dr. Oliver. He has had prior admissions where he left AMA. 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 He states also however that he lost his job. He denies any chest pain or pressure. Denies any recent fevers, chills, cough. He has noticed increased lower extremity edema and shortness of breath progressive over last week. Limited tree reveals A. fib with heart rates in the 100 to 120s range. DIAGNOSTICS Echocardiogram 07/2021 was performed which shows preserved EF however somewhat technically difficult. Lexiscan stress test 05/2020 revealed fixed defects along the apical anterior wall and apical inferior wall. No definite suspicious reversibility. Mild LV chamber enlargement and mild global hypokinesis a decreased LVEF of 46%. Echocardiogram 04/2020 revealed EF of 4550 percent, mild mitral regurgitation, mild tricuspid regurgitation Cardiac catheterization in June 2019 mild to moderate nonobstructive disease involving the RCA 10/22 Patient seen and examined. Patient was changed over to Bumex 2 mg IV twice a day however states he has not been having as much urine output as he expected. Remains in A. fib with heart rates in the 90s up to 110s. Limited echo performed yesterday shows EF 20-25% PHYSICAL EXAMINATION Vitals reviewed CONSTITUTIONAL: No apparent distress. Chronically ill appearing, obese HEENT: Head is normocephalic. Pupils are equal, round. Sclerae anicteric. Mucous membranes of the mouth are moist. No JVD. No carotid bruit. CHEST EXAMINATION: Lungs crackles in basesd to auscultation. No chest wall tenderness is noted on palpation or with deep breathing. HEART EXAMINATION: Irregular rate and rhythm. S1, S2 heard. Systolic ejection murmur noted. No gallops or rub. ABDOMEN: Soft, nontender. Positive bowel sounds. EXTREMITIES: 2+ peripheral pulses, trace bilateral lower extremity edema and no calf tenderness. NEUROLOGIC EXAMINATION: Patient is awake, alert and oriented x3. ASSESSMENT Acute on Chronic heart failure with preserved ejection fraction History of cardiomyopathy, previously somewhat better to 45-50% however back down to 20-25%. May V. tach induced. Permanent atrial fibrillation on Eliquis, currently mild RVR History of hypertension Mild to moderate non-obstructive coronary artery disease Morbid obesity BMI 50 Dyslipidemia Obstructive sleep apnea Medical noncompliance PLAN Restart home medications and aggressive diuresis. Patient remains tachycardic and unclear why he is not on home beta amanda. Add Toprol 25 mg daily and monitor response. Uptitrate as able. 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 Consider LISA cardioversion if uncontrolled. Accurate ins and outs and monitor kidney function, does not believe he had much urine output with the Bumex and we will add Zaroxolyn. Further recommendations to follow. Objective - Vital Signs Vital signs: Vital Signs Temp 97.7 F 10/22/21 12:16 Pulse 113 H 10/22/21 12:16 Resp 20 10/22/21 12:16 BP 110/97 10/22/21 12:16 Pulse Ox 90 L 10/22/21 12:16 FiO2 Intake & Output 10/21/21 10/22/21 10/22/21 18:59 06:59 18:59 Intake Total 237 118 Output Total 1625 1900 500 Balance -7471 -9956 -250 Weight 167.829 kg 172.5 kg Intake: Oral 237 118 Output: Urine 1625 1900 500 Other: Voiding Method Toilet # Voids 3 2 - Labs CBC & Chem 7: 10/21/21 07:47 10/21/21 07:47
[2021-10-22] MEDS: METOPROLOL SUCCINATE (ER) 25 MG TAB.ER.24H PO SCH (13:05)
[2021-10-22] MEDS: metOLazone 5 MG TAB PO SCH (13:58)
[2021-10-22] MEDS: AMIODARONE 450 MG in DEXTROSE 5% IN WATER 250 ML IV SCH ×2 (22:36)
--- NOTE | 2021-10-23 04:31 | PN ---
PROGRESS NOTE CHIEF COMPLAINT: Acute congestive heart failure. HISTORY OF PRESENT ILLNESS: This gentleman is not doing a great deal better. He is not diuresing well. He is still very short of breath. His weight is the same. PHYSICAL EXAMINATION: LUNGS: He is still extremely short of breath, and breath sounds are diminished throughout with rales and occasional rhonchi. CARDIAC: Demonstrates his S3 and S4. ABDOMEN: Remains protuberant and soft. EXTREMITIES: Unremarkable, and there is only about 1 or 2+ edema. IMPRESSION: 1. Acute on chronic congestive heart failure. 2. Atherosclerotic cardiomyopathy. 3. Cardiorenal syndrome. PLAN: 1. Continue efforts to diurese. 2. Duc Chaves for his cough. MMODL / IJN: [id number] /
[2021-10-23] MEDS: ASPIRIN 81 MG PO SCH (08:51)
[2021-10-23] MEDS: buPROPion SR 150 MG TABLET.ER PO SCH ×2 (08:51→19:51)
[2021-10-23] MEDS: APIXABAN 5 MG TAB PO SCH ×2 (08:51→19:51)
[2021-10-23] MEDS: POTASSIUM CHLORIDE ER 20 MEQ TAB.ER PO SCH ×2 (08:51→15:35)
[2021-10-23] MEDS: metOLazone 5 MG TAB PO SCH (08:51)
[2021-10-23] MEDS: SACUBITRIL/VALSARTAN 24 MG-26 MG TABLET PO SCH ×2 (08:51→19:51)
[2021-10-23] MEDS: METOPROLOL SUCCINATE (ER) 25 MG TAB.ER.24H PO SCH (08:51)
[2021-10-23] MEDS: HYDROcodone/APAP 5-325MG 1 EACH TAB PO PRN ×3 (08:54→22:23)
[2021-10-23 10:01] LABS: African American GFR (CKD) >90 (>60 ml/min/1.73 sqM); Blood Urea Nitrogen 19 mg/dL (9-20); Chloride 84 mmol/L (98-107); Glucose 139 mg/dL (74-99); Non-African American GFR(CKD) 80 (>60 ml/min/1.73 sqM); Potassium 3.6 mmol/L (3.5-5.1); Sodium 136 mmol/L (137-145)
[2021-10-23 10:10] LABS: Anion Gap 9 mmol/L
[2021-10-23 10:22] LABS: Carbon Dioxide 43 mmol/L (22-30)
--- NOTE | 2021-10-23 12:09 | P.PN ---
Subjective This is a pleasant 60-year-old male past medical history significant for permanent atrial fibrillation on Eliquis , nonobstructive coronary artery disease, morbid obesity, hypertension, dyslipidemia and obstructive sleep apnea, non-compliance with medications, chronic back pain. Does not follow with a cut and print machine operator regularly, suppose to follow up with Dr. Oliver. He has had prior admissions where he left AMA. 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 He states also however that he lost his job. He has noticed increased lower extremity edema and shortness of breath progressive over last week. On admission, patient was in A. fib with heart rates in the 100 to 120s range. DIAGNOSTICS Echocardiogram 07/2021 was performed which shows preserved EF however somewhat technically difficult. Lexiscan stress test 05/2020 revealed fixed defects along the apical anterior wall and apical inferior wall. No definite suspicious reversibility. Mild LV chamber enlargement and mild global hypokinesis a decreased LVEF of 46%. Echocardiogram 04/2020 revealed EF of 4550 percent, mild mitral regurgitation, mild tricuspid regurgitation Cardiac catheterization in June 2019 mild to moderate nonobstructive disease involving the RCA 10/23 Patient seen and examined. Patient was changed over to Bumex 2 mg IV twice a day. Now having significant amount of urine output 6.5 L over the past 24 hours. Weight unchanged from admission. Remains in A. fib with heart rates are better controlled on IV amiodarone. Limited echo performed yesterday shows EF 20-25% PHYSICAL EXAMINATION Vitals reviewed CONSTITUTIONAL: No apparent distress. Chronically ill appearing, obese HEENT: Head is normocephalic. Neck Supple No JVD. No carotid bruit. CHEST EXAMINATION: Lungs diminished with crackles in bases to auscultation. No chest wall tenderness is noted on palpation or with deep breathing. HEART EXAMINATION: Irregular rate and rhythm. S1, S2 heard. Systolic ejection murmur noted. No gallops or rub. ABDOMEN: Soft, nontender. Positive bowel sounds. EXTREMITIES: 2+ peripheral pulses, trace bilateral lower extremity edema and no calf tenderness. NEUROLOGIC EXAMINATION: Patient is awake, alert and oriented x3. ASSESSMENT Acute on Chronic heart failure with reduced ejecyion fraction History of cardiomyopathy, previously somewhat better to 45-50% however back down to 20-25%. May be non-ischemic, tachycardia-induced. Permanent atrial fibrillation on Eliquis, currently mild RVR History of hypertension Mild to moderate non-obstructive coronary artery disease Morbid obesity BMI 50 Dyslipidemia Obstructive sleep apnea Medical noncompliance PLAN IV Bumex 2mg BID Continue Toprol 25 mg daily and monitor response. Uptitrate as able. Continue amiodarone will transition to PO after IV is completed Continue anticoagulation with Eliquis Continue Entresto Accurate I/Os, daily weights and monitor kidney function Patient may require repeat cardiac catheterization as an outpatient secondary to cardiomyopathy Further recommendations to follow Nurse practitioner note has been reviewed by physician. Signing provider agrees with the documented findings, assessment, and plan of care. Objective - Vital Signs Vital signs: Vital Signs Temp 97.9 F 10/23/21 04:00 Pulse 85 10/23/21 04:00 Resp 19 10/23/21 04:00 BP 111/61 10/23/21 04:00 Pulse Ox 93 L 10/23/21 04:00 FiO2 Intake & Output 10/22/21 10/23/21 10/23/21 18:59 06:59 18:59 Intake Total 658 898 Output Total 1250 5300 Balance -592 -4402 Weight 169.2 kg Intake: Oral 658 898 Output: Urine 1250 5300 Other: Voiding Method Toilet - Labs CBC & Chem 7: 10/21/21 07:47 10/23/21 09:13
[2021-10-23] MEDS: BUMETANIDE 0.25 MG/ML 10 ML VIAL IV SCH (13:07)
[2021-10-23] MEDS: AMIODARONE 200 MG TAB PO SCH ×2 (15:35→19:53)
[2021-10-23] MEDS: AMIODARONE 450 MG in DEXTROSE 5% IN WATER 250 ML IV SCH ×2 (17:23)
[2021-10-23] MEDS: ALPRAZolam 0.25 MG TAB PO PRN (19:51)
[2021-10-24] MEDS: BUMETANIDE 0.25 MG/ML 10 ML VIAL IV SCH ×2 (00:31→12:01)
[2021-10-24] MEDS: HYDROcodone/APAP 5-325MG 1 EACH TAB PO PRN ×3 (04:34→18:05)
--- NOTE | 2021-10-24 07:55 | PN ---
PROGRESS NOTE CHIEF COMPLAINT: Acute congestive heart failure. HISTORY OF PRESENT ILLNESS: This gentleman is doing just about the same. He is still very dyspneic and he has not diuresed a great deal. He is having no chest pain. PHYSICAL EXAMINATION: VITAL SIGNS: Normal. LUNGS: Breath sounds are greatly diminished throughout with occasional rales and wheezing. CARDIAC: Exam is unchanged. ABDOMEN: Protuberant, soft. IMPRESSION: 1. Acute congestive heart failure. 2. Chronic congestive heart failure. 3. Atherosclerotic cardiomyopathy. 4. Anxiety. PLAN: 1. He is requesting Xanax and he will be prescribed 0.25 t.i.d. p.r.n. 2. Await further suggestions and recommendations from Cardiology. MMODL / IJN: [id number] /
[2021-10-24] MEDS: AMIODARONE 200 MG TAB PO SCH ×2 (08:15→20:56)
[2021-10-24] MEDS: ASPIRIN 81 MG PO SCH (08:16)
[2021-10-24] MEDS: POTASSIUM CHLORIDE ER 20 MEQ TAB.ER PO SCH ×2 (08:16→16:30)
[2021-10-24] MEDS: metOLazone 5 MG TAB PO SCH (08:16)
[2021-10-24] MEDS: METOPROLOL SUCCINATE (ER) 25 MG TAB.ER.24H PO SCH (08:16)
[2021-10-24] MEDS: APIXABAN 5 MG TAB PO SCH ×2 (08:16→20:56)
[2021-10-24] MEDS: buPROPion SR 150 MG TABLET.ER PO SCH ×2 (08:17→20:56)
[2021-10-24] MEDS: SACUBITRIL/VALSARTAN 24 MG-26 MG TABLET PO SCH ×2 (08:17→20:56)
[2021-10-24] MEDS: ALPRAZolam 0.25 MG TAB PO PRN ×2 (08:20→16:30)
[2021-10-24 08:23] VITALS: RESP 16
[2021-10-24] MEDS: ALBUTEROL HFA INHALER INHALATION PRN (08:44)
[2021-10-24 09:12] LABS: Calcium 9.1 mg/dL (8.4-10.2); Potassium 3.3 mmol/L (3.5-5.1)
[2021-10-24] MEDS ORDERED: POTASSIUM CHLORIDE ER 20 MEQ TAB.ER PO STA (09:25)
--- NOTE | 2021-10-24 10:53 | P.PN ---
Subjective This is a pleasant 60-year-old male past medical history significant for permanent atrial fibrillation on Eliquis , nonobstructive coronary artery disease, morbid obesity, hypertension, dyslipidemia and obstructive sleep apnea, non-compliance with medications, chronic back pain. Does not follow with a software qa system specialist regularly, suppose to follow up with Dr. Oliver. He has had prior admissions where he left AMA. 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 He states also however that he lost his job. He has noticed increased lower extremity edema and shortness of breath progressive over last week. On admission, patient was in A. fib with heart rates in the 100 to 120s range. DIAGNOSTICS Echocardiogram 07/2021 was performed which shows preserved EF however somewhat technically difficult. Lexiscan stress test 05/2020 revealed fixed defects along the apical anterior wall and apical inferior wall. No definite suspicious reversibility. Mild LV chamber enlargement and mild global hypokinesis a decreased LVEF of 46%. Echocardiogram 04/2020 revealed EF of 4550 percent, mild mitral regurgitation, mild tricuspid regurgitation Cardiac catheterization in June 2019 mild to moderate nonobstructive disease involving the RCA 10/24/2021 Patient seen and examined. Patient is maintained on Bumex 2 mg IV twice a day. His breathing has improved, however, continues to be volume overloaded, urine output 3.7 L over the past 24 hours. Weight decreased. He has been transition to PO amiodarone. Limited echo performed yesterday shows EF 20-25% PHYSICAL EXAMINATION Vitals reviewed CONSTITUTIONAL: No apparent distress. Chronically ill appearing, obese HEENT: Head is normocephalic. Neck Supple No JVD. CHEST EXAMINATION: Lungs diminished with crackles in bases to auscultation. HEART EXAMINATION: Irregular rate and rhythm. S1, S2 heard. Systolic ejection murmur noted. No gallops or rub. ABDOMEN: Soft, nontender. Positive bowel sounds. EXTREMITIES: 2+ peripheral pulses, trace bilateral lower extremity edema and no calf tenderness. NEUROLOGIC EXAMINATION: Patient is awake, alert and oriented x3. ASSESSMENT Acute on Chronic heart failure with reduced ejecyion fraction History of cardiomyopathy, previously somewhat better to 45-50% however back down to 20-25%. May be non-ischemic, tachycardia-induced. Permanent atrial fibrillation on Eliquis, currently mild RVR History of hypertension Mild to moderate non-obstructive coronary artery disease Morbid obesity BMI 50 Dyslipidemia Obstructive sleep apnea Medical noncompliance PLAN IV Bumex 2mg BID Continue Toprol 25 mg daily Continue amiodarone 400mg BID (started on 10/23) Continue anticoagulation with Eliquis Continue Entresto Accurate I/Os, daily weights and monitor kidney function Patient may require repeat cardiac catheterization as an outpatient secondary to cardiomyopathy Further recommendations to follow Nurse practitioner note has been reviewed by physician. Signing provider agrees with the documented findings, assessment, and plan of care. Objective - Vital Signs Vital signs: Vital Signs Temp 98.0 F 10/24/21 04:00 Pulse 77 10/24/21 08:00 Resp 16 10/24/21 08:00 BP 130/69 10/24/21 08:00 Pulse Ox 92 L 10/24/21 08:44 FiO2 Intake & Output 10/23/21 10/24/21 10/24/21 18:59 06:59 18:59 Intake Total 956 474 Output Total 2250 1450 Balance -1294 -976 Weight 167.1 kg Intake: Oral 956 474 Output: Urine 2250 1450 Other: Voiding Method Toilet Toilet Toilet - Labs CBC & Chem 7: 10/21/21 07:47 10/24/21 08:21 Labs: Abnormal Lab Results - Last 24 Hours (Table) 10/24/21 Range/Units 08:21 Sodium 136 L (137-145) mmol/L Potassium 3.3 L (3.5-5.1) mmol/L Chloride 81 L (98-107) mmol/L Carbon Dioxide 45 H* (22-30) mmol/L BUN 26 H (9-20) mg/dL Glucose 141 H (74-99) mg/dL
[2021-10-25] MEDS: HYDROcodone/APAP 5-325MG 1 EACH TAB PO PRN ×3 (00:06→21:27)
[2021-10-25] MEDS: ALPRAZolam 0.25 MG TAB PO PRN ×2 (00:06→09:25)
[2021-10-25] MEDS: BUMETANIDE 0.25 MG/ML 10 ML VIAL IV SCH (00:46)
--- NOTE | 2021-10-25 06:34 | PN ---
PROGRESS NOTE CHIEF COMPLAINT: Congestive heart failure. HISTORY OF PRESENT ILLNESS: This gentleman is not doing well. He is getting a bit more lethargic. Renal function is deteriorating as well. PHYSICAL EXAMINATION: He is slightly dusky. Chest demonstrates decreased breath sounds throughout. Cardiac exam demonstrates atrial fibrillation and the abdomen is protuberant and soft. IMPRESSION: 1. Acute congestive heart failure. 2. Chronic congestive heart failure. 3. Cardiomyopathy. 4. Chronic kidney disease. 5. Cardiorenal syndrome. PLAN: Continue efforts to diurese while watching his renal function. Diuretic management may have to be dialed back. MMODL / IJN: [id number] /
[2021-10-25] MEDS: APIXABAN 5 MG TAB PO SCH ×2 (09:19→21:22)
[2021-10-25] MEDS: buPROPion SR 150 MG TABLET.ER PO SCH ×2 (09:19→21:22)
[2021-10-25] MEDS: ASPIRIN 81 MG PO SCH (09:19)
[2021-10-25] MEDS: SACUBITRIL/VALSARTAN 24 MG-26 MG TABLET PO SCH ×2 (09:19→21:22)
[2021-10-25] MEDS: metOLazone 5 MG TAB PO SCH (09:19)
[2021-10-25] MEDS: AMIODARONE 200 MG TAB PO SCH ×2 (09:19→21:22)
[2021-10-25] MEDS: METOPROLOL SUCCINATE (ER) 25 MG TAB.ER.24H PO SCH (09:20)
[2021-10-25] MEDS: POTASSIUM CHLORIDE ER 20 MEQ TAB.ER PO SCH ×2 (09:20→16:43)
[2021-10-25 09:55] LABS: Calcium 9.2 mg/dL (8.4-10.2); Magnesium 1.7 mg/dL (1.6-2.3); Potassium 3.7 mmol/L (3.5-5.1)
--- NOTE | 2021-10-25 14:28 | P.PN ---
Subjective This is a pleasant 60-year-old male past medical history significant for permanent atrial fibrillation on Eliquis , nonobstructive coronary artery disease, morbid obesity, hypertension, dyslipidemia and obstructive sleep apnea, non-compliance with medications, chronic back pain. Does not follow with a gmat tutor regularly, suppose to follow up with Dr. Oliver. He has had prior admissions where he left AMA. 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 He states also however that he lost his job. He has noticed increased lower extremity edema and shortness of breath progressive over last week. On admission, patient was in A. fib with heart rates in the 100 to 120s range. DIAGNOSTICS Echocardiogram 07/2021 was performed which shows preserved EF however somewhat technically difficult. Lexiscan stress test 05/2020 revealed fixed defects along the apical anterior wall and apical inferior wall. No definite suspicious reversibility. Mild LV chamber enlargement and mild global hypokinesis a decreased LVEF of 46%. Echocardiogram 04/2020 revealed EF of 4550 percent, mild mitral regurgitation, mild tricuspid regurgitation Cardiac catheterization in June 2019 mild to moderate nonobstructive disease involving the RCA 10/25/2021 Patient seen and examined. Patient is maintained on Bumex 2 mg IV twice a day. His breathing has improved significantly. urine output 3.4 L over the past 24 hours. Weight decreased. He has been transition to PO amiodarone. Limited echo performed yesterday shows EF 20-25% PHYSICAL EXAMINATION Vitals reviewed CONSTITUTIONAL: No apparent distress. Chronically ill appearing, obese HEENT: Head is normocephalic. Neck Supple No JVD. CHEST EXAMINATION: Lungs diminished in bases to auscultation. HEART EXAMINATION: Irregular rate and rhythm. S1, S2 heard. Systolic ejection murmur noted. No gallops or rub. ABDOMEN: Soft, nontender. Positive bowel sounds. EXTREMITIES: 2+ peripheral pulses, trace bilateral lower extremity edema and no calf tenderness. NEUROLOGIC EXAMINATION: Patient is awake, alert and oriented x3. ASSESSMENT Acute on Chronic heart failure with reduced ejecyion fraction History of cardiomyopathy, previously somewhat better to 45-50% however back down to 20-25%. May be non-ischemic, tachycardia-induced. Permanent atrial fibrillation on Eliquis, currently mild RVR History of hypertension Mild to moderate non-obstructive coronary artery disease Morbid obesity BMI 50 Dyslipidemia Obstructive sleep apnea Medical noncompliance PLAN Transition to PO Bumex 2mg in the morning and 1mg at night Continue Toprol 25 mg daily Continue amiodarone 400mg BID (started on 10/23) Continue anticoagulation with Eliquis Continue Entresto From a cardiology perspective, patient is stable to be discharged home later tod ay pending clearance from primary. Educated patient on importance of follow up Close follow up outpatient with Dr. Oliver Nurse practitioner note has been reviewed by physician. Signing provider agrees with the documented findings, assessment, and plan of care. Objective - Vital Signs Vital signs: Vital Signs Temp 98.2 F 10/25/21 03:27 Pulse 73 10/25/21 12:00 Resp 16 10/25/21 12:00 BP 103/72 10/25/21 12:00 Pulse Ox 93 L 10/25/21 12:00 FiO2 Intake & Output 10/24/21 10/25/21 10/25/21 18:59 06:59 18:59 Intake Total 2300 20 1242 Output Total 1999 1400 Balance 300 -1380 1242 Weight 165.4 kg Intake: IV 20 10 Invasive Line 1 20 10 Oral 2300 1232 Output: Urine 1999 1400 Other: Voiding Method Toilet Urinal Urinal - Labs CBC & Chem 7: 10/21/21 07:47 10/25/21 08:27 Labs: Abnormal Lab Results - Last 24 Hours (Table) 10/25/21 Range/Units 08:27 Chloride 81 L (98-107) mmol/L Carbon Dioxide 42 H* (22-30) mmol/L BUN 33 H (9-20) mg/dL Glucose 108 H (74-99) mg/dL
[2021-10-25] MEDS: BUMETANIDE 1 MG TAB PO SCH (16:43)
[2021-10-25] MEDS: BENZONATATE 100 MG CAP PO PRN (16:50)
[2021-10-26] MEDS: ALPRAZolam 0.25 MG TAB PO PRN ×3 (00:11→16:31)
[2021-10-26] MEDS: BUMETANIDE 1 MG TAB PO SCH ×2 (09:18→16:20)
[2021-10-26] MEDS: ASPIRIN 81 MG PO SCH (09:18)
[2021-10-26] MEDS: APIXABAN 5 MG TAB PO SCH ×2 (09:18→20:50)
[2021-10-26] MEDS: POTASSIUM CHLORIDE ER 20 MEQ TAB.ER PO SCH ×2 (09:19→16:20)
[2021-10-26] MEDS: METOPROLOL SUCCINATE (ER) 25 MG TAB.ER.24H PO SCH (09:19)
[2021-10-26] MEDS: AMIODARONE 200 MG TAB PO SCH ×2 (09:19→20:50)
[2021-10-26] MEDS: buPROPion SR 150 MG TABLET.ER PO SCH ×2 (09:20→20:50)
[2021-10-26] MEDS: SACUBITRIL/VALSARTAN 24 MG-26 MG TABLET PO SCH ×2 (09:20→20:50)
[2021-10-26] MEDS: metOLazone 5 MG TAB PO SCH (09:20)
[2021-10-26] MEDS: HYDROcodone/APAP 5-325MG 1 EACH TAB PO PRN ×2 (10:26→16:31)
[2021-10-27] MEDS: HYDROcodone/APAP 5-325MG 1 EACH TAB PO PRN ×3 (00:15→15:34)
[2021-10-27] MEDS: ALPRAZolam 0.25 MG TAB PO PRN ×3 (00:15→15:34)
[2021-10-27] MEDS: METOPROLOL SUCCINATE (ER) 25 MG TAB.ER.24H PO SCH (09:22)
[2021-10-27] MEDS: BENZONATATE 100 MG CAP PO PRN (09:22)
[2021-10-27] MEDS: metOLazone 5 MG TAB PO SCH (09:23)
[2021-10-27] MEDS: SACUBITRIL/VALSARTAN 24 MG-26 MG TABLET PO SCH (09:23)
[2021-10-27] MEDS: buPROPion SR 150 MG TABLET.ER PO SCH (09:23)
[2021-10-27] MEDS: APIXABAN 5 MG TAB PO SCH (09:23)
[2021-10-27] MEDS: BUMETANIDE 1 MG TAB PO SCH ×2 (09:23→15:34)
[2021-10-27] MEDS: POTASSIUM CHLORIDE ER 20 MEQ TAB.ER PO SCH ×2 (09:23→15:34)
[2021-10-27] MEDS: AMIODARONE 200 MG TAB PO SCH (09:23)
[2021-10-27] MEDS: ASPIRIN 81 MG PO SCH (09:23)
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
[2021-10-27] MEDS ORDERED: acetaZOLAMIDE 250 MG TAB PO SCH (11:00)
[2021-10-27 12:45] LABS: Appearance,Urine Clear (Clear); Bilirubin,Urine Negative (Negative); Blood,Urine Negative (Negative); Color,Urine Light Yellow; Glucose,Urine (UA) Negative (Negative); Ketones,Urine Negative (Negative); Leukocyte Esterase,Urine Negative (Negative); Nitrite,Urine Negative (Negative); Protein,Urine Negative (Negative); Specific Gravity,Urine 1.007 (1.001-1.035); Urobilinogen,Urine <2.0 mg/dL (<2.0)
[2021-10-27 16:04] VITALS: BP 110/80; PULSE 59; TEMP 97.6
[2021-10-27] MEDS ORDERED: SACUBITRIL/VALSARTAN 49 MG-51 MG TABLET PO SCH (21:00)
[2021-10-27] MEDS ORDERED: BUMETANIDE 1 MG TAB PO SCH (21:00)
--- NOTE | 2021-10-27 21:43 | PN ---
PROGRESS NOTE CHIEF COMPLAINT: Acute on chronic congestive heart failure. HISTORY OF PRESENT ILLNESS: This gentleman continues to do poorly. He still is short of breath. He wants to get out of the hospital because he wants to be interviewed to try to go back to work, but he remains in heart failure and it is not safe. He is lethargic. PHYSICAL EXAMINATION: Breath sounds are improved but he still has rales at the bases. His cardiac exam is unchanged. Abdomen is soft and nontender. IMPRESSION: 1. Acute congestive heart failure. 2. Chronic congestive heart failure. 3. Atherosclerotic cardiomyopathy. PLAN: Continue efforts to control his heart failure before he is able to be discharged. MMODL / IJN: [id number] /
--- NOTE | 2021-10-27 21:43 | PN ---
PROGRESS NOTE CHIEF COMPLAINT: Congestive heart failure. HISTORY OF PRESENT ILLNESS: This gentleman is still having shortness of breath. He has difficulty walking across the room now. He is also a bit more lethargic. PHYSICAL EXAMINATION: He still has scattered rales at the bases. Cardiac exam is normal except for an S4 and the abdomen is still protuberant and soft. The edema in the extremities has diminished somewhat. IMPRESSION: 1. Acute congestive heart failure. 2. Chronic congestive heart failure. 3. Cardiomyopathy. PLAN: Hold discharge for another day to see if his diuresis extends. MMIVORYL / IJN: [id number] /
[2021-10-28] MEDS ORDERED: metOLazone 5 MG TAB PO SCH (09:00)
== END 2021-10-27 18:45 | disposition home or self-care (01) | DRG 291 ==
LOC: EC 18:57 → 3SCARD 21:07 → OBSVTOIN 10-23 06:53
PROVIDERS: ADMIT Family Medicine; ATTEND Family Medicine
DX: I13.0 Hypertensive heart and chronic kidney disease with heart failure and stage 1 through stage 4 chronic kidney disease, or unspecified chronic kidney disease (principal); I50.43 Acute on chronic combined systolic (congestive) and diastolic (congestive) heart failure; J96.01 Acute respiratory failure with hypoxia; N17.9 Acute kidney failure, unspecified; I47.2 Ventricular tachycardia; E87.3 Alkalosis; Z68.43 Body mass index [BMI] 50.0-59.9, adult; I48.21 Permanent atrial fibrillation; F32.A Depression, unspecified; E66.01 Morbid (severe) obesity due to excess calories; N18.9 Chronic kidney disease, unspecified; I42.8 Other cardiomyopathies; G89.29 Other chronic pain; M54.50 Low back pain, unspecified; E78.5 Hyperlipidemia, unspecified; G47.30 Sleep apnea, unspecified; F41.9 Anxiety disorder, unspecified; Z20.822 Contact with and (suspected) exposure to COVID-19; I25.10 Atherosclerotic heart disease of native coronary artery without angina pectoris; R79.89 Other specified abnormal findings of blood chemistry; M79.89 Other specified soft tissue disorders; E87.6 Hypokalemia; T50.2X5A Adverse effect of carbonic-anhydrase inhibitors, benzothiadiazides and other diuretics, initial encounter; G47.33 Obstructive sleep apnea (adult) (pediatric); I08.1 Rheumatic disorders of both mitral and tricuspid valves; T50.1X6A Underdosing of loop [high-ceiling] diuretics, initial encounter; Z56.0 Unemployment, unspecified; Z91.19 Patient's noncompliance with other medical treatment and regimen; Z91.128 Patient's intentional underdosing of medication regimen for other reason; Z79.01 Long term (current) use of anticoagulants; Z79.82 Long term (current) use of aspirin; Z79.899 Other long term (current) drug therapy; Z87.820 Personal history of traumatic brain injury; Z90.49 Acquired absence of other specified parts of digestive tract; Z83.3 Family history of diabetes mellitus; Z82.49 Family history of ischemic heart disease and other diseases of the circulatory system
CPT/HCPCS: 36415; 71046; 80048; 80053; 81003; 83735; 83880; 84484; 85025; 85610; 85730; 87635; 93005; 93308; 94640; 94760; 96374; 96375; 96376; 99285

== ENCOUNTER 2021-12-02 18:50 | Inpatient (IN) | payer OTHER ==
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
[2021-12-02] MEDS ORDERED: IPRATROPIUM-ALBUTEROL 3 ML NEB INHALATION STA (19:26)
[2021-12-02 19:56] LABS: Anisocytosis Slight; Basophils % (A) 0 %; Eosinophils # (A) 0.1 k/uL (0-0.7); Eosinophils % (A) 1 %; HCT 54.1 % (39.0-53.0); HGB 15.7 gm/dL (13.0-17.5); Hypochromasia Marked; Lymphocytes # (A) 0.8 k/uL (1.0-4.8); Lymphocytes % (A) 10 %; MCH 24.1 pg (25.0-35.0); MCHC 29.1 g/dL (31.0-37.0); Mean Platelet Volume 9.4; Monocytes # (A) 0.6 k/uL (0-1.0); Monocytes % (A) 7 %; Neutrophils # (A) 6.9 k/uL (1.3-7.7); Neutrophils % (A) 80 %; Platelet Count 173 k/uL (150-450); Poikilocytosis Slight; RBC 6.51 m/uL (4.30-5.90); RDW 17.5 % (11.5-15.5); WBC 8.6 k/uL (3.8-10.6)
[2021-12-02 20:07] LABS: Albumin 4.1 g/dL (3.5-5.0); Calcium 9.2 mg/dL (8.4-10.2); INR 1.4 (<1.2); Magnesium 1.8 mg/dL (1.6-2.3); Partial Thromboplastin Time 25.5 sec (22.0-30.0); Potassium 4.7 mmol/L (3.5-5.1); Prothrombin Time 14.7 sec (9.0-12.0); Total Bilirubin 1.1 mg/dL (0.2-1.3); Total Protein 6.7 g/dL (6.3-8.2)
--- NOTE | 2021-12-02 20:08 | XR ---
EXAMINATION TYPE: XR chest 1V portable DATE OF EXAM: 12/02/2021 COMPARISON: NONE HISTORY: Chest pain TECHNIQUE: 2 views FINDINGS: Heart is enlarged. There is coarsening of the interstitial markings. Costophrenic angles sh ow no pleural fluid. Bony thorax is intact. There is some pulmonary vascular congestion. IMPRESSION: Increased interstitial markings compared to old exam. Mild heart failure is possible.
[2021-12-02] MEDS ORDERED: ASPIRIN 81 MG PO STA (21:24)
--- NOTE | 2021-12-02 21:37 | US ---
EXAMINATION TYPE: US gallbladder DATE OF EXAM: 12/02/2021 COMPARISON: NONE CLINICAL HISTORY: elevated LFT's, nausea. elevated liver enzymes. cholecystectomy TECHNIQUE: Multiple sonographic images of the right upper quadrant are obtained. FINDINGS: EXAM MEASUREMENTS: Liver Length: 21.8 cm Gallbladder Wall: Surgically absent Right Kidney: 12.2 x 5.9 x 6.5 cm [employer] CONSULTANT NOTES:technical limitations due to patient's body habitus (360 pounds) and large amount of overlying bowel content Pancreas: Obscured by bowel gas Liver: limited evaluation, enlarged Gallbladder: Surgically absent Evidence for sonographic Gonzalez's sign: no CBD: Obscured by overlying bowel gas Right Kidney: limited evaluation, lower pole obscured, no evidence of hydronephrosis IMPRESSION: Exam limited by patient's size. There is cholecystectomy. No dilated ducts. No discrete liver mass. No ascites.
[2021-12-02] MEDS ORDERED: NALOXONE 0.4 MG/ML 1 ML VIAL IV PRN (22:13)
[2021-12-02 22:14] LABS: Appearance,Urine Clear (Clear); Bilirubin,Urine Negative (Negative); Blood,Urine Negative (Negative); Color,Urine Yellow; Glucose,Urine (UA) Negative (Negative); Ketones,Urine Negative (Negative); Leukocyte Esterase,Urine Negative (Negative); Nitrite,Urine Negative (Negative); PH, Urine 5.5 (5.0-8.0); Protein,Urine Trace (Negative); Specific Gravity,Urine 1.012 (1.001-1.035); Urobilinogen,Urine <2.0 mg/dL (<2.0)
[2021-12-02] MEDS ORDERED: ACETAMINOPHEN TAB 500 MG TAB PO STA (23:28)
[2021-12-03] MEDS: HYDROcodone/APAP 10-325MG 1 EACH TAB PO PRN ×2 (01:54→08:30)
[2021-12-03 02:10] LABS: Anisocytosis Slight; HCT 52.6 % (39.0-53.0); HGB 15.1 gm/dL (13.0-17.5); Hypochromasia Marked; MCH 24.6 pg (25.0-35.0); MCHC 28.7 g/dL (31.0-37.0); MCV 85.7 fL (80.0-100.0); Mean Platelet Volume 9.4; Platelet Count 190 k/uL (150-450); RBC 6.14 m/uL (4.30-5.90); RDW 17.4 % (11.5-15.5)
[2021-12-03 02:17] LABS: Calcium 8.9 mg/dL (8.4-10.2); Potassium 4.9 mmol/L (3.5-5.1); Total Bilirubin 0.9 mg/dL (0.2-1.3); Total Protein 6.6 g/dL (6.3-8.2)
[2021-12-03 03:34] LABS: Band Neutrophils % 4 %; Lymphocytes # (M) 1.24 k/uL (1.0-4.8); Metamyelocytes % 1 %; Monocytes # (M) 0.82 k/uL (0-1.0); Myelocytes % 1 %; Neutrophils % (M) 76 %; Nucleated Red Blood Cells 1 /100 WBC (0-0); Total Cells Counted 200; WBC 10.3 k/uL (3.8-10.6)
[2021-12-03 03:35] LABS: Large Platelets Present; Polychromasia Present
[2021-12-03 03:36] LABS: Poikilocytosis (M) Present
[2021-12-03] MEDS ORDERED: ALPRAZolam 0.25 MG TAB PO PRN ×2 (04:00→09:36)
[2021-12-03] MEDS ORDERED: SACUBITRIL/VALSARTAN 97 MG-103 MG TABLET PO SCH ×2 (07:30→17:30)
[2021-12-03] MEDS: buPROPion XL 150 MG TAB.ER.24H PO SCH ×2 (08:30→22:31)
[2021-12-03] MEDS: POTASSIUM CHLORIDE ER 20 MEQ TAB.ER PO SCH ×2 (08:30→19:26)
[2021-12-03] MEDS: ASPIRIN 81 MG PO SCH (08:30)
[2021-12-03] MEDS: APIXABAN 5 MG TAB PO SCH ×2 (08:31→22:31)
[2021-12-03] MEDS: METOPROLOL SUCCINATE (ER) 25 MG TAB.ER.24H PO SCH (08:31)
[2021-12-03] MEDS ORDERED: AMIODARONE 200 MG TAB PO SCH (09:00)
[2021-12-03] MEDS ORDERED: HYDROcodone/APAP 5-325MG 1 EACH TAB PO PRN (09:36)
[2021-12-03] MEDS ORDERED: NON FORMULARY DRUG (Albuterol Inhaler [Ventolin Hfa Inhaler] 60 PUFF Gm) INHALATION PRN (09:36)
[2021-12-03] MEDS ORDERED: BENZONATATE 100 MG CAP PO PRN (09:36)
[2021-12-03] MEDS: acetaZOLAMIDE 250 MG TAB PO SCH (09:56)
[2021-12-03] MEDS: BUMETANIDE 1 MG TAB PO SCH ×2 (11:10→19:26)
[2021-12-03] MEDS ORDERED: POTASSIUM CHLORIDE ER 20 MEQ TAB.ER PO SCH (16:00)
[2021-12-03 19:45] LABS: Glucose,Whole Blood 150 mg/dL (70-110)
[2021-12-03 20:08] LABS: Allen Test Performed? Yes
[2021-12-03 20:31] LABS: ABG Base Excess 5.9 mmol/L; ABG HCO3 35 mmol/L (21-25); ABG Oxygen Saturation 96.4 % (94-97); ABG PO2 92 mmHg (83-108); ABG TCO2 38 mmol/L (19-24)
[2021-12-03 20:36] LABS: ABG PH 7.16 (7.35-7.45)
[2021-12-03 20:37] LABS: ABG PCO2 97 mmHg (35-45)
[2021-12-03] MEDS ORDERED: APIXABAN 5 MG TAB PO SCH (21:00)
[2021-12-03] MEDS ORDERED: buPROPion XL 150 MG TAB.ER.24H PO SCH (21:00)
[2021-12-03 21:15] LABS: Glucose,Whole Blood 129 mg/dL (70-110)
[2021-12-03 22:13] LABS: ABG Base Excess 5.2 mmol/L; ABG HCO3 34 mmol/L (21-25); ABG Oxygen Saturation 95.5 % (94-97); ABG PO2 88 mmHg (83-108); ABG TCO2 37 mmol/L (19-24); Allen Test Performed? Yes
[2021-12-03 22:15] LABS: ABG PCO2 100 mmHg (35-45); ABG PH 7.14 (7.35-7.45)
[2021-12-03] MEDS ORDERED: FUROSEMIDE 10 MG/ML 10 ML VIAL IV STA (22:18)
--- NOTE | 2021-12-04 01:18 | CONS ---
CONSULTATION CHIEF COMPLAINT: Fatigue, tiredness, not feeling well. HISTORY OF PRESENT ILLNESS: Vance is a 61-year-old gentleman with history of permanent atrial fibrillation, morbid obesity, hypertension, congestive heart failure, who presented to hospital complaining of diffuse sharp chest discomfort, myalgias, generalized weakness, and nausea. Cardiology had been consulted for his chest pain. Chest discomfort is sharp, atypical, probably musculoskeletal in origin. The patient has come back negative for COVID and flu. He appears tired at rest and somewhat sleepy. EKG does not reveal ischemic changes. Cardiac enzymes are negative. He has significant elevation of the liver enzymes and has renal failure with a creatinine of 2, which is a significant increase from 2 months ago. The patient's clinical presentation is complicated by acute renal failure and hepatic injury. Chest discomfort is atypical and probably noncardiac in origin. He had a recent echocardiogram that showed severe LV systolic dysfunction with an ejection fraction of 20%-25%, and he is on Entresto. I am going to hold the Entresto at this time given the renal failure. Continue the metoprolol for rate control. Increase the dose as needed. We should consider stopping the amiodarone as he still remains in atrial fibrillation and continue the apixaban. We will obtain a 2D echo to reassess his LV function. Chest discomfort is atypical and does not require any further evaluation at this time. PAST MEDICAL HISTORY: Significant for chronic systolic heart failure, cardiomyopathy with severe LV dysfunction, permanent atrial fibrillation, and COPD. MEDICATIONS: Medications at home included: 1. Diamox. 2. Entresto. 3. K-Dur. 4. Toprol. 5. Motrin. 6. Aspirin. 7. Eliquis. 8. Cordarone. 9. Albuterol. 10.Xanax. ALLERGIES: No known drug allergies. FAMILY HISTORY: Negative for premature coronary artery disease. SOCIAL HISTORY: Negative for smoking, ETOH abuse or drug abuse. REVIEW OF SYSTEMS: HEENT: Unremarkable. CARDIAC: As described above. RESPIRATORY: As described above. GI: Negative. GENITOURINARY: Negative. ALLERGY/IMMUNOLOGY: Negative. MUSCULOSKELETAL: As described above. PSYCHOSOCIAL: Negative. DERM: Negative. CONSTITUTIONAL: As described above. Rest of the system review is not relevant. PHYSICAL EXAMINATION: VITAL SIGNS: Heart rate is 60 beats per minute, blood pressure is 133/74, respiratory rate 18. NECK: There is no jugular venous distention. Carotid upstroke is normal. There is no bruit. CHEST: Reveals good air entry bilaterally. HEART: Reveals first and second heart sounds. No gallop. Irregular rhythm. No murmur. ABDOMEN: Soft. EXTREMITIES: Did not reveal any edema. Peripheral pulses are palpable. LABORATORY DATA: Shows that the BUN and creatinine are elevated. AST, ALT are elevated. BNP is 6060. Troponins are negative. EKG does not reveal acute ischemic changes. ASSESSMENT: 1. Chest pain. 2. Chronic systolic heart failure. 3. Permanent atrial fibrillation. 4. Acute onset renal failure. PLAN: I am going to stop the Entresto at this time. Obtain blood cultures. Check the UA. Stop the amiodarone. Further interventions as needed based on clinical response. MMODL / IJN: [id number] /
--- NOTE | 2021-12-04 02:59 | HP ---
HISTORY AND PHYSICAL CHIEF COMPLAINT: Difficulty breathing. HISTORY OF PRESENT ILLNESS: This is another admission for this 61-year-old male with cardiomyopathy. Ejection fraction is running around 30%. He has had difficulty maintaining control. 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 This time, he comes into the hospital and with extreme shortness of breath and slight lethargy. He denies any chest pain, fever, chills, nausea, vomiting, etc. REVIEW OF SYMPTOMS: Review of systems is otherwise unremarkable. Past medical history, family history, and personal and social histories are all otherwise unchanged since his last admission. PHYSICAL EXAMINATION: VITAL SIGNS: Blood pressure is 101/60 with a pulse of 88. Respirations were 36. He was lethargic. HEAD, EARS, EYES, NOSE AND MOUTH: Are normal. CHEST: Demonstrated poor breath sounds throughout with scattered rhonchi and wheezing. CARDIAC: Demonstrated atrial fibrillation. ABDOMEN: Soft and nontender. EXTREMITIES: Edematous. NEUROLOGICAL: He was lethargic. IMPRESSION: 1. Acute congestive heart failure. 2. Chronic congestive heart failure. 3. Atherosclerotic cardiomyopathy. PLAN: 1. Bedrest. 2. IV fluids. 3. Diuresis. 4. Cardiology consult. 5. Consider referral for a heart transplant. MMODL / IJN: [id number] /
[2021-12-04] MEDS: HYDROcodone/APAP 10-325MG 1 EACH TAB PO PRN (03:34)
[2021-12-04] MEDS: ALBUTEROL NEBULIZED 2.5 MG/3 ML INHALATION PRN ×3 (08:00→16:08)
[2021-12-04 08:10] LABS: Anisocytosis Slight; Basophils % (A) 0 %; Eosinophils # (A) 0.1 k/uL (0-0.7); Eosinophils % (A) 1 %; HCT 50.5 % (39.0-53.0); HGB 14.6 gm/dL (13.0-17.5); Hypochromasia Marked; Lymphocytes # (A) 0.6 k/uL (1.0-4.8); Lymphocytes % (A) 7 %; MCH 24.8 pg (25.0-35.0); MCHC 28.9 g/dL (31.0-37.0); MCV 85.7 fL (80.0-100.0); Mean Platelet Volume 9.5; Monocytes # (A) 0.5 k/uL (0-1.0); Monocytes % (A) 6 %; Neutrophils # (A) 6.9 k/uL (1.3-7.7); Neutrophils % (A) 83 %; Platelet Count 149 k/uL (150-450); Poikilocytosis Slight; RDW 17.5 % (11.5-15.5); WBC 8.3 k/uL (3.8-10.6)
[2021-12-04 08:14] LABS: Calcium 8.1 mg/dL (8.4-10.2); Potassium 4.3 mmol/L (3.5-5.1)
[2021-12-04] MEDS: POTASSIUM CHLORIDE ER 20 MEQ TAB.ER PO SCH ×2 (08:29→16:24)
[2021-12-04] MEDS: buPROPion XL 150 MG TAB.ER.24H PO SCH ×2 (08:29→20:09)
[2021-12-04] MEDS: APIXABAN 5 MG TAB PO SCH ×2 (08:29→20:08)
[2021-12-04] MEDS: METOPROLOL SUCCINATE (ER) 25 MG TAB.ER.24H PO SCH (08:29)
[2021-12-04] MEDS: ASPIRIN 81 MG PO SCH (08:29)
[2021-12-04] MEDS: BUMETANIDE 1 MG TAB PO SCH ×2 (08:56→16:24)
[2021-12-04] MEDS: acetaZOLAMIDE 250 MG TAB PO SCH (08:56)
[2021-12-04] MEDS ORDERED: METOPROLOL SUCCINATE (ER) 25 MG TAB.ER.24H PO SCH (09:00)
[2021-12-04] MEDS ORDERED: NON FORMULARY DRUG (Aspirin Ec 81 MG Tablet) PO SCH (09:00)
[2021-12-04] MEDS ORDERED: acetaZOLAMIDE 250 MG TAB PO SCH (09:00)
[2021-12-04] MEDS ORDERED: AMIODARONE 200 MG TAB PO SCH (09:00)
--- NOTE | 2021-12-04 10:24 | CA ---
Transthoracic Echo Report Name: Vance Lee Age: 61 Gender: M : 1960 Exam Date: 12/04/2021 08:10 Exam Location: [place] [facility] Ht (in): 72 Wt (lb): 390 Ordering Physician: Nate Patton MD ([id number]) Attending/Referring Phys: Pooja CISNEROS Statistical Reporting Analyst Brea Thomas RDCS Procedure CPT: Indications: non specific chest pain Cardiac Hx: Technical Quality: Very technically difficult study Contrast 1: Lumason Total Dose (mL): 3 Contrast 2: Total Dose (mL): MEASUREMENTS (Male / Female) Normal Values 2D ECHO LV Diastolic Diameter PLAX 7.2 cm 4.2 - 5.9 / 3.9 - 5.3 cm LV Systolic Diameter PLAX 5.3 cm IVS Diastolic Thickness 1.4 cm 0.6 - 1.0 / 0.6 - 0.9 cm LVPW Diastolic Thickness 2.0 cm 0.6 - 1.0 / 0.6 - 0.9 cm LV Relative Wall Thickness 0.5 RV Internal Dim ED PLAX 5.1 cm M-MODE Aortic Root Diameter MM 3.7 cm LA Systolic Diameter MM 4.8 cm LA Ao Ratio MM 1.3 MV E Point Septal Separation 1.2 cm DOPPLER TR Peak Velocity 260.7 cm/s TR Peak Gradient 27.2 mmHg Right Ventricular Systolic Press 30.4 mmHg FINDINGS Left Ventricle Left ventricular ejection fraction is estimated at 20-25 %. Moderately increased left ventricular wall thickness. Moderate left ventricular dilatation. Severely reduced global left ventricular systolic function. Right Ventricle Severe right ventricular dilatation. Right Atrium Normal right atrial size. Left Atrium Mild left atrial dilatation. Mitral Valve Structurally normal mitral valve. Aortic Valve Aortic valve not well visualized. Tricuspid Valve Tricuspid valve not well visualized. Pulmonic Valve Pulmonic valve not well visualized. Pericardium Normal pericardium. Aorta Normal size aortic root and proximal ascending aorta. CONCLUSIONS Technically difficult study. 1. Severe global hypokinesis with dilated left ventricle 2. Dilated right ventricle 3. Valvular structures were not well visualized Previewed by: Dr. Jakub Reyez MD (Electronically Signed) Final Date: 04 December 2021 10:23
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
--- NOTE | 2021-12-04 19:14 | PN ---
PROGRESS NOTE CHIEF COMPLAINT: Congestive heart failure. HISTORY OF PRESENT ILLNESS: This gentleman is still in the emergency room. He is quite lethargic. He denies any chest pain. PHYSICAL EXAMINATION: CARDIAC: Reveals atrial fibrillation with tachycardia of around 100. LUNGS: Breath sounds are diminished, particularly posteriorly. ABDOMEN: Distended. EXTREMITIES: Edematous. IMPRESSION: Acute congestive heart failure. PLAN: 1. Cardiology consult. 2. Diuresis and consider long-term management goals. MMMARY / NORRISN: [id number] /
[2021-12-05 04:05] LABS: Anisocytosis Slight; Basophils # (A) 0.1 k/uL (0-0.2); Basophils % (A) 1 %; Eosinophils # (A) 0.1 k/uL (0-0.7); Eosinophils % (A) 1 %; HCT 49.8 % (39.0-53.0); HGB 14.5 gm/dL (13.0-17.5); Hypochromasia Marked; Lymphocytes # (A) 0.8 k/uL (1.0-4.8); Lymphocytes % (A) 8 %; MCH 24.4 pg (25.0-35.0); MCHC 29.2 g/dL (31.0-37.0); MCV 83.7 fL (80.0-100.0); Monocytes # (A) 0.7 k/uL (0-1.0); Monocytes % (A) 7 %; Neutrophils # (A) 8.3 k/uL (1.3-7.7); Neutrophils % (A) 81 %; Platelet Count 156 k/uL (150-450); RBC 5.94 m/uL (4.30-5.90); RDW 17.3 % (11.5-15.5); WBC 10.2 k/uL (3.8-10.6)
[2021-12-05 04:16] LABS: Calcium 8.4 mg/dL (8.4-10.2); Potassium 3.2 mmol/L (3.5-5.1)
[2021-12-05] MEDS ORDERED: Potassium Replacement Protocol 1 EACH MISC MISCELLANE PRN (05:07)
--- NOTE | 2021-12-05 05:53 | PN ---
PROGRESS NOTE SUBJECTIVE: This patient has chronic atrial fibrillation, came in with hypercapnic respiratory failure, on a BiPAP. His troponin is borderline elevated, not significant in the setting of his hypoxia. He is hemodynamically stable. His rate is fairly well controlled. He is also anticoagulated. I am recommending that we will continue current medical regimen without any other intervention from a cardiac standpoint. He is on apixaban 5 mg b.i.d. and metoprolol tartrate with a decent rate control. He is known to have a low ejection fraction. His liver functions are abnormal. His amiodarone has been held and also his Entresto was held in view of abnormal kidney function, which seems to have improved modestly. I am recommending that we will resume his Entresto hopefully tomorrow. His ejection fraction is in the range of 35%. Overall prognosis remains poor. OBJECTIVE: VITAL SIGNS: Stable. HEART: S1, S2 with irregularity. Short systolic murmur at left sternal border. LUNGS: Fair air entry bilateral lung pedroza. ABDOMEN: Soft. LOWER EXTREMITIES: Reveal diminished pulses. MMODL / IJN: [id number] /
[2021-12-05] MEDS: BUMETANIDE 1 MG TAB PO SCH ×2 (08:41→15:21)
[2021-12-05] MEDS: buPROPion XL 150 MG TAB.ER.24H PO SCH ×2 (08:41→20:04)
[2021-12-05] MEDS: POTASSIUM CHLORIDE ER 20 MEQ TAB.ER PO SCH ×4 (08:41→15:18)
[2021-12-05] MEDS: acetaZOLAMIDE 250 MG TAB PO SCH (08:41)
[2021-12-05] MEDS: APIXABAN 5 MG TAB PO SCH ×2 (08:41→20:04)
[2021-12-05] MEDS: METOPROLOL SUCCINATE (ER) 25 MG TAB.ER.24H PO SCH (08:41)
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
[2021-12-05] MEDS ORDERED: ALPRAZolam 0.25 MG TAB PO PRN (15:08)
[2021-12-05] MEDS: ALBUTEROL NEBULIZED 2.5 MG/3 ML INHALATION PRN (20:09)
[2021-12-05] MEDS: HYDROcodone/APAP 5-325MG 1 EACH TAB PO PRN (23:36)
[2021-12-06] MEDS: APIXABAN 5 MG TAB PO SCH (09:13)
[2021-12-06] MEDS: METOPROLOL SUCCINATE (ER) 25 MG TAB.ER.24H PO SCH (09:13)
[2021-12-06] MEDS: POTASSIUM CHLORIDE ER 20 MEQ TAB.ER PO SCH ×2 (09:13→16:56)
[2021-12-06] MEDS: HYDROcodone/APAP 5-325MG 1 EACH TAB PO PRN ×2 (09:13→16:57)
[2021-12-06] MEDS: buPROPion XL 150 MG TAB.ER.24H PO SCH (09:13)
[2021-12-06] MEDS: BUMETANIDE 1 MG TAB PO SCH ×2 (09:13→16:56)
[2021-12-06] MEDS: acetaZOLAMIDE 250 MG TAB PO SCH (09:13)
[2021-12-06 09:44] VITALS: PULSE 92
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
--- NOTE | 2021-12-06 13:02 | PN ---
PROGRESS NOTE SUBJECTIVE: Mr. Lee is a patient with the nonischemic cardiomyopathy, past history of alcohol and he has not taken alcohol for 3 years. He unfortunately does smoke, has nonischemic cardiomyopathy, ejection fraction 25% to 30% with atrial fibrillation that has also been chronic. He is more awake and alert and communicative. No chest pain or shortness of breath. His blood pressure seems to be fairly well controlled. He is on a beta amanda and his heart rate are in the 80s. I am recommending that we will continue current medical regimen for this patient. He is on metoprolol succinate 25 mg b.i.d., which we will continue for now. The patient may be referred to a tertiary center for cardiac evaluation and also consideration for a heart transplant, however, we will decide this as an outpatient, advised to be compliant with medications. OBJECTIVE: VITAL SIGNS: Stable. HEART: S1, S2 heard normally with an irregular rhythm, short systolic murmur. LUNGS: Reveal improved air entry. ABDOMEN: Exam is unchanged. LOWER EXTREMITIES: Exam is unchanged. PLAN: Plan is to continue current medical regimen, which includes diuretics and beta amanda and also 5 mg b.i.d. of apixaban. MMODL / IJN: [id number] /
[2021-12-06 14:44] VITALS: BP 116/53; RESP 18; TEMP 98.1
--- NOTE | 2021-12-06 18:31 | PN ---
PROGRESS NOTE CHIEF COMPLAINT: 1. [id number] congestive heart failure. 2. CO2 retention. HISTORY OF PRESENT ILLNESS: This gentleman is now awake and alert. CO2 has come down. He denies chest pain. He is being seen by Pulmonology and Cardiology. REVIEW OF SYSTEMS: He denies chest pain, headache, confusion, nausea, abdominal pain, etc. PHYSICAL EXAMINATION: VITAL SIGNS: Blood pressure is 97/71. He is less edematous. CHEST: Demonstrates decreased breath sounds throughout with occasional rhonchi and scattered rales. CARDIAC: Demonstrates his atrial fibrillation. ABDOMEN: Protuberant. IMPRESSION: 1. Acute congestive heart failure. 2. Chronic congestive heart failure. 3. Hypercarbia. 4. Cardiomyopathy with reduced ejection fraction. 5. Chronic kidney disease. PLAN: Continue with management in the ICU with diuresis, and increase activity and diet. MMIVORYL / NORRISN: [id number] /
--- NOTE | 2021-12-06 19:11 | PN ---
PROGRESS NOTE CHIEF COMPLAINT: Acute congestive heart failure, pulmonary edema, and respiratory failure. HISTORY OF PRESENT ILLNESS: This gentleman is improving. He is a little bit more alert. He was moved to the intensive care and placed on BiPAP when he became hypercarbic. REVIEW OF SYSTEMS: He is still lethargic, but denies chest pain. PHYSICAL EXAMINATION: GENERAL: He is slightly cyanotic, and he is still quite edematous. CHEST: Breath sounds are diminished throughout. CARDIAC: Demonstrates his atrial fibrillation. ABDOMEN: Protuberant and soft. IMPRESSION: 1. Acute congestive heart failure. 2. Chronic congestive heart failure. 3. Respiratory failure. 4. Hypercarbia. 5. Sleep apnea. 6. Pickwickian syndrome. 7. Renal failure. PLAN: Continue with BiPAP support and increase activity as tolerated. MMODL / IJN: [id number] /
[2021-12-06] MEDS ORDERED: SACUBITRIL/VALSARTAN 97 MG-103 MG TABLET PO SCH (21:00)
--- NOTE | 2021-12-07 08:14 | PN ---
PROGRESS NOTE SUBJECTIVE: Mr. Lee is in atrial fib, rate is controlled, feeling better. Resting comfortably. He is anticoagulated. I am recommending that we increase activity, move him to medical floor. OBJECTIVE: VITAL SIGNS: Vitals are stable. NECK: JVD is evident. HEART: S1, S2 with an irregular rhythm and short systolic murmur is noted. LUNGS: Reveal diminished air entry. ABDOMEN: Exam is unchanged. LOWER EXTREMITIES: Exam is unchanged. PLAN: The patient will need an ICD. I will see him in the office as an outpatient and proceed with ICD. I explained this to the patient at length. He has nonischemic cardiomyopathy, ejection fraction less than 30%. MMODL / IJN: [id number] /
[2021-12-07] MEDS ORDERED: SPIRONOLACTONE 25 MG TAB PO SCH (09:00)
--- NOTE | 2021-12-09 04:33 | DS ---
DISCHARGE SUMMARY CHIEF COMPLAINT: Difficulty breathing. HISTORY OF PRESENT ILLNESS AND PHYSICAL EXAMINATION: Details of this man's history and physical can be found in the initial workup. LABORATORY STUDIES: While he is in the hospital, he had laboratory studies, details of which can be found in the laboratory section of his chart. COURSE IN THE HOSPITAL: After admission, he was placed on bedrest and started on intravenous fluids and diuresis. He was seen and followed by Cardiology and Pulmonology. Initially, he was hypercarbic and was very lethargic, but then was placed on BiPAP and he became more alert as his CO2 fell. He is stable and he is very anxious to be discharged because he had to make living arrangements and he was sent home and he will be seen in the office the day after discharge. FINAL DIAGNOSES: 1. Acute congestive heart failure. 2. Chronic congestive heart failure. 3. Cardiomyopathy. 4. Pulmonary hypertension. 5. Heart failure with reduced ejection fraction. 6. Hypercarbia. 7. Pickwickian syndrome. 8. Sleep apnea. OPERATIONS: None. CONSULTATION: Pulmonology and Cardiology. CONDITION ON DISCHARGE: He is improved. MMODL / IJN: [id number] /
--- NOTE | 2021-12-09 12:56 | CDI ---
Documentation Clarification Form Date: 12/09/2021 12:42:30 PM From: Lori Soria Phone: Admit Date: 12/02/2021 10:14:00 PM Patient Name: Vance Lee Visit Number: [id number] Discharge Date: 12/06/2021 08:03:00 PM ATTENTION: The Clinical Documentation Specialists (CDI) and [facility] Coding Staff appreciate your assistance in clarifying documentation. Please respond to the clarification below the line at the bottom and electronically sign. The CDI & [facility] Coding staff will review the response and follow-up if needed. Please note: Queries are made part of the Legal Health Record. If you have any questions, please contact the author of this message via ITS. Dr. Marcelino Trujillo Unspecified CKD is documented Dr. Boyce Progress Note 12/05/21. Additional clarification regarding the stage of CKD is requested. History/Risk Factors: 61yo M, AH/HRF, ACSHF, A Fib on Eliquis, Cardiomyopathy, SHELLY on CKD, SHAREE transaminases, Morbid obesity BMI 46.8 Clinical Indicators: BUN 45 H Creatinine 2.16 H Est GFR (CKD-EPI) AfAm 37 (>60 ml/min/1.73 sqM) Est GFR (CKD-EPI) NonAf 32 (>60 ml/min/1.73 sqM) Treatment: Continue with management in the ICU with diuresis, and increase activity and diet. Please clarify the stage of the CKD, if known: [ ] CKD Stage 3 (GFR 30-59) [ ] CKD Stage 3b (GFR 30-44) [ ] Other, please specify [ ] Unable to determine (Template last revised: April 2020) MTDD
--- NOTE | 2021-12-27 10:47 | MISC ---
MISCELLANOUS REPORT CKD, stage 3B. MMODL / IJN: [id number] /
--- NOTE | 2021-12-27 12:26 | MISC ---
MISCELLANOUS REPORT CKD Stage 3B MMODL / IJN: [id number] /
== END 2021-12-06 20:03 | disposition home or self-care (01) | DRG 291 ==
LOC: EC 18:50 → 3SCARD 22:14 → 2SICU 12-03 21:05
PROVIDERS: ADMIT Family Medicine; ATTEND Family Medicine
PROC: 5A09357 Assistance with Respiratory Ventilation, Less than 24 Consecutive Hours, Continuous Positive Airway Pressure (ICD-10-PCS; principal; 2021-12-04)
DX: I13.0 Hypertensive heart and chronic kidney disease with heart failure and stage 1 through stage 4 chronic kidney disease, or unspecified chronic kidney disease (principal); I50.23 Acute on chronic systolic (congestive) heart failure; J96.02 Acute respiratory failure with hypercapnia; J96.01 Acute respiratory failure with hypoxia; N17.9 Acute kidney failure, unspecified; E87.29 Other acidosis; Z68.43 Body mass index [BMI] 50.0-59.9, adult; E66.2 Morbid (severe) obesity with alveolar hypoventilation; I48.21 Permanent atrial fibrillation; I27.20 Pulmonary hypertension, unspecified; N18.32 Chronic kidney disease, stage 3b; F32.A Depression, unspecified; J44.9 Chronic obstructive pulmonary disease, unspecified; I42.8 Other cardiomyopathies; F41.9 Anxiety disorder, unspecified; E78.5 Hyperlipidemia, unspecified; R74.01 Elevation of levels of liver transaminase levels; R07.89 Other chest pain; F17.210 Nicotine dependence, cigarettes, uncomplicated; Z20.822 Contact with and (suspected) exposure to COVID-19; Z79.01 Long term (current) use of anticoagulants; Z79.899 Other long term (current) drug therapy; Z79.82 Long term (current) use of aspirin; Z82.49 Family history of ischemic heart disease and other diseases of the circulatory system; Z91.199 Patient's noncompliance with other medical treatment and regimen due to unspecified reason; Z87.820 Personal history of traumatic brain injury; Z28.311 Partially vaccinated for COVID-19
CPT/HCPCS: 36415; 36600; 71045; 76705; 80048; 80053; 81003; 82805; 83735; 83880; 84484; 85025; 85610; 85730; 87040; 87502; 87634; 87635; 93005; 93306; 94660; 99285

== ENCOUNTER 2021-12-13 16:11 | Observation (INO) | payer OTHER ==
[2021-12-13] MEDS ORDERED: FUROSEMIDE 10 MG/ML 4 ML VIAL IV STA (16:50)
--- NOTE | 2021-12-13 17:33 | XR ---
EXAMINATION TYPE: XR chest 2V DATE OF EXAM: 12/13/2021 COMPARISON: 12/02/2021 HISTORY: Chest pain TECHNIQUE: FINDINGS: Heart is enlarged. There is coarsening of interstitial markings. No pleural effusion. There are no hilar masses. IMPRESSION: Cardiomegaly. Pulmonary interstitial density similar to the old exam. No pleural fluid se en to suggest heart failure. Mild heart failure not excluded.
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
[2021-12-13 17:53] LABS: Anisocytosis Slight; Basophils # (A) 0.1 k/uL (0-0.2); Basophils % (A) 1 %; Eosinophils # (A) 0.2 k/uL (0-0.7); Eosinophils % (A) 3 %; HCT 50.6 % (39.0-53.0); HGB 15.6 gm/dL (13.0-17.5); Hypochromasia Marked; Lymphocytes # (A) 1.1 k/uL (1.0-4.8); Lymphocytes % (A) 16 %; MCH 25.5 pg (25.0-35.0); MCHC 30.8 g/dL (31.0-37.0); MCV 82.9 fL (80.0-100.0); Mean Platelet Volume 7.7; Monocytes # (A) 0.4 k/uL (0-1.0); Monocytes % (A) 7 %; Neutrophils # (A) 4.7 k/uL (1.3-7.7); Neutrophils % (A) 71 %; Platelet Count 142 k/uL (150-450); RBC 6.11 m/uL (4.30-5.90); RDW 17.4 % (11.5-15.5); WBC 6.7 k/uL (3.8-10.6)
[2021-12-13 18:02] LABS: INR 1.1 (<1.2); Partial Thromboplastin Time 25.3 sec (22.0-30.0); Prothrombin Time 11.7 sec (9.0-12.0)
[2021-12-13 18:03] LABS: Albumin 4.3 g/dL (3.5-5.0); Calcium 9.6 mg/dL (8.4-10.2); Magnesium 1.8 mg/dL (1.6-2.3); Potassium 3.9 mmol/L (3.5-5.1); Total Bilirubin 0.9 mg/dL (0.2-1.3); Total Protein 6.9 g/dL (6.3-8.2)
[2021-12-13] MEDS ORDERED: HYDROmorphone 1 MG/ML 1 ML SYRINGE IVP STA (19:09)
[2021-12-13] MEDS ORDERED: BENZONATATE 100 MG CAP PO PRN (20:31)
[2021-12-13] MEDS ORDERED: ALBUTEROL NEBULIZED 2.5 MG/3 ML INHALATION PRN (20:31)
[2021-12-13] MEDS ORDERED: ALPRAZolam 0.25 MG TAB PO PRN (20:31)
[2021-12-13] MEDS: APIXABAN 5 MG TAB PO SCH (20:51)
[2021-12-13] MEDS: buPROPion XL 150 MG TAB.ER.24H PO SCH (20:51)
[2021-12-13] MEDS: SODIUM CHLORIDE 0.9% 1,000 ML IV SCH (20:51)
[2021-12-13] MEDS: HYDROcodone/APAP 5-325MG 1 EACH TAB PO PRN (20:57)
[2021-12-14] MEDS: FUROSEMIDE 40 MG TAB PO SCH ×4 (00:03→22:38)
[2021-12-14] MEDS: ASPIRIN 81 MG PO SCH (08:18)
[2021-12-14] MEDS: APIXABAN 5 MG TAB PO SCH ×2 (08:18→20:22)
[2021-12-14] MEDS: AMIODARONE 200 MG TAB PO SCH (08:20)
[2021-12-14] MEDS: METOPROLOL SUCCINATE (ER) 25 MG TAB.ER.24H PO SCH (08:21)
[2021-12-14] MEDS: SPIRONOLACTONE 25 MG TAB PO SCH (08:21)
[2021-12-14] MEDS: BUMETANIDE 1 MG TAB PO SCH ×2 (08:23→16:30)
[2021-12-14] MEDS: POTASSIUM CHLORIDE ER 20 MEQ TAB.ER PO SCH ×2 (08:24→15:38)
[2021-12-14] MEDS: acetaZOLAMIDE 250 MG TAB PO SCH (08:24)
[2021-12-14] MEDS: buPROPion XL 150 MG TAB.ER.24H PO SCH ×2 (08:24→20:22)
[2021-12-14] MEDS: SACUBITRIL/VALSARTAN 97 MG-103 MG TABLET PO SCH ×2 (08:25→16:31)
[2021-12-14] MEDS: HYDROcodone/APAP 5-325MG 1 EACH TAB PO PRN ×3 (08:38→22:38)
[2021-12-14] MEDS: SODIUM CHLORIDE 0.9% 1,000 ML IV SCH (20:20)
--- NOTE | 2021-12-15 05:00 | HP ---
HISTORY AND PHYSICAL CHIEF COMPLAINT: Shortness of breath. HISTORY OF PRESENT ILLNESS: This is another admission for this 61-year-old white male with cardiomyopathy and heart failure. He came back into the emergency room complaining of chest pain and shortness of breath. He has had no fever, chills, hemoptysis, confusion, syncope, etc. REVIEW OF SYSTEMS: Otherwise unremarkable. Past medical history, family history and personal and social histories are all otherwise unremarkable and noncontributory or unchanged. PHYSICAL EXAMINATION: VITAL SIGNS: Blood pressure is 102/65 with a pulse of 88, respirations of 35. He is afebrile. GENERAL: He appeared to be short of breath. HEAD, EARS, EYES, NOSE, MOUTH, AND THROAT: Normal. CHEST: Demonstrated rales. CARDIAC: Revealing atrial fibrillation and S3 and S4. ABDOMEN: Protuberant, soft. EXTREMITIES: Demonstrated dependent edema. NEUROLOGICAL: He is intact. ASSESSMENT: He is admitted to the hospital with diagnoses: 1. Acute congestive heart failure. 2. Chronic congestive heart failure. 3. Cardiomyopathy. 4. Reduced ejection fraction. 5. Obesity. 6. Depression. PLAN: 1. Bedrest. 2. IV fluids. 3. IV antibiotics. 4. Troponins. 5. Physical therapy and discharge planning. MMODL / IJN: [id number] /
--- NOTE | 2021-12-15 05:07 | PN ---
PROGRESS NOTE CHIEF COMPLAINT: Congestive heart failure. HISTORY OF PRESENT ILLNESS: This gentleman is being diuresed and he is still quite dyspneic. He has had no further chest pain. PHYSICAL EXAMINATION: CHEST: Breath sounds are diminished throughout with scattered rales. CARDIAC: Demonstrates his atrial fibrillation with a rapid rate. ABDOMEN: Soft and protuberant. IMPRESSION: 1. Acute congestive heart failure. 2. Chronic congestive heart failure. 3. Cardiomyopathy. PLAN: Continue with diuresis and heart failure control. MMODL / IJN: [id number] /
[2021-12-15] MEDS: acetaZOLAMIDE 250 MG TAB PO SCH (08:30)
[2021-12-15] MEDS: AMIODARONE 200 MG TAB PO SCH (08:30)
[2021-12-15] MEDS: APIXABAN 5 MG TAB PO SCH ×2 (08:30→20:37)
[2021-12-15] MEDS: BUMETANIDE 1 MG TAB PO SCH ×2 (08:30→16:21)
[2021-12-15] MEDS: HYDROcodone/APAP 5-325MG 1 EACH TAB PO PRN ×3 (08:31→20:36)
[2021-12-15] MEDS: POTASSIUM CHLORIDE ER 20 MEQ TAB.ER PO SCH ×2 (08:31→16:21)
[2021-12-15] MEDS: buPROPion XL 150 MG TAB.ER.24H PO SCH ×2 (08:31→20:37)
[2021-12-15] MEDS: SACUBITRIL/VALSARTAN 97 MG-103 MG TABLET PO SCH ×2 (08:31→20:36)
[2021-12-15] MEDS: FUROSEMIDE 40 MG TAB PO SCH ×3 (08:31→23:16)
[2021-12-15] MEDS: ASPIRIN 81 MG PO SCH (08:31)
[2021-12-15] MEDS: METOPROLOL SUCCINATE (ER) 25 MG TAB.ER.24H PO SCH (08:31)
[2021-12-15] MEDS: SPIRONOLACTONE 25 MG TAB PO SCH (08:31)
[2021-12-15] MEDS: SODIUM CHLORIDE 0.9% 1,000 ML IV SCH (20:36)
[2021-12-16] MEDS: acetaZOLAMIDE 250 MG TAB PO SCH (08:01)
[2021-12-16] MEDS: SACUBITRIL/VALSARTAN 97 MG-103 MG TABLET PO SCH ×2 (08:01→16:25)
[2021-12-16] MEDS: AMIODARONE 200 MG TAB PO SCH (08:01)
[2021-12-16] MEDS: APIXABAN 5 MG TAB PO SCH ×2 (08:01→19:58)
[2021-12-16] MEDS: FUROSEMIDE 40 MG TAB PO SCH ×2 (08:01→16:25)
[2021-12-16] MEDS: buPROPion XL 150 MG TAB.ER.24H PO SCH ×2 (08:02→19:58)
[2021-12-16] MEDS: ASPIRIN 81 MG PO SCH (08:02)
[2021-12-16] MEDS: METOPROLOL SUCCINATE (ER) 25 MG TAB.ER.24H PO SCH (08:02)
[2021-12-16] MEDS: POTASSIUM CHLORIDE ER 20 MEQ TAB.ER PO SCH ×2 (08:02→16:25)
[2021-12-16] MEDS: SPIRONOLACTONE 25 MG TAB PO SCH (08:02)
[2021-12-16] MEDS: BUMETANIDE 1 MG TAB PO SCH ×2 (08:02→16:25)
[2021-12-16] MEDS: HYDROcodone/APAP 5-325MG 1 EACH TAB PO PRN ×3 (08:57→22:30)
[2021-12-16] MEDS: SODIUM CHLORIDE 0.9% 1,000 ML IV SCH (19:58)
[2021-12-17] MEDS: FUROSEMIDE 40 MG TAB PO SCH ×4 (00:12→22:45)
[2021-12-17] MEDS: BUMETANIDE 1 MG TAB PO SCH ×2 (09:12→17:03)
[2021-12-17] MEDS: POTASSIUM CHLORIDE ER 20 MEQ TAB.ER PO SCH ×2 (09:13→16:27)
[2021-12-17] MEDS: AMIODARONE 200 MG TAB PO SCH (09:13)
[2021-12-17] MEDS: SPIRONOLACTONE 25 MG TAB PO SCH (09:13)
[2021-12-17] MEDS: METOPROLOL SUCCINATE (ER) 25 MG TAB.ER.24H PO SCH (09:13)
[2021-12-17] MEDS: APIXABAN 5 MG TAB PO SCH ×2 (09:13→20:41)
[2021-12-17] MEDS: SACUBITRIL/VALSARTAN 97 MG-103 MG TABLET PO SCH ×2 (09:13→16:27)
[2021-12-17] MEDS: buPROPion XL 150 MG TAB.ER.24H PO SCH ×2 (09:14→20:41)
[2021-12-17] MEDS: ASPIRIN 81 MG PO SCH (09:14)
[2021-12-17] MEDS: acetaZOLAMIDE 250 MG TAB PO SCH (09:14)
[2021-12-17] MEDS: HYDROcodone/APAP 5-325MG 1 EACH TAB PO PRN ×3 (09:29→22:44)
[2021-12-17] MEDS: SODIUM CHLORIDE 0.9% 1,000 ML IV SCH (20:41)
--- NOTE | 2021-12-18 00:24 | PN ---
PROGRESS NOTE CHIEF COMPLAINT: Congestive heart failure. HISTORY OF PRESENT ILLNESS: This gentleman is feeling a little bit better. He is still quite dyspneic. BUN is 22 and creatinine 1.32. He has had no chest pain. PHYSICAL EXAMINATION: CHEST: Quite clear. There are only scattered rales. CARDIAC: Reveals atrial fibrillation. ABDOMEN: Protuberant and soft. IMPRESSION: 1. Acute congestive heart failure. 2. Chronic congestive heart failure. 3. Renal failure. 4. Depression. PLAN: 1. Continue with diuresis. 2. Consider discharge back to group home for rehab. MMODL / IJN: [id number] /
--- NOTE | 2021-12-18 00:42 | PN ---
PROGRESS NOTE CHIEF COMPLAINT: Chest pain and congestive heart failure. HISTORY OF PRESENT ILLNESS: This gentleman's breathing is improved. Heart rate has slowed slightly. He is less short of breath. PHYSICAL EXAMINATION: CHEST: Demonstrates occasional rales at the bases and nothing else. CARDIAC: Unchanged with atrial fibrillation. ABDOMEN: Protuberant and soft. IMPRESSION: 1. Chest pain. 2. Atrial fibrillation. 3. Cardiomyopathy. PLAN: Continue to progress with activity and diuresis. MMODL / IJN: [id number] /
--- NOTE | 2021-12-18 01:09 | PN ---
PROGRESS NOTE CHIEF COMPLAINT: Congestive heart failure. HISTORY OF PRESENT ILLNESS: This gentleman is breathing a little bit better. He denies any further chest pain. PHYSICAL EXAMINATION: CHEST: Quite clear. There are no scattered rales in the bases. CARDIAC: Exam is unchanged. He is in atrial fibrillation. ABDOMEN: Protuberant and soft. IMPRESSION: 1. Acute congestive heart failure. 2. Cardiomyopathy. 3. Depression. PLAN: Continue with diuresis and start once again to look at an adequate discharge plan. MMODL / IJN: [id number] /
[2021-12-18] MEDS: HYDROcodone/APAP 5-325MG 1 EACH TAB PO PRN ×3 (09:15→21:59)
[2021-12-18] MEDS: buPROPion XL 150 MG TAB.ER.24H PO SCH ×2 (09:15→20:15)
[2021-12-18] MEDS: APIXABAN 5 MG TAB PO SCH ×2 (09:15→20:15)
[2021-12-18] MEDS: ASPIRIN 81 MG PO SCH (09:16)
[2021-12-18] MEDS: POTASSIUM CHLORIDE ER 20 MEQ TAB.ER PO SCH ×2 (09:16→15:50)
[2021-12-18] MEDS: AMIODARONE 200 MG TAB PO SCH (09:18)
[2021-12-18] MEDS: METOPROLOL SUCCINATE (ER) 25 MG TAB.ER.24H PO SCH (09:18)
[2021-12-18] MEDS: FUROSEMIDE 40 MG TAB PO SCH ×3 (09:18→20:18)
[2021-12-18] MEDS: SPIRONOLACTONE 25 MG TAB PO SCH (09:18)
[2021-12-18] MEDS: acetaZOLAMIDE 250 MG TAB PO SCH (09:18)
[2021-12-18] MEDS: SACUBITRIL/VALSARTAN 97 MG-103 MG TABLET PO SCH ×2 (09:18→15:50)
[2021-12-18] MEDS: BUMETANIDE 1 MG TAB PO SCH ×2 (09:18→15:49)
[2021-12-18] MEDS: SODIUM CHLORIDE 0.9% 1,000 ML IV SCH (21:51)
[2021-12-19] MEDS: AMIODARONE 200 MG TAB PO SCH (08:26)
[2021-12-19] MEDS: METOPROLOL SUCCINATE (ER) 25 MG TAB.ER.24H PO SCH (08:35)
[2021-12-19] MEDS: ASPIRIN 81 MG PO SCH (08:35)
[2021-12-19] MEDS: HYDROcodone/APAP 5-325MG 1 EACH TAB PO PRN ×3 (08:35→21:11)
[2021-12-19] MEDS: POTASSIUM CHLORIDE ER 20 MEQ TAB.ER PO SCH ×2 (08:36→16:44)
[2021-12-19] MEDS: APIXABAN 5 MG TAB PO SCH ×2 (08:36→20:11)
[2021-12-19] MEDS: BUMETANIDE 1 MG TAB PO SCH ×2 (10:34→16:45)
[2021-12-19] MEDS: FUROSEMIDE 40 MG TAB PO SCH ×3 (10:35→23:32)
[2021-12-19] MEDS: buPROPion XL 150 MG TAB.ER.24H PO SCH ×2 (10:35→20:11)
[2021-12-19] MEDS: SACUBITRIL/VALSARTAN 97 MG-103 MG TABLET PO SCH ×2 (10:35→16:45)
[2021-12-19] MEDS: SPIRONOLACTONE 25 MG TAB PO SCH (10:35)
[2021-12-19] MEDS: acetaZOLAMIDE 250 MG TAB PO SCH (10:35)
--- NOTE | 2021-12-19 11:11 | PN ---
PROGRESS NOTE CHIEF COMPLAINT: CHF. HISTORY OF PRESENT ILLNESS: This gentleman is doing better. PHYSICAL EXAMINATION: CHEST: Clear. CARDIAC: Unremarkable except for his atrial fibrillation. IMPRESSION: 1. Acute on chronic congestive heart failure. 2. Cardiomyopathy. 3. Hypertension. PLAN: Continue with current program. Start physical therapy while working on a discharge plan. MMODL / IJN: [id number] /
[2021-12-19] MEDS: SODIUM CHLORIDE 0.9% 1,000 ML IV SCH (20:10)
[2021-12-20] MEDS: POTASSIUM CHLORIDE ER 20 MEQ TAB.ER PO SCH ×2 (09:58→15:37)
[2021-12-20] MEDS: AMIODARONE 200 MG TAB PO SCH (09:58)
[2021-12-20] MEDS: acetaZOLAMIDE 250 MG TAB PO SCH (09:58)
[2021-12-20] MEDS: APIXABAN 5 MG TAB PO SCH ×2 (09:58→20:19)
[2021-12-20] MEDS: BUMETANIDE 1 MG TAB PO SCH ×2 (09:58→15:37)
[2021-12-20] MEDS: SPIRONOLACTONE 25 MG TAB PO SCH (09:58)
[2021-12-20] MEDS: buPROPion XL 150 MG TAB.ER.24H PO SCH ×2 (09:58→20:19)
[2021-12-20] MEDS: ASPIRIN 81 MG PO SCH (09:59)
[2021-12-20] MEDS: METOPROLOL SUCCINATE (ER) 25 MG TAB.ER.24H PO SCH (09:59)
[2021-12-20] MEDS: SACUBITRIL/VALSARTAN 97 MG-103 MG TABLET PO SCH ×2 (09:59→15:37)
[2021-12-20] MEDS: HYDROcodone/APAP 5-325MG 1 EACH TAB PO PRN ×3 (09:59→22:29)
[2021-12-20] MEDS: FUROSEMIDE 40 MG TAB PO SCH ×3 (09:59→23:14)
--- NOTE | 2021-12-20 13:51 | PN ---
PROGRESS NOTE CHIEF COMPLAINT: Congestive heart failure. HISTORY OF PRESENT ILLNESS: This gentleman is doing well. It was felt that he could be discharged and he was agreeable, but he has absolutely no place to go. PHYSICAL EXAMINATION: CHEST: Demonstrates decreased breath sounds at the bases with rales. CARDIAC: Unchanged. ABDOMEN: Soft, nontender. IMPRESSION: Acute on chronic congestive heart failure. PLAN: Await for Farm Loan Representative to set up discharge location, and he will probably go home tomorrow. MMODL / IJN: [id number] /
[2021-12-20] MEDS: SODIUM CHLORIDE 0.9% 1,000 ML IV SCH (20:19)
[2021-12-21] MEDS: METOPROLOL SUCCINATE (ER) 25 MG TAB.ER.24H PO SCH (07:36)
[2021-12-21] MEDS: ASPIRIN 81 MG PO SCH (07:36)
[2021-12-21] MEDS: SACUBITRIL/VALSARTAN 97 MG-103 MG TABLET PO SCH ×2 (07:36→16:27)
[2021-12-21] MEDS: APIXABAN 5 MG TAB PO SCH ×2 (07:36→20:43)
[2021-12-21] MEDS: SPIRONOLACTONE 25 MG TAB PO SCH (07:36)
[2021-12-21] MEDS: FUROSEMIDE 40 MG TAB PO SCH ×3 (07:36→23:37)
[2021-12-21] MEDS: POTASSIUM CHLORIDE ER 20 MEQ TAB.ER PO SCH ×2 (07:36→16:27)
[2021-12-21] MEDS: AMIODARONE 200 MG TAB PO SCH (07:37)
[2021-12-21] MEDS: acetaZOLAMIDE 250 MG TAB PO SCH (07:37)
[2021-12-21] MEDS: buPROPion XL 150 MG TAB.ER.24H PO SCH ×2 (07:37→20:43)
[2021-12-21] MEDS: BUMETANIDE 1 MG TAB PO SCH ×2 (07:37→16:27)
[2021-12-21] MEDS: HYDROcodone/APAP 5-325MG 1 EACH TAB PO PRN ×3 (07:41→21:27)
[2021-12-21] MEDS: SODIUM CHLORIDE 0.9% 1,000 ML IV SCH (20:40)
[2021-12-22] MEDS: FUROSEMIDE 40 MG TAB PO SCH ×3 (07:38→23:33)
[2021-12-22] MEDS: ASPIRIN 81 MG PO SCH (07:39)
[2021-12-22] MEDS: METOPROLOL SUCCINATE (ER) 25 MG TAB.ER.24H PO SCH (07:39)
[2021-12-22] MEDS: AMIODARONE 200 MG TAB PO SCH (07:39)
[2021-12-22] MEDS: APIXABAN 5 MG TAB PO SCH ×2 (07:39→20:22)
[2021-12-22] MEDS: SACUBITRIL/VALSARTAN 97 MG-103 MG TABLET PO SCH ×2 (07:39→15:21)
[2021-12-22] MEDS: SPIRONOLACTONE 25 MG TAB PO SCH (07:39)
[2021-12-22] MEDS: POTASSIUM CHLORIDE ER 20 MEQ TAB.ER PO SCH ×2 (07:39→15:21)
[2021-12-22] MEDS: HYDROcodone/APAP 5-325MG 1 EACH TAB PO PRN ×3 (07:40→22:19)
[2021-12-22] MEDS: buPROPion XL 150 MG TAB.ER.24H PO SCH ×2 (07:40→20:22)
[2021-12-22] MEDS: BUMETANIDE 1 MG TAB PO SCH ×2 (07:40→15:21)
[2021-12-22] MEDS: acetaZOLAMIDE 250 MG TAB PO SCH (07:40)
[2021-12-22 11:54] VITALS: BMI 44.5
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
--- NOTE | 2021-12-22 13:37 | PN ---
PROGRESS NOTE DATE OF SERVICE: 12/20/2021 CHIEF COMPLAINT: Heart failure. HISTORY OF PRESENT ILLNESS: This gentleman is doing well. The next problem is trying to find him a place to go to when he leaves. PHYSICAL EXAMINATION: VITAL SIGNS: Normal. CHEST: Clear. CARDIAC: Unchanged. IMPRESSION: Congestive heart failure. PLAN: Social Work and the patient are working on finding a longterm. The space that he aligned up in [place] is fallen through. He may be able to find a room in either [facility] or [place]. Once something is identified, he will be discharged. In the meantime, we are working on getting him appointment in [place]. MMODL / IJN: [id number] /
[2021-12-22] MEDS: SODIUM CHLORIDE 0.9% 1,000 ML IV SCH (18:44)
--- NOTE | 2021-12-22 21:23 | PN ---
PROGRESS NOTE CHIEF COMPLAINT: Heart failure. HISTORY OF PRESENT ILLNESS: This patient is doing fairly well, but no facility has been identified where he will be able to go at this time. PHYSICAL EXAMINATION: CHEST: Quite clear. CARDIAC: Normal. ABDOMEN: Protuberant. IMPRESSION: 1. [id number] congestive heart failure. 2. Cardiomyopathy. 3. Atrial fibrillation. PLAN: Await some type of a discharge plan. In the meantime, he will be referred to Psychiatry because he has been having increasing problems with depression over his situation. The other day, he stated that if he left the hospital, "I'll go up and jump off the bridge". MMODL / IJN: [id number] /
[2021-12-23] MEDS: APIXABAN 5 MG TAB PO SCH ×2 (08:14→20:17)
[2021-12-23] MEDS: SPIRONOLACTONE 25 MG TAB PO SCH (08:14)
[2021-12-23] MEDS: POTASSIUM CHLORIDE ER 20 MEQ TAB.ER PO SCH ×2 (08:14→16:50)
[2021-12-23] MEDS: FUROSEMIDE 40 MG TAB PO SCH ×3 (08:14→23:49)
[2021-12-23] MEDS: ASPIRIN 81 MG PO SCH (08:14)
[2021-12-23] MEDS: METOPROLOL SUCCINATE (ER) 25 MG TAB.ER.24H PO SCH (08:14)
[2021-12-23] MEDS: SACUBITRIL/VALSARTAN 97 MG-103 MG TABLET PO SCH ×2 (08:15→17:19)
[2021-12-23] MEDS: BUMETANIDE 1 MG TAB PO SCH ×2 (08:15→17:09)
[2021-12-23] MEDS: AMIODARONE 200 MG TAB PO SCH (08:15)
[2021-12-23] MEDS: acetaZOLAMIDE 250 MG TAB PO SCH (08:15)
[2021-12-23] MEDS: buPROPion XL 150 MG TAB.ER.24H PO SCH ×2 (08:15→20:17)
[2021-12-23] MEDS: HYDROcodone/APAP 5-325MG 1 EACH TAB PO PRN ×3 (08:23→20:17)
[2021-12-23] MEDS: SODIUM CHLORIDE 0.9% 1,000 ML IV SCH (20:16)
[2021-12-24] MEDS: buPROPion XL 150 MG TAB.ER.24H PO SCH ×2 (08:48→19:48)
[2021-12-24] MEDS: APIXABAN 5 MG TAB PO SCH ×2 (08:48→19:48)
[2021-12-24] MEDS: POTASSIUM CHLORIDE ER 20 MEQ TAB.ER PO SCH ×2 (08:48→16:47)
[2021-12-24] MEDS: ASPIRIN 81 MG PO SCH (08:48)
[2021-12-24] MEDS: AMIODARONE 200 MG TAB PO SCH (08:48)
[2021-12-24] MEDS: SACUBITRIL/VALSARTAN 97 MG-103 MG TABLET PO SCH ×2 (08:48→16:46)
[2021-12-24] MEDS: HYDROcodone/APAP 5-325MG 1 EACH TAB PO PRN ×3 (08:52→21:34)
[2021-12-24] MEDS: METOPROLOL SUCCINATE (ER) 25 MG TAB.ER.24H PO SCH (09:51)
[2021-12-24] MEDS: SPIRONOLACTONE 25 MG TAB PO SCH (09:51)
[2021-12-24] MEDS: FUROSEMIDE 40 MG TAB PO SCH ×2 (09:51→16:47)
[2021-12-24] MEDS: BUMETANIDE 1 MG TAB PO SCH (12:04)
[2021-12-24] MEDS: acetaZOLAMIDE 250 MG TAB PO SCH (12:04)
[2021-12-24] MEDS: SODIUM CHLORIDE 0.9% 1,000 ML IV SCH (19:48)
--- NOTE | 2021-12-24 23:58 | PN ---
PROGRESS NOTE CHIEF COMPLAINT: Congestive heart failure and homelessness. HISTORY OF PRESENT ILLNESS: This gentleman is stable and doing well. He is transferring Saturday to a [facility] in [place]. PHYSICAL EXAMINATION: CHEST: Clear. CARDIAC: Unchanged. ABDOMEN: Soft, nontender. IMPRESSION: Congestive heart failure. PLAN: Discharge Saturday. MMODL / IJN: [id number] /
[2021-12-25] MEDS: FUROSEMIDE 40 MG TAB PO SCH ×3 (00:05→15:12)
[2021-12-25] MEDS: SACUBITRIL/VALSARTAN 97 MG-103 MG TABLET PO SCH ×2 (06:37→18:20)
[2021-12-25] MEDS: APIXABAN 5 MG TAB PO SCH ×2 (09:36→20:33)
[2021-12-25] MEDS: AMIODARONE 200 MG TAB PO SCH (09:36)
[2021-12-25] MEDS: buPROPion XL 150 MG TAB.ER.24H PO SCH ×2 (09:36→20:33)
[2021-12-25] MEDS: ASPIRIN 81 MG PO SCH (09:36)
[2021-12-25] MEDS: POTASSIUM CHLORIDE ER 20 MEQ TAB.ER PO SCH ×2 (09:37→15:10)
[2021-12-25] MEDS: SPIRONOLACTONE 25 MG TAB PO SCH (09:37)
[2021-12-25] MEDS: METOPROLOL SUCCINATE (ER) 25 MG TAB.ER.24H PO SCH (09:37)
[2021-12-25] MEDS: HYDROcodone/APAP 5-325MG 1 EACH TAB PO PRN ×3 (09:41→21:18)
--- NOTE | 2021-12-25 09:57 | P.DS ---
Providers Date of admission: 12/13/21 20:33 Expected date of discharge: 12/25/21 Attending physician: Marcelino Trujillo Consults: 12/21/21 14:43 Consult Physician Routine Consulting Provider: Jean-Claude Figueredo Consult Reason/Comments: depression, severe, suicidal Do you want consulting provider notified?: Yes Primary care physician: Marcelino Trujillo - Discharge Diagnosis(es) (1) CHF (congestive heart failure) Current Visit: Yes Status: Acute (2) Cardiomyopathy of undetermined type Current Visit: Yes Status: Acute Hospital Course: 61-year-old male presented to Hospital the outpatient setting difficulties that included increasing shortness of breath and discomfort in his chest. Is related he has a known history of chronic systolic congestive heart failure and underlying cardiomyopathy of undetermined type. The patient does have difficulties include homelessness and related depression. Patient's medications were maximized including his diuretic therapy. He is now feeling considerably better. He has been seen by psychiatry with no need for any specific in-hospital intervention but would do well to have outpatient counseling given his current social status of homelessness, being , having history of prior difficulties with alcoholism. Assessment: The patient's atrial fibrillation has been stabilized. The congestive heart failure has also been improved. It is noted that his exercise tolerance has improved. Plan - Discharge Summary New Discharge Prescriptions: New Potassium Chloride ER [K-Dur 20] 20 meq PO BID@0900,1600 #60 tab Furosemide [Lasix] 40 mg PO Q8HR #90 tab Amiodarone [Cordarone] 200 mg PO DAILY #30 tab buPROPion XL [Wellbutrin XL] 150 mg PO BID #60 tab Continue HYDROcodone/APAP 5-325MG [[place] 5-325] 1 tab PO Q6H PRN #6 tab PRN Reason: Pain Potassium Chloride ER [K-Dur 20] 20 meq PO BID@0900,1600 buPROPion XL [Wellbutrin XL] 150 mg PO BID acetaZOLAMIDE [Diamox] 250 mg PO DAILY #10 tab Metoprolol Succinate (ER) [Toprol XL] 25 mg PO DAILY 30 Days #30 tab Spironolactone [Aldactone] 50 mg PO DAILY #30 tab Amiodarone [Cordarone] 200 mg PO DAILY #0 Aspirin EC [Ecotrin Low Dose] 81 mg PO DAILY #30 tab Apixaban [Eliquis] 5 mg PO BID #60 tab Sacubitril/Valsartan [Entresto 97 mg-103 mg Tablet] 1 tab PO AC-BID #60 tab Benzonatate [Tessalon Perles] 100 mg PO QID PRN PRN Reason: Cough ALPRAZolam [Xanax] 0.25 mg PO BID PRN PRN Reason: Anxiety Albuterol Inhaler [Ventolin Hfa Inhaler] 2 puff INHALATION RT-QID PRN #1 each PRN Reason: Shortness Of Breath Ergocalciferol [Vitamin D2 (1250 Mcg = 54992 Iu)] 1,250 mcg PO Q30D #30 cap Discontinued Bumetanide [BUMEX] 4 mg PO BID@0900,1600 #60 tab Discharge Medication List HYDROcodone/APAP 5-325MG [[place] 5-325] 1 tab PO Q6H PRN #6 tab 12/30/20 [Rx] Benzonatate [Tessalon Perles] 100 mg PO QID PRN 10/20/21 [History] Potassium Chloride ER [K-Dur 20] 20 meq PO BID@0900,1600 10/20/21 [History] buPROPion XL [Wellbutrin XL] 150 mg PO BID 10/20/21 [History] Metoprolol Succinate (ER) [Toprol XL] 25 mg PO DAILY 30 Days #30 tab 10/27/21 [Rx] acetaZOLAMIDE [Diamox] 250 mg PO DAILY #10 tab 10/27/21 [Rx] ALPRAZolam [Xanax] 0.25 mg PO BID PRN 12/02/21 [History] Furosemide [Lasix] 40 mg PO Q8HR #90 tab 12/19/21 [Rx] Albuterol Inhaler [Ventolin Hfa Inhaler] 2 puff INHALATION RT-QID PRN #1 each 12/25/21 [Rx] Amiodarone [Cordarone] 200 mg PO DAILY #0 12/25/21 [Rx] Amiodarone [Cordarone] 200 mg PO DAILY #30 tab 12/25/21 [Rx] Apixaban [Eliquis] 5 mg PO BID #60 tab 12/25/21 [Rx] Aspirin EC [Ecotrin Low Dose] 81 mg PO DAILY #30 tab 12/25/21 [Rx] Ergocalciferol [Vitamin D2 (1250 Mcg = 54967 Iu)] 1,250 mcg PO Q30D #30 cap 12/25/21 [Rx] Potassium Chloride ER [K-Dur 20] 20 meq PO BID@0900,1600 #60 tab 12/25/21 [Rx] Sacubitril/Valsartan [Entresto 97 mg-103 mg Tablet] 1 tab PO AC-BID #60 tab 12/25/21 [Rx] Spironolactone [Aldactone] 50 mg PO DAILY #30 tab 12/25/21 [Rx] buPROPion XL [Wellbutrin XL] 150 mg PO BID #60 tab 12/25/21 [Rx] Follow up Appointment(s)/Referral(s): Marcelino Trujillo MD [Primary Care Provider] - 12/25/21 Patient Instructions/Handouts: Heart Failure (DC) Activity/Diet/Wound Care/Special Instructions: [facility] (P: [phone] F: [phone]) [address] [facility] [place] [address] [facility]- Services males [address] [place], [place] [facility]- Services females [address] [place], [place] [facility] [employer] [facility] [place]- Services males only [address], [place] [facility] [address] [facility] Re[facility] Runaway Program- Services available for youth 10-17 [address] [facility] [place] [facility]- Men only substance abuse treatment [address] [facility]- Services domestic violence survivors [facility] [address] [facility]- Services families with children [place] [facility] [employer] [facility]- Services domestic violence survivors [place] [address] [id number] [place] [facility] [place], [place] [id number] Housing Authority, Low Income Affordable Housing, Public Housing [facility] Homeless assisted for women and children [address] [place] [address] [facility], Clothing, Food, Support Services [place], [place] [id number] Supportive Housing, Domestic Violence shelters for men and women. [facility] [place], [place] [id number] Housing Authority, Low Income Affordable Housing, Public Housing [place] [address] Housing Authority, Low Income Affordable Housing, Public Housing [place], [place] [id number] Housing Authority, Low Income Affordable Housing, Public Housing [address] [place], [place] [id number] Agency that provides [facility] Approved Housing Assistance Programs [facility] - Adult (18 yrs or older) male assisted Intake: 4:30pm-5pm / Dinner: 5pm-6pm [address], [place] [address] [facility] Womens [place] [address] [place] [address] Run by [facility] ([facility] [place]) Provides 2 meals/day for all residents of the emergency assisted as well as a sack lunch for the women of the assisted program who are working. Provides a place to sleep and live as well as showers and laundry facilities for the reside nts between the hours of 4pm-9am daily. [facility] is a [facility], Licensed Drug and Alcohol Peer Recovery, and early intervention program providing drug and alcohol recovery programming. [facility] [place] for runaway and homeless youth aged 10-17 [address] [place] [address] [employer] Line: [facility] [place] Transitional living program for youth aged 16-21 [address] [place] [address] [facility] services for women survivors of domestic violence, sexual assault and/or homeless and their dependent children [facility] Crisis Line: [facility] Independent Living-Project [facility]- [place] Housing Assistance. [place]- Disaster victim assistance [address] [place] [address] [facility]- Fire victim assistance *2 nights only *only if assisted is unavailable Discharge/Stand Alone Forms: Who Do I Call?, Community Resources Discharge Disposition: OTHER INSTITUTION NOT DEFINED
[2021-12-25] MEDS: SODIUM CHLORIDE 0.9% 1,000 ML IV SCH (20:33)
[2021-12-26] MEDS: FUROSEMIDE 40 MG TAB PO SCH ×2 (00:04→08:09)
[2021-12-26 00:05] VITALS: RESP 18
--- NOTE | 2021-12-26 06:03 | PN ---
PROGRESS NOTE DATE OF SERVICE: 12/22/2021 CHIEF COMPLAINT: Congestive heart failure. HISTORY OF PRESENT ILLNESS: This patient is doing well and awaits a discharge plan. The efforts are being made to get him into some type of a longterm somewhere. Everything is full at this time. REVIEW OF SYSTEMS: Not changed. He is doing well and is not short of breath. He is on his meds well. PHYSICAL EXAMINATION: CHEST: Clear. CARDIAC: Normal. ABDOMEN: Soft and nontender. IMPRESSION: Congestive heart failure. PLAN: Await discharge. MMODL / IJN: [id number] /
--- NOTE | 2021-12-26 06:37 | PN ---
PROGRESS NOTE DATE OF SERVICE: 12/24/2021 CHIEF COMPLAINT: Congestive heart failure. HISTORY OF PRESENT ILLNESS: This gentleman is doing well. He is not having any shortness of breath, chest pain, dizziness, lightheadedness, orthostatic symptoms, etc. His blood pressure is slightly low, which is due to his poor cardiac output. PHYSICAL EXAMINATION: CHEST: Clear. CARDIAC: Normal. He has no edema and he feels well, not short of breath. IMPRESSION: 1. Acute on chronic congestive heart failure. 2. Cardiomyopathy. 3. Obesity. 4. Pickwickian syndrome. 5. Sleep apnea. 6. Renal failure. PLAN: 1. Cut down slightly on his diuretic management. 2. Await transfer to a senior care in [place] tomorrow. MMIVORYL / IJN: [id number] /
--- NOTE | 2021-12-26 07:07 | PN ---
PROGRESS NOTE DATE OF SERVICE: 12/25/2021 CHIEF COMPLAINT: Congestive heart failure. HISTORY OF PRESENT ILLNESS: This gentleman has had no increase in symptoms. He is doing well. He is not having any shortness of breath or chest pain. He was expected that he would be going today to a snf in [place]. When he was seen at 9 o'clock, he still had not heard whether or not he was going today. He was told that if he got the clearance, they will let me know and I would write up all of his prescriptions that he could black pickler at my office on the way to [place]. PHYSICAL EXAMINATION: CHEST: Quite clear. CARDIAC: Normal except for his atrial fibrillation. ABDOMEN: Protuberant, soft and nontender. EXTREMITIES: Normal. There is no significant edema. IMPRESSION: Chronic congestive heart failure with renal failure, Pickwickian syndrome, and sleep apnea. PLAN: Discharge today to [place]. ADDENDUM: Once the patient got clearance for discharge, I went to discharge him from the office. I wanted to find out that his discharge prescriptions had been entered already. There were some changes that needed to be made. When I called the hospital, it turns out that they had already gone to the pharmacy. There was a concern by the Social Work that if he did leave the hospital and get to the snf by noon, that he might not be taken in. I called the patient on the cellphone. I told him to bypass my office and go straight to [place]. Either way he would take care of his medications from there. Later in the day, I was notified that he did not leave the hospital for reasons that were not explained or conveyed to me. MMIVORYL / NORRISN: [id number] /
[2021-12-26] MEDS: ASPIRIN 81 MG PO SCH (08:09)
[2021-12-26] MEDS: APIXABAN 5 MG TAB PO SCH (08:09)
[2021-12-26] MEDS: buPROPion XL 150 MG TAB.ER.24H PO SCH (08:09)
[2021-12-26] MEDS: METOPROLOL SUCCINATE (ER) 25 MG TAB.ER.24H PO SCH (08:10)
[2021-12-26] MEDS: SACUBITRIL/VALSARTAN 97 MG-103 MG TABLET PO SCH (08:10)
[2021-12-26] MEDS: SPIRONOLACTONE 25 MG TAB PO SCH (08:10)
[2021-12-26] MEDS: POTASSIUM CHLORIDE ER 20 MEQ TAB.ER PO SCH (08:10)
[2021-12-26] MEDS: AMIODARONE 200 MG TAB PO SCH (08:10)
[2021-12-26] MEDS: HYDROcodone/APAP 5-325MG 1 EACH TAB PO PRN (08:15)
[2021-12-26 08:18] VITALS: BP 111/74; PULSE 66; TEMP 97.8
[2021-12-27] MEDS ORDERED: ERGOCALCIFEROL 1,250 MCG (50,000 IU) CAPSULE PO SCH (09:00)
--- NOTE | 2021-12-27 17:17 | DS ---
DISCHARGE SUMMARY CHIEF COMPLAINT: Shortness of breath and heart failure. HISTORY OF PRESENT ILLNESS AND PHYSICAL EXAMINATION: Details of this man's history and physical can be found in the initial workup. LABORATORY STUDIES: While he was in the hospital, he had laboratory studies, details of which can be found in the laboratory section of his chart. COURSE IN THE HOSPITAL: After admission, he was placed on bedrest and started on intravenous fluids and continued on his cardiac medications for his heart failure. In the hospital, he stayed out of heart failure and did well. He had no place to go, so Insurance Legal Assistant helped him to find a senior living. This was a complex procedure, and finally, one was available in [place] and he was to go there on the . He apparently did not leave the hospital in time to make that admission, and he left on the morning of the . He will be followed up in the office. Unfortunately, he was discharged on inappropriate medications and did not include his new medication for congestive heart failure, which we had gotten a prior authorization for. I will try to see if I can reach him at the senior living in [place] and make the changes. He does have an appointment in [place] in the next month for an assessment for a cardiac transplant. MMODL / IJN: [id number] /
== END 2021-12-26 08:55 | disposition other institution (70) ==
LOC: EC 16:11 → 6NMEDSUR 20:33
PROVIDERS: ADMIT Family Medicine; ATTEND Family Medicine
DX: I11.0 Hypertensive heart disease with heart failure (principal); I50.22 Chronic systolic (congestive) heart failure; E66.2 Morbid (severe) obesity with alveolar hypoventilation; F41.9 Anxiety disorder, unspecified; F32.A Depression, unspecified; I45.10 Unspecified right bundle-branch block; E78.5 Hyperlipidemia, unspecified; I42.9 Cardiomyopathy, unspecified; N19 Unspecified kidney failure; G47.30 Sleep apnea, unspecified; I48.20 Chronic atrial fibrillation, unspecified; Z90.49 Acquired absence of other specified parts of digestive tract; Z79.82 Long term (current) use of aspirin; Z79.899 Other long term (current) drug therapy; Z79.01 Long term (current) use of anticoagulants; Z83.3 Family history of diabetes mellitus; Z82.49 Family history of ischemic heart disease and other diseases of the circulatory system; Z59.00 Homelessness unspecified; Z20.822 Contact with and (suspected) exposure to COVID-19; Z68.41 Body mass index [BMI] 40.0-44.9, adult
CPT/HCPCS: 96374; 96375; 99285; 36415; 94640; 94760 ×4; 93005; 97116; 97530; 97162; 83880; 80053; 83735; 84484; 85025; 85610; 85730; 87635 ×2; 71046; G0378 ×14; J1940; J1170

== ENCOUNTER 2022-06-11 12:42 | Inpatient (IN) | payer OTHER ==
[2022-06-11 13:46] LABS: Basophils % (A) 0 %; Eosinophils # (A) 0.1 k/uL (0-0.7); Eosinophils % (A) 2 %; HCT 46.4 % (39.0-53.0); Lymphocytes # (A) 0.7 k/uL (1.0-4.8); Lymphocytes % (A) 10 %; MCH 30.5 pg (25.0-35.0); MCHC 32.4 g/dL (31.0-37.0); MCV 94.2 fL (80.0-100.0); Mean Platelet Volume 8.8; Monocytes # (A) 0.4 k/uL (0-1.0); Monocytes % (A) 6 %; Neutrophils # (A) 5.6 k/uL (1.3-7.7); Neutrophils % (A) 80 %; Platelet Count 171 k/uL (150-450); RBC 4.92 m/uL (4.30-5.90); RDW 14.3 % (11.5-15.5); WBC 6.9 k/uL (3.8-10.6)
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
[2022-06-11 13:57] LABS: ALT 31 U/L (4-49); AST 27 U/L (17-59); African American GFR (CKD) >90 (>60 ml/min/1.73 sqM); Albumin 3.9 g/dL (3.5-5.0); Alkaline Phosphatase 106 U/L (38-126); Anion Gap 8 mmol/L; Blood Urea Nitrogen 17 mg/dL (9-20); Carbon Dioxide 27 mmol/L (22-30); Chloride 103 mmol/L (98-107); Glucose 108 mg/dL (74-99); Non-African American GFR(CKD) 82 (>60 ml/min/1.73 sqM); Partial Thromboplastin Time 24.5 sec (22.0-30.0); Potassium 4.9 mmol/L (3.5-5.1); Prothrombin Time 10.7 sec (9.0-12.0); Sodium 138 mmol/L (137-145); Total Bilirubin 1.8 mg/dL (0.2-1.3); Total Protein 6.8 g/dL (6.3-8.2)
--- NOTE | 2022-06-11 13:58 | XR ---
EXAMINATION TYPE: XR chest 2V DATE OF EXAM: 06/11/2022 COMPARISON: 12/13/2021 INDICATION: Chest pain, short of breath TECHNIQUE: Frontal and lateral views of the chest are obtained. FINDINGS: The heart size is enlarged. The pulmonary vasculature is normal. There may be some mild subsegmental atelectasis at the right base. Small posterior pleural effusions are present.. IMPRESSION: 1. Cardiomegaly with posterior pleural effusions. Some minimal subsegmental atelectasis may be at the right base. Follow-up exams are recommended.
[2022-06-11] MEDS ORDERED: FUROSEMIDE 10 MG/ML 4 ML VIAL IV STA (15:18)
[2022-06-11] MEDS ORDERED: NITROGLYCERIN SL TABS 0.4 MG TAB SUBLINGUAL PRN (15:24)
[2022-06-11] MEDS ORDERED: FUROSEMIDE 40 MG TAB PO SCH (16:00)
[2022-06-11] MEDS: HYDROcodone/APAP 7.5-325MG 1 EACH TAB PO SCH ×2 (16:03→21:14)
[2022-06-11] MEDS ORDERED: BUMETANIDE 1 MG TAB PO SCH (21:00)
[2022-06-11] MEDS: SACUBITRIL/VALSARTAN 97 MG-103 MG TABLET PO SCH (21:15)
[2022-06-11] MEDS: ATORVASTATIN 40 MG TAB PO SCH (21:16)
[2022-06-11] MEDS: APIXABAN 5 MG TAB PO SCH (21:16)
[2022-06-11] MEDS ORDERED: IBUPROFEN 400 MG TAB PO STA (21:27)
[2022-06-11] MEDS: buPROPion 75 MG TAB PO SCH (22:06)
[2022-06-12] MEDS: HYDROcodone/APAP 7.5-325MG 1 EACH TAB PO SCH ×4 (03:08→20:36)
[2022-06-12] MEDS ORDERED: LOSARTAN 25 MG TAB PO SCH (09:00)
[2022-06-12] MEDS ORDERED: ASPIRIN 81 MG PO SCH (09:00)
[2022-06-12] MEDS ORDERED: NALOXONE 0.4 MG/ML 1 ML VIAL IVP PRN (09:10)
[2022-06-12] MEDS ORDERED: ACETAMINOPHEN TAB 325 MG TAB PO PRN (09:10)
[2022-06-12] MEDS ORDERED: HYDROcodone/APAP 5-325MG 1 EACH TAB PO PRN (09:10)
[2022-06-12] MEDS: APIXABAN 5 MG TAB PO SCH ×2 (09:11→20:37)
[2022-06-12] MEDS: SPIRONOLACTONE 25 MG TAB PO SCH (09:11)
[2022-06-12] MEDS: AMIODARONE 200 MG TAB PO SCH (09:11)
[2022-06-12] MEDS: TAMSULOSIN 0.4 MG CAP.ER.24H PO SCH (09:11)
[2022-06-12] MEDS: DAPAGLIFLOZIN PROPANEDIOL 10 MG TABLET PO SCH (09:12)
[2022-06-12] MEDS: buPROPion 75 MG TAB PO SCH ×2 (09:12→20:37)
[2022-06-12] MEDS: SACUBITRIL/VALSARTAN 97 MG-103 MG TABLET PO SCH ×2 (09:12→20:37)
[2022-06-12] MEDS: FUROSEMIDE 10 MG/ML 4 ML VIAL IV SCH ×3 (09:16→23:49)
[2022-06-12] MEDS: ASPIRIN 81 MG PO SCH (11:20)
[2022-06-12 11:28] VITALS: BMI 44.1
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
[2022-06-12] MEDS: IBUPROFEN 400 MG TAB PO PRN (15:10)
--- NOTE | 2022-06-12 18:16 | CA ---
Transthoracic Echo Report Name: Vance Lee Age: 61 Gender: M : 1960 Exam Date: 06/12/2022 10:17 Exam Location: [facility] Ht (in): 74 Wt (lb): 343 Ordering Physician: Mike Caldwell MD Attending/Referring Phys: Pet Caretaker Yamel Phillips RDCS Procedure CPT: Indications: chf Cardiac Hx: Technical Quality: Technically difficult study Contrast 1: Lumason Total Dose (mL): 3 Contrast 2: Total Dose (mL): MEASUREMENTS (Male / Female) Normal Values 2D ECHO LV Diastolic Diameter PLAX 7.0 cm 4.2 - 5.9 / 3.9 - 5.3 cm LV Systolic Diameter PLAX 6.2 cm IVS Diastolic Thickness 1.4 cm 0.6 - 1.0 / 0.6 - 0.9 cm LVPW Diastolic Thickness 1.3 cm 0.6 - 1.0 / 0.6 - 0.9 cm LV Relative Wall Thickness 0.4 RV Internal Dim ED PLAX 3.5 cm LA Systolic Diameter LX 4.0 cm 3.0 - 4.0 / 2.7 - 3.8 cm LV Diastolic Volume MOD BP 141.3 cm??? 67 - 155 / 56 - 104 cm??? LV Systolic Volume MOD BP 123.5 cm??? 22 - 58 / 19 - 49 cm??? LV Ejection Fraction MOD BP 12.6 % >= 55 % LV Diastolic Volume MOD 4C 143.6 cm??? LV Systolic Volume MOD 4C 119.6 cm??? LV Ejection Fraction MOD 4C 16.7 % LV Diastolic Length 4C 8.8 cm LV Systolic Length 4C 8.6 cm LV Diastolic Volume MOD 2C 141.3 cm??? LV Systolic Volume MOD 2C 105.0 cm??? LV Ejection Fraction MOD 2C 25.7 % LV Diastolic Length 2C 8.9 cm LV Systolic Length 2C 7.0 cm LA Volume 127.1 cm??? 18 - 58 / 22 - 52 cm??? M-MODE Aortic Root Diameter MM 3.9 cm MV E Point Septal Separation 2.6 cm AV Cusp Separation MM 2.0 cm DOPPLER AV Peak Velocity 124.9 cm/s AV Peak Gradient 6.2 mmHg MV Area PHT 3.0 cm??? MV Deceleration Time 304.8 ms TR Peak Velocity 274.2 cm/s TR Peak Gradient 30.1 mmHg Right Ventricular Systolic Press 35.1 mmHg FINDINGS Left Ventricle Left ventricular ejection fraction is estimated at 15 %. Moderately increased septal wall thickness. Severely increased left ventricular diastolic diameter. Severely increased left ventricular systolic volume. Severely decreased left ventricular ejection fraction. Moderate concentric left ventricular hypertrophy. Right Ventricle Mild right ventricular dilatation. Mild pulmonary hypertension. Right Atrium Normal right atrial size. Left Atrium Severely increased left atrial volume. Moderately increased left atrial area. Mitral Valve Mitral valve thickened. No mitral stenosis, regurgitation or prolapse. Aortic Valve Aortic valve not well visualized. No aortic valve stenosis or regurgitation. Tricuspid Valve Structurally normal tricuspid valve. Mild tricuspid regurgitation. Pulmonic Valve Structurally normal pulmonic valve. No pulmonic regurgitation. Pericardium Normal pericardium. No pericardial effusion. Aorta Mild aortic dilatation at the level of the sinuses of valsalva 39 mm CONCLUSIONS Dilated left ventricle with severely reduced left ventricular systolic function RV enlargement Left atrial enlargement Previewed by: Dr. John Pickett MD (Electronically Signed) Final Date: 12 June 2022 18:16
[2022-06-12] MEDS: ATORVASTATIN 40 MG TAB PO SCH (20:37)
[2022-06-12] MEDS: ALBUTEROL NEBULIZED 2.5 MG/3 ML INHALATION PRN (20:59)
[2022-06-13] MEDS: HYDROcodone/APAP 7.5-325MG 1 EACH TAB PO SCH ×4 (02:25→20:05)
[2022-06-13] MEDS: ALBUTEROL NEBULIZED 2.5 MG/3 ML INHALATION PRN ×3 (05:12→21:48)
[2022-06-13] MEDS: IBUPROFEN 400 MG TAB PO PRN ×2 (05:59→18:28)
[2022-06-13] MEDS: TAMSULOSIN 0.4 MG CAP.ER.24H PO SCH (08:29)
[2022-06-13] MEDS: SPIRONOLACTONE 25 MG TAB PO SCH (08:29)
[2022-06-13] MEDS: AMIODARONE 200 MG TAB PO SCH (08:30)
[2022-06-13] MEDS: FUROSEMIDE 10 MG/ML 4 ML VIAL IV SCH ×3 (08:30→23:38)
[2022-06-13] MEDS: APIXABAN 5 MG TAB PO SCH ×2 (08:30→20:05)
[2022-06-13] MEDS: ASPIRIN 81 MG PO SCH (08:30)
[2022-06-13] MEDS: SACUBITRIL/VALSARTAN 97 MG-103 MG TABLET PO SCH ×2 (08:31→21:06)
[2022-06-13] MEDS: DAPAGLIFLOZIN PROPANEDIOL 10 MG TABLET PO SCH (08:31)
[2022-06-13] MEDS: buPROPion 75 MG TAB PO SCH ×2 (08:31→21:06)
[2022-06-13 10:51] LABS: Calcium 8.8 mg/dL (8.4-10.2)
[2022-06-13 10:56] LABS: Magnesium 1.9 mg/dL (1.6-2.3); Potassium 4.4 mmol/L (3.5-5.1)
--- NOTE | 2022-06-13 11:10 | P.PN ---
Subjective Progress Note Date: 06/13/22 History of present illness: This is a 61-year-old male with past medical history significant for permanent atrial fibrillation on Eliquis, nonobstructive coronary artery disease, morbid obesity, hypertension, dyslipidemia and obstructive sleep apnea, non-compliance with medications, chronic back pain. Patient follows with a superior court justice Dr. Lowe. Patient currently lives in the [place] area but was here locally for family issues. He complains of loss of appetite, weight gain of 15 pounds over the past week. He also complains of cough with sputum production, dyspnea on exertion with minimal activity. 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 He states also however that he lost his job. He denies any chest pain or pressure. Denies any recent fevers, chills, cough. He has noticed increased lower extremity edema and shortness of breath progressive over last week. Limited tree reveals A. fib with heart rates in the 100 to 120s range. DIAGNOSTICS EKG atrial fibrillation at 90 bpm CBC unremarkable. INR 1. Electrolytes and renal function normal with creatinine 0.99. Blood sugar 108. Total bilirubin 1.8 otherwise liver function tests are normal. Troponin 0.034 and 0.0-2. ProBNP 3500 Chest x-ray reveals cardiomegaly with posterior pleural effusions. Some minimal subsegmental atelectasis may be at the right base. Home cardiac medications: Amiodarone 200 mg daily, eliquis 5 mg twice daily, aspirin 81 mg daily, Lipitor 40 mg at bedtime, Bumex 1 mg twice daily, Farxiga 10 milligrams daily, Lasix 40 mg twice daily, losartan 25 mg daily, Entresto [id number] milligrams twice daily, Aldactone 25 mg daily (Noted on patient's home list that he is on 2 diuretics and losartan and Entresto) Lexiscan stress test 05/2020 revealed fixed defects along the apical anterior wall and apical inferior wall. No definite suspicious reversibility. Mild LV chamber enlargement and mild global hypokinesis a decreased LVEF of 46%. Echocardiogram 12/2021 revealed severe global hypokinesia with EF 20-25% and dilated left ventricle, dilated right ventricle, valvular structures were not well visualized. Cardiac catheterization in June 2019 mild to moderate nonobstructive disease involving the RCA 06/13 Patient states that she is feeling a little better from yesterday. She has been on IV Lasix 40 mg every 8 hours. Repeat blood work reveals potassium 4.4, BUN 25 creatinine 1.05. Echocardiogram reveals dilated left ventricle with severely reduced left ventricular systolic function at 15%. LV enlargement. Left atrial enlargement. PHYSICAL EXAMINATION Vitals reviewed CONSTITUTIONAL: No apparent distress. Chronically ill appearing, obese HEENT: Head is normocephalic. Pupils are equal, round. Sclerae anicteric. Mucous membranes of the mouth are moist. No JVD. No carotid bruit. CHEST EXAMINATION: Lungs crackles in bases to auscultation. No chest wall tenderness is noted on palpation or with deep breathing. HEART EXAMINATION: Irregular rate and rhythm. S1, S2 heard. Systolic ejection murmur noted. No gallops or rub. ABDOMEN: Soft, nontender. Positive bowel sounds. EXTREMITIES: 2+ peripheral pulses, trace bilateral lower extremity edema and no calf tenderness. NEUROLOGIC EXAMINATION: Patient is awake, alert and oriented x3. ASSESSMENT Acute on Chronic systolic heart failure Severe nonischemic cardiomyopathy Permanent atrial fibrillation on Eliquis History of hypertension Mild to moderate non-obstructive coronary artery disease Morbid obesity BMI 44 Dyslipidemia Obstructive sleep apnea Medical noncompliance PLAN Continue amiodarone, eliquis, Lipitor, Farxiga, Entresto and Aldactone. Continue patient on Lasix 40 mg IV decreased to every 12 hours Accurate ins and outs and monitor kidney function. Anticipate possible discharge tomorrow. Nurse practitioner note has been reviewed, I agree with the documented findings and plan of care. Patient was seen and examined. Objective - Vital Signs Vital signs: Vital Signs Temp 97.8 F 06/13/22 08:30 Pulse 69 06/13/22 08:30 Resp 18 06/13/22 08:30 BP 99/59 06/13/22 08:30 Pulse Ox 91 L 06/13/22 08:30 FiO2 Intake & Output 06/12/22 06/13/22 06/13/22 18:59 06:59 18:59 Intake Total 240 240 Output Total 1450 1750 Balance -1210 -1750 240 Weight 155.9 kg 155.1 kg Intake: Oral 240 240 Output: Urine 1450 1750 Other: Voiding Method Toilet Toilet Toilet Urinal Urinal Urinal - Labs CBC & Chem 7: 06/11/22 13:29 06/13/22 08:34
[2022-06-13 11:22] LABS: HCT 50.3 % (39.0-53.0); HGB 16.1 gm/dL (13.0-17.5); MCH 30.4 pg (25.0-35.0); MCHC 32.1 g/dL (31.0-37.0); MCV 94.7 fL (80.0-100.0); Mean Platelet Volume 9.8; Platelet Count 148 k/uL (150-450); RBC 5.31 m/uL (4.30-5.90); RDW 14.3 % (11.5-15.5)
--- NOTE | 2022-06-13 12:34 | P.PN ---
Subjective Progress Note Date: 06/13/22 Principal diagnosis: Shortness of breath CHF exacerbation Interval history : 61-year-old gentleman with past medical history significant for congestive heart failure cardiomyopathy with ejection fraction of 15% per patient, history of atrial fibrillation presents with demonstrated department with complaints of shortness of breath. Patient started on IV diuretics, repeat echocardiogram shows ejection fraction of 15 % SUBJECTIVE : Seen and evaluated bedside, patient says breathing has improved REVIEW OF SYSTEMS: Essentially negative except shortness of breath, lower extremity edema CONSTITUTIONAL: No fever, no malaise, no fatigue. HEENT: No recent visual problems or hearing problems. Denied any sore throat. CARDIOVASCULAR: No chest pain, orthopnea, PND, no palpitations, no syncope. PULMONARY: No shortness of breath, no cough, no hemoptysis. GASTROINTESTINAL: No diarrhea, no nausea, no vomiting, no abdominal pain. NEUROLOGICAL: No headaches, no weakness, no numbness. HEMATOLOGICAL: Denies any bleeding or petechiae. GENITOURINARY: Denies any burning micturition, frequency, or urgency. MUSCULOSKELETAL/RHEUMATOLOGICAL: Denies any joint pain, swelling, or any muscle pain. ENDOCRINE: Denies any polyuria or polydipsia. PHYSICAL EXAMINATION: Vital reviewed, GENERAL: The patient is alert and oriented x3, not in any acute distress. Well developed, obese HEENT: Pupils are round and equally reacting to light. EOMI. No scleral icterus. No conjunctival pallor. Normocephalic, atraumatic. No pharyngeal erythema. CARDIOVASCULAR: S1 and S2 present. No murmurs, edema noted PULMONARY: Chest is clear to auscultation, no wheezing or Ronchi ABDOMEN: Soft, nontender, nondistended, normoactive bowel sounds. No palpable organomegaly. MUSCULOSKELETAL: No joint swelling or deformity. EXTREMITIES: No cyanosis, clubbing, or pedal edema. NEUROLOGICAL: Gross neurological examination did not reveal any focal deficits. SKIN: No rashes. ASSESMENT & PLAN * Acute on chronic congestive heart failure systolic dysfunction with acute exacerbation * Permanent atrial fibrillation * Morbid obesity * Nonischemic cardiomyopathy * History of coronary artery disease * Consult obtained from cardiology * For congestive heart failure continue patient on Lasix 40 mg twice a day * Continue current medications including amiodarone, Aldactone, ENTRESTO >. Monitor for hypotension * Continue to diurese her blood pressure stable potential discharge in the next 24 hours Objective - Vital Signs Vital signs: Vital Signs Temp 97.8 F 06/13/22 08:30 Pulse 89 06/13/22 11:05 Resp 17 06/13/22 11:05 BP 101/69 06/13/22 11:05 Pulse Ox 94 L 06/13/22 11:05 FiO2 Intake & Output 06/12/22 06/13/22 06/13/22 18:59 06:59 18:59 Intake Total 240 240 Output Total 1450 1750 600 Balance -1210 -1750 -360 Weight 155.9 kg 155.1 kg Intake: Oral 240 240 Output: Urine 1450 1750 600 Other: Voiding Method Toilet Toilet Toilet Urinal Urinal Urinal - Labs CBC & Chem 7: 06/13/22 08:34 06/13/22 08:34 Labs: Abnormal Lab Results - Last 24 Hours (Table) 06/13/22 06/13/22 Range/Units 08:34 08:34 Plt Count 148 L (150-450) k/uL Carbon Dioxide 34 H (22-30) mmol/L BUN 25 H (9-20) mg/dL Glucose 130 H (74-99) mg/dL
[2022-06-13 16:06] LABS: Chol/HDL Ratio 4.92 Ratio; LDL Cholesterol,Calculated 134.4 mg/dL (0.0-131.0); VLDL Calculation 17.76 mg/dL (5.00-40.00)
[2022-06-13] MEDS: ATORVASTATIN 40 MG TAB PO SCH (20:05)
[2022-06-14] MEDS: HYDROcodone/APAP 7.5-325MG 1 EACH TAB PO SCH ×4 (03:07→20:35)
[2022-06-14 05:53] LABS: HGB 15.2 gm/dL (13.0-17.5); MCH 31.1 pg (25.0-35.0); MCV 94.3 fL (80.0-100.0); Mean Platelet Volume 8.6; Platelet Count 163 k/uL (150-450); RBC 4.88 m/uL (4.30-5.90); RDW 14.4 % (11.5-15.5); WBC 6.5 k/uL (3.8-10.6)
[2022-06-14 06:10] LABS: Calcium 8.4 mg/dL (8.4-10.2)
[2022-06-14] MEDS: APIXABAN 5 MG TAB PO SCH ×2 (09:20→20:34)
[2022-06-14] MEDS: buPROPion 75 MG TAB PO SCH ×2 (09:20→20:34)
[2022-06-14] MEDS: TAMSULOSIN 0.4 MG CAP.ER.24H PO SCH (09:20)
[2022-06-14] MEDS: ASPIRIN 81 MG PO SCH (09:20)
[2022-06-14] MEDS: AMIODARONE 200 MG TAB PO SCH (09:21)
[2022-06-14] MEDS: SPIRONOLACTONE 25 MG TAB PO SCH (09:21)
[2022-06-14] MEDS: DAPAGLIFLOZIN PROPANEDIOL 10 MG TABLET PO SCH (09:21)
[2022-06-14] MEDS: BUMETANIDE 1 MG TAB PO SCH ×2 (09:22→17:14)
[2022-06-14] MEDS: ALBUTEROL NEBULIZED 2.5 MG/3 ML INHALATION PRN ×3 (09:22→15:25)
[2022-06-14] MEDS: SACUBITRIL/VALSARTAN 97 MG-103 MG TABLET PO SCH ×2 (09:22→20:35)
[2022-06-14] MEDS: FUROSEMIDE 10 MG/ML 4 ML VIAL IV SCH (09:41)
--- NOTE | 2022-06-14 10:23 | P.PN ---
Subjective Progress Note Date: 06/14/22 HISTORY OF PRESENT ILLNESS: This is 61-year-old male who was admitted to the hospital secondary to congestive heart failure. Patient examined this morning at the bedside. Patient denies chest pain or pressure. He denies shortness of breath. He remains on IV Lasix. Vital signs are stable. Patient's home medication list includes Bumex and Lasix. However patient states he is only taking Bumex at home. PHYSICAL EXAM: VITAL SIGNS: Reviewed. GENERAL: Well-developed in no acute distress. NECK: Supple. No JVD or thyromegaly LUNGS: Respirations even and unlabored. Lungs essentially clear to auscultation bilaterally. HEART: Irregular rate and rhythm. S1 and S2 heard. EXTREMITIES: Normal range of motion. No clubbing or cyanosis. Peripheral pulses intact. Trace lower extremity edema ASSESSMENT: Acute on chronic heart failure with reduced ejection fraction Nonischemic cardiomyopathy Permanent atrial fibrillation Hypertension Mild to moderate nonobstructive coronary artery disease Obstructive sleep apnea Hyperlipidemia Medication noncompliance PLAN: Continue current cardiac medications Discontinue IV Lasix Resume Bumex. 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 Lowe. Nurse practitioner note has been reviewed by physician. Signing provider agrees with the documented findings, assessment, and plan of care. Objective - Vital Signs Vital signs: Vital Signs Temp 98.4 F 06/14/22 07:03 Pulse 82 06/14/22 09:34 Resp 18 06/14/22 07:03 BP 91/58 06/14/22 07:03 Pulse Ox 94 L 06/14/22 09:23 FiO2 Intake & Output 06/13/22 06/14/22 06/14/22 18:59 06:59 18:59 Intake Total 1320 240 Output Total 900 1100 300 Balance 420 -860 -300 Weight 155.1 kg Intake: Oral 1320 240 Output: Urine 900 1100 300 Other: Voiding Method Toilet Urinal Urinal - Labs CBC & Chem 7: 06/14/22 05:16 06/14/22 05:16 Labs: Abnormal Lab Results - Last 24 Hours (Table) 06/13/22 06/13/22 06/13/22 Range/Units 08:34 08:34 08:34 Plt Count 148 L (150-450) k/uL Chloride (98-107) mmol/L Carbon Dioxide 34 H (22-30) mmol/L BUN 25 H (9-20) mg/dL Glucose 130 H (74-99) mg/dL LDL Cholesterol, Calc 134.4 H (0.0-131.0) mg/dL HDL Cholesterol 38.80 L (40.00-60.00) mg/dL 06/14/22 Range/Units 05:16 Plt Count (150-450) k/uL Chloride 97 L (98-107) mmol/L Carbon Dioxide 38 H (22-30) mmol/L BUN 26 H (9-20) mg/dL Glucose 107 H (74-99) mg/dL LDL Cholesterol, Calc (0.0-131.0) mg/dL HDL Cholesterol (40.00-60.00) mg/dL
--- NOTE | 2022-06-14 14:30 | P.PN ---
Subjective Progress Note Date: 06/14/22 61-year-old gentleman with past medical history significant for congestive heart failure cardiomyopathy with ejection fraction of 15% per patient, history of atrial fibrillation presents with demonstrated department with complaints of shortness of breath. Patient started on IV diuretics, repeat echocardiogram shows ejection fraction of 15 % 06/14. Patient states she is still having shortness of breath on exertion. Does not feel comfortable about going home. States he is only able to walk up to door of the room and he gets winded REVIEW OF SYSTEMS: CONSTITUTIONAL: No fever, no malaise,. CARDIOVASCULAR: No chest pain, no palpitations, no syncope. PULMONARY: Complaining of shortness of breath on exertion, swelling of legs is improved GASTROINTESTINAL: No diarrhea, no nausea, no vomiting, no abdominal pain. NEUROLOGICAL: No headaches, no weakness, PHYSICAL EXAMINATION: GENERAL: The patient is alert and oriented x3, not in any acute distress. Well developed, well nourished. HEENT: Pupils are round and equally reacting to light. EOMI. No scleral icterus. No conjunctival pallor. Normocephalic, atraumatic. No pharyngeal erythema. No thyromegaly. CARDIOVASCULAR: S1 and S2 present. No murmurs, rubs, or gallops. PULMONARY: Chest is clear to auscultation, no wheezing or crackles. ABDOMEN: Soft, nontender, nondistended, normoactive bowel sounds. No palpable o rganomegaly. MUSCULOSKELETAL:( 1+ lower extremity edema NEUROLOGICAL: Gross neurological examination did not reveal any focal deficits. SKIN: No rashes. Assessment and plan Acute on chronic congestive heart failure systolic dysfunction with acute exacerbation * Permanent atrial fibrillation * Morbid obesity * Nonischemic cardiomyopathy * History of coronary artery disease Monitor vital signs Monitor CBC Monitor CMP Continue telemetry monitoring Strict I's and O's, daily weights, Continue Bumex continue current medications including amiodarone, Aldactone, ENTRESTO >. Monitor for hypotension Follow-up on cardiology recommendations Objective - Vital Signs Vital signs: Vital Signs Temp 97.5 F L 06/14/22 11:29 Pulse 78 06/14/22 12:32 Resp 18 06/14/22 11:29 BP 102/68 06/14/22 11:29 Pulse Ox 92 L 06/14/22 11:29 FiO2 Intake & Output 06/13/22 06/14/2206/14/23 18:59 06:59 18:59 Intake Total 1320 240 Output Total 900 1100 300 Balance 420 -860 -300 Weight 155.1 kg Intake: Oral 1320 240 Output: Urine 900 1100 300 Other: Voiding Method Toilet Urinal Urinal - Labs CBC & Chem 7: 06/14/22 05:16 06/14/22 05:16 Labs: Abnormal Lab Results - Last 24 Hours (Table) 06/13/22 06/14/22 Range/Units 08:34 05:16 Chloride 97 L (98-107) mmol/L Carbon Dioxide 38 H (22-30) mmol/L BUN 26 H (9-20) mg/dL Glucose 107 H (74-99) mg/dL LDL Cholesterol, Calc 134.4 H (0.0-131.0) mg/dL HDL Cholesterol 38.80 L (40.00-60.00) mg/dL
[2022-06-14] MEDS: ATORVASTATIN 40 MG TAB PO SCH (20:34)
[2022-06-15] MEDS: HYDROcodone/APAP 7.5-325MG 1 EACH TAB PO SCH ×4 (03:22→20:45)
[2022-06-15] MEDS: ALBUTEROL NEBULIZED 2.5 MG/3 ML INHALATION PRN ×4 (08:36→20:23)
[2022-06-15] MEDS: DAPAGLIFLOZIN PROPANEDIOL 10 MG TABLET PO SCH (09:35)
[2022-06-15] MEDS: AMIODARONE 200 MG TAB PO SCH (09:35)
[2022-06-15] MEDS: TAMSULOSIN 0.4 MG CAP.ER.24H PO SCH (09:35)
[2022-06-15] MEDS: APIXABAN 5 MG TAB PO SCH ×2 (09:35→20:45)
[2022-06-15] MEDS: ASPIRIN 81 MG PO SCH (09:35)
[2022-06-15] MEDS: SPIRONOLACTONE 25 MG TAB PO SCH (09:35)
[2022-06-15] MEDS: buPROPion 75 MG TAB PO SCH ×2 (09:36→20:45)
[2022-06-15] MEDS: SACUBITRIL/VALSARTAN 97 MG-103 MG TABLET PO SCH ×2 (09:36→20:45)
[2022-06-15] MEDS: BUMETANIDE 1 MG TAB PO SCH ×2 (09:36→11:55)
[2022-06-15 11:15] LABS: HCT 47.6 % (39.6-50.0); HGB 15.1 g/dL (13.0-17.0); MCH 29.9 pg (27.0-32.0); MCHC 31.7 g/dL (32.0-37.0); MCV 94.3 fL (80.0-97.0); Mean Platelet Volume 11.2 fL (9.5-12.2); NRBC Per 100 WBC 0 /100 WBCS (0.0-0.0); Platelet Count 180 X 10*3/uL (140-440); RBC 5.05 X 10*6/uL (4.40-5.60); RDW 14.1 % (11.5-14.5); WBC 5.11 X 10*3/uL (4.50-10.00)
[2022-06-15 11:27] LABS: African American GFR (CKD) 75.7 (60.0-200.0); Albumin/Globulin Ratio 1.6 (1.60-3.17); Anion Gap 8.6 mmol/L (10.00-18.00); BUN/Creat Ratio 20.5 Ratio (12.00-20.00); Blood Urea Nitrogen 24.6 mg/dL (9.0-27.0); Calcium 9.5 mg/dL (8.7-10.3); Carbon Dioxide 32.4 mmol/L (20.0-27.5); Globulin 2.5 g/dL (1.6-3.3); Non-African American GFR(CKD) 65.3 (60.0-200.0); Potassium 4.4 mmol/L (3.5-5.5); Total Bilirubin 0.6 mg/dL (0.30-1.20); Total Protein 6.5 g/dL (6.2-8.2)
[2022-06-15] MEDS ORDERED: BUMETANIDE 0.25 MG/ML 4 ML VIAL IVP STA (12:02)
--- NOTE | 2022-06-15 13:04 | P.PN ---
Subjective Progress Note Date: 06/15/22 61-year-old gentleman with past medical history significant for congestive heart failure cardiomyopathy with ejection fraction of 15% per patient, history of atrial fibrillation presents with demonstrated department with complaints of shortness of breath. Patient started on IV diuretics, repeat echocardiogram shows ejection fraction of 15 % 06/14. Patient states she is still having shortness of breath on exertion. Does not feel comfortable about going home. States he is only able to walk up to door of the room and he gets winded 06/15. Patient seen and examined. Currently not requiring any oxygen. Patient is walking resting pulse ox done showing patient to be requiring oxygen but at this time he refused to be discharged home with oxygen. Gets short of breath on exertion Discussed with patient in detail regarding being compliant with his medications and the need for oxygen but patient at this time resistant about not using oxygen REVIEW OF SYSTEMS: CONSTITUTIONAL: No fever, no malaise,. CARDIOVASCULAR: No chest pain, no palpitations, no syncope. PULMONARY: Complaining of shortness of breath on exertion, swelling of legs is improved GASTROINTESTINAL: No diarrhea, no nausea, no vomiting, no abdominal pain. NEUROLOGICAL: No headaches, no weakness, PHYSICAL EXAMINATION: GENERAL: The patient is alert and oriented x3, not in any acute distress. Well developed, well nourished. HEENT: Pupils are round and equally reacting to light. EOMI. No scleral icterus. No conjunctival pallor. Normocephalic, atraumatic. No pharyngeal erythema. No thyromegaly. CARDIOVASCULAR: S1 and S2 present. No murmurs, rubs, or gallops. PULMONARY: Chest is clear to auscultation, no wheezing or crackles. ABDOMEN: Soft, nontender, nondistended, normoactive bowel sounds. No palpable organomegaly. MUSCULOSKELETAL:( 1+ lower extremity edema NEUROLOGICAL: Gross neurological examination did not reveal any focal deficits. SKIN: No rashes. Assessment and plan Acute on chronic congestive heart failure systolic dysfunction with acute exacerbation * Permanent atrial fibrillation * Morbid obesity * Nonischemic cardiomyopathy * History of coronary artery disease Monitor vital signs Monitor CBC Monitor CMP Continue telemetry monitoring Strict I's and O's, daily weights, Continue Bumex, we'll change oral Bumex to IV Bumex for tonight dose continue current medications including amiodarone, Aldactone, ENTRESTO >. Monitor for hypotension Possible discharge in the morning Objective - Vital Signs Vital signs: Vital Signs Temp 97.4 F L 06/15/22 07:16 Pulse 74 06/15/22 08:50 Resp 18 06/15/22 07:16 BP 114/54 06/15/22 07:16 Pulse Ox 96 06/15/22 08:36 FiO2 Intake & Output 06/14/22 06/15/22 06/15/22 18:59 06:59 18:59 Intake Total 222 Output Total 300 355 Balance -300 -133 Weight 155 kg Intake: Oral 222 Output: Urine 300 355 Other: Voiding Method Urinal Urinal # Voids 2 1 - Labs CBC & Chem 7: 06/15/22 07:26 06/15/22 07:26
[2022-06-15] MEDS: ATORVASTATIN 40 MG TAB PO SCH (20:45)
[2022-06-15] MEDS: IBUPROFEN 400 MG TAB PO PRN (22:15)
[2022-06-16] MEDS: HYDROcodone/APAP 7.5-325MG 1 EACH TAB PO SCH ×2 (02:19→08:33)
[2022-06-16] MEDS: SPIRONOLACTONE 25 MG TAB PO SCH (08:31)
[2022-06-16] MEDS: SACUBITRIL/VALSARTAN 97 MG-103 MG TABLET PO SCH (08:31)
[2022-06-16] MEDS: TAMSULOSIN 0.4 MG CAP.ER.24H PO SCH (08:31)
[2022-06-16] MEDS: buPROPion 75 MG TAB PO SCH (08:31)
[2022-06-16] MEDS: DAPAGLIFLOZIN PROPANEDIOL 10 MG TABLET PO SCH (08:31)
[2022-06-16] MEDS: AMIODARONE 200 MG TAB PO SCH (08:32)
[2022-06-16] MEDS: APIXABAN 5 MG TAB PO SCH (08:32)
[2022-06-16] MEDS: ASPIRIN 81 MG PO SCH (08:32)
[2022-06-16] MEDS: BUMETANIDE 1 MG TAB PO SCH (08:32)
[2022-06-16 08:50] VITALS: BP 110/82; PULSE 75; RESP 18; TEMP 97.6
--- NOTE | 2022-06-16 14:50 | P.DS ---
Providers Date of admission: 06/11/22 15:45 Expected date of discharge: 06/16/22 Attending physician: Collette Magallanes Primary care physician: Stated None Hospital Course: Discharge diagnoses; Acute on chronic congestive heart failure systolic dysfunction with acute exacerbation * Permanent atrial fibrillation * Morbid obesity * Nonischemic cardiomyopathy * History of coronary artery disease Hospital course; 61-year-old gentleman with past medical history significant for congestive heart failure cardiomyopathy with ejection fraction of 15% per patient, history of atrial fibrillation presents with demonstrated department with complaints of shortness of breath. Patient started on IV diuretics, repeat echocardiogram shows ejection fraction of 15 % 06/14. Patient states she is still having shortness of breath on exertion. Does not feel comfortable about going home. States he is only able to walk up to door of the room and he gets winded 06/15. Patient seen and examined. Currently not requiring any oxygen. Patient is walking resting pulse ox done showing patient to be requiring oxygen but at this time he refused to be discharged home with oxygen. Gets short of breath on exertion Discussed with patient in detail regarding being compliant with his medications and the need for oxygen but patient at this time resistant about not using oxygen 06/16. Patient seen and examined. He is doing much better, patient to follow-up with his line lead from [place]. Being discharged on Bumex 2 mg in the morning and 1 mg at night. PHYSICAL EXAMINATION: GENERAL: The patient is alert and oriented x3, not in any acute distress. Well developed, well nourished. HEENT: Pupils are round and equally reacting to light. EOMI. No scleral icterus. No conjunctival pallor. Normocephalic, atraumatic. No pharyngeal erythema. No t hyromegaly. CARDIOVASCULAR: S1 and S2 present. No murmurs, rubs, or gallops. PULMONARY: Chest is clear to auscultation, no wheezing or crackles. ABDOMEN: Soft, nontender, nondistended, normoactive bowel sounds. No palpable organomegaly. MUSCULOSKELETAL: No joint swelling or deformity. EXTREMITIES: No cyanosis, clubbing, or pedal edema. NEUROLOGICAL: Gross neurological examination did not reveal any focal deficits. SKIN: No rashes. Patient Condition at Discharge: Good Plan - Discharge Summary Discharge Rx Participant: Yes New Discharge Prescriptions: Continue Amiodarone [Cordarone] 200 mg PO DAILY #0 Apixaban [Eliquis] 5 mg PO BID #60 tab Spironolactone [Aldactone] 25 mg PO DAILY buPROPion [Wellbutrin] 75 mg PO BID Losartan [Cozaar] 25 mg PO DAILY Dapagliflozin Propanediol [Farxiga] 10 mg PO DAILY Atorvastatin [Lipitor] 40 mg PO HS Aspirin 81 mg PO DAILY Nitroglycerin Sl Tabs [Nitrostat] 0.4 mg SUBLINGUAL Q5M PRN PRN Reason: Chest Pain Bumetanide [BUMEX] 1 mg PO BID #0 Albuterol Inhaler [Ventolin Hfa Inhaler] 2 puff INHALATION RT-QID PRN #1 each PRN Reason: Shortness Of Breath Sacubitril/Valsartan [Entresto 97 mg-103 mg Tablet] 1 tab PO BID Ibuprofen [Motrin] 800 mg PO TID PRN PRN Reason: Pain HYDROcodone/APAP 7.5-325MG [[place] 7.5-325] 1 tab PO QID Hydrocortisone Cream [Hydrocortisone 2.5% Cream] 1 applic TOPICAL BID Ammonium Lactate Cream [Lac-Hydrin 12% Cream] 1 applic TOPICAL BID Tamsulosin HCl [Flomax] 0.4 mg PO DAILY Discontinued Furosemide [Lasix] 40 mg PO BID Discharge Medication List Albuterol Inhaler [Ventolin Hfa Inhaler] 2 puff INHALATION RT-QID PRN #1 each 12/25/21 [Rx] Amiodarone [Cordarone] 200 mg PO DAILY #0 12/25/21 [Rx] Apixaban [Eliquis] 5 mg PO BID #60 tab 12/25/21 [Rx] Ammonium Lactate Cream [Lac-Hydrin 12% Cream] 1 applic TOPICAL BID 06/11/22 [History] Aspirin 81 mg PO DAILY 06/11/22 [History] Atorvastatin [Lipitor] 40 mg PO HS 06/11/22 [History] Dapagliflozin Propanediol [Farxiga] 10 mg PO DAILY 06/11/22 [History] HYDROcodone/APAP 7.5-325MG [[place] 7.5-325] 1 tab PO QID 06/11/22 [History] Hydrocortisone Cream [Hydrocortisone 2.5% Cream] 1 applic TOPICAL BID 06/11/22 [History] Ibuprofen [Motrin] 800 mg PO TID PRN 06/11/22 [History] Losartan [Cozaar] 25 mg PO DAILY 06/11/22 [History] Nitroglycerin Sl Tabs [Nitrostat] 0.4 mg SUBLINGUAL Q5M PRN 06/11/22 [History] Sacubitril/Valsartan [Entresto 97 mg-103 mg Tablet] 1 tab PO BID 06/11/22 [History] Spironolactone [Aldactone] 25 mg PO DAILY 06/11/22 [History] Tamsulosin HCl [Flomax] 0.4 mg PO DAILY 06/11/22 [History] buPROPion [Wellbutrin] 75 mg PO BID 06/11/22 [History] Bumetanide [BUMEX] 1 mg PO BID #0 06/16/22 [Rx] Follow up Appointment(s)/Referral(s): None,Stated [Primary Care Provider] - 1-2 days Patient Instructions/Handouts: Bumetanide (By mouth), Heart Failure (DC), Chest Pain (DC) Activity/Diet/Wound Care/Special Instructions: Follow up with primary line lead, Dr. Lowe, in 1-2 weeks [facility] - phone number - , Fax- Discharge Disposition: HOME SELF-CARE
[2022-06-16] MEDS ORDERED: BUMETANIDE 1 MG TAB PO SCH (17:00)
== END 2022-06-16 13:35 | disposition home or self-care (01) | DRG 194 ==
LOC: EC 12:42 → 3SCARD 15:45 → 5NMEDONC 06-14 00:57
PROVIDERS: ADMIT Internal Medicine; ATTEND Internal Medicine
DX: I11.0 Hypertensive heart disease with heart failure (principal); I42.8 Other cardiomyopathies; Z79.01 Long term (current) use of anticoagulants; I50.23 Acute on chronic systolic (congestive) heart failure; I48.21 Permanent atrial fibrillation; E66.01 Morbid (severe) obesity due to excess calories; Z68.41 Body mass index [BMI] 40.0-44.9, adult; Z28.310 Unvaccinated for COVID-19; I25.10 Atherosclerotic heart disease of native coronary artery without angina pectoris; T50.906A Underdosing of unspecified drugs, medicaments and biological substances, initial encounter; E78.5 Hyperlipidemia, unspecified; F32.A Depression, unspecified; F41.9 Anxiety disorder, unspecified; G89.29 Other chronic pain; M54.9 Dorsalgia, unspecified; G47.33 Obstructive sleep apnea (adult) (pediatric); Z91.199 Patient's noncompliance with other medical treatment and regimen due to unspecified reason; Z91.128 Patient's intentional underdosing of medication regimen for other reason; Z79.82 Long term (current) use of aspirin; Z79.84 Long term (current) use of oral hypoglycemic drugs; Z79.899 Other long term (current) drug therapy; Z56.0 Unemployment, unspecified; Z82.49 Family history of ischemic heart disease and other diseases of the circulatory system
CPT/HCPCS: 36415; 71046; 80048; 80053; 80061; 83735; 83880; 84484; 85025; 85027; 85610; 85730; 93005; 93306; 94640; 94760; 96374; 99285

== ENCOUNTER 2022-12-16 20:14 | Observation (INO) | payer OTHER ==
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
[2022-12-16] MEDS ORDERED: MORPHINE SULFATE 4 MG/ML SYRINGE IVP STA (20:45)
[2022-12-16] MEDS ORDERED: NITROGLYCERIN SL TABS 0.4 MG TAB SUBLINGUAL STA (20:45)
[2022-12-16] MEDS ORDERED: ONDANSETRON 4 MG/2 ML VIAL IVP STA (20:45)
[2022-12-16] MEDS ORDERED: ASPIRIN 81 MG PO STA (20:46)
[2022-12-16 20:48] LABS: Basophils % (A) 0 %; Eosinophils # (A) 0.1 k/uL (0-0.7); Eosinophils % (A) 2 %; HCT 50.1 % (39.0-53.0); HGB 17.8 gm/dL (13.0-17.5); Lymphocytes # (A) 1.3 k/uL (1.0-4.8); Lymphocytes % (A) 20 %; MCH 32.9 pg (25.0-35.0); MCHC 35.5 g/dL (31.0-37.0); MCV 92.7 fL (80.0-100.0); Monocytes # (A) 0.4 k/uL (0-1.0); Monocytes % (A) 5 %; Neutrophils # (A) 4.8 k/uL (1.3-7.7); Neutrophils % (A) 71 %; Platelet Count 160 k/uL (150-450); RDW 13.4 % (11.5-15.5); WBC 6.7 k/uL (3.8-10.6)
[2022-12-16 21:02] LABS: Partial Thromboplastin Time 23.8 sec (22.0-30.0); Prothrombin Time 10.9 sec (10.0-12.5)
--- NOTE | 2022-12-16 21:13 | XR ---
EXAMINATION TYPE: XR chest 1V portable DATE OF EXAM: 12/16/2022 8:56 PM CLINICAL INDICATION:Male, 62 years old with history of chest pain; H COMPARISON: Chest radiographs from 11/26/2022 TECHNIQUE: XR chest 1V portable Frontal view of the chest. FINDINGS: Lungs/Pleura: There is no evidence of pleural effusion, focal consolidation, or pneumothorax. Pulmonary vascularity: Pulmonary vascular congestion. Heart/mediastinum: Cardiomediastinal silhouette is enlarged and stable. Two lead cardiac conduction d evice overlying the left hemithorax with lead tips projecting over the right ventricle and right atri um. Musculoskeletal: No acute osseous pathology. Other findings: None IMPRESSION: Cardiomegaly and mild pulmonary vascular congestion. Correlate with BNP for congestive heart failure.
[2022-12-16 21:30] LABS: ALT 29 U/L (4-49); African American GFR (CKD) 87 (>60 ml/min/1.73 sqM); Albumin 4.2 g/dL (3.5-5.0); Anion Gap 12 mmol/L; Blood Urea Nitrogen 17 mg/dL (9-20); Calcium 9.5 mg/dL (8.4-10.2); Carbon Dioxide 23 mmol/L (22-30); Chloride 103 mmol/L (98-107); Glucose 106 mg/dL (74-99); Lipase 117 U/L (23-300); Non-African American GFR(CKD) 75 (>60 ml/min/1.73 sqM); Sodium 138 mmol/L (137-145); Total Protein 7.1 g/dL (6.3-8.2)
[2022-12-16 21:39] LABS: NT-Pro-B-Type Natriuretic Pept 3220 pg/mL
[2022-12-16 21:40] LABS: AST 38 U/L (17-59); Alkaline Phosphatase 85 U/L (38-126); Magnesium 1.5 mg/dL (1.6-2.3); Potassium 3.6 mmol/L (3.5-5.1)
[2022-12-16] MEDS ORDERED: FUROSEMIDE 10 MG/ML 4 ML VIAL IV STA (21:49)
[2022-12-16] MEDS ORDERED: NALOXONE 0.4 MG/ML 1 ML VIAL IV PRN (21:53)
[2022-12-16] MEDS ORDERED: ACETAMINOPHEN TAB 500 MG TAB PO STA (23:33)
[2022-12-17] MEDS: MORPHINE SULFATE 4 MG/ML SYRINGE IVP PRN ×2 (03:40→20:26)
[2022-12-17] MEDS ORDERED: ONDANSETRON 4 MG/2 ML VIAL IVP STA (03:55)
[2022-12-17 04:02] LABS: Basophils % (A) 1 %; Eosinophils # (A) 0.1 k/uL (0-0.7); Eosinophils % (A) 2 %; HCT 49.8 % (39.0-53.0); HGB 16.8 gm/dL (13.0-17.5); Lymphocytes # (A) 1.2 k/uL (1.0-4.8); Lymphocytes % (A) 21 %; MCH 31.8 pg (25.0-35.0); MCHC 33.8 g/dL (31.0-37.0); MCV 94.1 fL (80.0-100.0); Mean Platelet Volume 8.5; Monocytes # (A) 0.4 k/uL (0-1.0); Monocytes % (A) 7 %; Neutrophils # (A) 4.1 k/uL (1.3-7.7); Neutrophils % (A) 67 %; Platelet Count 146 k/uL (150-450); RBC 5.29 m/uL (4.30-5.90); RDW 13.4 % (11.5-15.5); WBC 6.1 k/uL (3.8-10.6)
[2022-12-17 04:19] LABS: ALT 27 U/L (4-49); AST 28 U/L (17-59); African American GFR (CKD) >90 (>60 ml/min/1.73 sqM); Albumin 3.7 g/dL (3.5-5.0); Alkaline Phosphatase 70 U/L (38-126); Anion Gap 10 mmol/L; Calcium 9.2 mg/dL (8.4-10.2); Carbon Dioxide 27 mmol/L (22-30); Chloride 100 mmol/L (98-107); Glucose 103 mg/dL (74-99); Non-African American GFR(CKD) 82 (>60 ml/min/1.73 sqM); Potassium 3.4 mmol/L (3.5-5.1); Sodium 137 mmol/L (137-145); Total Bilirubin 0.8 mg/dL (0.2-1.3); Total Protein 6.4 g/dL (6.3-8.2)
[2022-12-17 04:20] LABS: Blood Urea Nitrogen 16 mg/dL (9-20)
[2022-12-17] MEDS ORDERED: IOPAMIDOL CONTRAST (ORAL USE) VIAL PO PRN (09:54)
[2022-12-17] MEDS: ONDANSETRON 4 MG/2 ML VIAL IVP PRN ×2 (10:45→20:58)
[2022-12-17] MEDS ORDERED: ACETAMINOPHEN TAB 325 MG TAB PO STA (11:29)
[2022-12-17] MEDS ORDERED: NITROGLYCERIN SL TABS 0.4 MG TAB SUBLINGUAL PRN (13:20)
[2022-12-17] MEDS ORDERED: ONDANSETRON 4 MG TAB PO PRN (13:20)
--- NOTE | 2022-12-17 13:26 | CT ---
EXAMINATION TYPE: CT abdomen pelvis w con DATE OF EXAM: 12/17/2022 COMPARISON: CTA 07/25/2019 INDICATION: epigastric pain, nausea, vomiting, pt unable to tolerate oral contrast DLP: 2893.7 mGycm, Automated exposure control for dose reduction was used. CONTRAST: 100 mL of Isovue 300. Study performed without Oral Contrast TECHNIQUE: Axial images were obtained from above the diaphragm to the pubic rami in the axial plane a t 5 mm thick sections. Reconstructed images are reviewed on the computer in the coronal plane. FINDINGS: Limited CT sections are obtained the lung bases. The lung bases are clear. The heart size is promin ent. CT ABDOMEN: Liver: Fatty infiltration Spleen: Normal Pancreas: Normal Adrenal glands: The adrenal glands are normal. Gallbladder: Normal Kidneys: No masses are evident. No hydronephrosis is present. There is a posterior inferior 3.4 cm cyst of the right kidney. Small cortical renal cyst medial mid right kidney measuring 1.2 cm. Additio nal punctate cortical renal cysts are present bilaterally. Punctate nonobstructing renal stone may b e at the inferior pole right kidney. Aorta: Vascular calcification is within the aorta. Inferior vena cava: Normal. CT PELVIS: Loops of bowel within the abdomen and pelvis are normal. This study is lateral contrast limiting evaluation. Appendix: Normal as visualized. Urinary bladder: Normal. Genitourinary structures: Prostate is mildly prominent. Osseous structures: No suspicious lytic or sclerotic lesions. IMPRESSION: 1. No suspicious radiographic abnormality to account for patient's symptoms. 2. Cardiomegaly. 3. Cortical renal cysts 4. A punctate nonobstructing renal stone inferior pole right kidney is not excluded
[2022-12-17] MEDS: METOCLOPRAMIDE 5 MG/ML 2 ML VIAL IVP SCH ×3 (13:28→23:32)
[2022-12-17] MEDS: HYDROcodone/APAP 7.5-325MG 1 EACH TAB PO PRN (13:53)
[2022-12-17] MEDS: FUROSEMIDE 80 MG TAB PO SCH (15:11)
[2022-12-17] MEDS: APIXABAN 5 MG TAB PO SCH (20:25)
[2022-12-17] MEDS: SACUBITRIL/VALSARTAN 24 MG-26 MG TABLET PO SCH (20:26)
[2022-12-17] MEDS: ACETAMINOPHEN TAB 325 MG TAB PO PRN (22:02)
--- NOTE | 2022-12-18 04:49 | PN ---
PROGRESS NOTE DATE OF SERVICE: 12/17/2022 CHIEF COMPLAINT: Abdominal pain and heart failure. HISTORY OF PRESENT ILLNESS: This is a gentleman who is doing a little bit better. He is still slightly short of breath. He is still somewhat nauseated. PHYSICAL EXAMINATION: VITAL SIGNS: Blood pressure 129/94 with a pulse 74 and irregular. GENERAL: Color is good. CHEST: Demonstrates decreased breath sounds throughout with occasional rales. CARDIAC: Reveals atrial fibrillation. ABDOMEN: Protuberant and still slightly tender in the upper quadrants. IMPRESSION: 1. Abdominal pain. 2. Congestive heart failure with reduced ejection fraction. 3. Atrial fibrillation. 4. Stage IIIa chronic kidney disease. PLAN: 1. CT of the abdomen. 2. Continue to evaluate his heart failure. MMODL / IJN: [id number] /
--- NOTE | 2022-12-18 04:58 | HP ---
HISTORY AND PHYSICAL CHIEF COMPLAINT: Abdominal pain and difficulty breathing. HISTORY OF PRESENT ILLNESS: This is an another admission for this 62-year-old white male with atherosclerotic cardiomyopathy. He has been in and out of heart failure for sometime. He is a candidate for heart transplant, which is in [place] about 10 days ago where he was started on a program working toward that as a possible management. He was told that he will either be a candidate for an LVAD or transplant or to be bridged by an LVAD to a transplant. He started to have some abdominal discomfort and shortness of breath. He came to the emergency room. At this time, the abdominal pain is new. It is mostly in the upper quadrant. He has not had this before. This could represent chronic passive congestion of the liver, but will have to be evaluated. He has had no fever, chills, nausea, vomiting, diarrhea, etc. Past medical history, family history, and personal and social histories are all unchanged from his recent admitting and discharge summaries. PHYSICAL EXAMINATION: VITAL SIGNS: Blood pressure is 101/55 with a pulse of 80 and irregular. He is afebrile. The rest of the exam is unremarkable. HEAD, EARS, EYES, NOSE, MOUTH AND THROAT: Normal. CHEST: Demonstrates decreased breath sounds with occasional rales. CARDIAC: Demonstrates atrial fibrillation. ABDOMEN: Slightly protuberant and he does have some mild tenderness in the upper quadrants. There are no definite masses or visceromegaly. There is no rebound or referred tenderness. Bowel sounds are present. EXTREMITIES: Normal. IMPRESSION: 1. Abdominal pain. 2. Chronic heart failure with reduced ejection fraction. 3. Atrial fibrillation. PLAN: 1. Bedrest. 2. IV fluids. 3. Manage his heart failure. 4. Look in the etiology of his abdominal pain. MMODL / IJN: [id number] /
[2022-12-18] MEDS: METOCLOPRAMIDE 5 MG/ML 2 ML VIAL IVP SCH ×3 (06:23→18:41)
[2022-12-18] MEDS: HYDROcodone/APAP 7.5-325MG 1 EACH TAB PO PRN ×2 (08:22→16:50)
[2022-12-18] MEDS: METOPROLOL SUCCINATE (ER) 25 MG TAB.ER.24H PO SCH (08:23)
[2022-12-18] MEDS: AMIODARONE 200 MG TAB PO SCH (08:23)
[2022-12-18] MEDS: ATORVASTATIN 20 MG TAB PO SCH (08:23)
[2022-12-18] MEDS: MAGNESIUM OXIDE 400 MG TAB PO SCH (08:23)
[2022-12-18] MEDS: SPIRONOLACTONE 25 MG TAB PO SCH (08:23)
[2022-12-18] MEDS: DAPAGLIFLOZIN PROPANEDIOL 10 MG TABLET PO SCH (08:23)
[2022-12-18] MEDS: SACUBITRIL/VALSARTAN 24 MG-26 MG TABLET PO SCH ×2 (08:23→21:40)
[2022-12-18] MEDS: FUROSEMIDE 80 MG TAB PO SCH ×2 (08:24→16:50)
[2022-12-18] MEDS: APIXABAN 5 MG TAB PO SCH ×2 (08:24→21:40)
[2022-12-18] MEDS ORDERED: buPROPion SR 150 MG TABLET.ER PO STA (16:05)
[2022-12-18] MEDS: MORPHINE SULFATE 4 MG/ML SYRINGE IVP PRN (21:39)
[2022-12-18] MEDS: buPROPion SR 150 MG TABLET.ER PO SCH (21:40)
[2022-12-19] MEDS: METOCLOPRAMIDE 5 MG/ML 2 ML VIAL IVP SCH ×4 (00:06→19:29)
[2022-12-19] MEDS: HYDROcodone/APAP 7.5-325MG 1 EACH TAB PO PRN ×2 (08:11→16:09)
[2022-12-19] MEDS: SPIRONOLACTONE 25 MG TAB PO SCH ×2 (08:58→19:29)
[2022-12-19] MEDS: SACUBITRIL/VALSARTAN 24 MG-26 MG TABLET PO SCH ×3 (08:58→20:28)
[2022-12-19] MEDS: AMIODARONE 200 MG TAB PO SCH ×2 (08:59→19:28)
[2022-12-19] MEDS: METOPROLOL SUCCINATE (ER) 25 MG TAB.ER.24H PO SCH ×2 (08:59→19:28)
[2022-12-19] MEDS: FUROSEMIDE 80 MG TAB PO SCH ×3 (08:59→19:28)
[2022-12-19] MEDS: ATORVASTATIN 20 MG TAB PO SCH (08:59)
[2022-12-19] MEDS: DAPAGLIFLOZIN PROPANEDIOL 10 MG TABLET PO SCH (08:59)
[2022-12-19] MEDS: MAGNESIUM OXIDE 400 MG TAB PO SCH (08:59)
[2022-12-19] MEDS: APIXABAN 5 MG TAB PO SCH ×2 (08:59→20:28)
[2022-12-19] MEDS: buPROPion SR 150 MG TABLET.ER PO SCH ×2 (09:08→20:28)
[2022-12-19 09:28] LABS: ALT 27 U/L (4-49); AST 25 U/L (17-59); African American GFR (CKD) 75 (>60 ml/min/1.73 sqM); Albumin 3.6 g/dL (3.5-5.0); Alkaline Phosphatase 71 U/L (38-126); Anion Gap 6 mmol/L; Blood Urea Nitrogen 16 mg/dL (9-20); Calcium 9.1 mg/dL (8.4-10.2); Carbon Dioxide 38 mmol/L (22-30); Chloride 94 mmol/L (98-107); Glucose 81 mg/dL (74-99); Magnesium 1.7 mg/dL (1.6-2.3); Non-African American GFR(CKD) 64 (>60 ml/min/1.73 sqM); Potassium 3.1 mmol/L (3.5-5.1); Sodium 138 mmol/L (137-145); Total Bilirubin 0.7 mg/dL (0.2-1.3); Total Protein 6.4 g/dL (6.3-8.2)
[2022-12-19] MEDS ORDERED: Potassium Replacement Protocol 1 EACH MISC MISCELLANE PRN (10:34)
[2022-12-19] MEDS: POTASSIUM CHLORIDE ER 20 MEQ TAB.ER PO SCH ×2 (11:36→13:44)
--- NOTE | 2022-12-20 05:39 | PN ---
PROGRESS NOTE DATE OF SERVICE: 12/19/2022 CHIEF COMPLAINT: Congestive heart failure and cardiomyopathy. HISTORY OF PRESENT ILLNESS: This gentleman is doing fairly well, but himself, he remains quite weak. When he gets up, he feels lightheaded, but this is due to his cardiomyopathy and hypotension. REVIEW OF SYSTEMS: He is not having any chest pain. PHYSICAL EXAMINATION: VITAL SIGNS: Blood pressure at this time is 105/70 with a pulse of 81, respirations 20. He is afebrile. GENERAL: Appeared to be comfortable in bed. HEENT: Head, ears, eyes, nose, mouth, throat were normal. CHEST: Clear. He did have some tenderness over the ICD site. It is not red. CARDIAC: Demonstrated atrial fibrillation. ABDOMEN: Protuberant, soft. IMPRESSION: 1. Congestive heart failure with reduced ejection fraction. 2. Cardiomyopathy. 3. Hypotension. 4. Hypokalemia. PLAN: Correct hypokalemia. Continue monitoring. It may be necessary to decrease some of his medications to address his hypotension. MMODL / IJN: [id number] /
--- NOTE | 2022-12-20 05:39 | PN ---
PROGRESS NOTE DATE OF SERVICE: 12/18/2022 CHIEF COMPLAINT: Cardiomyopathy, congestive heart failure. HISTORY OF PRESENT ILLNESS: This gentleman's breathing is doing well, but he remains quite weak. Blood pressure is adequate, but low at times. He is having no chest pain. PHYSICAL EXAMINATION: CHEST: Clear. CARDIAC: Unremarkable except for his atrial fibrillation. ABDOMEN: Soft and nontender. EXTREMITIES: Normal. IMPRESSION: 1. Heart failure with reduced ejection fraction. 2. Atrial fibrillation. 3. Cardiomyopathy. PLAN: Continue efforts to control and improve his cardiac output and shortness of breath. MMODL / IJN: [id number] /
[2022-12-20] MEDS: METOCLOPRAMIDE 5 MG/ML 2 ML VIAL IVP SCH ×5 (06:28→23:35)
[2022-12-20] MEDS: HYDROcodone/APAP 7.5-325MG 1 EACH TAB PO PRN ×3 (08:55→23:35)
[2022-12-20] MEDS: ATORVASTATIN 20 MG TAB PO SCH (08:56)
[2022-12-20] MEDS: APIXABAN 5 MG TAB PO SCH ×2 (08:56→20:47)
[2022-12-20] MEDS: buPROPion SR 150 MG TABLET.ER PO SCH ×2 (08:56→20:47)
[2022-12-20] MEDS: MAGNESIUM OXIDE 400 MG TAB PO SCH (08:56)
[2022-12-20] MEDS: SACUBITRIL/VALSARTAN 24 MG-26 MG TABLET PO SCH ×2 (08:56→22:07)
[2022-12-20] MEDS: DAPAGLIFLOZIN PROPANEDIOL 10 MG TABLET PO SCH (08:56)
[2022-12-20 08:57] VITALS: BMI 41.3
[2022-12-20] MEDS: METOPROLOL SUCCINATE (ER) 25 MG TAB.ER.24H PO SCH (14:10)
[2022-12-20] MEDS: AMIODARONE 200 MG TAB PO SCH (15:50)
[2022-12-20] MEDS: FUROSEMIDE 80 MG TAB PO SCH ×2 (15:50→16:49)
[2022-12-20] MEDS: SPIRONOLACTONE 25 MG TAB PO SCH (17:06)
[2022-12-20] MEDS: POTASSIUM CHLORIDE ER 20 MEQ TAB.ER PO SCH ×2 (17:07→18:03)
[2022-12-20] MEDS: MORPHINE SULFATE 4 MG/ML SYRINGE IVP PRN (18:05)
[2022-12-20] MEDS: ACETAMINOPHEN TAB 325 MG TAB PO PRN (20:47)
[2022-12-21] MEDS: METOCLOPRAMIDE 5 MG/ML 2 ML VIAL IVP SCH ×4 (05:45→23:44)
[2022-12-21] MEDS: APIXABAN 5 MG TAB PO SCH ×2 (09:14→20:42)
[2022-12-21] MEDS: AMIODARONE 200 MG TAB PO SCH (09:14)
[2022-12-21] MEDS: ATORVASTATIN 20 MG TAB PO SCH (09:14)
[2022-12-21] MEDS: METOPROLOL SUCCINATE (ER) 25 MG TAB.ER.24H PO SCH (09:14)
[2022-12-21] MEDS: SACUBITRIL/VALSARTAN 24 MG-26 MG TABLET PO SCH ×2 (09:14→20:42)
[2022-12-21] MEDS: FUROSEMIDE 80 MG TAB PO SCH ×2 (09:14→17:32)
[2022-12-21] MEDS: HYDROcodone/APAP 7.5-325MG 1 EACH TAB PO PRN ×3 (09:14→22:58)
[2022-12-21] MEDS: DAPAGLIFLOZIN PROPANEDIOL 10 MG TABLET PO SCH (09:14)
[2022-12-21] MEDS: buPROPion SR 150 MG TABLET.ER PO SCH ×2 (09:14→20:42)
[2022-12-21] MEDS: MAGNESIUM OXIDE 400 MG TAB PO SCH (09:14)
[2022-12-21] MEDS: SPIRONOLACTONE 25 MG TAB PO SCH (09:15)
[2022-12-21] MEDS: POTASSIUM CHLORIDE ER 20 MEQ TAB.ER PO SCH (20:42)
--- NOTE | 2022-12-22 03:35 | PN ---
PROGRESS NOTE DATE OF SERVICE: 12/20/2022 CHIEF COMPLAINT: Congestive heart failure with malaise. HISTORY OF PRESENT ILLNESS: This gentleman's breathing is under fairly good control until he is up and about. He still does not feel well. He is not having any further abdominal pain. PHYSICAL EXAMINATION: GENERAL: He is in atrial fibrillation with a fairly rapid heart rate at around 100. CHEST: Demonstrates rales at the bases posteriorly. CARDIAC: Normal otherwise. IMPRESSION: 1. Acute on chronic congestive heart failure with reduced ejection fraction. 2. Cardiomyopathy. PLAN: Continue with current program and gradually increase activity. His potassium is low, and this will be corrected. MMODL / IJN: [id number] /
--- NOTE | 2022-12-22 03:50 | PN ---
PROGRESS NOTE CHIEF COMPLAINT: CHF. HISTORY OF PRESENT ILLNESS: This gentleman is still short of breath and still experiencing weakness, lightheadedness, and malaise. He has had no chest pain. PHYSICAL EXAMINATION: VITAL SIGNS: Stable. He does have a slight tachycardia. CHEST: Demonstrates scattered rales. CARDIAC: Unchanged with atrial fibrillation. ABDOMEN: Remains soft and protuberant. IMPRESSION: 1. Acute on chronic congestive heart failure with HFrEF. 2. Atrial fibrillation. PLAN: I would like to try adding Corlanor or ivabradine, but apparently it is not on the hospital formulary. The dose would be 5 mg twice a day. Otherwise, we will continue to monitor and try to discharge if he stabilizes. MMODL / IJN: [id number] /
[2022-12-22] MEDS: METOCLOPRAMIDE 5 MG/ML 2 ML VIAL IVP SCH ×4 (05:01→22:59)
[2022-12-22] MEDS: HYDROcodone/APAP 7.5-325MG 1 EACH TAB PO PRN ×4 (08:47→23:08)
[2022-12-22] MEDS: SPIRONOLACTONE 25 MG TAB PO SCH (08:48)
[2022-12-22] MEDS: DAPAGLIFLOZIN PROPANEDIOL 10 MG TABLET PO SCH (08:48)
[2022-12-22] MEDS: POTASSIUM CHLORIDE ER 20 MEQ TAB.ER PO SCH (08:48)
[2022-12-22] MEDS: APIXABAN 5 MG TAB PO SCH ×2 (08:48→19:51)
[2022-12-22] MEDS: METOPROLOL SUCCINATE (ER) 25 MG TAB.ER.24H PO SCH (08:48)
[2022-12-22] MEDS: FUROSEMIDE 80 MG TAB PO SCH ×2 (08:48→18:03)
[2022-12-22] MEDS: MAGNESIUM OXIDE 400 MG TAB PO SCH (08:48)
[2022-12-22] MEDS: ATORVASTATIN 20 MG TAB PO SCH (08:48)
[2022-12-22] MEDS: AMIODARONE 200 MG TAB PO SCH (08:48)
[2022-12-22] MEDS: buPROPion SR 150 MG TABLET.ER PO SCH ×2 (08:48→19:51)
[2022-12-22] MEDS: SACUBITRIL/VALSARTAN 24 MG-26 MG TABLET PO SCH ×2 (08:48→19:51)
[2022-12-22] MEDS: POTASSIUM CHLORIDE ER 10 MEQ TAB.ER.PRT PO SCH (19:51)
[2022-12-23] MEDS: METOCLOPRAMIDE 5 MG/ML 2 ML VIAL IVP SCH ×3 (05:59→15:17)
[2022-12-23] MEDS: SACUBITRIL/VALSARTAN 24 MG-26 MG TABLET PO SCH ×2 (09:18→20:49)
[2022-12-23] MEDS: AMIODARONE 200 MG TAB PO SCH (09:19)
[2022-12-23] MEDS: SPIRONOLACTONE 25 MG TAB PO SCH (09:19)
[2022-12-23] MEDS: buPROPion SR 150 MG TABLET.ER PO SCH ×2 (09:19→20:49)
[2022-12-23] MEDS: METOPROLOL SUCCINATE (ER) 25 MG TAB.ER.24H PO SCH (09:19)
[2022-12-23] MEDS: POTASSIUM CHLORIDE ER 10 MEQ TAB.ER.PRT PO SCH ×2 (09:19→20:49)
[2022-12-23] MEDS: HYDROcodone/APAP 7.5-325MG 1 EACH TAB PO PRN ×3 (09:19→20:53)
[2022-12-23] MEDS: APIXABAN 5 MG TAB PO SCH ×2 (09:19→20:49)
[2022-12-23] MEDS: FUROSEMIDE 80 MG TAB PO SCH ×2 (09:19→15:17)
[2022-12-23] MEDS: MAGNESIUM OXIDE 400 MG TAB PO SCH (09:19)
[2022-12-23] MEDS: DAPAGLIFLOZIN PROPANEDIOL 10 MG TABLET PO SCH (09:20)
[2022-12-23] MEDS: ATORVASTATIN 20 MG TAB PO SCH (09:20)
[2022-12-23] MEDS: ACETAMINOPHEN TAB 325 MG TAB PO PRN (18:52)
--- NOTE | 2022-12-24 01:44 | PN ---
PROGRESS NOTE DATE OF SERVICE: 12/22/2022 CHIEF COMPLAINT: Congestive heart failure and hypokalemia. HISTORY OF PRESENT ILLNESS: This gentleman is doing fairly well without any chest pain or shortness of breath, but he still feels weak and lightheaded. His potassium is still low. PHYSICAL EXAMINATION: CHEST: Clear. CARDIAC: Unchanged. VITAL SIGNS: Normal. IMPRESSION: 1. Heart failure with reduced ejection fraction. 2. Hypokalemia. 3. Atrial fibrillation. PLAN: Increase potassium dosage and probably discharge in the next day or two. MMODL / IJN: [id number] /
--- NOTE | 2022-12-24 01:50 | PN ---
PROGRESS NOTE DATE OF SERVICE: 12/23/2022 CHIEF COMPLAINT: CHF and weakness with hypokalemia. HISTORY OF PRESENT ILLNESS: This gentleman's breathing has improved. He is less short of breath. He is having no chest pain. However, he still feels very weak when he gets up, moves about. He has a very poor appetite. PHYSICAL EXAMINATION: CHEST: Clear. CARDIAC: Unchanged for his atrial fibrillation. ABDOMEN: Soft, nontender. IMPRESSION: 1. Heart failure with reduced ejection fraction. 2. Atrial fibrillation. 3. Depression. 4. Hypokalemia. PLAN: Slowly increase activity and he feels that he should be able to go home in the next day or two. MMODL / IJN: [id number] /
[2022-12-24] MEDS: METOCLOPRAMIDE 5 MG/ML 2 ML VIAL IVP SCH (02:22)
[2022-12-24] MEDS: HYDROcodone/APAP 7.5-325MG 1 EACH TAB PO PRN ×2 (03:13→09:14)
[2022-12-24 03:20] VITALS: RESP 16
[2022-12-24 08:47] LABS: African American GFR (CKD) 89 (>60 ml/min/1.73 sqM); Anion Gap 13 mmol/L; Blood Urea Nitrogen 21 mg/dL (9-20); Calcium 9.6 mg/dL (8.4-10.2); Carbon Dioxide 28 mmol/L (22-30); Chloride 99 mmol/L (98-107); Glucose 111 mg/dL (74-99); Non-African American GFR(CKD) 77 (>60 ml/min/1.73 sqM); Sodium 140 mmol/L (137-145)
[2022-12-24 08:48] LABS: Magnesium 1.8 mg/dL (1.6-2.3); Potassium 4.1 mmol/L (3.5-5.1)
[2022-12-24] MEDS: MAGNESIUM OXIDE 400 MG TAB PO SCH (09:14)
[2022-12-24] MEDS: ATORVASTATIN 20 MG TAB PO SCH (09:14)
[2022-12-24] MEDS: buPROPion SR 150 MG TABLET.ER PO SCH (09:15)
[2022-12-24] MEDS: POTASSIUM CHLORIDE ER 10 MEQ TAB.ER.PRT PO SCH (09:15)
[2022-12-24] MEDS: APIXABAN 5 MG TAB PO SCH (09:15)
[2022-12-24] MEDS: AMIODARONE 200 MG TAB PO SCH (09:15)
[2022-12-24] MEDS: SPIRONOLACTONE 25 MG TAB PO SCH (09:15)
[2022-12-24] MEDS: FUROSEMIDE 80 MG TAB PO SCH (09:15)
[2022-12-24] MEDS: DAPAGLIFLOZIN PROPANEDIOL 10 MG TABLET PO SCH (09:15)
[2022-12-24] MEDS: METOPROLOL SUCCINATE (ER) 25 MG TAB.ER.24H PO SCH (09:15)
[2022-12-24] MEDS: SACUBITRIL/VALSARTAN 24 MG-26 MG TABLET PO SCH (09:16)
[2022-12-24 11:04] VITALS: BP 98/64; PULSE 63; TEMP 98.1
--- NOTE | 2022-12-27 06:29 | DS ---
DISCHARGE SUMMARY CHIEF COMPLAINT: Shortness of breath. HISTORY OF PRESENT ILLNESS AND PHYSICAL EXAMINATION: Details of this man's history and physical can be found in the initial workup. COURSE IN THE HOSPITAL: After admission, he was placed on bedrest and started on management of his heart failure and his breathing did improve. While he is in a hospital, he did have some nausea, but this slowly resolved. He also complained of generalized malaise and weakness, which is usual for him. His potassium was low and this was gradually being corrected. He was doing well and eating and no longer nauseated and it is felt that he could be safely be discharged on the and will follow up in the hospice office is follow up in the office in few days. He is also waiting for contact in [facility] for further cardiac studies to see if he is a candidate for a cardiac transplant. NEGRITA / LEIDY: [id number] /
== END 2022-12-24 10:12 | disposition home or self-care (01) ==
LOC: EC 20:14 → INTOOBSV 21:53 → 4SSUR 21:53 → 3SCARD 22:49 → UNDODISIN 12-24 10:12
PROVIDERS: ADMIT Family Medicine; ATTEND Family Medicine
DX: I13.0 Hypertensive heart and chronic kidney disease with heart failure and stage 1 through stage 4 chronic kidney disease, or unspecified chronic kidney disease (principal); I50.22 Chronic systolic (congestive) heart failure; N18.31 Chronic kidney disease, stage 3a; I42.9 Cardiomyopathy, unspecified; I95.9 Hypotension, unspecified; E87.6 Hypokalemia; I48.91 Unspecified atrial fibrillation; E78.5 Hyperlipidemia, unspecified; G47.30 Sleep apnea, unspecified; F41.9 Anxiety disorder, unspecified; F32.A Depression, unspecified; Z79.01 Long term (current) use of anticoagulants; Z79.899 Other long term (current) drug therapy
CPT/HCPCS: 96376 ×7; 96374; 96375 ×2; 99285; 36415; 93005; 83880; 80053 ×3; 80048; 83690; 83735 ×3; 84132; 84484 ×2; 85025 ×2; 85610; 85730; 71045; 74177; G0378 ×9; J2270 ×4; J1940; J2765 ×6; S0106 ×7; J2405 ×2; Q9967

== ENCOUNTER 2023-03-02 09:02 | Inpatient (IN) | payer OTHER ==
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
[2023-03-02] MEDS ORDERED: NITROGLYCERIN OINT 1 INCH/GM PACKET TOPICAL STA (11:06)
[2023-03-02 11:08] LABS: Basophils # (A) 0.1 k/uL (0-0.2); Basophils % (A) 2 %; Eosinophils # (A) 0.5 k/uL (0-0.7); Eosinophils % (A) 7 %; HCT 47.6 % (39.0-53.0); HGB 15.7 gm/dL (13.0-17.5); Lymphocytes # (A) 0.9 k/uL (1.0-4.8); Lymphocytes % (A) 14 %; MCH 31.1 pg (25.0-35.0); Monocytes # (A) 0.5 k/uL (0-1.0); Monocytes % (A) 7 %; Neutrophils # (A) 4.4 k/uL (1.3-7.7); Neutrophils % (A) 67 %; Platelet Count 149 k/uL (150-450); RBC 5.06 m/uL (4.30-5.90); RDW 14.4 % (11.5-15.5); WBC 6.6 k/uL (3.8-10.6)
[2023-03-02 11:19] LABS: ALT 31 U/L (4-49); AST 27 U/L (17-59); African American GFR (CKD) 79 (>60 ml/min/1.73 sqM); Albumin 3.9 g/dL (3.5-5.0); Alkaline Phosphatase 117 U/L (38-126); Anion Gap 11 mmol/L; Blood Urea Nitrogen 26 mg/dL (9-20); Calcium 9.1 mg/dL (8.4-10.2); Carbon Dioxide 26 mmol/L (22-30); Chloride 101 mmol/L (98-107); Glucose 96 mg/dL (74-99); Magnesium 1.7 mg/dL (1.6-2.3); Non-African American GFR(CKD) 68 (>60 ml/min/1.73 sqM); Potassium 3.7 mmol/L (3.5-5.1); Sodium 138 mmol/L (137-145); Total Bilirubin 0.9 mg/dL (0.2-1.3); Total Protein 6.7 g/dL (6.3-8.2)
--- NOTE | 2023-03-02 11:20 | XR ---
EXAMINATION TYPE: XR chest 2V DATE OF EXAM: 03/02/2023 11:14 AM CLINICAL INDICATION:Male, 62 years old with history of SOB; [facility] COMPARISON: Chest radiographs from 12/16/2022. TECHNIQUE: XR chest 2V Frontal and lateral views of the chest. FINDINGS: Lungs/Pleura: There is no evidence of pleural effusion, focal consolidation, or pneumothorax. Pulmonary vascularity: Pulmonary vascular congestion. Heart/mediastinum: Cardiomediastinal silhouette is enlarged and stable. Two lead cardiac conduction d evice overlying the left hemithorax with lead tips projecting over the right ventricle and right atri um. Musculoskeletal: No acute osseous pathology. IMPRESSION: Cardiomegaly and mild pulmonary vascular congestion. Correlate with BNP for congestive heart failure.
[2023-03-02 11:28] LABS: NT-Pro-B-Type Natriuretic Pept 945 pg/mL
[2023-03-02] MEDS ORDERED: ONDANSETRON 4 MG/2 ML VIAL IVP STA (11:34)
[2023-03-02 11:36] LABS: Partial Thromboplastin Time 26.3 sec (22.0-30.0)
[2023-03-02] MEDS ORDERED: MORPHINE SULFATE 2 MG/ML SYRINGE IVP ONE (11:52)
[2023-03-02] MEDS ORDERED: MORPHINE SULFATE 4 MG/ML SYRINGE IV PRN (12:46)
[2023-03-02] MEDS ORDERED: NALOXONE 0.4 MG/ML 1 ML VIAL IV PRN (12:46)
[2023-03-02] MEDS ORDERED: NITROGLYCERIN SL TABS 0.4 MG TAB SUBLINGUAL PRN (16:20)
[2023-03-02] MEDS: ONDANSETRON 4 MG TAB PO PRN ×2 (19:05→19:06)
[2023-03-02] MEDS: FUROSEMIDE 80 MG TAB PO SCH (19:06)
[2023-03-02] MEDS: APIXABAN 5 MG TAB PO SCH (20:43)
[2023-03-02] MEDS: buPROPion SR 150 MG TABLET.ER PO SCH (20:43)
[2023-03-02] MEDS: SACUBITRIL/VALSARTAN 24 MG-26 MG TABLET PO SCH (20:43)
[2023-03-02] MEDS: POTASSIUM CHLORIDE ER 10 MEQ TAB.ER.PRT PO SCH (20:43)
--- NOTE | 2023-03-03 02:25 | HP ---
HISTORY AND PHYSICAL CHIEF COMPLAINT: Chest pain. HISTORY OF PRESENT ILLNESS: This is another of many hospitalizations for this 62-year-old white male with chronic congestive heart failure. He has an atherosclerotic cardiomyopathy. He developed chest pain, came to emergency room. In the ER, his troponins were normal, and his EKG was unremarkable. BNP was up slightly. REVIEW OF SYSTEMS: He was slightly short of breath, but not diaphoretic. Past medical history, family history, and personal and social histories are all otherwise unchanged from his previous admissions. He is being evaluated at [facility] for heart transplant for LVAD. PHYSICAL EXAMINATION: VITAL SIGNS: Normal. HEAD, EARS, EYES, NOSE, MOUTH AND THROAT: Normal. CHEST: Clear. CARDIAC: Normal. He is in atrial fibrillation. ABDOMEN: Soft, nontender. EXTREMITIES: Normal. NEUROLOGICAL: Intact. ASSESSMENT: He is admitted to the hospital with diagnoses of: 1. Chest pain. 2. Coronary artery disease. 3. Atherosclerotic cardiomyopathy. 4. Atrial fibrillation. PLAN: 1. Bed rest. 2. IV fluids. 3. Serial EKGs and enzymes. 4. Resume his usual medications. MMODL / IJN: [id number] /
[2023-03-03] MEDS: ALBUTEROL NEBULIZED 2.5 MG/3 ML INHALATION PRN ×2 (08:13→11:56)
[2023-03-03] MEDS ORDERED: METOPROLOL SUCCINATE (ER) 25 MG TAB.ER.24H PO SCH (09:00)
[2023-03-03 09:07] LABS: BUN/Creat Ratio 16.92 Ratio (12.00-20.00); Chloride 100 mmol/L (96-109); Glucose 102 mg/dL (70-110); Sodium 139 mmol/L (135-145)
[2023-03-03 09:08] LABS: Calcium 9.1 mg/dL (8.7-10.3); Carbon Dioxide 29.2 mmol/L (21.6-31.8)
[2023-03-03 09:15] LABS: Basophils # (A) 0.09 X 10*3/uL (0.00-0.10); Basophils % (A) 1.6 %; Eosinophils # (A) 0.39 X 10*3/uL (0.04-0.35); Eosinophils % (A) 7.1 %; HCT 46.1 % (39.6-50.0); HGB 14.9 g/dL (13.0-17.0); Lymphocytes # (A) 0.75 X 10*3/uL (0.90-5.00); Lymphocytes % (A) 13.7 %; MCH 30.6 pg (27.0-32.0); MCHC 32.3 g/dL (32.0-37.0); MCV 94.7 FL (80.0-97.0); Mean Platelet Volume 11.9 FL (9.5-12.2); Monocytes % (A) 12.8 %; NRBC Per 100 WBC 0 X 10*3/uL (0.00-0.01); Neutrophils # (A) 3.54 X 10*3/uL (1.80-7.70); Neutrophils % (A) 64.4 %; Platelet Count 129 X 10*3/uL (140-440); RBC 4.87 X 10*6/uL (4.40-5.60); RDW 14.6 % (11.5-14.5); WBC 5.49 X 10*3/uL (4.50-10.00)
[2023-03-03] MEDS: buPROPion SR 150 MG TABLET.ER PO SCH ×2 (09:51→20:38)
[2023-03-03] MEDS: SACUBITRIL/VALSARTAN 24 MG-26 MG TABLET PO SCH ×2 (09:51→20:38)
[2023-03-03] MEDS: APIXABAN 5 MG TAB PO SCH ×2 (09:52→20:37)
[2023-03-03] MEDS: MAGNESIUM OXIDE 400 MG TAB PO SCH (09:52)
[2023-03-03] MEDS: AMIODARONE 200 MG TAB PO SCH (09:52)
[2023-03-03] MEDS: POTASSIUM CHLORIDE ER 10 MEQ TAB.ER.PRT PO SCH ×2 (09:52→20:38)
[2023-03-03] MEDS: DAPAGLIFLOZIN PROPANEDIOL 10 MG TABLET PO SCH (09:52)
[2023-03-03] MEDS: ATORVASTATIN 20 MG TAB PO SCH (09:52)
[2023-03-03] MEDS: SPIRONOLACTONE 25 MG TAB PO SCH (09:52)
[2023-03-03] MEDS: FUROSEMIDE 80 MG TAB PO SCH (09:52)
[2023-03-03] MEDS: IBUPROFEN 800 MG TAB PO PRN ×2 (09:57→17:21)
[2023-03-03] MEDS: BENZONATATE 100 MG CAP PO PRN ×2 (10:50→17:21)
[2023-03-03] MEDS: HYDROcodone/APAP 7.5-325MG 1 EACH TAB PO PRN ×2 (14:32→20:36)
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
[2023-03-03] MEDS ORDERED: FUROSEMIDE 10 MG/ML 4 ML VIAL IV ONE (16:00)
[2023-03-03] MEDS: METOPROLOL SUCCINATE (ER) 25 MG TAB.ER.24H PO SCH (20:38)
[2023-03-04] MEDS: HYDROcodone/APAP 7.5-325MG 1 EACH TAB PO PRN ×4 (03:00→23:30)
[2023-03-04] MEDS: IBUPROFEN 800 MG TAB PO PRN ×3 (03:04→17:34)
[2023-03-04] MEDS: MAGNESIUM OXIDE 400 MG TAB PO SCH (09:28)
[2023-03-04] MEDS: AMIODARONE 200 MG TAB PO SCH (09:28)
[2023-03-04] MEDS: buPROPion SR 150 MG TABLET.ER PO SCH ×2 (09:28→21:46)
[2023-03-04] MEDS: APIXABAN 5 MG TAB PO SCH ×2 (09:28→21:46)
[2023-03-04] MEDS: SACUBITRIL/VALSARTAN 24 MG-26 MG TABLET PO SCH ×2 (09:28→21:47)
[2023-03-04] MEDS: METOPROLOL SUCCINATE (ER) 25 MG TAB.ER.24H PO SCH ×2 (09:28→21:47)
[2023-03-04] MEDS: SPIRONOLACTONE 25 MG TAB PO SCH (09:29)
[2023-03-04] MEDS: POTASSIUM CHLORIDE ER 10 MEQ TAB.ER.PRT PO SCH ×2 (09:29→21:47)
[2023-03-04] MEDS: DAPAGLIFLOZIN PROPANEDIOL 10 MG TABLET PO SCH (09:29)
[2023-03-04] MEDS: BUMETANIDE 1 MG TAB PO SCH ×2 (09:29→17:34)
[2023-03-04] MEDS: ATORVASTATIN 20 MG TAB PO SCH (09:29)
[2023-03-04] MEDS: BENZONATATE 100 MG CAP PO PRN ×2 (14:04→23:30)
--- NOTE | 2023-03-04 15:07 | P.PN ---
Subjective Progress Note Date: 03/04/23 Progress note Patient is seen and examined at bedside the same. He denies having any active chest pain. He still reports shortness of breath, cough and wheezing. BP 98/68, heart rate 73 beats a minute HISTORY OF PRESENTING ILLNESS 61-year-old with PMH of pulmonary atrial fibrillation, nonischemic cardiomyopathy, nonobstructive coronary artery disease, morbid obesity, hyperte nsion, dyslipidemia, obstructive sleep apnea. He is known to Dr. Oliver and has been following up and he was to [place] for advanced heart failure management. He has never got any ablation procedure done. He has had one cardioversion in the past for atrial fibrillation rhythm control. His recent echo cardiogram showed an EF of 20-25%. This time he presented to the hospital because of worsening cough, generalized weakness, aches and pains, and worsening shortness of breath. He also reports worsening in his appetite and apparent sensation of fullness in his stomach. He reports that whenever he gets volume overloaded he has symptoms of loss of appetite and fullness in his stomach. On admission his chest x-ray showed mild pulmonary condition. It is somewhat similar to his prior chest x-ray from November ECG shows atrial fibrillation, rate controlled with heart rate in 90s Hemoglobin 14.9, platelets 129, sodium 139, potassium 4, creatinine 1.3, Positive for COVID-19 and RSV REVIEW OF SYSTEMS 14 point review of system is negative except what is mentioned above in HPI. PHYSICAL EXAMINATION Neck: Brisk carotid upstroke, no jugular venous distention. Lungs: Mild crackles and wheezing in bilateral lung Heart: Irregularly irregular, S1-S2, no S3, no murmur or rub. Abdomen: Soft nontender, positive bowel sounds no organomegaly. Extremities: 1-2+ swelling in bilateral lower extremity ASSESSMENT RSV and COVID-19 infection RSV tracheao-bronchitis [id number]-[id number] HFpEF exacerbation Nonischemic cardiac myopathy EF 20-25% Status post bilateral ventricular ICD Chronic Afib Obesity Morbid SHAREE PLAN Obtain PPM interrogation to see how much percentage signs patient is bivent ricularly paced. It is most likely a [employer] device Change diuretic to 40 mg IV twice a day Lasix. From tomorrow changed to a maximum milligrams by mouth twice a day. Discharge patient on Bumex and not on Lasix Continue amiodarone 200 mg daily Continue Eliquis 5 mg twice a day. Lipitor 20 mg Entresto 24/26 mg twice a day Aldactone 25 mg Increase metoprolol to 25 mg twice a day. Increased further as blood pressure tolerates If patient's heart rates are still elevated, he may benefit from APAP codeine for better heart rate control if he is not able tolerate beta amanda. He would also benefit from digoxin. There is also an option for vericuguat Eventually he needs advanced heart failure management for possible LVAD heart transplant candidacy evaluation. He also needs atrial fibrillation ablation procedure. Objective - Vital Signs Vital signs: Vital Signs Temp 98.2 F 03/04/23 14:23 Pulse 73 03/04/23 14:23 Resp 18 03/04/23 14:23 BP 98/68 03/04/23 14:23 Pulse Ox 91 L 03/04/23 14:23 FiO2 Intake & Output 03/03/23 03/04/23 03/04/23 18:59 06:59 18:59 Intake Total 287 Balance 287 Weight 146.6 kg Intake: Oral 287 Other: Voiding Method Toilet Toilet # Voids 3 1 - Labs CBC & Chem 7: 03/03/23 06:15 03/03/23 06:15
[2023-03-05] MEDS: MAGNESIUM OXIDE 400 MG TAB PO SCH (09:02)
[2023-03-05] MEDS: BUMETANIDE 1 MG TAB PO SCH ×2 (09:02→17:27)
[2023-03-05] MEDS: AMIODARONE 200 MG TAB PO SCH (09:02)
[2023-03-05] MEDS: DAPAGLIFLOZIN PROPANEDIOL 10 MG TABLET PO SCH (09:02)
[2023-03-05] MEDS: METOPROLOL SUCCINATE (ER) 25 MG TAB.ER.24H PO SCH ×2 (09:02→20:57)
[2023-03-05] MEDS: ATORVASTATIN 20 MG TAB PO SCH (09:02)
[2023-03-05] MEDS: buPROPion SR 150 MG TABLET.ER PO SCH ×2 (09:02→20:57)
[2023-03-05] MEDS: APIXABAN 5 MG TAB PO SCH ×2 (09:02→20:57)
[2023-03-05] MEDS: SPIRONOLACTONE 25 MG TAB PO SCH (09:02)
[2023-03-05] MEDS: SACUBITRIL/VALSARTAN 24 MG-26 MG TABLET PO SCH ×2 (09:02→20:57)
[2023-03-05] MEDS: HYDROcodone/APAP 7.5-325MG 1 EACH TAB PO PRN ×2 (09:03→20:58)
[2023-03-05] MEDS: POTASSIUM CHLORIDE ER 10 MEQ TAB.ER.PRT PO SCH ×2 (09:03→20:57)
[2023-03-05] MEDS: BENZONATATE 100 MG CAP PO PRN ×2 (09:46→23:18)
--- NOTE | 2023-03-05 09:47 | P.PN ---
Subjective CHIEF COMPLAINT: Chest pain HISTORY OF PRESENT ILLNESS: Patient examined this morning at the bedside. P atkacie denies any chest pain or pressure. He currently denies shortness of breath. Patient has a [employer] ICD. A company has been contacted this morning to interrogate device. Telemetry reveals ventricular paced rhythm. Patient's vital signs are stable. PHYSICAL EXAM: Thorough physical exam not completed secondary to limited evaluation/examination due to Covid19/RSV ASSESSMENT: Covid 19 RSV Tracheobronchitis Acute on chronic heart failure with reduced ejection fraction Nonischemic card he myopathy, EF 20-25% Status post AICD implantation, [employer] Permanent atrial fibrillation History of obstructive sleep apnea Morbid obesity PLAN: Interrogation of patient's AICD pending Continue current cardiac medications Patient is currently stable from a cardiac perspective Further recommendations pending patient's course Nurse practitioner note has been reviewed by physician. Signing provider agrees with the documented findings, assessment, and plan of care. Objective - Vital Signs Vital signs: Vital Signs Temp 97.6 F 03/05/23 08:00 Pulse 69 03/05/23 08:00 Resp 16 03/05/23 08:00 BP 95/64 03/05/23 08:00 Pulse Ox 91 L 03/05/23 08:00 FiO2 Intake & Output 03/04/23 03/05/23 03/05/23 18:59 06:59 18:59 Intake Total 450 720 Balance 450 720 Weight 145.4 kg Intake: Oral 450 720 Other: Voiding Method Toilet # Voids 1 2 - Labs CBC & Chem 7: 03/03/23 06:15 03/03/23 06:15
[2023-03-05] MEDS: IBUPROFEN 800 MG TAB PO PRN (12:51)
[2023-03-05] MEDS: ALBUTEROL HFA INHALER INHALATION PRN (18:27)
--- NOTE | 2023-03-05 21:10 | HP ---
HISTORY AND PHYSICAL CHIEF COMPLAINT: Chest pain and upper respiratory infection. HISTORY OF PRESENT ILLNESS: This is another admission for this 62-year-old with chronic congestive heart failure. He came into the hospital with anterior chest pain, but this is thought likely to be related to a cough with bronchitis. He has had no diaphoresis. He has been currently doing fairly well as an outpatient and trying to lose weight. Once he reached his certain weight goal, [facility] Team will do further evaluation for either an LVAD or cardiac transplant. REVIEW OF SYSTEMS: He denies any fever, chills, hemoptysis, etc. Past medical history, family history, personal and social histories are all unchanged. He has been swabbed for COVID and RSV and has both. PHYSICAL EXAMINATION: VITAL SIGNS: Normal. HEAD, EARS, EYES, NOSE, MOUTH, AND THROAT: Normal except for nasal congestion. CHEST: Demonstrated occasional rhonchi throughout. CARDIAC: Reveals atrial fibrillation. ABDOMEN: Soft, nontender. EXTREMITIES: Normal. NEUROLOGICAL: He is intact. ASSESSMENT: He is admitted to the hospital with diagnoses of: 1. Chest pain. 2. COVID. 3. Respiratory syncytial virus. 4. Chest wall pain. 5. Cardiomyopathy with congestive heart failure. PLAN: 1. Bedrest. 2. IV fluids. 3. Serial EKGs and enzymes. 4. Manage his respiratory symptoms. MMIVORYL / NORRISN: [id number] /
--- NOTE | 2023-03-06 07:41 | PN ---
PROGRESS NOTE CHIEF COMPLAINT: 1. Chest pain. 2. Bronchitis. 3. COVID. 4. RSV. 5. CHF. HISTORY OF PRESENT ILLNESS: Enzymes have been normal. He is not short of breath. PHYSICAL EXAMINATION: CHEST: Quite clear except for occasional rhonchi. CARDIAC: Unchanged. ABDOMEN: Soft, nontender. IMPRESSION: 1. Bronchitis. 2. COVID. 3. Respiratory syncytial virus. 4. Congestive heart failure. PLAN: Continue with current management. No change in program. MMODL / IJN: [id number] /
[2023-03-06] MEDS: SACUBITRIL/VALSARTAN 24 MG-26 MG TABLET PO SCH ×2 (08:50→19:53)
[2023-03-06] MEDS: HYDROcodone/APAP 7.5-325MG 1 EACH TAB PO PRN ×3 (08:50→22:02)
[2023-03-06] MEDS: METOPROLOL SUCCINATE (ER) 25 MG TAB.ER.24H PO SCH ×2 (08:50→19:53)
[2023-03-06] MEDS: BUMETANIDE 1 MG TAB PO SCH ×2 (08:52→16:18)
[2023-03-06] MEDS: ATORVASTATIN 20 MG TAB PO SCH (08:52)
[2023-03-06] MEDS: SPIRONOLACTONE 25 MG TAB PO SCH (08:52)
[2023-03-06] MEDS: AMIODARONE 200 MG TAB PO SCH (08:52)
[2023-03-06] MEDS: APIXABAN 5 MG TAB PO SCH ×2 (08:52→19:54)
[2023-03-06] MEDS: DAPAGLIFLOZIN PROPANEDIOL 10 MG TABLET PO SCH (08:52)
[2023-03-06] MEDS: buPROPion SR 150 MG TABLET.ER PO SCH ×2 (08:52→19:53)
[2023-03-06] MEDS: MAGNESIUM OXIDE 400 MG TAB PO SCH (08:52)
[2023-03-06] MEDS: POTASSIUM CHLORIDE ER 10 MEQ TAB.ER.PRT PO SCH ×2 (08:53→19:54)
--- NOTE | 2023-03-06 08:53 | P.PN ---
Subjective CHIEF COMPLAINT: Chest pain HISTORY OF PRESENT ILLNESS: Patient examined this morning at the bedside. P anna denies any chest pain or pressure. He currently denies shortness of breath. Patient has a [employer] ICD. A company has been contacted this morning to interrogate device. Telemetry reveals ventricular paced rhythm. Patient's vital signs are stable. 03/06/2023 Patient examined this morning at the bedside. Patient denies any chest pain or pressure. He reports mild shortness of breath. He states he has been having some mild chest discomfort with coughing. He denies any chest pain at the time of examination. Patient's device was interrogated yesterday with no significant events noted. Vital signs this morning are stable. PHYSICAL EXAM: Thorough physical exam not completed secondary to limited evaluation/examination due to Covid19/RSV ASSESSMENT: Covid 19 RSV Tracheobronchitis Acute on chronic heart failure with reduced ejection fraction Nonischemic card he myopathy, EF 20-25% Status post AICD implantation, [employer] Permanent atrial fibrillation History of obstructive sleep apnea Morbid obesity PLAN: Continue current cardiac medications Patient is currently stable from a cardiac perspective Discharge per medicine We will sign off. Please reconsult if needed. Nurse practitioner note has been reviewed by physician. Signing provider agrees with the documented findings, assessment, and plan of care. Objective - Vital Signs Vital signs: Vital Signs Temp 97.6 F 03/06/23 07:00 Pulse 77 03/06/23 07:00 Resp 18 03/06/23 07:00 BP 116/64 03/06/23 07:00 Pulse Ox 94 L 03/06/23 07:00 FiO2 Intake & Output 03/05/23 03/06/23 03/06/23 18:59 06:59 18:59 Intake Total 720 Output Total 800 Balance 720 -800 Intake: Oral 720 Output: Urine 800 Other: Voiding Method Toilet Toilet # Voids 1 - Labs CBC & Chem 7: 03/03/23 06:15 03/03/23 06:15
[2023-03-06] MEDS: IBUPROFEN 800 MG TAB PO PRN (11:31)
[2023-03-06] MEDS: BENZONATATE 100 MG CAP PO PRN ×2 (11:32→22:02)
[2023-03-06] MEDS: ALBUTEROL HFA INHALER INHALATION PRN ×2 (12:12→19:29)
--- NOTE | 2023-03-06 22:32 | PN ---
PROGRESS NOTE DATE OF SERVICE: 03/06/2023 CHIEF COMPLAINT: Viral URI. HISTORY OF PRESENT ILLNESS: This gentleman is doing a little bit better. He is still coughing and bringing up phlegm, but he has had no chest pain or shortness of breath. PHYSICAL EXAMINATION: CHEST: Demonstrates occasional rhonchi. CARDIAC: Unchanged with atrial fibrillation. ABDOMEN: Soft, nontender. IMPRESSION: 1. Bronchitis. 2. Congestive heart failure. PLAN: Probably home tomorrow. MMODL / IJN: [id number] /
--- NOTE | 2023-03-07 02:07 | PN ---
PROGRESS NOTE CHIEF COMPLAINT: Chest pain, bronchitis, and pneumonitis. HISTORY OF PRESENT ILLNESS: This gentleman is still quite congested, but he has had no fever, chills, shortness of breath or chest pain. PHYSICAL EXAMINATION: He does have scattered rhonchi throughout both lung pedroza with some 1. Congestive heart failure. PLAN: Continue with current medications. He is likely not to have any significant respiratory difficulties from his COVID or RSV unless develops increased difficulty with heart failure. MMODL / IJN: [id number] /
[2023-03-07] MEDS: HYDROcodone/APAP 7.5-325MG 1 EACH TAB PO PRN ×2 (08:22→20:04)
[2023-03-07] MEDS: APIXABAN 5 MG TAB PO SCH ×2 (08:22→20:03)
[2023-03-07] MEDS: POTASSIUM CHLORIDE ER 10 MEQ TAB.ER.PRT PO SCH ×2 (08:23→20:04)
[2023-03-07] MEDS: BENZONATATE 100 MG CAP PO PRN ×2 (08:23→20:03)
[2023-03-07] MEDS: MAGNESIUM OXIDE 400 MG TAB PO SCH (08:23)
[2023-03-07] MEDS: SPIRONOLACTONE 25 MG TAB PO SCH (08:23)
[2023-03-07] MEDS: DAPAGLIFLOZIN PROPANEDIOL 10 MG TABLET PO SCH (08:23)
[2023-03-07] MEDS: BUMETANIDE 1 MG TAB PO SCH ×2 (08:24→20:03)
[2023-03-07] MEDS: SACUBITRIL/VALSARTAN 24 MG-26 MG TABLET PO SCH ×2 (08:24→20:03)
[2023-03-07] MEDS: buPROPion SR 150 MG TABLET.ER PO SCH ×2 (08:24→20:03)
[2023-03-07] MEDS: AMIODARONE 200 MG TAB PO SCH (08:24)
[2023-03-07] MEDS: ATORVASTATIN 20 MG TAB PO SCH (08:25)
[2023-03-07] MEDS: METOPROLOL SUCCINATE (ER) 25 MG TAB.ER.24H PO SCH ×2 (08:32→20:03)
[2023-03-07] MEDS: IBUPROFEN 800 MG TAB PO PRN (12:14)
[2023-03-07] MEDS: ALBUTEROL HFA INHALER INHALATION PRN ×3 (12:33→19:03)
[2023-03-08 08:41] VITALS: BP 137/79; PULSE 67; RESP 17; TEMP 98.7
[2023-03-08] MEDS: ALBUTEROL HFA INHALER INHALATION PRN ×2 (09:39→12:26)
[2023-03-08] MEDS: APIXABAN 5 MG TAB PO SCH (10:07)
[2023-03-08] MEDS: BENZONATATE 100 MG CAP PO PRN (10:07)
[2023-03-08] MEDS: buPROPion SR 150 MG TABLET.ER PO SCH (10:07)
[2023-03-08] MEDS: POTASSIUM CHLORIDE ER 10 MEQ TAB.ER.PRT PO SCH (10:08)
[2023-03-08] MEDS: AMIODARONE 200 MG TAB PO SCH (10:08)
[2023-03-08] MEDS: SACUBITRIL/VALSARTAN 24 MG-26 MG TABLET PO SCH (10:08)
[2023-03-08] MEDS: HYDROcodone/APAP 7.5-325MG 1 EACH TAB PO PRN (10:08)
[2023-03-08] MEDS: MAGNESIUM OXIDE 400 MG TAB PO SCH (10:08)
[2023-03-08] MEDS: DAPAGLIFLOZIN PROPANEDIOL 10 MG TABLET PO SCH (10:08)
[2023-03-08] MEDS: BUMETANIDE 1 MG TAB PO SCH (10:08)
[2023-03-08] MEDS: ATORVASTATIN 20 MG TAB PO SCH (10:08)
[2023-03-08] MEDS: METOPROLOL SUCCINATE (ER) 25 MG TAB.ER.24H PO SCH (10:08)
[2023-03-08] MEDS: SPIRONOLACTONE 25 MG TAB PO SCH (10:08)
--- NOTE | 2023-03-09 06:55 | DS ---
DISCHARGE SUMMARY CHIEF COMPLAINT: Chest pain with cough and bronchitis. HISTORY OF PRESENT ILLNESS AND PHYSICAL EXAM: Details of this man's history and physical can be found in the initial workup. LABORATORY STUDIES: While he was in the hospital, he had laboratory studies, details of which can be found in the laboratory section of his chart. COURSE IN THE HOSPITAL: After admission, he was placed on bedrest, started treatment for his bronchitis. He was RSV and COVID positive. He did not have any signs or symptoms of heart failure. He became somewhat congested and hoarse, but was doing well and felt he could go home on the and he will go home on his usual medications. He will be seen in the office in several days. FINAL DIAGNOSES: 1. Anterior chest pain. 2. Coronavirus disease. 3. Respiratory syncytial virus. 4. Laryngitis. 5. Cardiomyopathy. 6. Congestive heart failure. 7. L-spine pain and arthritis. OPERATIONS: None. CONSULTATIONS: None. He is improved. MMODL / NORRISN: [id number] /
--- NOTE | 2023-03-09 07:26 | PN ---
PROGRESS NOTE DATE OF SERVICE: 03/07/2023 CHIEF COMPLAINT: Chest pain, heart failure, and bronchitis. HISTORY OF PRESENT ILLNESS: This gentleman is feeling a little bit better. He is still coughing quite a bit, and he has developed a laryngitis. He has had no chest pain or shortness of breath. PHYSICAL EXAMINATION: VITAL SIGNS: Normal. CHEST: Clear. CARDIAC: Exam finds that he is in atrial fibrillation which is chronic. ABDOMEN: Soft and nontender. He is hoarse. IMPRESSION: 1. Viral upper respiratory infection, bronchitis, laryngitis. 2. Heart failure. PLAN: Increase activity and diet. Probably discharge in the next day or two. MMODL / IJN: [id number] /
== END 2023-03-08 13:55 | disposition home or self-care (01) | DRG 137 ==
LOC: EC 09:02 → 6NMEDSUR 12:25 → OBSVTOIN 03-05 11:19
PROVIDERS: ADMIT Family Medicine; ATTEND Family Medicine
DX: U07.1 COVID-19 (principal); I48.21 Permanent atrial fibrillation; B97.4 Respiratory syncytial virus as the cause of diseases classified elsewhere; J40 Bronchitis, not specified as acute or chronic; E66.01 Morbid (severe) obesity due to excess calories; E78.5 Hyperlipidemia, unspecified; G47.33 Obstructive sleep apnea (adult) (pediatric); I11.0 Hypertensive heart disease with heart failure; I25.10 Atherosclerotic heart disease of native coronary artery without angina pectoris; I42.8 Other cardiomyopathies; I50.43 Acute on chronic combined systolic (congestive) and diastolic (congestive) heart failure; J04.0 Acute laryngitis; M47.9 Spondylosis, unspecified; Z79.01 Long term (current) use of anticoagulants; Z79.84 Long term (current) use of oral hypoglycemic drugs; Z79.899 Other long term (current) drug therapy; Z82.49 Family history of ischemic heart disease and other diseases of the circulatory system; Z95.810 Presence of automatic (implantable) cardiac defibrillator; Z28.310 Unvaccinated for COVID-19; Z87.01 Personal history of pneumonia (recurrent); Z68.41 Body mass index [BMI] 40.0-44.9, adult
CPT/HCPCS: 36415; 71046; 80048; 80053; 83735; 83880; 84484; 85025; 85610; 85730; 87636; 93005; 94640; 94760; 96374; 96375; 99285

== ENCOUNTER 2023-08-21 14:21 | Emergency (ER) | payer OTHER ==
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
[2023-08-21 16:00] LABS: ALT 22 U/L (4-49); AST 27 U/L (17-59); African American GFR (CKD) 57 (>60 ml/min/1.73 sqM); Albumin 4.2 g/dL (3.5-5.0); Alkaline Phosphatase 128 U/L (38-126); Anion Gap 8 mmol/L; Blood Urea Nitrogen 22 mg/dL (9-20); Calcium 9.1 mg/dL (8.4-10.2); Carbon Dioxide 29 mmol/L (22-30); Chloride 102 mmol/L (98-107); Glucose 101 mg/dL (74-99); Non-African American GFR(CKD) 49 (>60 ml/min/1.73 sqM); Potassium 3.8 mmol/L (3.5-5.1); Sodium 139 mmol/L (137-145); Total Bilirubin 1.5 mg/dL (0.2-1.3); Total Protein 6.8 g/dL (6.3-8.2)
[2023-08-21 16:10] LABS: NT-Pro-B-Type Natriuretic Pept 1370 pg/mL
[2023-08-21 16:15] LABS: INR 1.1 (<1.2); Prothrombin Time 11.7 sec (10.0-12.5)
[2023-08-21 16:33] LABS: Basophils # (A) 0.1 k/uL (0-0.2); Basophils % (A) 1 %; Eosinophils # (A) 0.1 k/uL (0-0.7); Eosinophils % (A) 2 %; HGB 18.8 gm/dL (13.0-17.5); Lymphocytes # (A) 1.1 k/uL (1.0-4.8); Lymphocytes % (A) 19 %; MCH 31.2 pg (25.0-35.0); MCHC 33.6 g/dL (31.0-37.0); MCV 92.9 fL (80.0-100.0); Mean Platelet Volume 9.4; Monocytes # (A) 0.5 k/uL (0-1.0); Monocytes % (A) 9 %; Neutrophils # (A) 3.7 k/uL (1.3-7.7); Neutrophils % (A) 67 %; Platelet Count 141 k/uL (150-450); RBC 6.04 m/uL (4.30-5.90); RDW 14.6 % (11.5-15.5); WBC 5.5 k/uL (3.8-10.6)
[2023-08-21 17:05] LABS: Appearance,Urine Clear (Clear); Bilirubin,Urine Negative (Negative); Blood,Urine Trace (Negative); Color,Urine Yellow; Glucose,Urine (UA) Negative (Negative); Hyaline Casts,Urine 18 /lpf (0-2); Ketones,Urine Negative (Negative); Leukocyte Esterase,Urine Negative (Negative); Mucus,Urine Rare /hpf; Nitrite,Urine Negative (Negative); PH, Urine 5.5 (5.0-8.0); Protein,Urine Trace (Negative); RBC,Urine 4 /hpf (0-5); Specific Gravity,Urine 1.015 (1.001-1.035); Urobilinogen,Urine <2.0 mg/dL (<2.0); WBC,Urine <1 /hpf (0-5)
[2023-08-21 17:14] LABS: HCT 56.1 % (39.0-53.0)
--- NOTE | 2023-08-21 17:55 | XR ---
EXAMINATION TYPE: XR chest 2V DATE OF EXAM: 08/21/2023 5:08 PM CLINICAL INDICATION:Male, 62 years old with history of dizziness; [facility] COMPARISON: Chest radiographs from 03/02/2023 TECHNIQUE: XR chest 2V Frontal and lateral views of the chest. FINDINGS: Lungs/Pleura: There is no evidence of pleural effusion, focal consolidation, or pneumothorax. Pulmonary vascularity: Unremarkable. Heart/mediastinum: Cardiomediastinal silhouette is enlarged and stable. Two lead cardiac conduction d evice overlying the left hemithorax with lead tips projecting over the right ventricle and right atri um. Musculoskeletal: No acute osseous pathology. IMPRESSION: Low lung volumes with a generalized hazy appearance which could represent atelectasis versus pulmonar y edema correlate with serum BNP.
[2023-08-21 18:22] VITALS: BP 100/87; PULSE 78; RESP 22; TEMP 98.1
== END 2023-08-21 18:22 | disposition home or self-care (01) ==
LOC: EC 14:21
DX: I48.20 Chronic atrial fibrillation, unspecified (principal)
CPT/HCPCS: 36415; 71046; 80053; 81001; 83605; 83880; 84484; 85025; 85610; 93005; 99284

== ENCOUNTER 2023-11-23 14:20 | Inpatient (IN) | payer OTHER ==
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
--- NOTE | 2023-11-23 15:40 | XR ---
EXAMINATION TYPE: XR chest 2V DATE OF EXAM: 11/23/2023 3:17 PM CLINICAL INDICATION: Male, 63 years old with history of difficulty breathing; [facility] COMPARISON: Chest radiographs from 08/21/2023 TECHNIQUE: XR chest 2V Frontal view of the chest. FINDINGS: Lungs/Pleura: There is no evidence of pleural effusion, focal consolidation, or pneumothorax. Pulmonary vascularity: Unremarkable. Heart/mediastinum: Cardiomediastinal silhouette is unremarkable. Two lead cardiac conduction device o verlying the left hemithorax with lead tips projecting over the right ventricle and right atrium. Musculoskeletal: No acute osseous pathology. Other findings: None Lines/Tubes: IMPRESSION: Low lung volumes with a generalized hazy appearance which could represent atelectasis versus pulmonar y edema correlate with serum BNP. [facility], , 11/23/2023 3:38 PM
[2023-11-23 15:46] LABS: Basophils # (A) 0.1 k/uL (0-0.2); Basophils % (A) 1 %; Eosinophils # (A) 0.2 k/uL (0-0.7); Eosinophils % (A) 3 %; HCT 54.8 % (39.0-53.0); HGB 17.9 gm/dL (13.0-17.5); Lymphocytes # (A) 0.8 k/uL (1.0-4.8); Lymphocytes % (A) 15 %; MCH 30.1 pg (25.0-35.0); MCHC 32.7 g/dL (31.0-37.0); MCV 91.9 fL (80.0-100.0); Mean Platelet Volume 8.6; Monocytes # (A) 0.4 k/uL (0-1.0); Monocytes % (A) 8 %; Neutrophils # (A) 3.5 k/uL (1.3-7.7); Neutrophils % (A) 69 %; Platelet Count 160 k/uL (150-450); RBC 5.96 m/uL (4.30-5.90); RDW 14.7 % (11.5-15.5); WBC 5.1 k/uL (3.8-10.6)
[2023-11-23 15:54] LABS: INR 1.1 (<1.2); Partial Thromboplastin Time 25.5 sec (22.0-30.0); Prothrombin Time 11.7 sec (10.0-12.5)
[2023-11-23 16:05] LABS: ALT 41 U/L (4-49); AST 37 U/L (17-59); African American GFR (CKD) 58 (>60 ml/min/1.73 sqM); Albumin 4.3 g/dL (3.5-5.0); Alkaline Phosphatase 99 U/L (38-126); Anion Gap 7 mmol/L; Blood Urea Nitrogen 20 mg/dL (9-20); Calcium 9.5 mg/dL (8.4-10.2); Carbon Dioxide 28 mmol/L (22-30); Chloride 104 mmol/L (98-107); Glucose 97 mg/dL (74-99); Magnesium 2.1 mg/dL (1.6-2.3); Non-African American GFR(CKD) 51 (>60 ml/min/1.73 sqM); Potassium 3.5 mmol/L (3.5-5.1); Sodium 139 mmol/L (137-145); Total Bilirubin 1.1 mg/dL (0.2-1.3); Total Protein 6.8 g/dL (6.3-8.2)
[2023-11-23 16:13] LABS: NT-Pro-B-Type Natriuretic Pept 919 pg/mL
[2023-11-23] MEDS: FUROSEMIDE 10 MG/ML 4 ML VIAL IV STA (16:54)
[2023-11-23 17:07] LABS: Appearance,Urine Clear (Clear); Bilirubin,Urine Negative (Negative); Blood,Urine Trace (Negative); Color,Urine Light Yellow; Glucose,Urine (UA) 4+ (Negative); Hyaline Casts,Urine 2 /lpf (0-2); Ketones,Urine Negative (Negative); Leukocyte Esterase,Urine Negative (Negative); Nitrite,Urine Negative (Negative); Protein,Urine Negative (Negative); RBC,Urine 3 /hpf (0-5); Specific Gravity,Urine 1.013 (1.001-1.035); Urobilinogen,Urine <2.0 mg/dL (<2.0); WBC,Urine <1 /hpf (0-5)
[2023-11-23] MEDS ORDERED: NALOXONE 0.4 MG/ML 1 ML VIAL IV PRN (17:28)
[2023-11-23] MEDS ORDERED: MORPHINE SULFATE 4 MG/ML SYRINGE IV PRN (17:28)
[2023-11-23] MEDS ORDERED: ONDANSETRON 4 MG TAB PO PRN (17:29)
[2023-11-23] MEDS ORDERED: ALBUTEROL HFA INHALER INHALATION PRN (17:29)
[2023-11-23] MEDS ORDERED: NITROGLYCERIN SL TABS 0.4 MG TAB SUBLINGUAL PRN (17:29)
[2023-11-23] MEDS: buPROPion SR 150 MG TABLET.ER PO SCH (17:53)
[2023-11-23] MEDS: ERGOCALCIFEROL 1,250 MCG (50,000 IU) CAPSULE PO SCH (18:10)
[2023-11-23] MEDS: HYDROcodone/APAP 10-325MG 1 EACH TAB PO PRN (20:50)
[2023-11-23] MEDS: APIXABAN 5 MG TAB PO SCH (21:31)
[2023-11-23] MEDS: POTASSIUM CHLORIDE ER 10 MEQ TAB.ER.PRT PO SCH (21:31)
[2023-11-23] MEDS: SACUBITRIL/VALSARTAN 24 MG-26 MG TABLET PO SCH (21:31)
[2023-11-23] MEDS: FUROSEMIDE 80 MG TAB PO SCH (23:18)
[2023-11-24] MEDS: ATORVASTATIN 80 MG TAB PO SCH (07:50)
[2023-11-24] MEDS: MAGNESIUM OXIDE 400 MG TAB PO SCH (07:51)
[2023-11-24] MEDS: SPIRONOLACTONE 25 MG TAB PO SCH (07:52)
[2023-11-24] MEDS: DAPAGLIFLOZIN PROPANEDIOL 10 MG TABLET PO SCH (07:56)
[2023-11-24] MEDS: AMIODARONE 200 MG TAB PO SCH (08:00)
[2023-11-24] MEDS: ACETAMINOPHEN TAB 325 MG TAB PO PRN (11:01)
[2023-11-24] MEDS: METOPROLOL SUCCINATE (ER) 25 MG TAB.ER.24H PO SCH (12:26)
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
--- NOTE | 2023-11-24 23:03 | PN ---
PROGRESS NOTE DATE OF SERVICE: 11/24/2023 CHIEF COMPLAINT: Orthostatic hypotension. HISTORY OF PRESENT ILLNESS: This gentleman is doing fairly well. He feels fine. There had been no significant abnormalities so far. His blood pressure remains low. PHYSICAL EXAMINATION: CHEST: Clear. CARDIAC: Unchanged. ABDOMEN: Soft, nontender. IMPRESSION: 1. Orthostatic hypotension. 2. Cardiomyopathy. 3. Coronary artery disease. 4. Dehydration. 5. Obesity with significant weight loss. PLAN: Continue to monitor his vital signs and laboratory studies, and probably cut back on some of his medications if his blood pressure does not respond. MMODL / IJN: [id number] /
[2023-11-24] MEDS ORDERED: traZODone HCL 50 MG TAB PO PRN (23:22)
--- NOTE | 2023-11-25 03:34 | HP ---
HISTORY AND PHYSICAL CHIEF COMPLAINT: Weakness, lightheadedness, and hypotension. HISTORY OF PRESENT ILLNESS: This is another admission for this 63-year-old white male with advanced congestive heart failure due to atherosclerotic cardiomyopathy. He is currently being evaluated by the [facility] for potential heart transplant. His congestive heart failure has been under fairly good control lately. Quite a while, he was at a tipping point where he was in and out of the hospital several times a month for heart failure. He has been working on losing weight. He has been told that, however, if he gets down to around 270 pounds, they would consider putting him on the transplant list. He has gone recently from 324 down to 287 pounds and has been doing well. However, he has been having some episodes such as the one that brought him to emergency room where he feels lightheaded and is always going to pass out and his blood pressure drops below 90. He has had no chest pain. REVIEW OF SYSTEMS: Otherwise unremarkable. He has had no diaphoresis, palpitations, syncope, etc. Past medical history, family history and personal and social histories are all otherwise detailed in his previous admitting and discharge summaries and are extensive. He has been very diligent about taking his medicines over the last several years. PHYSICAL EXAMINATION: VITAL SIGNS: Blood pressure is 89/55 with a pulse of 79, respirations of 32, and he is afebrile. GENERAL: He appeared to be well developed, well nourished, and in no acute distress. HEAD, EARS, EYES, NOSE, MOUTH AND THROAT: Normal. CHEST: Clear, but breath sounds were diminished. There were no significant rales. CARDIAC: Revealed an irregularly irregular rhythm with an S3 and S4. ABDOMEN: Slightly protuberant, soft and nontender. EXTREMITIES: Normal. NEUROLOGICAL: He is intact. DIAGNOSES: He is admitted to the hospital with diagnoses, 1. Near syncope. 2. Hypotension. 3. Atherosclerotic cardiomyopathy. 4. Stage IV congestive heart failure. PLAN: 1. Bedrest. 2. IV fluids to rehydrate. 3. Probably cut down on his medication regimen. MMODL / IJN: [id number] /
[2023-11-25] MEDS: IBUPROFEN 800 MG TAB PO PRN (06:21)
[2023-11-25] MEDS: SPIRONOLACTONE 25 MG TAB PO SCH (08:37)
[2023-11-25] MEDS: FUROSEMIDE 40 MG TAB PO SCH (08:37)
--- NOTE | 2023-11-25 11:30 | P.PN ---
Subjective HISTORY OF PRESENT ILLNESS: This is a 63-year-old male that follows at the [facility]. Patient is admitted to the hospital secondary to shortness of breath and dizziness. Patient was found to have orthostatic hypotension. Patient examined this morning at the bedside. Patient currently denies chest pain or pressure. He denies shortness of breath. He does report that he feels dizzy when ambulating. He continues to have positive orthostatic blood pressures. PHYSICAL EXAM: VITAL SIGNS: Reviewed. GENERAL: Well-developed in no acute distress. NECK: Supple. No JVD or thyromegaly LUNGS: Respirations even and unlabored. Lungs with mild expiratory wheezing noted HEART: Regular rate and rhythm. S1 and S2 heard. EXTREMITIES: Normal range of motion. No clubbing or cyanosis. Peripheral pulses intact. No lower extremity edema ASSESSMENT: Orthostatic hypotension Heart failure with reduced EF, 20%, currently euvolemic Acute kidney injury Nonischemic cardiomyopathy History of ICD implantation Persistent atrial fibrillation History of obstructive sleep apnea Hypertension Hyperlipidemia PLAN: Patient continues to have positive orthostatic blood pressures this morning Decrease Aldactone to 12.5 mg daily Decrease Lasix to 40 mg twice a day Repeat BMP this morning Continue to monitor orthostatic blood pressures every shift Further recommendations pending patient course Nurse practitioner note has been reviewed by physician. Signing provider agrees with the documented findings, assessment, and plan of care documented by CONCRETE PILE DRIVER OPERATOR as a scribe. Objective - Vital Signs Vital signs: Vital Signs Temp 97.9 F 11/25/23 02:00 Pulse 62 11/25/23 02:00 Resp 16 11/25/23 02:00 BP 99/67 11/25/23 02:00 Pulse Ox 98 11/24/23 15:59 FiO2 Intake & Output 11/24/23 11/25/23 11/25/23 18:59 06:59 18:59 Intake Total 356 Output Total 150 Balance 356 -150 Intake: Oral 356 Output: Urine 150 Other: Voiding Method Toilet - Labs CBC & Chem 7: 11/23/23 15:23 11/23/23 15:23
[2023-11-25 13:09] LABS: African American GFR (CKD) 69 (>60 ml/min/1.73 sqM); Anion Gap 6 mmol/L; Blood Urea Nitrogen 19 mg/dL (9-20); Calcium 9.4 mg/dL (8.4-10.2); Carbon Dioxide 29 mmol/L (22-30); Chloride 103 mmol/L (98-107); Glucose 105 mg/dL (74-99); Non-African American GFR(CKD) 60 (>60 ml/min/1.73 sqM); Potassium 3.3 mmol/L (3.5-5.1); Sodium 138 mmol/L (137-145)
[2023-11-25] MEDS: HYDROcodone/APAP 5-325MG 1 EACH TAB PO PRN (17:29)
[2023-11-26 10:06] LABS: African American GFR (CKD) 70 (>60 ml/min/1.73 sqM); Anion Gap 6 mmol/L; Blood Urea Nitrogen 20 mg/dL (9-20); Calcium 9.2 mg/dL (8.4-10.2); Carbon Dioxide 32 mmol/L (22-30); Chloride 100 mmol/L (98-107); Glucose 107 mg/dL (74-99); Magnesium 2.1 mg/dL (1.6-2.3); Non-African American GFR(CKD) 61 (>60 ml/min/1.73 sqM); Potassium 3.5 mmol/L (3.5-5.1); Sodium 138 mmol/L (137-145)
--- NOTE | 2023-11-26 13:05 | P.PN ---
Subjective HISTORY OF PRESENT ILLNESS: This is a 63-year-old male that follows at the [facility]. Patient is admitted to the hospital secondary to shortness of breath and dizziness. Patient was found to have orthostatic hypotension. Patient examined this morning at the bedside. Patient currently denies chest pain or pressure. He denies shortness of breath. He does report that he feels dizzy when ambulating. He continues to have positive orthostatic blood pressures. 11/26/2023 Patient examined this morning. He is sitting up in the chair. Patient currently denies chest pain or pressure. He denies shortness of breath. Patient's orthostatics remain positive although improving from yesterday. Primary medicine discontinued patient's Entresto. PHYSICAL EXAM: VITAL SIGNS: Reviewed. GENERAL: Well-developed in no acute distress. NECK: Supple. No JVD or thyromegaly LUNGS: Respirations even and unlabored. Lungs diminished. HEART: Regular rate and rhythm. S1 and S2 heard. EXTREMITIES: Normal range of motion. No clubbing or cyanosis. Peripheral pulses intact. No lower extremity edema ASSESSMENT: Orthostatic hypotension Heart failure with reduced EF, 20%, currently euvolemic Acute kidney injury Nonischemic cardiomyopathy History of ICD implantation Persistent atrial fibrillation History of obstructive sleep apnea Hypertension Hyperlipidemia PLAN: Resume Entresto. From cardiology standpoint, this should not be discontinued due to patient's severe cardiomyopathy. Discontinue Aldactone Continue decreased dose of Lasix 40 mg twice a day Continue to monitor orthostatic blood pressures every shift Further recommendations pending patient course Nurse practitioner note has been reviewed by physician. Signing provider agrees with the documented findings, assessment, and plan of care documented by SOCIAL SCIENCE MANAGER as a scribe. Objective - Vital Signs Vital signs: Vital Signs Temp 97.4 F L 11/26/23 07:00 Pulse 71 11/26/23 12:15 Resp 21 11/26/23 08:00 BP 91/52 11/26/23 12:15 Pulse Ox 91 L 11/26/23 07:00 FiO2 Intake & Output 11/25/23 11/26/23 11/26/23 18:59 06:59 18:59 Intake Total 236 1040 0 Balance 236 1040 0 Weight 130.3 kg Intake: Oral 236 1040 0 Other: Voiding Method Toilet Toilet # Voids 3 3 - Labs CBC & Chem 7: 11/23/23 15:23 11/26/23 09:35 Labs: Abnormal Lab Results - Last 24 Hours (Table) 11/25/23 11/26/23 Range/Units 12:28 09:35 Potassium 3.3 L (3.5-5.1) mmol/L Carbon Dioxide 32 H (22-30) mmol/L Creatinine 1.28 H 1.26 H (0.66-1.25) mg/dL Glucose 105 H 107 H (74-99) mg/dL
[2023-11-26] MEDS: SACUBITRIL/VALSARTAN 24 MG-26 MG TABLET PO SCH (19:52)
--- NOTE | 2023-11-27 11:09 | P.PN ---
Subjective HISTORY OF PRESENT ILLNESS: This is a 63-year-old male that follows at the [facility]. Patient is admitted to the hospital secondary to shortness of breath and dizziness. Patient was found to have orthostatic hypotension. Patient examined this morning at the bedside. Patient currently denies chest pain or pressure. He denies shortness of breath. He does report that he feels dizzy when ambulating. He continues to have positive orthostatic blood pressures. 11/26/2023 Patient examined this morning. He is sitting up in the chair. Patient currently denies chest pain or pressure. He denies shortness of breath. Patient's orthostatics remain positive although improving from yesterday. Primary medicine discontinued patient's Entresto. 11/27/2023 Patient examined this morning at the bedside. Patient currently denies any chest pain or pressure. He denies any shortness of breath. He states that he is not feeling much better overall compared to when he came into the hospital. Orthostatic blood pressures are improved this morning compared to admission. Blood pressure supine 106/70, blood pressure sitting 102/67, blood pressure standing 91/52. PHYSICAL EXAM: VITAL SIGNS: Reviewed. GENERAL: Well-developed in no acute distress. NECK: Supple. No JVD or thyromegaly LUNGS: Respirations even and unlabored. Lungs diminished. HEART: Regular rate and rhythm. S1 and S2 heard. EXTREMITIES: Normal range of motion. No clubbing or cyanosis. Peripheral pulses intact. No lower extremity edema ASSESSMENT: Orthostatic hypotension Heart failure with reduced EF, 20%, currently euvolemic Acute kidney injury Nonischemic cardiomyopathy History of ICD implantation Persistent atrial fibrillation History of obstructive sleep apnea Hypertension Hyperlipidemia PLAN: Continue current cardiac medications Orthostatic blood pressures have overall improved since admission Patient is stable for discharge home today from a cardiac standpoint We will sign off. Please reconsult if needed. Nurse practitioner note has been reviewed by physician. Signing provider agrees with the documented findings, assessment, and plan of care documented by AIRCRAFT PAINTER APPRENTICE as a scribe. Objective - Vital Signs Vital signs: Vital Signs Temp 97.6 F 11/27/23 08:00 Pulse 63 11/27/23 08:00 Resp 16 11/27/23 08:00 BP 106/70 11/27/23 08:00 Pulse Ox 94 L 11/27/23 08:00 FiO2 Intake & Output 09/11/27/23 11/27/23 18:59 06:59 18:59 Intake Total 638 240 118 Balance 638 240 118 Weight 130.9 kg Intake: Oral 638 240 118 Other: Voiding Method Toilet Toilet # Voids 2 - Labs CBC & Chem 7: 11/23/23 15:23 11/26/23 09:35
[2023-11-27] MEDS: ONDANSETRON 4 MG/2 ML VIAL IVP PRN (12:20)
[2023-11-27] MEDS: buPROPion SR 150 MG TABLET.ER PO SCH (21:17)
[2023-11-28 07:43] VITALS: RESP 17; TEMP 97.6
[2023-11-28 12:47] VITALS: BP 105/64; PULSE 64
--- NOTE | 2023-11-28 13:35 | CA ---
Transthoracic Echo Report Name: Vance Lee Age: 63 Gender: M : 1960 Exam Date: 11/28/2023 10:57 Exam Location: [facility] Ht (in): 73 Wt (lb): 288 Ordering Physician: Marcelino Trujillo MD Attending/Referring Phys: Ronnie MILES Furnace Worker Winnie Gonzalez, RDMICHELLE Procedure CPT: Indications: CHF, AF, cardiomyopathy Cardiac Hx: CHF, A-FIB, Cardiomyopathy Technical Quality: Poor, Technically difficult study Contrast 1: Definity Total Dose (mL): 2 Contrast 2: Total Dose (mL): MEASUREMENTS (Male / Female) Normal Values 2D ECHO LV Diastolic Diameter PLAX 6.8 cm 4.2 - 5.9 / 3.9 - 5.3 cm LV Systolic Diameter PLAX 6.4 cm IVS Diastolic Thickness 1.2 cm 0.6 - 1.0 / 0.6 - 0.9 cm LVPW Diastolic Thickness 1.2 cm 0.6 - 1.0 / 0.6 - 0.9 cm LV Relative Wall Thickness 0.4 RV Internal Dim ED PLAX 3.1 cm Aortic Root Diameter 3.4 cm LA Systolic Diameter LX 6.5 cm 3.0 - 4.0 / 2.7 - 3.8 cm M-MODE Aortic Root Diameter MM 3.8 cm LA Systolic Diameter MM 5.6 cm LA Ao Ratio MM 1.5 AV Cusp Separation MM 2.2 cm DOPPLER AV Peak Velocity 124.1 cm/s AV Peak Gradient 6.2 mmHg AV Mean Velocity 98.6 cm/s AV Mean Gradient 4.1 mmHg AV Velocity Time Integral 25.9 cm MV E' Velocity 4.0 cm/s TR Peak Velocity 209.2 cm/s TR Peak Gradient 17.5 mmHg Right Ventricular Systolic Press 27.5 mmHg FINDINGS Left Ventricle Left ventricular ejection fraction is estimated at 20-25 %. Mildly increased septal wall thickness. Moderately increased left ventricular diastolic diameter. Severely reduced global left ventricular systolic function. Right Ventricle Right ventricle not well visualized. Right ventricular systolic pressure within normal limits. Right Atrium Severe right atrial dilatation. Catheter/pacemaker wire in the right atrial cavity. Left Atrium Severely increased left atrial diameter. Mitral Valve Mitral valve not well visualized. Mild mitral regurgitation. No mitral stenosis. Aortic Valve Trileaflet aortic valve. No aortic valve stenosis or regurgitation. Tricuspid Valve Structurally normal tricuspid valve. Mild tricuspid regurgitation. No tricuspid stenosis. Pulmonic Valve Structurally normal pulmonic valve. Mild pulmonic regurgitation. No pulmonic stenosis. Pericardium No pericardial or pleural effusion. Aorta Mild aortic dilatation at the level of the sinuses of valsalva (root). CONCLUSIONS Diagnosis: Congestive heart failure, atrial fibrillation Dilated LV with severe LV dysfunction ejection fraction less than 25% Severe biatrial enlargement No significant valvular abnormalities Technically difficult study with suboptimal acoustic windows, Definity contrast used Previewed by: Dr. John Pickett MD (Electronically Signed) Final Date: 28 November 2023 13:34
--- NOTE | 2023-11-28 14:49 | PN ---
PROGRESS NOTE CHIEF COMPLAINT: Orthostatic hypotension and heart failure. HISTORY OF PRESENT ILLNESS: This gentleman is doing fairly well, but he is still having orthostatic episodes. PHYSICAL EXAMINATION: CHEST: Clear. CARDIAC: Normal. ABDOMEN: Soft and slightly protuberant. EXTREMITIES: Normal. IMPRESSION: 1. Congestive heart failure. 2. Episodes of hypotension. 3. Cardiomyopathy. PLAN: Try stopping Entresto to see if his blood pressure holds up against orthostatic symptoms. MMODL / IJN: [id number] /
--- NOTE | 2023-11-28 14:49 | PN ---
PROGRESS NOTE CHIEF COMPLAINT: Cardiomyopathy, congestive heart failure, orthostatic hypotension. HISTORY OF PRESENT ILLNESS: This gentleman is still getting lightheaded and orthostatic when he stands up. He has had no pain. PHYSICAL EXAMINATION: CHEST: Clear. CARDIAC: Unchanged. ABDOMEN: Soft, nontender. EXTREMITIES: There is no edema. IMPRESSION: 1. Orthostatic hypotension and dizziness. 2. Atherosclerotic cardiomyopathy. PLAN: Decrease medications and his Entresto will be stopped. He has lost a great deal of weight, which is likely the explanation for his drop in blood pressure. MMODL / IJN: [id number] /
--- NOTE | 2023-11-28 14:51 | PN ---
PROGRESS NOTE DATE OF SERVICE: 11/27/2023 CHIEF COMPLAINT: Orthostatic hypotension, cardiomyopathy, and CHF. HISTORY OF PRESENT ILLNESS: This gentleman is fairly stable, but feels concerned about his heart rhythm. He feels he is having episodes of rapid heart beating with his atrial fibrillation. Blood pressure is slightly improved off the Entresto. PHYSICAL EXAM: CHEST: Quite clear. CARDIAC: Reveals atrial fibrillation with a rate of around 90. ABDOMEN: Soft, nontender. EXTREMITIES: There is no edema. IMPRESSION: 1. Orthostatic hypotension. 2. Cardiomyopathy. 3. Congestive heart failure. PLAN: Repeat his echocardiogram and cancel discharge for today. MMODL / IJN: [id number] /
--- NOTE | 2023-11-29 06:16 | DS ---
DISCHARGE SUMMARY CHIEF COMPLAINT: Lightheadedness, dizziness, and heart failure. HISTORY OF PRESENT ILLNESS AND PHYSICAL EXAMINATION: Details of this man's history and physical can be found in the initial workup. LABORATORY STUDIES: While he was in the hospital, he had laboratory studies, details of which can be found in the laboratory section of his chart. COURSE IN THE HOSPITAL: After admission, he was placed on bedrest, started on intravenous fluids and serial EKGs and enzymes which were normal. He is a problem is probably more related to orthostasis than anything. He has been losing weight and his blood pressure is probably responding. He did drop his blood pressure when standing. Entresto was stopped and his blood pressures seemed to be rising slightly. It was felt that he could go home and be followed up in the office. FINAL DIAGNOSES: 1. Orthostatic hypotension. 2. Chronic congestive heart failure. 3. Atherosclerotic cardiomyopathy. 4. Atrial fibrillation. 5. Chronic low back pain. 6. Depression. OPERATIONS: None. CONSULTATIONS: Cardiology, he is improved. MMODL / IJN: [id number] /
== END 2023-11-28 13:52 | disposition home or self-care (01) | DRG 194 ==
LOC: EC 14:20 → 6NMEDSUR 18:12 → OBSVTOIN 11-26 12:16
PROVIDERS: ADMIT Family Medicine; ATTEND Family Medicine
DX: I11.0 Hypertensive heart disease with heart failure (principal); E66.9 Obesity, unspecified; I50.23 Acute on chronic systolic (congestive) heart failure; Z68.38 Body mass index [BMI] 38.0-38.9, adult; I48.19 Other persistent atrial fibrillation; G89.29 Other chronic pain; I42.8 Other cardiomyopathies; N17.9 Acute kidney failure, unspecified; E78.5 Hyperlipidemia, unspecified; E86.0 Dehydration; I95.1 Orthostatic hypotension; I25.10 Atherosclerotic heart disease of native coronary artery without angina pectoris; Z79.01 Long term (current) use of anticoagulants; Z79.84 Long term (current) use of oral hypoglycemic drugs; Z79.899 Other long term (current) drug therapy; Z95.810 Presence of automatic (implantable) cardiac defibrillator
CPT/HCPCS: 36415; 71046; 80048; 80053; 81001; 83605; 83735; 83880; 84484; 85025; 85610; 85730; 87636; 93005; 93306; 96374; 99285

== ENCOUNTER 2023-12-01 12:49 | Observation (INO) | payer OTHER ==
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
[2023-12-01 14:24] LABS: Basophils % (A) 1 %; Eosinophils # (A) 0.2 k/uL (0-0.7); Eosinophils % (A) 3 %; HCT 52.2 % (39.0-53.0); HGB 17.2 gm/dL (13.0-17.5); Lymphocytes # (A) 0.7 k/uL (1.0-4.8); Lymphocytes % (A) 14 %; MCH 29.9 pg (25.0-35.0); MCV 90.7 fL (80.0-100.0); Mean Platelet Volume 8.5; Monocytes # (A) 0.5 k/uL (0-1.0); Monocytes % (A) 9 %; Neutrophils # (A) 3.7 k/uL (1.3-7.7); Neutrophils % (A) 72 %; Platelet Count 170 k/uL (150-450); RBC 5.76 m/uL (4.30-5.90); RDW 14.9 % (11.5-15.5); WBC 5.2 k/uL (3.8-10.6)
[2023-12-01 14:32] LABS: ALT 41 U/L (4-49); AST 36 U/L (17-59); African American GFR (CKD) 84 (>60 ml/min/1.73 sqM); Albumin 4.2 g/dL (3.5-5.0); Alkaline Phosphatase 108 U/L (38-126); Anion Gap 5 mmol/L; Blood Urea Nitrogen 17 mg/dL (9-20); Calcium 9.4 mg/dL (8.4-10.2); Carbon Dioxide 28 mmol/L (22-30); Chloride 105 mmol/L (98-107); Glucose 98 mg/dL (74-99); INR 1.1 (<1.2); Magnesium 1.7 mg/dL (1.6-2.3); Non-African American GFR(CKD) 72 (>60 ml/min/1.73 sqM); Partial Thromboplastin Time 25.7 sec (22.0-30.0); Potassium 3.2 mmol/L (3.5-5.1); Prothrombin Time 11.7 sec (10.0-12.5); Sodium 138 mmol/L (137-145); Total Bilirubin 1.6 mg/dL (0.2-1.3); Total Protein 6.6 g/dL (6.3-8.2)
[2023-12-01 14:41] LABS: NT-Pro-B-Type Natriuretic Pept 1340 pg/mL
[2023-12-01 14:48] LABS: T4, Free (Free Thyroxine) 2.22 ng/dL (0.78-2.19)
--- NOTE | 2023-12-01 17:08 | XR ---
EXAMINATION TYPE: XR chest 2V DATE OF EXAM: 12/01/2023 2:58 PM CLINICAL INDICATION:Male, 63 years old with history of Weakness; [facility] COMPARISON: 11/23/2023 and before TECHNIQUE: XR chest 2V. Frontal and lateral views of the chest.. FINDINGS: Lines/Tubes/Devices: Stable left chest dual-lead pacemaker. Monitor leads over the chest. Heart/mediastinum: Heart size upper normal. Stable cardiomediastinal silhouette. Mildly tortuous ao rta. Pulmonary vascularity: Not increased, Lungs/Pleura: Mildly coarsened appearing interstitial markings likely chronic changes. Interval improved aeration o f the left lung base with better visualization of the cardiac margin and left hemidiaphragm. Musculoskeletal: No acute osseous abnormality demonstrated in the limits of the exam. Other findings: None. IMPRESSION: Interval improved aeration at the left lung base. No acute finding. [facility], , 12/01/2023 5:05 PM
[2023-12-01] MEDS ORDERED: NALOXONE 0.4 MG/ML 1 ML VIAL IV PRN (17:21)
[2023-12-01] MEDS: POTASSIUM CHLORIDE ER 20 MEQ TAB.ER PO STA (17:51)
[2023-12-01] MEDS: MECLIZINE 12.5 MG TAB PO STA (17:51)
[2023-12-01] MEDS: METOCLOPRAMIDE 5 MG/ML 2 ML VIAL IVP STA (17:52)
[2023-12-01] MEDS: HYDROcodone/APAP 10-325MG 1 EACH TAB PO PRN (17:52)
[2023-12-02 09:02] LABS: Basophils # (A) 0.08 X 10*3/uL (0.00-0.10); Basophils % (A) 1.9 %; Eosinophils # (A) 0.26 X 10*3/uL (0.04-0.35); Eosinophils % (A) 6.1 %; HCT 48.1 % (39.6-50.0); HGB 16.2 g/dL (13.0-17.0); Lymphocytes % (A) 23.4 %; MCH 30.1 pg (27.0-32.0); MCHC 33.7 g/dL (32.0-37.0); MCV 89.4 FL (80.0-97.0); Mean Platelet Volume 11.9 FL (9.5-12.2); Monocytes # (A) 0.54 X 10*3/uL (0.20-1.00); Monocytes % (A) 12.6 %; NRBC Per 100 WBC 0 X 10*3/uL (0.00-0.01); Neutrophils # (A) 2.38 X 10*3/uL (1.80-7.70); Neutrophils % (A) 55.8 %; Platelet Count 137 X 10*3/uL (140-440); RBC 5.38 X 10*6/uL (4.40-5.60); RDW 15.4 % (11.5-14.5); WBC 4.27 X 10*3/uL (4.50-10.00)
[2023-12-02 09:10] LABS: BUN/Creat Ratio 11.91 Ratio (12.00-20.00); Blood Urea Nitrogen 13.1 mg/dL (9.0-27.0); Calcium 8.8 mg/dL (8.7-10.3); Carbon Dioxide 26.9 mmol/L (21.6-31.8); Chloride 103 mmol/L (96-109); Glucose 85 mg/dL (70-110); Sodium 142 mmol/L (135-145)
[2023-12-02] MEDS: ATORVASTATIN 80 MG TAB PO SCH (10:12)
[2023-12-02] MEDS: POTASSIUM CHLORIDE ER 10 MEQ TAB.ER.PRT PO SCH (10:12)
[2023-12-02] MEDS: APIXABAN 5 MG TAB PO SCH (10:13)
[2023-12-02] MEDS: DAPAGLIFLOZIN PROPANEDIOL 10 MG TABLET PO SCH (10:13)
[2023-12-02] MEDS: MAGNESIUM OXIDE 400 MG TAB PO SCH (10:13)
[2023-12-02] MEDS: AMIODARONE 200 MG TAB PO SCH (10:13)
[2023-12-02] MEDS: FUROSEMIDE 40 MG TAB PO SCH (10:13)
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
[2023-12-02] MEDS: NYSTATIN 100,000 UNIT/GM POWD 15 GM TOPICAL STA (12:24)
[2023-12-02] MEDS: MIDODRINE 5 MG TAB PO SCH (13:46)
[2023-12-02] MEDS: METOPROLOL SUCCINATE (ER) 25 MG TAB.ER.24H PO SCH (13:46)
[2023-12-03] MEDS: ACETAMINOPHEN TAB 325 MG TAB PO PRN (20:05)
--- NOTE | 2023-12-04 07:16 | P.PN ---
Subjective Progress Note Date: 12/03/23 Reason for Consult (text): Dizziness History of present illness: This is a 63-year-old male with past medical history of heart failure with reduced EF of 30%, nonischemic cardiomyopathy, status post ICD implantation, persistent atrial fibrillation, obstructive sleep apnea, hypertension, hyperlipidemia. Patient follows with a garden machinery mechanic at [facility]. He had a recent hospitalization at [facility] on 11/25 - 11/27 and at that time was seen by cardiology for orthostatic hypotension. Patient states that he has complaints of headache, nausea, uneasy feeling when he is getting up to walk and feels unstable. No chest pain. His initial blood pressure was 98/61. Repeat blood pressure at this time is 120/71, heart rate 77 and pulse ox 98% on room air. EKG: Atrial fibrillation at 86 bpm Chest x-ray: Interval improvement of aeration of the left lung base. No acute finding. Laboratory studies: WBC 4.2, hemoglobin 16.2, platelet count 137. Troponin negative x 3. proBNP 1340. Potassium 3, BUN 13 creatinine 1.1. Home cardiac medications: Amiodarone 200 mg daily, Eliquis 5 mg twice daily, atorvastatin 80 mg daily, Farxiga 10 mg daily, Lasix 40 mg twice daily, magnesium oxide 400 mg daily, Toprol XL 12.5 mg daily at noon, potassium chloride 10 mill equivalents twice daily, Nitrostat as needed, spironolactone 25 mg daily Echocardiogram performed on 11/28/2023 revealed dilated LV with severe LV dysfunction, EF less than 25%, severe biatrial enlargement, no significant valvular abnormalities. Technically difficult study with suboptimal acoustic windows, Definity contrast was used. Cardiac catheterization history 07/01/2019 revealed mild to moderate disease in the RCA, no significant disease in the other vessels, codominant system. Dual-chamber ICD [facility] implantation 09/19/202212/02 Patient is seen today in follow-up on the observation unit. He states he is feeling a little bit better today. Yesterday he was started on midodrine 5 mg 3 times daily. He has been instructed to gradually move to a standing position and also FABIENNE hose ordered. Plan is to increase ambulation and if patient is doing well, discharge home today. Orthostatic vital signs obtained this morning are negative. Blood pressure 121/77, heart rate 69, pulse ox 95% on room air. No repeat blood work for today. Physical examination: Gen: This is a 63-year-old male in no acute distress VS: reviewed HEENT: Head is atraumatic, normocephalic. Pupils equal, round. Sclerae is anicteric. NECK: Supple. No JVD. LUNGS: Clear to auscultation. No wheezes or rhonchi. No intercostal retractions. HEART: Irregular rate and rhythm. No murmur. ABDOMEN: Soft No tenderness. EXTREMITIES: No pedal edema. No calf tenderness. NEUROLOGICAL: Patient is awake, alert and oriented x3. Assessment: Dizziness secondary to orthostatic changes Chronic systolic heart failure Nonischemic cardiomyopathy status post ICD implantation Persistent atrial fibrillation Obstructive sleep apnea Hypertension Hyperlipidemia Plan: Continue patient's home cardiac medications with the following changes: Reduce frequency of Lasix 40 mg to once daily Hold Aldactone No need to repeat echocardiogram as this was done last week Patient is cleared for discharge and may follow up with his primary garden machinery mechanic in 1 to 2 weeks. Cardiology will sign off this case and follow on an as-needed basis. Please reconsult for any new concerns. Nurse practitioner note has been reviewed, I agree with documented findings and plan of care. Patient was seen and examined. Objective - Vital Signs Vital signs: Vital Signs Temp 98.6 F 12/04/23 01:37 Pulse 60 12/04/23 06:51 Resp 16 12/04/23 01:37 BP 129/78 12/04/23 06:51 Pulse Ox 95 12/04/23 01:37 FiO2 Intake & Output 12/03/23 12/04/23 12/04/23 18:59 06:59 18:59 Other: # Voids 3 3 - Labs CBC & Chem 7: 12/02/23 04:04 12/02/23 04:04
[2023-12-04 08:45] VITALS: TEMP 97.8
[2023-12-04 09:02] LABS: Basophils % (A) 1 %; Eosinophils # (A) 0.3 k/uL (0-0.7); Eosinophils % (A) 7 %; HCT 49.5 % (39.0-53.0); HGB 16.7 gm/dL (13.0-17.5); Lymphocytes # (A) 0.9 k/uL (1.0-4.8); Lymphocytes % (A) 18 %; MCH 30.8 pg (25.0-35.0); MCHC 33.8 g/dL (31.0-37.0); MCV 91.3 fL (80.0-100.0); Mean Platelet Volume 8.7; Monocytes # (A) 0.5 k/uL (0-1.0); Monocytes % (A) 9 %; Neutrophils # (A) 3.2 k/uL (1.3-7.7); Neutrophils % (A) 63 %; Platelet Count 127 k/uL (150-450); RBC 5.43 m/uL (4.30-5.90); RDW 15.4 % (11.5-15.5); WBC 5.1 k/uL (3.8-10.6)
[2023-12-04 09:21] LABS: ALT 41 U/L (4-49); AST 35 U/L (17-59); African American GFR (CKD) >90 (>60 ml/min/1.73 sqM); Albumin 3.6 g/dL (3.5-5.0); Alkaline Phosphatase 93 U/L (38-126); Anion Gap 5 mmol/L; Blood Urea Nitrogen 14 mg/dL (9-20); Calcium 9.1 mg/dL (8.4-10.2); Carbon Dioxide 31 mmol/L (22-30); Chloride 101 mmol/L (98-107); Glucose 91 mg/dL (74-99); Non-African American GFR(CKD) 79 (>60 ml/min/1.73 sqM); Potassium 3.4 mmol/L (3.5-5.1); Sodium 137 mmol/L (137-145); Total Bilirubin 1.4 mg/dL (0.2-1.3)
[2023-12-04 14:16] VITALS: BP 118/73; PULSE 75; RESP 18
[2023-12-04] MEDS ORDERED: ALBUTEROL NEBULIZED 2.5 MG/3 ML INHALATION PRN (16:19)
[2023-12-04] MEDS ORDERED: ONDANSETRON 4 MG TAB PO PRN (16:19)
[2023-12-04] MEDS ORDERED: buPROPion SR 150 MG TABLET.ER PO SCH (21:00)
[2023-12-04] MEDS ORDERED: busPIRone HCl 5 MG TAB PO SCH (22:00)
[2023-12-05] MEDS ORDERED: VENLAFAXINE HCL 37.5 MG TAB PO SCH (09:00)
[2023-12-05] MEDS ORDERED: SPIRONOLACTONE 25 MG TAB PO SCH (09:00)
--- NOTE | 2023-12-05 20:43 | PN ---
PROGRESS NOTE DATE OF SERVICE: 12/03/2023 CHIEF COMPLAINT: Orthostatic hypotension and dizziness. HISTORY OF PRESENT ILLNESS: This gentleman is still having orthostasis. Lasix has been dropped back to 40 mg once a day. He has had no chest pain. He has had no signs of heart failure. PHYSICAL EXAMINATION: CHEST: Demonstrates rales posteriorly at the bases. CARDIAC: Unchanged. ABDOMEN: Protuberant, soft. EXTREMITIES: There is no edema. IMPRESSION: 1. Orthostatic hypotension. 2. Atherosclerotic cardiomyopathy. PLAN: Continue to monitor his blood pressure. It is coming up and he should be able to go home soon. MMODL / IJN: [id number] /
--- NOTE | 2023-12-05 21:27 | PN ---
PROGRESS NOTE DATE OF SERVICE: 12/02/2023 CHIEF COMPLAINT: Shortness of breath, lightheadedness, and dizziness. HISTORY OF PRESENT ILLNESS: This gentleman is still feeling very lightheaded when he gets up or moves about. He was sent home without Entresto and he is still having episodes of hypotension. He denied chest pain. PHYSICAL EXAMINATION: CHEST: Clear. CARDIAC: Unremarkable. ABDOMEN: Soft and slightly protuberant. SKIN: Dry. IMPRESSION: 1. Orthostatic hypotension. 2. Chronic congestive heart failure. 3. Atherosclerotic cardiomyopathy. PLAN: 1. IV fluids. 2. Decrease Lasix. MMODL / IJN: [id number] /
--- NOTE | 2023-12-05 22:37 | HP ---
HISTORY AND PHYSICAL CHIEF COMPLAINT: Dizziness, lightheadedness, and orthostatic hypotension. HISTORY OF PRESENT ILLNESS: This gentleman is back in after being discharged several days ago. He has a chronic cardiomyopathy with a BNP running around 20%. He has been losing weight. He is a candidate for cardiac transplant in [place]. He has been having trouble with orthostatic dizziness and lightheadedness. He was in the hospital last week and his ARNI was stopped. He went home and was still having orthostatic symptoms. REVIEW OF SYSTEMS: He has had no chest pain, syncope, nausea, etc. Past medical history, family history, personal and social histories are all otherwise unremarkable and noncontributory and unchanged. PHYSICAL EXAMINATION: VITAL SIGNS: Blood pressure is 96/74 with a pulse of 80. Respirations were 15 and he is afebrile. GENERAL: He appeared to be obese. He was well hydrated. Color was good. HEAD, EARS, EYES, NOSE, MOUTH AND THROAT: Normal. CHEST: Demonstrated rales at the bases. CARDIAC: Demonstrated what sounded like atrial fibrillation. ABDOMEN: Protuberant, soft and nontender. EXTREMITIES: Normal. NEUROLOGIC: He is intact. He did have orthostatic hypotension on standing. IMPRESSION: 1. Orthostatic hypotension. 2. Dehydration. 3. Cardiomyopathy. 4. Chronic congestive heart failure. 5. Atrial fibrillation. PLAN: 1. Bedrest. 2. IV fluids. 3. Decrease Lasix dosage. MMMARY / LEIDY: [id number] /
--- NOTE | 2023-12-07 02:55 | DS ---
DISCHARGE SUMMARY CHIEF COMPLAINT: Lightheadedness and dizziness. HISTORY OF PRESENT ILLNESS AND PHYSICAL EXAM: Details of this man's history and physical can be found in the initial workup. LABORATORY STUDIES: While he was in the hospital, he had laboratory studies, details of which can be found in the laboratory section of his chart. COURSE IN THE HOSPITAL: After admission, he was placed on bedrest and started on intravenous fluids. He had frequent monitoring of his blood pressure. Lasix was decreased. His blood pressure did rise to where his systolic was running around 110 to 120. He felt better. He is stable and it was felt that he could be discharged on the . He will follow up in the office and that his congestive heart failure may return. FINAL DIAGNOSES: 1. Orthostatic hypotension, iatrogenic. 2. Chronic congestive heart failure. 3. Atherosclerotic cardiomyopathy. 4. Heart transplant candidate. 5. Depression. 6. Atrial fibrillation. OPERATIONS: None. CONSULTATIONS: None. He is improved. MMODL / NORRISN: [id number] /
[2024-01-03] MEDS ORDERED: CHOLECALCIFEROL 125 MCG (5000 IU) TABLET PO SCH (09:00)
== END 2023-12-04 19:10 | disposition home or self-care (01) ==
LOC: EC 12:49 → 6NMEDSUR 17:21 → 1SOBS 12-02 11:20
PROVIDERS: ADMIT Family Medicine; ATTEND Family Medicine
CPT/HCPCS: 36415; 71046; 80048; 80053; 83605; 83735; 83880; 84439; 84443; 84481; 84484; 85025; 85610; 85730; 93005; 94760; 96374; 99285

== ENCOUNTER 2024-01-19 18:36 | Observation (INO) | payer OTHER ==
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
[2024-01-19] MEDS: ASPIRIN 81 MG PO STA (19:22)
[2024-01-19 19:33] LABS: Basophils # (A) 0.1 k/uL (0-0.2); Basophils % (A) 1 %; Eosinophils # (A) 0.4 k/uL (0-0.7); Eosinophils % (A) 5 %; HCT 46.5 % (39.0-53.0); HGB 15.4 gm/dL (13.0-17.5); Lymphocytes # (A) 0.7 k/uL (1.0-4.8); Lymphocytes % (A) 10 %; MCH 31.4 pg (25.0-35.0); MCHC 33.1 g/dL (31.0-37.0); MCV 94.9 fL (80.0-100.0); Mean Platelet Volume 8.8; Monocytes # (A) 0.4 k/uL (0-1.0); Monocytes % (A) 6 %; Neutrophils # (A) 5.5 k/uL (1.3-7.7); Neutrophils % (A) 77 %; Platelet Count 134 k/uL (150-450); RDW 15.7 % (11.5-15.5); WBC 7.2 k/uL (3.8-10.6)
--- NOTE | 2024-01-19 19:42 | XR ---
EXAMINATION TYPE: XR chest 2V DATE OF EXAM: 01/19/2024 7:33 PM COMPARISON: None. CLINICAL INDICATION: Male, 63 years old with history of Chest Pain, TECHNIQUE: XR chest 2V view(s) obtained. FINDINGS: The heart size is normal. The pulmonary vasculature is normal. The lungs are clear. Pacemaker overlies left chest IMPRESSION: 1. No acute pulmonary process. [facility], , 01/19/2024 7:40 PM
[2024-01-19 19:48] LABS: ALT 23 U/L (4-49); AST 26 U/L (17-59); African American GFR (CKD) 79 (>60 ml/min/1.73 sqM); Albumin 3.8 g/dL (3.5-5.0); Alkaline Phosphatase 89 U/L (38-126); Amylase 58 U/L (30-110); Anion Gap 8 mmol/L; Blood Urea Nitrogen 23 mg/dL (9-20); Calcium 9.1 mg/dL (8.4-10.2); Carbon Dioxide 19 mmol/L (22-30); Chloride 110 mmol/L (98-107); Glucose 103 mg/dL (74-99); Lipase 153 U/L (23-300); Non-African American GFR(CKD) 68 (>60 ml/min/1.73 sqM); Potassium 4.1 mmol/L (3.5-5.1); Sodium 137 mmol/L (137-145); Total Bilirubin 0.9 mg/dL (0.2-1.3); Total Protein 6.2 g/dL (6.3-8.2)
[2024-01-19 19:49] LABS: INR 1.1 (<1.2); Partial Thromboplastin Time 26.2 sec (22.0-30.0); Prothrombin Time 11.6 sec (10.0-12.5)
[2024-01-19] MEDS ORDERED: ALBUTEROL NEBULIZED 2.5 MG/3 ML INHALATION PRN (20:09)
[2024-01-19] MEDS ORDERED: NITROGLYCERIN SL TABS 0.4 MG TAB SUBLINGUAL PRN (20:13)
[2024-01-19] MEDS ORDERED: NON FORMULARY DRUG (Cholecalciferol (Vitamin D3) [Vitamin D3 (1250 Mcg = 50,000 Iu)] 1,250 PO SCH (20:15)
[2024-01-19] MEDS: buPROPion SR 150 MG TABLET.ER PO SCH (20:50)
[2024-01-19] MEDS: APIXABAN 5 MG TAB PO SCH (20:50)
[2024-01-19] MEDS: POTASSIUM CHLORIDE ER 10 MEQ TAB.ER.PRT PO SCH (20:50)
[2024-01-19] MEDS: busPIRone HCl 5 MG TAB PO SCH (20:50)
[2024-01-19] MEDS: MORPHINE SULFATE 4 MG/ML SYRINGE IVP STA (20:51)
[2024-01-19] MEDS: ONDANSETRON 4 MG TAB PO PRN (23:43)
[2024-01-19] MEDS: HYDROcodone/APAP 10-325MG 1 EACH TAB PO PRN (23:43)
[2024-01-20] MEDS: PROCHLORPERAZINE INJ 10 MG/2 ML VIAL IVP PRN (04:17)
[2024-01-20 08:21] VITALS: TEMP 97.6
[2024-01-20] MEDS: ASPIRIN 325 MG TAB PO SCH (08:22)
[2024-01-20] MEDS: FUROSEMIDE 40 MG TAB PO SCH (08:23)
[2024-01-20] MEDS: SPIRONOLACTONE 25 MG TAB PO SCH (08:23)
[2024-01-20] MEDS: ATORVASTATIN 80 MG TAB PO SCH (08:23)
[2024-01-20] MEDS: AMIODARONE 200 MG TAB PO SCH (08:23)
[2024-01-20] MEDS: DAPAGLIFLOZIN PROPANEDIOL 10 MG TABLET PO SCH (08:23)
[2024-01-20] MEDS: VENLAFAXINE HCL 37.5 MG TAB PO SCH (08:24)
[2024-01-20] MEDS: MIDODRINE 5 MG TAB PO SCH (08:24)
[2024-01-20] MEDS: MAGNESIUM OXIDE 400 MG TAB PO SCH (08:24)
[2024-01-20 08:43] LABS: Chol/HDL Ratio 2.49 Ratio; LDL Cholesterol,Calculated 59.3 mg/dL (0.0-131.0); VLDL Calculation 11.44 mg/dL (5.00-40.00)
[2024-01-20 11:56] VITALS: BP 108/78
[2024-01-20] MEDS: METOPROLOL SUCCINATE (ER) 25 MG TAB.ER.24H PO SCH (11:56)
[2024-01-20 15:39] VITALS: PULSE 69; RESP 18
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
--- NOTE | 2024-01-23 03:34 | HP ---
HISTORY AND PHYSICAL CHIEF COMPLAINT: Chest pain. HISTORY OF PRESENT ILLNESS: This is another admission for this 63-year-old white male with atherosclerotic cardiomyopathy and stage IV heart disease with CHF. He presented to emergency room with chest pain which he has had on and off in the past. He has actually been doing a little bit better over the last year as he has lost weight and he has had fewer episodes of chest pain and acute congestive heart failure. He is in the heart transplant program at [facility]. He came to emergency room with a chest pain without any diaphoresis. He has had some shortness of breath. REVIEW OF SYSTEMS: Otherwise unremarkable. Past medical history, family history, and personal and social histories are all otherwise unremarkable or noncontributory and unchanged. PHYSICAL EXAMINATION: VITAL SIGNS: Blood pressure is 102/74 with a pulse of 80, respirations of 22, and he is afebrile. GENERAL: He appeared to be slightly overweight, in no acute distress. Skin color is normal. Skin is warm and dry. LYMPHATICS: Lymph nodes are not enlarged. HEAD, EARS, EYES, NOSE, MOUTH AND THROAT: Normal. NECK: Neck veins are not distended. Thyroid not enlarged. CHEST: Clear. CARDIAC: Demonstrates an S3 and S4. He is in atrial fibrillation. ABDOMEN: Protuberant, soft and nontender. EXTREMITIES: Normal. IMPRESSION: 1. Chest pain. 2. Acute coronary syndrome. 3. Advanced coronary artery disease. 4. Cardiomyopathy. 5. Congestive heart failure. PLAN: 1. Bed rest. 2. IV fluids. 3. Serial EKGs and enzymes. 4. Consult Cardiology. MMODL / IJN: [id number] /
--- NOTE | 2024-01-25 03:58 | DS ---
DISCHARGE SUMMARY CHIEF COMPLAINT: Chest pain. HISTORY OF PRESENT ILLNESS AND PHYSICAL EXAM: Details of this man's history and physical can be found in the initial workup. LABORATORY STUDIES: While he was in the hospital, he had laboratory studies, details of which can be found in the laboratory section of his chart. COURSE IN THE HOSPITAL: After admission, he was placed on bedrest, started on intravenous fluids and had serial EKGs and enzymes. He was seen by Cardiology. He was thought to be stable and it was felt he could be discharged. He will go home on his usual diet, activity and medications. He will follow up soon in the office. FINAL DIAGNOSES: 1. Chest pain. 2. Coronary artery disease. 3. Atherosclerotic cardiomyopathy. 4. Congestive heart failure. 5. Depression. OPERATIONS: None. CONSULTATION: Cardiology. He is improved. MMODL / IJN: [id number] /
--- NOTE | 2024-01-25 05:08 | PN ---
PROGRESS NOTE DATE OF SERVICE: 01/20/2024 CHIEF COMPLAINT: Chest pain. HISTORY OF PRESENT ILLNESS: This gentleman has been stable. Enzymes are normal. Pain is atypical. He has been seen by Cardiology. PHYSICAL EXAMINATION: CHEST: Clear. CARDIAC: Unchanged with his atrial fibrillation. ABDOMEN: Soft, nontender. IMPRESSION: 1. Chest pain. 2. Congestive heart failure. 3. Cardiomyopathy. PLAN: Increase activity and he might be released by Cardiology today. MMODL / IJN: [id number] /
== END 2024-01-20 18:33 | disposition home or self-care (01) ==
LOC: EC 18:36 → 6NMEDSUR 20:14
PROVIDERS: ADMIT Family Medicine; ATTEND Family Medicine
DX: R07.9 Chest pain, unspecified (principal); I24.9 Acute ischemic heart disease, unspecified; I25.10 Atherosclerotic heart disease of native coronary artery without angina pectoris; I42.8 Other cardiomyopathies; I50.22 Chronic systolic (congestive) heart failure; I48.19 Other persistent atrial fibrillation; I11.0 Hypertensive heart disease with heart failure; G47.33 Obstructive sleep apnea (adult) (pediatric); F32.A Depression, unspecified; F41.9 Anxiety disorder, unspecified; E78.5 Hyperlipidemia, unspecified; Z79.01 Long term (current) use of anticoagulants; Z79.84 Long term (current) use of oral hypoglycemic drugs; Z79.899 Other long term (current) drug therapy; Z88.8 Allergy status to other drugs, medicaments and biological substances; Z95.810 Presence of automatic (implantable) cardiac defibrillator
CPT/HCPCS: 96374; 99285; 36415; 93005 ×2; 85379; 80061; 80053; 82150; 83690; 83735; 84484 ×2; 85025; 85610; 85730; 71046; G0378 ×2; J2270; J0780; S0106 ×2

== ENCOUNTER 2024-02-12 11:59 | Observation (INO) | payer OTHER ==
[2024-02-12 12:09] VITALS: BP 139/98; PULSE 63; RESP 17; TEMP 97.6
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
[2024-02-12 12:35] LABS: Basophils % (A) 1 %; Eosinophils # (A) 0.4 k/uL (0-0.7); Eosinophils % (A) 6 %; HCT 47.8 % (39.0-53.0); HGB 15.2 gm/dL (13.0-17.5); Hypochromasia Slight; Lymphocytes # (A) 0.9 k/uL (1.0-4.8); Lymphocytes % (A) 13 %; MCH 31.4 pg (25.0-35.0); MCHC 31.7 g/dL (31.0-37.0); MCV 99.1 fL (80.0-100.0); Macrocytosis Slight; Mean Platelet Volume 8.8; Monocytes # (A) 0.5 k/uL (0-1.0); Monocytes % (A) 7 %; Neutrophils # (A) 4.7 k/uL (1.3-7.7); Neutrophils % (A) 71 %; Platelet Count 170 k/uL (150-450); RBC 4.83 m/uL (4.30-5.90); RDW 14.9 % (11.5-15.5); WBC 6.6 k/uL (3.8-10.6)
[2024-02-12 12:43] LABS: INR 1.2 (<1.2); Partial Thromboplastin Time 25.6 sec (22.0-30.0); Prothrombin Time 12.6 sec (10.0-12.5)
[2024-02-12 12:49] LABS: ALT 27 U/L (4-49); AST 26 U/L (17-59); African American GFR (CKD) 85 (>60 ml/min/1.73 sqM); Alkaline Phosphatase 95 U/L (38-126); Anion Gap 8 mmol/L; Blood Urea Nitrogen 21 mg/dL (9-20); Calcium 9.2 mg/dL (8.4-10.2); Carbon Dioxide 23 mmol/L (22-30); Chloride 108 mmol/L (98-107); Glucose 96 mg/dL (74-99); Magnesium 1.9 mg/dL (1.6-2.3); Non-African American GFR(CKD) 73 (>60 ml/min/1.73 sqM); Potassium 4.2 mmol/L (3.5-5.1); Sodium 139 mmol/L (137-145); Total Bilirubin 0.8 mg/dL (0.2-1.3); Total Protein 6.4 g/dL (6.3-8.2)
[2024-02-12 12:56] LABS: NT-Pro-B-Type Natriuretic Pept 6410 pg/mL
--- NOTE | 2024-02-12 13:01 | XR ---
EXAMINATION TYPE: XR chest 2V DATE OF EXAM: 02/12/2024 12:57 PM COMPARISON: Chest radiographs from 01/19/2024 TECHNIQUE: XR chest 2V Frontal and lateral views of the chest. CLINICAL INDICATION:Male, 63 years old with history of Chest Pain; FINDINGS: Lungs/Pleura: There is no evidence of focal consolidation, or pneumothorax. Trace bilateral pleural effusions. Pulmonary vascularity: Pulmonary vascular congestion. Heart/mediastinum: Cardiomediastinal silhouette is enlarged and stable. Atherosclerotic calcificatio ns are seen in the aorta. Two lead cardiac conduction device overlying the left hemithorax with lead tips projecting over the right ventricle and right atrium. Musculoskeletal: No acute osseous pathology. IMPRESSION: Cardiomegaly, pulmonary vascular congestion and bilateral trace pleural effusions. Correlate with BNP for congestive heart failure. [facility], , 02/12/2024 12:59 PM
[2024-02-12] MEDS: ONDANSETRON 4 MG/2 ML VIAL IVP STA (13:53)
[2024-02-12] MEDS: ASPIRIN 81 MG PO STA (13:53)
[2024-02-12] MEDS: FUROSEMIDE 10 MG/ML 4 ML VIAL IV STA (13:54)
[2024-02-12] MEDS ORDERED: ACETAMINOPHEN TAB 500 MG TAB PO STA (13:57)
[2024-02-12] MEDS ORDERED: IBUPROFEN 600 MG TAB PO STA (13:57)
[2024-02-12] MEDS: NITROGLYCERIN OINT 1 INCH/GM PACKET TOPICAL STA (13:58)
[2024-02-12] MEDS: KETOROLAC 15 MG/ML 1 ML VIAL IVP STA (14:26)
[2024-02-12] MEDS: HYDROcodone/APAP 10-325MG 1 EACH TAB PO ONE (14:59)
[2024-02-12] MEDS ORDERED: FUROSEMIDE 10 MG/ML 2 ML VIAL IV SCH (16:00)
[2024-02-12] MEDS ORDERED: ONDANSETRON 4 MG TAB PO PRN (19:58)
[2024-02-12] MEDS ORDERED: HYDROcodone/APAP 10-325MG 1 EACH TAB PO PRN (19:58)
[2024-02-12] MEDS ORDERED: ALBUTEROL NEBULIZED 2.5 MG/3 ML INHALATION PRN (19:58)
[2024-02-12] MEDS ORDERED: buPROPion SR 150 MG TABLET.ER PO SCH (20:00)
[2024-02-12] MEDS ORDERED: POTASSIUM CHLORIDE ER 10 MEQ TAB.ER.PRT PO SCH (21:00)
[2024-02-12] MEDS ORDERED: APIXABAN 5 MG TAB PO SCH (21:00)
[2024-02-12] MEDS ORDERED: busPIRone HCl 5 MG TAB PO SCH (22:00)
--- NOTE | 2024-02-13 02:05 | HP ---
HISTORY AND PHYSICAL CHIEF COMPLAINT: Shortness of breath. HISTORY OF PRESENT ILLNESS: This is another recent admission for this gentleman, who presented with a longstanding history of coronary artery disease and atherosclerotic cardiomyopathy. He has been referred to the Emergency Room in [place] and is being seen in the transplant department. He has been doing better since he has been losing weight over the last year. He was just in the hospital with chest pain and shortness of breath. He came back in with the same symptoms today. Troponin was mildly elevated. REVIEW OF SYSTEMS: He is short of breath. He denies any chest pain, fever, chills, cough, hemoptysis, syncope, etc. Past medical history, family history, personal and social histories are all otherwise unremarkable and unchanged from his recent admitting and discharge summaries. He has been taking his medications. PHYSICAL EXAMINATION: VITAL SIGNS: Blood pressure is 111/64 with a pulse of 83, respirations of 36, and he is afebrile. GENERAL: He appeared to be slightly short of breath. SKIN: Dry. HEAD, EARS, EYES, NOSE, MOUTH, AND THROAT: Normal. NECK: Neck veins could not be assessed. CHEST: Demonstrated decreased breath sounds with scattered rales throughout. CARDIAC: Demonstrated atrial fibrillation. ABDOMEN: Protuberant, soft and nontender. EXTREMITIES: Normal except for 2+ edema. ASSESSMENT: He is admitted to the hospital with diagnoses of, 1. Acute congestive heart failure. 2. Chronic congestive heart failure. 3. Atherosclerotic cardiomyopathy. 4. Coronary artery disease. 5. Atrial fibrillation. 6. Arthritis of LS spine. 7. Chronic kidney disease. PLAN: 1. Bed rest. 2. IV fluids. 3. Nasal O2. 4. Diuresis. MMODL / IJN: [id number] /
[2024-02-13] MEDS ORDERED: MIDODRINE 5 MG TAB PO SCH (07:30)
[2024-02-13] MEDS ORDERED: ATORVASTATIN 80 MG TAB PO SCH (09:00)
[2024-02-13] MEDS ORDERED: MAGNESIUM OXIDE 400 MG TAB PO SCH (09:00)
[2024-02-13] MEDS ORDERED: AMIODARONE 200 MG TAB PO SCH (09:00)
[2024-02-13] MEDS ORDERED: ASPIRIN 325 MG TAB PO SCH (09:00)
[2024-02-13] MEDS ORDERED: SPIRONOLACTONE 25 MG TAB PO SCH (09:00)
[2024-02-13] MEDS ORDERED: VENLAFAXINE HCL 37.5 MG TAB PO SCH (09:00)
[2024-02-13] MEDS ORDERED: NITROGLYCERIN OINT 1 INCH/GM PACKET TOPICAL SCH (18:00)
== END 2024-02-12 20:30 | disposition left against medical advice (07) ==
LOC: EC 11:59 → 3SCARD 13:54
PROVIDERS: ADMIT Family Medicine; ATTEND Family Medicine
DX: I50.9 Heart failure, unspecified (principal); I48.91 Unspecified atrial fibrillation; I25.10 Atherosclerotic heart disease of native coronary artery without angina pectoris; I42.8 Other cardiomyopathies; N18.9 Chronic kidney disease, unspecified; R79.89 Other specified abnormal findings of blood chemistry; M47.817 Spondylosis without myelopathy or radiculopathy, lumbosacral region; Z79.01 Long term (current) use of anticoagulants; Z79.84 Long term (current) use of oral hypoglycemic drugs; Z79.899 Other long term (current) drug therapy; Z88.8 Allergy status to other drugs, medicaments and biological substances; Z95.810 Presence of automatic (implantable) cardiac defibrillator; Z53.29 Procedure and treatment not carried out because of patient's decision for other reasons
CPT/HCPCS: 96374; 96375; 99285; 36415; 93005; 83880; 80053; 83735; 84484; 85025; 85610; 85730; 71046; G0378; J1940; J2405; J1885

== ENCOUNTER 2024-02-13 13:52 | Observation (INO) | payer OTHER ==
[2024-02-13] MEDS: ASPIRIN 81 MG PO STA (15:50)
[2024-02-13] MEDS: MORPHINE SULFATE 4 MG/ML SYRINGE IVP STA (15:51)
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
[2024-02-13] MEDS: KETOROLAC 15 MG/ML 1 ML VIAL IVP STA (15:55)
[2024-02-13 16:05] LABS: Basophils # (A) 0.1 k/uL (0-0.2); Basophils % (A) 1 %; Eosinophils # (A) 0.1 k/uL (0-0.7); Eosinophils % (A) 2 %; HCT 48.9 % (39.0-53.0); HGB 15.3 gm/dL (13.0-17.5); Hypochromasia Slight; Lymphocytes # (A) 0.6 k/uL (1.0-4.8); Lymphocytes % (A) 9 %; MCH 30.8 pg (25.0-35.0); MCHC 31.4 g/dL (31.0-37.0); Mean Platelet Volume 9.1; Monocytes # (A) 0.4 k/uL (0-1.0); Monocytes % (A) 6 %; Neutrophils % (A) 80 %; Platelet Count 171 k/uL (150-450); RBC 4.99 m/uL (4.30-5.90); RDW 14.8 % (11.5-15.5); WBC 6.2 k/uL (3.8-10.6)
[2024-02-13 16:16] LABS: INR 1.2 (<1.2); Partial Thromboplastin Time 25.8 sec (22.0-30.0); Prothrombin Time 12.4 sec (10.0-12.5)
[2024-02-13 16:21] LABS: ALT 26 U/L (4-49); AST 27 U/L (17-59); African American GFR (CKD) 87 (>60 ml/min/1.73 sqM); Albumin 4.4 g/dL (3.5-5.0); Alkaline Phosphatase 94 U/L (38-126); Anion Gap 7 mmol/L; Blood Urea Nitrogen 20 mg/dL (9-20); Calcium 9.5 mg/dL (8.4-10.2); Carbon Dioxide 22 mmol/L (22-30); Chloride 108 mmol/L (98-107); Glucose 117 mg/dL (74-99); Lipase 147 U/L (23-300); Magnesium 1.9 mg/dL (1.6-2.3); Non-African American GFR(CKD) 75 (>60 ml/min/1.73 sqM); Sodium 137 mmol/L (137-145); Total Bilirubin 1.5 mg/dL (0.2-1.3); Total Protein 6.8 g/dL (6.3-8.2)
--- NOTE | 2024-02-13 16:23 | XR ---
EXAMINATION TYPE: XR chest 2V DATE OF EXAM: 02/13/2024 4:09 PM COMPARISON: Chest radiographs from 02/12/2024 CLINICAL INDICATION: Male, 63 years old with history of Chest Pain; TECHNIQUE: XR chest 2V Frontal and lateral views of the chest. FINDINGS: Lungs/Pleura: No evidence of focal consolidation or pneumothorax. Blunting of the costophrenic angles is present. Pulmonary vascularity: Unremarkable. Heart/mediastinum: Cardiomediastinal silhouette is enlarged and stable. Two lead cardiac conduction d evice overlying the left hemithorax with lead tips projecting over the right ventricle and right atri um. Musculoskeletal: No acute osseous pathology. IMPRESSION: Cardiomegaly, pulmonary vascular congestion and bilateral pleural effusions. Correlate with BNP for c ongestive heart failure. [facility], , 02/13/2024 4:20 PM
[2024-02-13 16:26] LABS: NT-Pro-B-Type Natriuretic Pept 5830 pg/mL
[2024-02-13] MEDS ORDERED: NALOXONE 0.4 MG/ML 1 ML VIAL IV PRN (17:11)
[2024-02-13] MEDS: FUROSEMIDE 10 MG/ML 4 ML VIAL IV STA (18:26)
[2024-02-13] MEDS: ONDANSETRON 4 MG/2 ML VIAL IVP PRN (18:28)
[2024-02-13] MEDS: MORPHINE SULFATE 4 MG/ML SYRINGE IV PRN (18:29)
[2024-02-13] MEDS ORDERED: ALBUTEROL NEBULIZED 2.5 MG/3 ML INHALATION PRN (23:20)
[2024-02-13] MEDS ORDERED: HYDROcodone/APAP 10-325MG 1 EACH TAB PO PRN (23:20)
[2024-02-13] MEDS: APIXABAN 5 MG TAB PO SCH (23:39)
[2024-02-14] MEDS: buPROPion SR 150 MG TABLET.ER PO SCH (00:22)
[2024-02-14] MEDS: busPIRone HCl 5 MG TAB PO SCH (00:22)
[2024-02-14 05:59] VITALS: TEMP 97.5
[2024-02-14] MEDS: FUROSEMIDE 10 MG/ML 4 ML VIAL IV SCH (06:06)
[2024-02-14] MEDS: VENLAFAXINE HCL 37.5 MG TAB PO SCH (08:07)
[2024-02-14] MEDS: SPIRONOLACTONE 25 MG TAB PO SCH (08:08)
[2024-02-14] MEDS: MIDODRINE 5 MG TAB PO SCH (08:08)
[2024-02-14] MEDS: AMIODARONE 200 MG TAB PO SCH (08:08)
[2024-02-14] MEDS: DAPAGLIFLOZIN PROPANEDIOL 10 MG TABLET PO SCH (08:08)
[2024-02-14] MEDS: ATORVASTATIN 80 MG TAB PO SCH (08:08)
[2024-02-14] MEDS: ONDANSETRON 4 MG TAB PO PRN (08:13)
[2024-02-14 10:58] LABS: HGB 15.3 g/dL (13.0-17.0); MCH 30.5 pg (27.0-32.0); MCHC 31.2 g/dL (32.0-37.0); MCV 97.6 FL (80.0-97.0); Mean Platelet Volume 11.8 FL (9.5-12.2); NRBC Per 100 WBC 0 X 10*3/uL (0.00-0.01); Platelet Count 184 X 10*3/uL (140-440); RBC 5.02 X 10*6/uL (4.40-5.60); RDW 15.3 % (11.5-14.5); WBC 5.25 X 10*3/uL (4.50-10.00)
[2024-02-14 10:59] LABS: Basophils # (A) 0.11 X 10*3/uL (0.00-0.10); Basophils % (A) 2.1 %; Eosinophils # (A) 0.28 X 10*3/uL (0.04-0.35); Eosinophils % (A) 5.3 %; Lymphocytes # (A) 0.91 X 10*3/uL (0.90-5.00); Lymphocytes % (A) 17.3 %; Monocytes # (A) 0.69 X 10*3/uL (0.20-1.00); Monocytes % (A) 13.1 %; Neutrophils # (A) 3.24 X 10*3/uL (1.80-7.70); Neutrophils % (A) 61.8 %
[2024-02-14 11:10] LABS: ALT 23 U/L (10-49); AST 21 U/L (14-35); Albumin 4.2 g/dL (3.8-4.9); Albumin/Globulin Ratio 1.91 Ratio (1.60-3.17); Alkaline Phosphatase 93 U/L (41-126); BUN/Creat Ratio 12.46 Ratio (12.00-20.00); Blood Urea Nitrogen 16.2 mg/dL (9.0-27.0); Calcium 9.1 mg/dL (8.7-10.3); Carbon Dioxide 29.7 mmol/L (21.6-31.8); Chloride 100 mmol/L (96-109); Globulin 2.2 g/dL (1.6-3.3); Glucose 101 mg/dL (70-110); Potassium 3.7 mmol/L (3.5-5.5); Sodium 140 mmol/L (135-145); Total Bilirubin 0.7 mg/dL (0.3-1.2); Total Protein 6.4 g/dL (6.2-8.2)
[2024-02-14] MEDS: ONDANSETRON 4 MG ODT STARTER PACK 2 TAB BTL PO STA (12:48)
[2024-02-14 12:53] VITALS: BP 134/84; PULSE 70; RESP 18
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
--- NOTE | 2024-02-15 01:23 | HP ---
HISTORY AND PHYSICAL CHIEF COMPLAINT: Chest pain and shortness of breath with congestive heart failure. HISTORY OF PRESENT ILLNESS: It is another admission for this 63-year-old white male. He was just in the hospital 24 hours ago and signed out AMA. He came back again with chest discomfort and shortness of breath. He has end-stage atherosclerotic cardiomyopathy with an ejection fraction running around 20%. He is being evaluated at the [facility] for a possible heart transplant. In the emergency room, he was short of breath, but he had no diaphoresis. The blood pressure was stable. REVIEW OF SYSTEMS: Otherwise unremarkable. Past medical history, family history, and personal and social histories are all unchanged from his recent admitting and discharge summaries. PHYSICAL EXAMINATION: VITAL SIGNS: Blood pressure is at 98 systolically. HEAD, EARS, EYES, NOSE, MOUTH, AND THROAT: Normal. NECK: Veins are not distended. CHEST: Demonstrated scattered rales particularly at the bases. CARDIAC: Revealed atrial fibrillation with S3 and S4. ABDOMEN: Soft and nontender. EXTREMITIES: Normal. NEUROLOGICAL: Intact. DIAGNOSES: He is admitted to the hospital with diagnoses of; 1. Unstable angina pectoris. 2. Coronary artery disease. 3. Atherosclerotic cardiomyopathy. 4. Acute on chronic systolic and diastolic congestive heart failure. PLAN: 1. Bed rest. 2. IV fluids. 3. Serial EKGs and enzymes. 4. Diuresis. 5. Cardiology consult. MMODL / IJN: [id number] /
--- NOTE | 2024-02-15 06:26 | DS ---
DISCHARGE SUMMARY CHIEF COMPLAINT: Chest pain and congestive heart failure. HISTORY OF PRESENT ILLNESS AND PHYSICAL EXAM: Details of this man's history and physical can be found in the initial workup. LABORATORY STUDIES: While he was in the hospital, he had laboratory studies, details of which can be found in the laboratory section of his chart. COURSE IN THE HOSPITAL: After admission, he was placed on bedrest and started on intravenous fluids and he had serial EKGs and enzymes. He was seen by Cardiology. Studies were essentially negative and they felt that he could be discharged to outpatient followup. He will go home on his usual activity, diet, and medications and will follow up in the office in several days. FINAL DIAGNOSES: 1. Acute congestive heart failure. 2. Chronic congestive heart failure. 3. End-stage cardiomyopathy. 4. Coronary artery disease. 5. Atherosclerotic cardiovascular disease. 6. Atrial fibrillation. OPERATIONS: None. CONSULTATIONS: Cardiology. He is improved. MMODL / NORRISN: [id number] /
--- NOTE | 2024-02-17 08:15 | DS ---
DISCHARGE SUMMARY CHIEF COMPLAINT: Shortness of breath. HISTORY OF PRESENT ILLNESS AND PHYSICAL EXAMINATION: Details of this man's history and physical can be found in the initial workup. COURSE IN THE HOSPITAL: After admission, he was placed on bedrest, started on nasal O2 and diuretics. He was improved and then he signed out AMA. FINAL DIAGNOSES: 1. Acute congestive heart failure. 2. Chronic congestive heart failure. 3. Coronary artery disease. 4. Atherosclerotic cardiomyopathy. 5. Atrial fibrillation. 6. Depression. OPERATIONS: None. CONSULTATIONS: None. He signed out AMA. MMMARY / NORRISN: [id number] /
== END 2024-02-14 14:23 | disposition home or self-care (01) ==
LOC: EC 13:52 → 6NMEDSUR 17:12
PROVIDERS: ADMIT Family Medicine; ATTEND Family Medicine
DX: I11.0 Hypertensive heart disease with heart failure (principal); I50.43 Acute on chronic combined systolic (congestive) and diastolic (congestive) heart failure; I48.19 Other persistent atrial fibrillation; I25.110 Atherosclerotic heart disease of native coronary artery with unstable angina pectoris; I42.8 Other cardiomyopathies; E78.5 Hyperlipidemia, unspecified; G47.33 Obstructive sleep apnea (adult) (pediatric); G89.29 Other chronic pain; M54.2 Cervicalgia; F32.A Depression, unspecified; Z79.01 Long term (current) use of anticoagulants; Z79.899 Other long term (current) drug therapy; Z79.84 Long term (current) use of oral hypoglycemic drugs; Z88.8 Allergy status to other drugs, medicaments and biological substances; Z95.810 Presence of automatic (implantable) cardiac defibrillator
CPT/HCPCS: 96376 ×2; 96374; 96375; 99285; 36415; 93005; 83880; 80053 ×2; 83690; 83735; 84484; 85025 ×2; 85610; 85730; 71046; G0378 ×2; J2270 ×2; J1940 ×2; S0106; J2405 ×2; S0119

== ENCOUNTER 2024-02-27 11:51 | Observation (INO) | payer OTHER ==
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
[2024-02-27] MEDS: ONDANSETRON 4 MG/2 ML VIAL IVP STA (12:39)
[2024-02-27] MEDS: ASPIRIN 81 MG PO STA (12:39)
[2024-02-27] MEDS: NITROGLYCERIN SL TABS 0.4 MG TAB SUBLINGUAL STA ×3 (12:44→12:45)
[2024-02-27 12:49] LABS: Basophils % (A) 1 %; Eosinophils # (A) 0.1 k/uL (0-0.7); Eosinophils % (A) 1 %; HCT 47.2 % (39.0-53.0); HGB 15.1 gm/dL (13.0-17.5); Hypochromasia Slight; Lymphocytes # (A) 0.5 k/uL (1.0-4.8); Lymphocytes % (A) 5 %; MCHC 32.1 g/dL (31.0-37.0); MCV 96.8 fL (80.0-100.0); Mean Platelet Volume 9.1; Monocytes # (A) 0.7 k/uL (0-1.0); Monocytes % (A) 8 %; Neutrophils # (A) 7.3 k/uL (1.3-7.7); Neutrophils % (A) 84 %; Platelet Count 163 k/uL (150-450); RBC 4.88 m/uL (4.30-5.90); RDW 13.9 % (11.5-15.5); WBC 8.7 k/uL (3.8-10.6)
[2024-02-27 13:05] LABS: ALT 14 U/L (4-49); AST 27 U/L (17-59); African American GFR (CKD) >90 (>60 ml/min/1.73 sqM); Albumin 3.8 g/dL (3.5-5.0); Alkaline Phosphatase 85 U/L (38-126); Anion Gap 11 mmol/L; Blood Urea Nitrogen 17 mg/dL (9-20); Calcium 9.5 mg/dL (8.4-10.2); Carbon Dioxide 20 mmol/L (22-30); Chloride 106 mmol/L (98-107); Glucose 90 mg/dL (74-99); Non-African American GFR(CKD) >90 (>60 ml/min/1.73 sqM); Potassium 3.9 mmol/L (3.5-5.1); Sodium 137 mmol/L (137-145); Total Protein 6.4 g/dL (6.3-8.2)
[2024-02-27 13:08] LABS: INR 1.3 (<1.2); Partial Thromboplastin Time 29.3 sec (22.0-30.0); Prothrombin Time 13.4 sec (10.0-12.5)
--- NOTE | 2024-02-27 13:10 | XR ---
EXAMINATION TYPE: XR chest 2V DATE OF EXAM: 02/27/2024 1:06 PM COMPARISON: Chest radiographs from total 24 TECHNIQUE: XR chest 2V Frontal and lateral views of the chest. CLINICAL INDICATION:Male, 63 years old with history of Chest Pain; FINDINGS: Lungs/Pleura: Small bilateral pleural effusions. Patchy right lung airspace opacities. No pneumothora x. Pulmonary vascularity: Mild pulmonary vascular congestion. Heart/mediastinum: Cardiomediastinal silhouette is enlarged and stable. Two lead cardiac conduction d evice overlying the left hemithorax with lead tips projecting over the right ventricle and right atri um. Musculoskeletal: No acute osseous pathology. IMPRESSION: Cardiomegaly, pulmonary vascular congestion and bilateral small pleural effusions. Correlate with BNP for congestive heart failure. Additionally there is patchy right lung airspace opacities which may r epresent superimposed pneumonia versus pulmonary edema. [facility], , 02/27/2024 1:08 PM
[2024-02-27 13:13] LABS: NT-Pro-B-Type Natriuretic Pept 6610 pg/mL
[2024-02-27] MEDS: FUROSEMIDE 10 MG/ML 4 ML VIAL IV SCH (13:49)
[2024-02-27] MEDS: ASPIRIN 325 MG TAB PO STA (13:49)
[2024-02-27] MEDS: NITROGLYCERIN OINT 1 INCH/GM PACKET TOPICAL SCH (13:49)
[2024-02-27] MEDS: MORPHINE SULFATE 4 MG/ML SYRINGE IVP STA (14:56)
[2024-02-27] MEDS ORDERED: ALBUTEROL NEBULIZED 2.5 MG/3 ML INHALATION PRN (20:13)
[2024-02-27] MEDS: busPIRone HCl 5 MG TAB PO SCH (20:51)
[2024-02-27] MEDS: buPROPion SR 150 MG TABLET.ER PO SCH (20:51)
[2024-02-27] MEDS: APIXABAN 5 MG TAB PO SCH (20:52)
[2024-02-27] MEDS: POTASSIUM CHLORIDE ER 10 MEQ TAB.ER.PRT PO SCH (20:52)
[2024-02-27] MEDS: HYDROcodone/APAP 10-325MG 1 EACH TAB PO PRN (21:02)
[2024-02-27] MEDS: ACETAMINOPHEN TAB 325 MG TAB PO PRN (21:16)
[2024-02-28] MEDS: MIDODRINE 5 MG TAB PO SCH (06:12)
[2024-02-28] MEDS: ONDANSETRON 4 MG TAB PO PRN (07:59)
[2024-02-28] MEDS: AMIODARONE 200 MG TAB PO SCH (09:00)
[2024-02-28] MEDS: DAPAGLIFLOZIN PROPANEDIOL 10 MG TABLET PO SCH (09:00)
[2024-02-28] MEDS: ASPIRIN 325 MG TAB PO SCH (09:00)
[2024-02-28] MEDS: MAGNESIUM OXIDE 400 MG TAB PO SCH (09:00)
[2024-02-28] MEDS: ATORVASTATIN 80 MG TAB PO SCH (09:00)
[2024-02-28] MEDS: VENLAFAXINE HCL 37.5 MG TAB PO SCH (09:01)
[2024-02-28 12:05] VITALS: BMI 34.5
--- NOTE | 2024-02-28 21:25 | CONS ---
CONSULTATION CHIEF COMPLAINT: Chest pain. HISTORY OF PRESENT ILLNESS: Vance is a 63-year-old gentleman with history of nonischemic cardiomyopathy, persistent atrial fibrillation, severe LV systolic dysfunction, status post AICD, presented to hospital complaining of chest discomfort, which he states he gets anytime he is becoming fluid overloaded. He also has mild leg edema and some shortness of breath. Chest x-ray revealed pulmonary congestion. BNP is elevated consistent with a diagnosis of acute exacerbation of chronic systolic heart failure. The patient is currently being treated with IV diuretics with improvement in his symptoms. PAST MEDICAL HISTORY: Significant for nonischemic cardiomyopathy with severe LV systolic dysfunction, obstructive sleep apnea, persistent atrial fibrillation, hypertension, dyslipidemia. MEDICATIONS: At home include, 1. Amiodarone. 2. Eliquis 5 b.i.d. 3. Aldactone. 4. Lipitor. 5. Lasix. 6. Metoprolol. ALLERGIES: As charted. FAMILY HISTORY: Negative for premature coronary artery disease. SOCIAL HISTORY: Negative for current smoking, EtOH, or drug abuse. MEDICATIONS: Are as charted. REVIEW OF SYSTEMS: review of systems has been performed. Pertinents are as documented. PHYSICAL EXAMINATION: VITAL SIGNS: The patient is afebrile. Heart rate is 70 beats per minute. Blood pressure is 120/80, respiratory rate is 16. NECK: There is no jugular venous distention. Carotid upstroke is normal. There is no bruit. CHEST: Reveals good air entry bilaterally. HEART: Reveals first and second heart sounds. No gallop. No murmur. ABDOMEN: Soft, nontender. EXTREMITIES: Did not reveal any edema. Peripheral pulses are felt. ASSESSMENT: 1. Acute exacerbation of chronic systolic heart failure. 2. Dilated cardiomyopathy. 3. History of atrial fibrillation. PLAN: EKG shows atrial fibrillation with intraventricular conduction delay. He will continue his medications. Treat him with IV Lasix and if he is feeling better, may be home tomorrow. MMODL / IJN: [id number] /
[2024-02-29 12:07] LABS: African American GFR (CKD) 89 (>60 ml/min/1.73 sqM); Anion Gap 6 mmol/L; Blood Urea Nitrogen 17 mg/dL (9-20); Calcium 8.9 mg/dL (8.4-10.2); Carbon Dioxide 37 mmol/L (22-30); Chloride 96 mmol/L (98-107); Glucose 122 mg/dL (74-99); Non-African American GFR(CKD) 77 (>60 ml/min/1.73 sqM); Potassium 3.2 mmol/L (3.5-5.1); Sodium 139 mmol/L (137-145)
[2024-02-29] MEDS ORDERED: POTASSIUM CHLORIDE ER 20 MEQ TAB.ER PO SCH (21:00)
[2024-02-29] MEDS: POTASSIUM CHLORIDE ER 10 MEQ TAB.ER.PRT PO SCH (21:01)
[2024-03-01] MEDS: FUROSEMIDE 20 MG TAB PO SCH (07:59)
[2024-03-01 10:04] LABS: BUN/Creat Ratio 14.64 Ratio (12.00-20.00); Blood Urea Nitrogen 16.1 mg/dL (9.0-27.0); Carbon Dioxide 31.8 mmol/L (21.6-31.8); Chloride 96 mmol/L (96-109); Glucose 90 mg/dL (70-110); Potassium 3.4 mmol/L (3.5-5.5); Sodium 141 mmol/L (135-145)
[2024-03-02 08:59] LABS: Blood Urea Nitrogen 16.2 mg/dL (9.0-27.0); Calcium 9.4 mg/dL (8.7-10.3); Chloride 97 mmol/L (96-109); Glucose 94 mg/dL (70-110); Potassium 3.8 mmol/L (3.5-5.5); Sodium 139 mmol/L (135-145)
--- NOTE | 2024-03-02 09:09 | PN ---
PROGRESS NOTE SUBJECTIVE: Vance is a 63-year-old gentleman who is admitted to hospital with congestive heart failure exacerbation. He is feeling better. Potassium is low at 3.2. We will supplement it and change his Lasix to p.o. form. He is otherwise doing well. OBJECTIVE: GENERAL: Comfortable at rest. VITAL SIGNS: Stable. CHEST: Reveals good air entry bilaterally. HEART: Reveals first and second heart sounds. No gallop. EXTREMITIES: Did not reveal any edema. Peripheral pulses are felt. LABORATORY DATA: I do not have any labs from this morning. ASSESSMENT: Acute exacerbation of chronic congestive heart failure. PLAN: I will switch him to oral Lasix. We should be able to discharge him home today and outpatient followup arranged through our office. MMIVORYL / IJN: [id number] /
--- NOTE | 2024-03-02 09:09 | PN ---
PROGRESS NOTE SUBJECTIVE: Vance is a 63-year-old gentleman, who is admitted to the hospital with acute exacerbation of chronic systolic heart failure. He is feeling better this morning, but still not back to his normal self. He is on Eliquis, amiodarone, aspirin, Lipitor, Lasix 40 IV q.8 h., and nitro paste. PHYSICAL EXAMINATION: GENERAL: Comfortable at rest. VITAL SIGNS: Stable. CHEST: Good air entry bilaterally. HEART: First and second heart sounds. No gallop. EXTREMITIES: Did not reveal any edema. Peripheral pulses are felt. ASSESSMENT: Acute exacerbation of chronic systolic heart failure. PLAN: I will continue the IV Lasix for another day, and we will switch him to p.o. Lasix tomorrow. We will check his electrolytes, hopefully home tomorrow. MMODL / IJN: [id number] /
--- NOTE | 2024-03-02 09:11 | HP ---
HISTORY AND PHYSICAL CHIEF COMPLAINT: Shortness of breath. HISTORY OF PRESENT ILLNESS: This is another of many admissions for this 63-year-old man with stage IV heart disease with chronic congestive heart failure. He presented to the emergency room with shortness of breath, where he had BNP of over 6000. REVIEW OF SYSTEMS: He has had no significant chest pain. He has had no fever, chills. Remainder of his history is unremarkable. PHYSICAL EXAMINATION: VITAL SIGNS: Normal. CHEST: Demonstrates decreased breath sounds with scattered rales and rhonchi. CARDIAC: Demonstrates what sounds like sinus tachycardia. ABDOMEN: Soft, nontender. EXTREMITIES: Normal. IMPRESSION: 1. Acute congestive heart failure. 2. Chronic congestive heart failure. 3. Atherosclerotic cardiomyopathy. 4. Coronary artery disease. 5. Depression. PLAN: 1. Bed rest. 2. IV fluids. 3. Nasal O2. 4. Cardiology consult. 5. Diuresis. MMODL / IJN: [id number] /
--- NOTE | 2024-03-02 12:14 | PN ---
PROGRESS NOTE DATE OF SERVICE: 02/28/2024 CHIEF COMPLAINT: Congestive heart failure and shortness of breath. HISTORY OF PRESENT ILLNESS: This gentleman is still short of breath. The patient does not have any chest pain. He has had no syncope. His BNP is 6610. PHYSICAL EXAMINATION: LUNGS: He has rales at the bases posteriorly. CARDIAC: Unremarkable otherwise. ABDOMEN: Soft and nontender. EXTREMITIES: Normal. IMPRESSION: 1. Acute on chronic congestive heart failure. 2. Atherosclerotic cardiomyopathy. PLAN: Continue with efforts to diurese and readjust his medications. MMODL / IJN: [id number] /
--- NOTE | 2024-03-02 12:32 | PN ---
PROGRESS NOTE CHIEF COMPLAINT: Congestive heart failure. HISTORY OF PRESENT ILLNESS: This gentleman is doing a little bit better with diuresis. He is a little less short of breath. His potassium was low, however. PHYSICAL EXAMINATION: CHEST: Demonstrates he has scattered rales. CARDIAC: Reveals atrial fibrillation. IMPRESSION: 1. Acute on chronic congestive heart failure. 2. Coronary artery disease. 3. Atherosclerotic cardiomyopathy. 4. Hypokalemia. PLAN: Correct hypokalemia. MMODL / IJN: [id number] /
--- NOTE | 2024-03-02 12:44 | PN ---
PROGRESS NOTE CHIEF COMPLAINT: Congestive heart failure. HISTORY OF PRESENT ILLNESS: This gentleman is doing a little bit better. He is still somewhat short of breath, however. PHYSICAL EXAMINATION: CHEST: Demonstrates scattered rales. CARDIAC: Unremarkable except atrial fibrillation. ABDOMEN: Soft. Nontender. EXTREMITIES: Normal. IMPRESSION: 1. Acute on chronic congestive heart failure. 2. Coronary artery disease. 3. Cardiomyopathy. PLAN: Probably home tomorrow. We will repeat his potassium. MMODL / IJN: [id number] /
--- NOTE | 2024-03-02 13:13 | P.PN ---
Subjective HISTORY OF PRESENT ILLNESS: Patient examined this morning the bedside. Patient currently denies chest pain or pressure. He denies shortness of breath. He has been transition to oral diuretics. Vital signs are stable. He is hoping to be discharged home today. PHYSICAL EXAM: VITAL SIGNS: Reviewed. GENERAL: Well-developed in no acute distress. NECK: Supple. No JVD or thyromegaly LUNGS: Respirations even and unlabored. Lungs essentially clear to auscultation bilaterally. HEART: Irregular rate and rhythm. S1 and S2 heard. EXTREMITIES: Normal range of motion. No clubbing or cyanosis. Peripheral pulses intact. No lower extremity edema ASSESSMENT: Shortness of breath Acute on chronic heart failure with reduced EF, 25% Persistent atrial fibrillation PLAN: Continue current cardiac medications Patient is stable for discharge home today from a cardiac standpoint We will sign off. Please reconsult if needed. Nurse practitioner note has been reviewed by physician. Signing provider agrees with the documented findings, assessment, and plan of care documented by [employer] as a scribe. Objective - Vital Signs Vital signs: Vital Signs Temp 98.3 F 03/02/24 07:00 Pulse 72 03/02/24 07:00 Resp 16 03/02/24 07:00 BP 130/90 03/02/24 07:00 Pulse Ox 92 L 03/02/24 07:00 FiO2 Intake & Output 03/01/24 03/02/24 03/02/24 18:59 06:59 18:59 Intake Total 118 118 Balance 118 118 Weight 115.2 kg Intake: Oral 118 118 Other: Voiding Method Toilet Toilet # Voids 3 2 - Labs CBC & Chem 7: 02/27/24 12:36 03/02/24 06:01
[2024-03-03 13:55] VITALS: BP 133/79; PULSE 56; RESP 16; TEMP 98.3
--- NOTE | 2024-03-04 02:21 | DS ---
DISCHARGE SUMMARY CHIEF COMPLAINT: Chest pain and congestive heart failure. HISTORY OF PRESENT ILLNESS AND PHYSICAL EXAM: Details of this man's history and physical can be found in the initial workup. LABORATORY STUDIES: While he was in the hospital, he had laboratory studies, details of which can be found in the laboratory section of his chart. COURSE IN THE HOSPITAL: After admission, he was placed on bedrest, started on intravenous fluids and diuresis. He was seen by Cardiology. Shortness of breath improved. He had no significant problems with any further chest pain. His chest is clear. He is doing well and felt he could be discharged on the . FINAL DIAGNOSES: 1. Acute on chronic congestive heart failure. 2. Unstable angina pectoris. 3. Coronary artery disease. 4. Atherosclerotic cardiomyopathy. 5. Atrial fibrillation. OPERATIONS: None. CONSULTATION: Cardiology. He is improved. MMIVORYL / LEIDY: [id number] /
--- NOTE | 2024-03-04 03:05 | PN ---
PROGRESS NOTE DATE OF SERVICE: 03/02/2024 CHIEF COMPLAINT: Unstable angina and congestive heart failure. HISTORY OF PRESENT ILLNESS: This gentleman is doing a little bit better and his potassium is improved. He is still short of breath. PHYSICAL EXAMINATION: CHEST: Still demonstrates rales at the bases with occasional wheezing. CARDIAC: Reveals atrial fibrillation. ABDOMEN: Soft, nontender. IMPRESSION: 1. Acute congestive heart failure. 2. Chronic congestive heart failure. 3. Unstable angina. 4. Coronary artery disease. 5. Depression. PLAN: If he continues to improve, he could probably go home in the next day or 2. MMODL / IJN: [id number] /
[2024-03-04] MEDS ORDERED: FUROSEMIDE 40 MG TAB PO SCH (09:00)
== END 2024-03-03 17:36 | disposition home or self-care (01) ==
LOC: EC 11:51 → 6NMEDSUR 13:33
PROVIDERS: ADMIT Family Medicine; ATTEND Family Medicine
DX: I11.0 Hypertensive heart disease with heart failure (principal); I50.23 Acute on chronic systolic (congestive) heart failure; I25.110 Atherosclerotic heart disease of native coronary artery with unstable angina pectoris; I42.0 Dilated cardiomyopathy; I48.19 Other persistent atrial fibrillation; E87.6 Hypokalemia; F32.A Depression, unspecified; Z79.01 Long term (current) use of anticoagulants; Z79.84 Long term (current) use of oral hypoglycemic drugs; Z79.899 Other long term (current) drug therapy; Z88.8 Allergy status to other drugs, medicaments and biological substances; Z95.810 Presence of automatic (implantable) cardiac defibrillator
CPT/HCPCS: 96376 ×4; 96374; 96375; 99285; 36415; 93005 ×2; 85379; 83880; 80053; 80048 ×3; 83735; 84484; 85025; 85610; 85730; 71046; G0378 ×6; J2270; J1940 ×4; S0106 ×6; J2405